=== PATIENT | female | born 1955 | race American Indian/Alaskan Native ===

== ENCOUNTER 2018-09-04 02:29 | Emergency (ER) | payer OTHER ==
[~2018-09-04] VITALS: Ht 165.1 cm; Wt 68.0 kg
[~2018-09-04 02:29] MED LIST: AMOXICILLIN500 MG PO; CARAFATE1 GM/10 ML PO; CLARITHROMYCIN500 MG PO; GUAIFENESIN-CO118 ML PO; IBUPROFEN600 MG PO; LISINOPRIL10 MG PO; METFORMIN HCL500 MG PO; NORCO 5-325 TA1 EACH PO; OMEPRAZOLE20 MG PO; POTASSIUM CHLO10 MEQ PO; PROTONIX40 MG PO; ZOFRAN ODT4 MG PO
[2018-09-04] MEDS ORDERED: ALDACTONE25 MG PO (03:02)
[2018-09-04] MEDS ORDERED: MAGNESIUM OXID400 M2 PO (03:03)
[2018-09-04] MEDS ORDERED: FUROSEMIDE80 MG PO (03:04)
[2018-09-04] MEDS ORDERED: LIPITOR20 MG PO (03:04)
[2018-09-04] MEDS ORDERED: CARVEDILOL6.25 MG PO (03:04)
[2018-09-04] MEDS ORDERED: ASPIR-LOW81 MG PO (03:05)
--- NOTE | 2018-09-04 13:33 | EKG ---
[facility] [address] [facility] [place] [address] Signed Normal sinus rhythm Possible Left atrial enlargement Right bundle branch block Abnormal ECG When compared with ECG of 08-MAY-2018 12:34, Criteria for Inferior infarct are no longer present Nonspecific T wave abnormality, improved in Inferior leads Nonspecific T wave abnormality no longer evident in Lateral leads Confirmed by MARLENY PETERSON DO ([id number]) on 09/04/2018 1:32:48 PM Electronically Signed By: MARLENY PETERSON DO 09/04/18 1333 PATIENT NAME: BLAIR HELLER Electrocardiogram DATE OF : 59 PHYSICIAN: MARLENY PETERSON DO REPORT #: [id number] REPORT IS CONFIDENTIAL AND NOT TO BE RELEASED WITHOUT AUTHORIZATION
== END 2018-09-04 04:10 | disposition home or self-care (01) ==
LOC: ED 02:29
DX: I11.0 Hypertensive heart disease with heart failure (principal); I50.9 Heart failure, unspecified; J90 Pleural effusion, not elsewhere classified; E11.9 Type 2 diabetes mellitus without complications; Z79.899 Other long term (current) drug therapy; Z79.82 Long term (current) use of aspirin; Z99.2 Dependence on renal dialysis
CPT/HCPCS: 71045; 80053; 83690; 85025; 93005; 93010; 99285-25

== ENCOUNTER 2019-12-03 11:49 | Emergency (ER) | payer OTHER ==
[~2019-12-03] VITALS: Ht 165.1 cm; Wt 68.0 kg
--- OUTSIDE RECORDS SUMMARY | ~2019-12-03 | XMS | Encounter Summary ---
Demographics + + + | Address | [address] | | | [place] [address] | + + + | Home Phone | | + + + | Preferred Language | Unknown | + + + | Marital Status | Single | + + + | Synagogue Affiliation | 1074 | + + + | Race | Unknown | + + + | Ethnic Group | Unknown | + + + Author + + + | Author | [facility] | | | and [place] | + + + | Organization | [facility] | | | and [place] | + + + | Address | Unknown | + + + | Phone | Unavailable | + + + Support + + + + + | Name | Relationship | Address | Phone | + + + + + | Evelina Bryan Name | ECON | [place] | | | | | [address] | | + + + + + | Lizet Scott | ECON | Unknown | | + + + + + Care Team Providers + +------+ + | Care Brim Welt Sewing Machine Operator Name | Role | Phone | + +------+ + | Aida Knight PA-C | PCP | | + +------+ + Encounter Details +--------+ + + + + | Date | Type | Department | Care Team | Description | +--------+ + + + + | 05/29/ | Abstract | [facility] | Nasir Lester | | | 2017 | | NEPHROLOGY [address] | M, DO [address] | | | | | [address] | [place] | | | | | [place], [place] | [place], [place] | | | | | [address] | [address] | | | | | [phone] | | | +--------+ + + + + Social History + +-------+ +--------+------+ | Tobacco Use | Types | Packs/Day | Years | Date | | | | | Used | | + +-------+ +--------+------+ | Never Smoker | | | | | + +-------+ +--------+------+ + +---+---+---+ | Smokeless Tobacco: | | | | | Never Used | | | | + +---+---+---+ + + +---------+ + | Alcohol Use | Drinks/Week | oz/Week | Comments | + + +---------+ + | Yes | | | 1 drink per month | + + +---------+ + + + + | Sex Assigned at | Date Recorded | | | | + + + | Not on file | | + + + + + + + | Job Start Date | Occupation | Industry | + + + + | Not on file | Not on file | Not on file | + + + + + + + + | Travel History | Travel Start | Travel End | + + + + + + | No recent travel history available. | + + documented as of this encounter Plan of Treatment Not on filedocumented as of this encounter Procedures + +--------+ + + + | Procedure Name | Priori | Date/Time | Associated Diagnosis | Comments | | | ty | | | | + +--------+ + + + | EXTERNAL LAB: ESME | Kevin | 05/25/2018 | | Results for this | | | e | | | procedure are in the | | | | | | results section. | + +--------+ + + + | EXTERNAL LAB: | Routin | 05/25/2018 | | Results for this | | GLUCOSE | e | | | procedure are in the | | | | | | results section. | + +--------+ + + + | EXTERNAL LAB: ALT | Routin | 05/25/2018 | | Results for this | | | e | | | procedure are in the | | | | | | results section. | + +--------+ + + + | EXTERNAL LAB: AST | Routin | 05/25/2018 | | Results for this | | | e | | | procedure are in the | | | | | | results section. | + +--------+ + + + | EXTERNAL LAB: | Routin | 05/25/2018 | | Results for this | | ALKALINE PHOSPHATASE | e | | | procedure are in the | | | | | | results section. | + +--------+ + + + | EXTERNAL LAB: | Routin | 05/25/2018 | | Results for this | | BILIRUBIN, TOTAL | e | | | procedure are in the | | | | | | results section. | + +--------+ + + + | EXTERNAL LAB: | Routin | 05/25/2018 | | Results for this | | ALBUMIN | e | | | procedure are in the | | | | | | results section. | + +--------+ + + + | EXTERNAL LAB: | Routin | 05/25/2018 | | Results for this | | PROTEIN, TOTAL | e | | | procedure are in the | | | | | | results section. | + +--------+ + + + | EXTERNAL LAB: | Routin | 05/25/2018 | | Results for this | | PHOSPHORUS | e | | | procedure are in the | | | | | | results section. | + +--------+ + + + | EXTERNAL LAB: | Routin | 05/25/2018 | | Results for this | | CALCIUM | e | | | procedure are in the | | | | | | results section. | + +--------+ + + + | EXTERNAL LAB: CARBON | Routin | 05/25/2018 | | Results for this | | DIOXIDE | e | | | procedure are in the | | | | | | results section. | + +--------+ + + + | EXTERNAL LAB: | Routin | 05/25/2018 | | Results for this | | CHLORIDE | e | | | procedure are in the | | | | | | results section. | + +--------+ + + + | EXTERNAL LAB: | Routin | 05/25/2018 | | Results for this | | POTASSIUM | e | | | procedure are in the | | | | | | results section. | + +--------+ + + + | EXTERNAL LAB: SODIUM | Routin | 05/25/2018 | | Results for this | | | e | | | procedure are in the | | | | | | results section. | + +--------+ + + + | EXTERNAL LAB: | Routin | 05/25/2018 | | Results for this | | VITAMIN D, | e | | | procedure are in the | | 25-HYDROXY | | | | results section. | + +--------+ + + + | EXTERNAL LAB: PTH, | Routin | 05/25/2018 | | Results for this | | INTACT | e | | | procedure are in the | | | | | | results section. | + +--------+ + + + | EXTERNAL LAB: CBC | Routin | 05/25/2018 | | Results for this | | | e | | | procedure are in the | | | | | | results section. | + +--------+ + + + | EXTERNAL LAB: EGFR | Routin | 05/25/2018 | | Results for this | | | e | | | procedure are in the | | | | | | results section. | + +--------+ + + + | EXTERNAL LAB: | Routin | 05/25/2018 | | Results for this | | CREATININE | e | | | procedure are in the | | | | | | results section. | + +--------+ + + + documented in this encounter Results External Lab: PTH, Intact (05/25/2018) + + + + + + | Component | Value | Ref Range | Performed | Pathologist | | | | | At | Signature | + + + + + + | PTH Intact, | 107.4 (A) | 16 - 65 | | | | External | | | | | + + + + + + + + | Specimen | + + | | + + External Lab: BUN (05/25/2018) + +-------+ + + + | Component | Value | Ref Range | Performed | Pathologist | | | | | At | Signature | + +-------+ + + + | BUN, | 112 | | | | | External | | | | | + +-------+ + + + External Lab: Glucose (05/25/2018) + +-------+ + + + | Component | Value | Ref Range | Performed | Pathologist | | | | | At | Signature | + +-------+ + + + | Glucose, | 204 | | | | | External | | | | | + +-------+ + + + External Lab: ALT (05/25/2018) + +-------+ + + + | Component | Value | Ref Range | Performed | Pathologist | | | | | At | Signature | + +-------+ + + + | ALT, | 11 | | | | | External | | | | | + +-------+ + + + External Lab: AST (05/25/2018) + +-------+ + + + | Component | Value | Ref Range | Performed | Pathologist | | | | | At | Signature | + +-------+ + + + | AST, | 16 | | | | | External | | | | | + +-------+ + + + External Lab: Alkaline Phosphatase (05/25/2018) + +-------+ + + + | Component | Value | Ref Range | Performed | Pathologist | | | | | At | Signature | + +-------+ + + + | ALP, | 89 | | | | | External | | | | | + +-------+ + + + External Lab: Bilirubin, Total (05/25/2018) + +-------+ + + + | Component | Value | Ref Range | Performed | Pathologist | | | | | At | Signature | + +-------+ + + + | Bilirubin, | 0.3 | | | | | Total, | | | | | | External | | | | | + +-------+ + + + External Lab: Albumin (05/25/2018) + +-------+ + + + | Component | Value | Ref Range | Performed | Pathologist | | | | | At | Signature | + +-------+ + + + | Albumin, | 2.9 | | | | | External | | | | | + +-------+ + + + External Lab: Protein, Total (05/25/2018) + +-------+ + + + | Component | Value | Ref Range | Performed | Pathologist | | | | | At | Signature | + +-------+ + + + | Protein, | 5.8 | | | | | Total, | | | | | | External | | | | | + +-------+ + + + External Lab: Phosphorus (05/25/2018) + +-------+ + + + | Component | Value | Ref Range | Performed | Pathologist | | | | | At | Signature | + +-------+ + + + | Phosphorus, | 5.7 | | | | | External | | | | | + +-------+ + + + External Lab: Calcium (05/25/2018) + +-------+ + + + | Component | Value | Ref Range | Performed | Pathologist | | | | | At | Signature | + +-------+ + + + | Calcium, | 8.5 | | | | | External | | | | | + +-------+ + + + External Lab: Carbon Dioxide (05/25/2018) + +-------+ + + + | Component | Value | Ref Range | Performed | Pathologist | | | | | At | Signature | + +-------+ + + + | Carbon | 28 | | | | | Dioxide, | | | | | | External | | | | | + +-------+ + + + External Lab: Chloride (05/25/2018) + +-------+ + + + | Component | Value | Ref Range | Performed | Pathologist | | | | | At | Signature | + +-------+ + + + | Chloride, | 94 | | | | | External | | | | | + +-------+ + + + External Lab: Potassium (05/25/2018) + +-------+ + + + | Component | Value | Ref Range | Performed | Pathologist | | | | | At | Signature | + +-------+ + + + | Potassium, | 4.6 | | | | | External | | | | | + +-------+ + + + External Lab: Sodium (05/25/2018) + +-------+ + + + | Component | Value | Ref Range | Performed | Pathologist | | | | | At | Signature | + +-------+ + + + | Sodium, | 136 | | | | | External | | | | | + +-------+ + + + External Lab: Vitamin D, 25-Hydroxy (05/25/2018) + +-------+ + + + | Component | Value | Ref Range | Performed | Pathologist | | | | | At | Signature | + +-------+ + + + | Vitamin D, | 14 | | | | | 25-Hydroxy, | | | | | | External | | | | | + +-------+ + + + + + | Specimen | + + | Blood | + + External Lab: CBC (05/25/2018) + +-------+ + + + | Component | Value | Ref Range | Performed | Pathologist | | | | | At | Signature | + +-------+ + + + | WBC, | 6.4 | | | | | External | | | | | + +-------+ + + + | HGB, | 10.1 | | | | | External | | | | | + +-------+ + + + | HCT, | 31.4 | | | | | External | | | | | + +-------+ + + + | PLT, | 299 | | | | | External | | | | | + +-------+ + + + | RBC, | 3.65 | | | | | External | | | | | + +-------+ + + + | MCV, | 86 | | | | | External | | | | | + +-------+ + + + | RDW, | 16.5 | | | | | External | | | | | + +-------+ + + + External Lab: eGFR (05/25/2018) + +-------+ + + + | Component | Value | Ref Range | Performed | Pathologist | | | | | At | Signature | + +-------+ + + + | eGFR, | 9 | | | | | External | | | | | + +-------+ + + + + + | Specimen | + + | Blood | + + External Lab: Creatinine (05/25/2018) + +-------+ + + + | Component | Value | Ref Range | Performed | Pathologist | | | | | At | Signature | + +-------+ + + + | Creatinine, | 4.81 | | | | | External | | | | | + +-------+ + + + + + | Specimen | + + | Blood | + + documented in this encounter Visit Diagnoses Not on filedocumented in this encounter"
--- OUTSIDE RECORDS SUMMARY | ~2019-12-03 | XMS | Encounter Summary ---
Demographics + + + | Address | [address] | | | [place] [address] | + + + | Home Phone | | + + + | Preferred Language | Unknown | + + + | Marital Status | Single | + + + | Rastafari Affiliation | 1074 | + + + | Race | Unknown | + + + | Ethnic Group | Unknown | + + + Author + + + | Author | [facility] | | | and [place] | + + + | Organization | [facility] | | | and [place] | + + + | Address | Unknown | + + + | Phone | Unavailable | + + + Support + + + + + | Name | Relationship | Address | Phone | + + + + + | Evelina Bryan Name | ECON | [place] | | | | | [address] | | + + + + + | Lizet Scott | ECON | Unknown | | + + + + + Care Team Providers + +------+ + | Care Director Construction Services Name | Role | Phone | + +------+ + | Aida Knight PA-C | PCP | | + +------+ + Reason for Visit +--------+ + | Reason | Comments | +--------+ + | Other | [employer] | +--------+ + Encounter Details +--------+ + + + + | Date | Type | Department | Care Team | Description | +--------+ + + + + | 06/20/ | Telephone | [facility] | Meryl, | Other ([employer] | | 2017 | | CARDIOLOGY [address] | [address] | vest) | | | | [place], | [place], | | | | | [place] [address] | [place] [address] | | | | | [phone] | [phone] | | | | | | | | +--------+ + + + [...] Not on filedocumented as of this encounter Visit Diagnoses Not on filedocumented in this encounter"
--- OUTSIDE RECORDS SUMMARY | ~2019-12-03 | XMS | Encounter Summary ---
Demographics + + + | Address | [address] | | | [place] [address] | + + + | Home Phone | | + + + | Preferred Language | Unknown | + + + | Marital Status | Single | + + + | Pentecostalism Affiliation | [id number] | + + + | Race | Unknown | + + + | Ethnic Group | Unknown | + + + Author + + + | Author | [facility] | | | and [place] | + + + | Organization | [facility] | | | and [place] | + + + | Address | Unknown | + + + | Phone | Unavailable | + + + Support + + + + + | Name | Relationship | Address | Phone | + + + + + | Evelina Bryan Name | E[place] | [place] | | | | | [address] | | + + + + + | Lizet Scott | ECON | Unknown | | + + + + + Care Team Providers + +------+ + | Care Script Girl Name | Role | Phone | + +------+ + | Aida Knight PA-C | PCP | | + +------+ + Reason for Visit Auth/Cert +--------+--------+ + + + + | Status | Reason | Specialty | Diagnoses / | Referred By | Referred To | | | | | Procedures | Contact | Contact | +--------+--------+ + + + + | | | | Diagnoses | | | | | | | lhc, rhc | | | | | | | Procedures | | | | | | | CV LHC CV | | | | | | | RHC | | | +--------+--------+ + + + + Encounter Details +--------+ + + + + | Date | Type | Department | Care Team | Description | +--------+ + + + + | 10/09/ | Hospital | [facility] | Tia Payne, | Coronary artery | | 2019 | Encounter | [facility] | MD [address] | disease involving | | | | [address] | [place], | [place] coronary | | | | [place], [place] | [place] [address] | artery, angina | | | | [address] | [phone] | presence | | | | [phone] | | unspecified, | | | | | | unspecified whether | | | | | | [place] or | | | | | | transplanted heart | +--------+ + + + + Social [...] + + documented as of this encounter Last Filed Vital Signs + + + + + | Vital Sign | Reading | Time Taken | Comments | + + + + + | Blood Pressure | 111/58 | 10/09/2018 11:45 AM | | | | | PDT | | + + + + + | Pulse | 70 | 10/09/2018 11:45 AM | | | | | PDT | | + + + + + | Temperature | 36.3 C (97.3 F) | 10/09/2018 7:30 AM | | | | | PDT | | + + + + + | Respiratory Rate | 18 | 10/09/2018 6:12 AM | | | | | PDT | | + + + + + | Oxygen Saturation | 97% | 10/09/2018 11:45 AM | | | | | PDT | | + + + + + | Inhaled Oxygen | - | - | | | Concentration | | | | + + + + + | Weight | 70.5 kg (155 lb 6.8 | 10/09/2018 6:12 AM | | | | oz) | PDT | | + + + + + | Height | 165.1 cm (5' 5") | 10/09/2018 6:12 AM | | | | | PDT | | + + + + + | Body Mass Index | 25.86 | 10/09/2018 6:12 AM | | | | | PDT | | + + + + + documented in this encounter Discharge Instructions Instructions Josué Perdomo RN - 10/09/2018 Angioplasty and Stent Placement for the Heart What is angioplasty? Angioplasty, also called percutaneous coronary intervention (PCI), is a procedure used to o pen blocked coronary arteries (caused by coronary artery disease). It restores blood flow to the heart muscle without open-heart surgery. Angioplasty can be done in an emergency settin g such as an acute heart attack or in an elective setting when heart disease is strongly tonie pected from non-invasive testing. For angioplasty, a special catheter (a long, thin, hollow tube) is inserted into a blood ve ssel and guided to the blocked coronary artery. The catheter has a tiny balloon at its tip. Once the catheter is in place, the balloon is inflated at the narrowed area of the coronary artery. This presses the plaque or blood clot blocking the artery against the sides of the a rtery making more room for blood flow. The use of fluoroscopy (a special type of X-ray that s like an X-ray "movie") helps the d octor find the blockages in the coronary arteries as a contrast dye moves through the arteri es. This is called coronary angiography. The doctor may determine that another type of procedure is necessary. This may include the use of atherectomy (removal of plaque) at the site of the narrowing of the artery. In athere ctomy, there may be tiny blades on a balloon or a rotating tip at the end of the catheter. W hen the catheter reaches the narrowed spot in the artery, the plaque is broken up or cut tracy y to open the artery. Stents Coronary stents are now used in nearly all angioplasty procedures. A stent is a tiny, expan dable, metal mesh coil that is put into the newly-opened area of the artery to help keep the artery from narrowing or closing again. Once the stent has been placed, tissue will start to form over it within a few days after t he procedure. The stent will be completely covered by scar tissue within a month or so. Medi cines called antiplatelets must be taken to decrease the "stickiness" of platelets (special blood cells that clump together to stop bleeding), and to prevent blood clots from forming i nside the stent. Your doctor will give specific instructions on which medicines need to be t aken and for how long. Most stents are coated with medicine to prevent the formation of too much scar tissue insid e the stent. These stents, called drug-eluting stents, or KARLOS, release medicine within the b lood vessel that inhibits the overgrowth of tissue within the stent. This helps deter re- na rrowing of the blood vessel. Some stents do not have this medicine coating and are called bare metal stents or BMS. They may have higher rates of stenosis but do not require long-term use of antiplatelet medicine s. This may be the preferred stent in people who are at high risk of bleeding. Because stents can become blocked, it is important for you to talk with your doctor about w hat you need to do if you have chest pain after a stent placement. If scar tissue does form inside the stent, a repeat procedure may be needed. This may be us ing either balloon angioplasty or with a second stent. In some cases, radiation therapy may be given through a catheter placed near the scar tissue to stop the growth of scar tissue an d open up the vessel. This is called brachytherapy. Why might I need angioplasty? Angioplasty is done to restore coronary artery blood flow when the narrowed artery is in a location that can be reached in this manner. Not all coronary artery disease (CAD) can be tr eated with angioplasty. Your doctor will decide the best way to treat your CAD based on your circumstances. What are the risks of angioplasty? Possible risks associated with angioplasty, stenting, atherectomy, and related procedures i nclude, but are not limited to: Bleeding at the site where the catheter is put into the body (usually the groin, wrist, or arm) Blood clot or damage to the blood vessel from the catheter Blood clot within the treated blood vessel Infection at the catheter insertion site Abnormal heart rhythms Heart attack Stroke Chest pain or discomfort Rupture of the coronary artery or complete closing of the coronary artery, requiring ope n-heart surgery Allergic reaction to the contrast dye used Kidney damage from the contrast dye You may want to ask your doctor about the amount of radiation used during the procedure and the risks related to your particular situation.It is a good idea to keep a record of your radiation exposure, such as previous scans and other types of X-rays, so that you can infor m your doctor. Risks associated with radiation exposure may be related to the cumulative num andrea of X-rays or treatments over a long period. For some people, having to lie still on the procedure table for the length of the procedure may cause some discomfort or pain. There may be other risks depending on your specific medical condition. Be sure to discuss a ny concerns with your doctor before the procedure. How do I get ready for angioplasty? Your doctor will explain the procedure to you and you can ask questions. You will be asked to sign a consent form that gives your permission to do the procedure. Read the form carefully and ask questions if anything is unclear. Tell your doctor if you have ever had a reaction to any contrast dye, or if you are beau rgic to iodine. Tell your doctor if you are sensitive to or are allergic to any medicines, latex, tape, and anesthetic agents (local and general). You will need to fast (not eat or drink) for a certain period before the procedure. Your doctor will tell you how long to fast, whether for a few hours or overnight. Tell your doctor if you are or think you could be. Radiation exposure during pr egnancy may lead to defects. Tell your doctor if you have any body piercings on your chest or abdomen (belly). Tell your doctor of all medicines (prescription and njkq-sod-lobckdm), vitamins, herbs, and supplements that you are taking. Tell your doctor if you have a history of bleeding disorders or if you are taking any an ticoagulant or antiplatelet (blood-thinning) medicines, aspirin, or other medicines that aff ect blood clotting. You may need to stop some of these medicines before the procedure. Howev er, for planned angioplasty procedures, your doctor may want you to continue taking aspirin and antiplatelet medicines, so be sure to ask. Your doctor may request a blood test before the procedure to determine how long it takes your blood to clot. Other blood tests may be done as well. Tell your doctor if you have a pacemaker or other implanted device. You may get a sedative before the procedure to help you relax. Based on your medical condition, your doctor may request other specific preparation. What happens during angioplasty? Angioplasty may be done as part of your stay in a hospital. Procedures may vary depending o n your condition and your doctor's practices. Most people who undergo angioplasty and stent placement are monitored overnight in the hospital. Generally, angioplasty follows this process: 1. You will be asked to remove any jewelry or other objects that may interfere with the pro cedure. You may wear your dentures or hearing aid if you use either of these. 2. You will be asked to remove your clothing and will be given a gown to wear. 3. You will be asked to empty your bladder before the procedure. 4. If there is a lot of hair at the area of the catheter insertion (often the groin area), the hair may be shaved off. 5. An intravenous (IV) line will be started in your hand or arm before the procedure. It wi ll be used for injection of medicine and to give IV fluids, if needed. 6. You will be placed on your back on the procedure table. 7. You will be connected to an electrocardiogram (ECG) monitor that records the electrical activity of your heart and monitors your heart rate using electrodes that stick to your skin . Your vital signs (heart rate, blood pressure, breathing rate, and oxygen level) will be mo nitored during the procedure. 8. There will be several monitor screens in the room, showing your vital signs, the images of the catheter being moved through your body into your heart, and the structures of your he art as the dye is injected. 9. You will get a sedative in your IV to help you relax. However, you will likely stay awak e during the procedure. 10. Your pulses below the catheter insertion site will be checked and marked so that the ci rculation to the limb below the site can easily be checked during and after the procedure. 11. A local anesthetic will be injected into the skin at the insertion site. You may feel s ome stinging at the site for a few seconds after the local anesthetic is injected. 12. Once the local anesthetic has taken effect, a sheath, or introducer, will be put into t he blood vessel (often at the groin). This is a plastic tube through which the catheter will be threaded into the blood vessel and advanced into the heart. 13. The catheter will be threaded through the sheath into the blood vessel. The doctor will advance the catheter through the aorta into the heart. Fluoroscopy (an X-ray movie ) w ill be used to help see the catheter advance into the heart. 14. The catheter will be threaded into the coronary arteries. Once the catheter is in place , contrast dye will be injected through the catheter into your coronary arteries in order to see the narrowed area(s). You may feel some effects when the contrast dye is injected into the IV line. These effects include a flushing sensation, a salty or metallic taste in the mo uth, or a brief headache. These effects usually last only a few moments. 15. Tell your doctor if you feel any breathing trouble, sweating, numbness, itching, nausea or vomiting, chills, or heart palpitations. 16. After the contrast dye is injected, a series of rapid X-ray images of the heart and cor onary arteries will be taken. You may be asked to take in a deep breath and hold it for a fe w seconds during this time. 17. When the doctor locates the narrowed artery, the catheter will be advanced to that loca tion and the balloon will be inflated to open the artery. You may have some chest pain or di scomfort at this point because the blood flow is temporarily blocked by the inflated balloon . Any chest discomfort or pain should go away when the balloon is deflated. However, if you notice any continued discomfort or pain, such as chest pain, neck or jaw pain, back pain, ar m pain, shortness of breath, or breathing trouble, tell your doctor right away. 18. The doctor may inflate and deflate the balloon several times. The decision may be made at this point to put in a stent to keep the artery open. In some cases, the stent may be put into the artery before the balloon is inflated. Then the inflation of the balloon will open the artery and fully expand the stent. 19. The doctor will take measurements, pictures, or angiograms after the artery has been op ened. Once it has been determined that the artery is opened sufficiently, the catheter will be removed. 20. The sheath or introducer is taken out and the insertion site may be closed with a closu re device that uses collagen to seal the opening in the artery, by the use of sutures, or by applying manual pressure over the area to keep the blood vessel from bleeding. Your doctor will decide which method is best for you. 21. If a closure device is used, a sterile dressing will be applied to the site. If manual pressure is used, the doctor (or an photography assistant) will hold pressure on the insertion site so t hat a clot will form on the outside of the blood vessel to prevent bleeding. Once the bleedi ng has stopped, a very tight bandage will be placed on the site. 22. Staff will help you slide from the table onto a stretcher so that you can be taken to [facility] recovery area. NOTE: If the insertion was in the groin, you will not be allowed to bend y our leg for several hours. If the insertion site was in the arm, your arm will be kept elevated on pillows and kept st raight by placing your arm in an arm guard (a plastic arm board designed to immobilize the e lbow joint). In addition, a plastic band (that works like a belt around the waist) may be se cured around your arm near the insertion site. The band will be loosened at given intervals and then removed when your doctor decides the pressure is no longer needed. What happens after angioplasty? In the hospital After the procedure, you may be taken to the recovery room for observation or returned to [facility] hospital room. You will stay flat in bed for several hours after the procedure. A nurse will monitor your vital signs, the insertion site, and circulation and sensation in the affe cted leg or arm. Tell your nurse right away if you feel any chest pain or tightness, or any other pain, as w ell as any feelings of warmth, bleeding, or pain at the insertion site. Bed rest may vary from 2 to 6 hours depending on your specific condition. If your doctor pl aced a closure device, your bed rest may be shorter. In some cases, the sheath or introducer may be left in the insertion site. If so, the bedre st will be last until the sheath is removed. After the sheath is removed, you may be given a light meal. You may feel the urge to urinate often because of the effects of the contrast dye and incre ased fluids. You will need to use a bedpan or urinal while on bed rest so that your affected leg or arm will not be bent. After the specified period of bed rest has been completed, you may get out of bed. The nurs e will help you the first time you get up, and will check your blood pressure while you are lying in bed, sitting, and standing. You should move slowly when getting up to avoid any diz ziness from the long period of bed rest. You may be given pain medicine for pain or discomfort at the insertion site or from having to lie flat and still for a long time. You will be encouraged to drink water and other fluids to help flush the contrast dye from your body. You may go back your usual diet after the procedure, unless your doctor decides otherwise. You will most likely spend the night in the hospital after your procedure. Depending on you r condition and the results of your procedure, your stay may be longer. You will get detaile d instructions for your discharge and recovery period. At home Once at home, monitor the insertion site for bleeding, unusual pain, swelling, abnormal dis coloration, or temperature change. A small bruise is normal. If you notice a constant or lar ge amount of blood at the site that cannot be contained with a small dressing, tell your doc tor. If your doctor used a closure device at your insertion site, you will be given specific inf ormation regarding the type of closure device that was used and how to take care of the site . There will be a small knot, or lump, under the skin at the site. This is normal. The knot should slowly disappear over a few weeks. It will be important to keep the insertion site clean and dry. Your doctor will give you sp ecific bathing instructions. You may be advised not to participate in any strenuous activities. Your doctor will instruc t you about when you can return to work and resume normal activities. Tell your doctor if you have any of the following: Fever or chills Increased pain, redness, swelling, bleeding, or other drainage from the insertion site Coolness, numbness or tingling, or other changes in the affected arm or leg Chest pain or pressure, nausea or vomiting, profuse sweating, dizziness, or fainting Your doctor may give you other instructions after the procedure, depending on your particul ar situation. Next steps Before you agree to the test or the procedure make sure you know: The name of the test or procedure The reason you are having the test or procedure What results to expect and what they mean The risks and benefits of the test or procedure What the possible side effects or complications are When and where you are to have the test or procedure Who will do the test or procedure and what that person s qualifications are What would happen if you did not have the test or procedure Any alternative tests or procedures to think about When and how will you get the results Who to call after the test or procedure if you have questions or problems How much will you have to pay for the test or procedure [id number] The [email or web address]. [address] [place], [place] [id number]. All righ ts reserved. This information is not intended as a substitute for professional medical care. Always follow your healthcare professional's instructions. Bleeding or Hematoma After Cardiac Catheterization You recently had cardiac catheterization. A catheter was put into your body through a punct ure of an artery in your groin or arm. You now have bleeding from this site. When bleeding o ccurs, it may drip or spurt from the site. Or it may collect in a lump (hematoma) under the skin. This often requires urgent evaluation in an emergency room. First put direct pressure on the site and call 911 or have someone take you to the emergency room. In the emergency ro om, additional pressure will be put on the site to stop bleeding. You will be sent home when the bleeding stops. To prevent repeat bleeding, take some precautions at home. If the bleed ing starts again, follow the advice below. Home care For the next 48 hours: Don't do any strenuous activity. Avoid stair is possible Don't lift anything greater than 10 pounds. If the puncture site is in your arm or wrist, don't lie on that arm. If your puncture site is in the groin, don'tstrain at bowel movements. Don't scrub the site when bathing. It is fine to get it wet after your healthcare provid er says it is OK, but don't scrub it or massage it. If bleeding happens again, call 911. Take the following steps to stop the bleeding until he lp arrives: Lie on your back. Place a clean cloth or gauze pad over the puncture site. Then hold firm pressure right o n the site. Or have someone else apply firm pressure using thegauze pad orwashcloth. Keep your arm straight and raised above the level of your heart if the site is in your a rm or wrist. If the site is in your groin, have someone else hold pressure on the site. Don't press too hard! If you press too hard, your leg and foot (or arm and hand) will no t get blood flow andthe skin under your toenails or fingernails may turn white. The skin s hould look pink, like the toenails on your other foot. When you (or someone) presses on the toenail it will turn white, but when you stop pressing on the nail it will turn pink again. This is called "capillary refill." If there is someone with you, he or she can check it. If your toes, foot, or leg start feeling numb, tingly, or cold, ease up on the pressure, you are probably pressing too hard. As soon as emergency care arrives, they will take over your care. Follow-up care Follow up with your healthcare provider, or as advised. Ask your healthcare provider for a contact number to call. Call 911 Call 911 if any of these occur: Chest pain or pressure Any bleeding from the site Feeling weak or faint Trouble breathing Lump (hematoma) isquickly getting larger Coolness, numbness, tingling, or skin color changes in the leg or arm with the puncture site When to seek medical advice Call your healthcare provider right awayif any of these occur: Increased pain, redness, swelling, or drainage from the puncture site Nausea or vomiting Date Last Reviewed: 12/16/[id number] The [email or web address]. [address] [place] [address], [place] [address]. All righ ts reserved. This information is not intended as a substitute for professional medical care. Always follow your healthcare professional's instructions. documented in this encounter Medications at Time of Discharge + + + +---------+ + + | Medication | Sig | Dispensed | Refills | Start | End Date | | | | | | Date | | + + + +---------+ + + | aspirin 81 mg | Take 81 mg by mouth | | 0 | | | | chewable tablet | Daily. | | | | | + + + +---------+ + + | b complex-vitamin | Take 1 tablet by | | 4 | 07/31/19 | | | c-folic acid | mouth Daily. | | | 19 | | | (NEPHRO-JANETH) tablet | | | | | | + + + +---------+ + + | calcitRIOL | Take 0.5 mcg by | | 0 | | | | (ROCALTROL) 0.5 MCG | mouth Every other | | | | | | capsule | day. | | | | | + + + +---------+ + + | magnesium oxide | Take 1 tablet by | 30 | 5 | 06/05/20 | | | (MAG-OX) 400 mg | mouth Daily. | tablet | | 18 | | | tablet | | | | | | + + + +---------+ + + | atorvaSTATin | Take 1 tablet by | 30 | 5 | 06/05/20 | | | (LIPITOR) 20 mg | mouth nightly. | tablet | | 18 | 9 | | tablet | | | | | | + + + +---------+ + + | carvedilol (COREG) | Take 1 tablet by | 60 | 5 | 06/05/20 | | | 6.25 mg tablet | mouth 2 times daily | tablet | | 18 | 9 | | | (with breakfast & | | | | | | | dinner). | | | | | + + + +---------+ + + | furosemide (LASIX) | Take 1 tablet by | 60 | 5 | 06/05/20 | | | 80 mg | mouth 2 times daily. 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 | tablet | | 19 | 9 | | 5 mg tablet | | | | | | + + + +---------+ + + | methoxy | Inject 100 mcg under | | 0 | | | | polyethylene | the skin Every 28 | | | | 9 | | glycol-epoetin beta | days. | | | | | | (MIRCERA) 100 | | | | | | | mcg/0.3 mL injection | | | | | | + + + +---------+ + + | spironolactone | Take 1 tablet by | 30 | 5 | 06/05/20 | | | (ALDACTONE) 25 mg | mouth Daily. | tablet | | 18 | 9 | | tablet | | | | | | + + + +---------+ + + documented as of this encounter Plan of Treatment Not on filedocumented as of this encounter Procedures + +--------+ + + + | Procedure Name | Priori | Date/Time | Associated Diagnosis | Comments | | | ty | | | | + +--------+ + + + | CV COR ANGIO | Routin | 10/09/2018 | | Results for this | | | e | 8:56 AM | | procedure are in the | | | | PDT | | results section. | + +--------+ + + + | CV RHC | Routin | 10/09/2018 | | Results for this | | | e | 8:56 AM | | procedure are in the | | | | PDT | | results section. | + +--------+ + + + | CV LHC | Routin | 10/09/2018 | | Results for this | | | e | 8:56 AM | | procedure are in the | | | | PDT | | results section. | + +--------+ + + + | POC GLUCOSE | Routin | 10/09/2018 | | Results for this | | | e | 6:33 AM | | procedure are in the | | | | PDT | | results section. | + +--------+ + + + documented in this encounter Results CV CARDIAC PROCEDURE (10/09/2018 8:56 AM PDT) + +-------+ + + + | Component | Value | Ref Range | Performed | Pathologist | | | | | At | Signature | + +-------+ + + + | LVEF-LVGRAM | 35 | % | [facility] | | | CARDIAC | | | | | | CATH | | | | | + +-------+ + + + + + | Specimen | + + | | + + + + | Addenda | + + | Addendum by Tia Payne MD on 10/12/2018 12:46 PM CARDIAC | | CATHETERIZATION and CORONARY ANGIOGRAPHY PATIENT NAME/: Xochilt Graham | | Milagros, (1955) DATE OF PROCEDURE: | | 10/09/2018 GLASS CUTTER: Tia Payne MD PROCEDURES | | PERFORMED: Coronary Angiography Left Heart Catheterization Left Ventriculography | | Right heart catheterization Indications: Coronary artery disease DESCRIPTION OF | | PROCEDURE: Informed consent was obtained from the patient, and a time-out was | | performed to verify the patient's identification and planned procedure. The | | patient's left wrist was then prepped and draped in the usual sterile fashion, and | | anesthetized with 1 mL of buffered 1% lidocaine. For arterial access modified | | Seldinger technique was used to place a 6 Fr. sheath in the left radial artery (a | | normal Luis E's test was performed prior to the procedure). Similarly venous access was | | obtained with a 5 Fr. balloon tip [place]-Mayra catheter in the right femoral vein. The | | equipment was exchanged over a wire and carefully aspirated and flushed throughout | | the procedure. A balloon tip catheter was advanced and pressure recordings made in | | the standard fashion. Coronary angiography was performed and a catheter was passed | | across the aortic valve to obtain left ventricular hemodynamics . After left | | ventriculography, a pullback was performed. JL 3.5, JL4, 3 DRC, pigtail diagnostic | | catheters were used for this procedure. The patient received a total of 1.5 mg of | | Versed and 25 mcg of fentanyl intravenously for conscious sedation during the | | procedure. A total of 65 mL Omnipaque 350 contrast was utilized. During procedure a | | total of 800 mcg nitroglycerin, and 800 mcg nicardipine were given via the radial | | sheath, and 4000 units heparin was given intravenously. The procedure had no | | immediate complications. I reviewed the patient's pre-sedation assessment and vital | | signs, supervised and directed the administration of moderate sedation with | | continuous oghb-bp-kqox attendance. My intra-service time was 25 minutes. See the | | procedure log for more details. At the conclusion of the procedure, the sheath | | was removed and hemostasis obtained with a TR hemostatic band. FINDINGS: | | Hemodynamics: Ao - 116/53 mm Hg with a mean of 78 mmHg LV - 112/5 mmHg LVEDP - 0 | | mmHg RA 13 mmHg RV 69/9 mmHg PA 65/27 mmHg Wedge 24 mmHg Using thermodilution, | | cardiac output is 3.8 L/min and index is 2.1 L/min/kg Left ventriculography: | | The left ventricle was mildly dilated. LVEF is calculated at 35-40%. There is no | | mitral valve regurgitation noted. Left main artery: The left main artery is a | | medium caliber vessel that bifurcates into the left anterior descending artery and | | left circumflex artery. Left main artery has mild diffuse disease. Left anterior | | descending artery: The left anterior descending artery is a medium caliber vessel | | that wraps around the apex and gives rise to 2 diagonal branches. The vessel has | | moderate diffuse plaquing. It gives rise to 2 diagonal branches. Left | | circumflex artery: The left circumflex artery is a medium caliber vessel that is non | | dominant. The vessel has moderate diffuse plaquing. It gives rise to 2 OM | | branches. Right coronary artery: The right coronary artery is a large caliber | | vessel that is dominant. The vessel has Subtotal occlusion at the proximal | | portion of the vessel. It gives rise to a PDA and Posterolateral branches. | | Collateralization; evidence of a poyr-jr-bjxoy collateralization from the distal LAD | | to distal PDA. CONCLUSIONS: 1. Severe three-vessel coronary artery disease; | | chronic total occlusion to the proximal portion of the RCA, moderate to severe diffuse | | disease of the LAD and LCx 2. There is a right dominate circulation. 3. | | Collateralization; evidence of a fzno-eh-zovum collateralization from the distal LAD | | to distal PDA. 4. Moderately reduced LV systolic function with an EF of 35% 5. | | Systemic blood pressure is normal. 6. Moderate pulmonary hypertension with PA | | pressure of 65/27 mmHg. Wedge pressure is 24 mmHg. 7. There was successful | | hemostasis with a TR hemostatic band. PLAN: 1. Coronary revascularization with | | PCI. 2. Case was discussed with Dr. Montgomery, interventionalists at [facility], | | [place]. | | PRIMARY CARE PROVIDER: Aida Knight PA-C For additional | | detail as to the procedures performed and the equipment that was utilized, please | | refer to the Procedure Log. | + + + + ---+ | Narrative | Performed A t | + + ---+ | CARDIAC | [facility] | | CATHETERIZATION and CORONARY ANGIOGRAPHY PATIENT NAME/: Xochilt Graham | | | Milagros, (1955) OF | | | PROCEDURE: 10/09/2018 GLASS CUTTER: Tia Payne MD | | | PROCEDURES PERFORMED:Coronary AngiographyLeft Heart | | | CatheterizationLeft Ventriculography Right heart catheterization | | | Indications: Coronary artery disease DESCRIPTION OF PROCEDURE: | | | Informed consent was obtained from the patient, and a time-out was | | | performed to verify the patient's identification and planned | | | procedure. The patient's left wrist was then prepped and draped in | | | the usual sterile fashion, and anesthetized with 1 mL of buffered 1% | | | lidocaine. For arterial access modified Seldinger technique was used | | | to place a 6 Fr. sheath in the left radial artery (a normal Luis E's | | | test was performed prior to the procedure). Similarly venous access | | | was obtained with a 5 Fr. balloon tip Vienna-Mayra catheter in the right | | | femoral vein. The equipment was exchanged over a wire and carefully | | | aspirated and flushed throughout the procedure. A balloon tip | | | catheter was advanced and pressure recordings made in the standard | | | fashion. Coronary angiography was performed and a catheter was passed | | | across the aortic valve to obtain left ventricular hemodynamics . | | | After left ventriculography, a pullback was performed. JL 3.5, JL4, 3 | | | DRC, pigtail diagnostic catheters were used for this procedure. The | | | patient received a total of 1.5 mg of Versed and 25 mcg of fentanyl | | | intravenously for conscious sedation during the procedure. A total of | | | 65 mL Omnipaque 350 contrast was utilized. During procedure a total | | | of 800 mcg nitroglycerin, and 800 mcg nicardipine were given via the | | | radial sheath, and 4000 units heparin was given intravenously. The | | | procedure had no immediate complications. At the conclusion of the | | | procedure, the sheath was removed and hemostasis obtained with a TR | | | hemostatic band. FINDINGS: Hemodynamics: Ao - 116/53 mm Hg with a | | | mean of 78 mmHgLV - 112/5 mmHgLVEDP - 0 mmHgRA 13 mmHgRV 69/9 mmHgPA | | | 65/27 mmHgWedge 24 mmHg Using thermodilution, cardiac output is 3.8 | | | L/min and index is 2.1 L/min/kg Left ventriculography: The left | | | ventricle was mildly dilated. LVEF is calculated at 35-40%. There | | | is no mitral valve regurgitation noted. Left main artery: The left | | | main artery is a medium caliber vessel that bifurcates into the left | | | anterior descending artery and left circumflex artery. Left main | | | artery has mild diffuse disease. Left anterior descending artery: | | | The left anterior descending artery is a medium caliber vessel that | | | wraps around the apex and gives rise to 2 diagonal branches. The | | | vessel has moderate diffuse plaquing. It gives rise to 2 diagonal | | | branches. Left circumflex artery: The left circumflex artery is a | | | medium caliber vessel that is non dominant. The vessel has | | | moderate diffuse plaquing. It gives rise to 2 OM branches. Right | | | coronary artery: The right coronary artery is a large caliber vessel | | | that is dominant. The vessel has Subtotal occlusion at the | | | proximal portion of the vessel. It gives rise to a PDA and | | | Posterolateral branches. Collateralization; evidence of a | | | uzyr-zx-rhkdi collateralization from the distal LAD to distal PDA. | | | CONCLUSIONS:1. Severe three-vessel coronary artery disease; chronic | | | total occlusion to the proximal portion of the RCA, moderate to severe | | | diffuse disease of the LAD and LCx2. There is a right dominate | | | circulation.3. Collateralization; evidence of a zets-on-nnwki | | | collateralization from the distal LAD to distal PDA.4. Moderately | | | reduced LV systolic function with an EF of 35%5. Systemic blood | | | pressure is normal.6. Moderate pulmonary hypertension with PA | | | pressure of 65/27 mmHg. Wedge pressure is 24 mmHg. 7. There was | | | successful hemostasis with a TR hemostatic band. PLAN:1. Coronary | | | revascularization with PCI.2. Case was discussed with Dr. Montgomery, | | | interventionalists at [facility]. [facility] | | | PROVIDER:Aida Knight PA-C For additional detail as to the | | | procedures performed and the equipment that was utilized, please refer | | | to the Procedure Log. | | | | | |Using thermodilution, cardiac output is 3.8 L/min and index is 2.1 | | |L/min/kg | | | | | |Left ventriculography: The left ventricle was mildly dilated. LVEF is | | |calculated at 35-40%. There is no mitral valve regurgitation noted. | | | | | |Left main artery: The left main artery is a medium caliber vessel that | | |bifurcates into the left anterior descending artery and left circumflex | | |artery. Left main artery has mild diffuse disease. | | | | | |Left anterior descending artery: The left anterior descending artery is a | | |medium caliber vessel that wraps around the apex and gives rise to 2 | | |diagonal branches. The vessel has moderate diffuse plaquing. It gives | | |rise to 2 diagonal branches. | | | | | |Left circumflex artery: The left circumflex artery is a medium caliber | | |vessel that is non dominant. The vessel has moderate diffuse plaquing. | | |It gives rise to 2 OM branches. | | | | | | | | |Right coronary artery: The right coronary artery is a large caliber | | |vessel that is dominant. The vessel has Subtotal occlusion at the | | |proximal portion of the vessel. It gives rise to a PDA and Posterolateral | | |branches. | | | | | | | | |Collateralization; evidence of a wrbc-cx-uoyru collateralization from the | | |distal LAD to distal PDA. | | | | | | | | | | | |CONCLUSIONS: | | |1. Severe three-vessel coronary artery disease; chronic total occlusion to | | |the proximal portion of the RCA, moderate to severe diffuse disease of the | | |LAD and LCx | | |2. There is a right dominate circulation. | | |3. Collateralization; evidence of a pegm-pz-jlfvt collateralization from | | |the distal LAD to distal PDA. | | |4. Moderately reduced LV systolic function with an EF of 35% | | |5. Systemic blood pressure is normal. | | |6. Moderate pulmonary hypertension with PA pressure of 65/27 mmHg. | | |Wedge pressure is 24 mmHg. | | |7. There was successful hemostasis with a TR hemostatic band. | | | | | | | | |PLAN: | | |1. Coronary revascularization with PCI. | | |2. Case was discussed with Dr. Montgomery, interventionalists at [facility], | | |[place]. | | | | | | | | | | | | | | | | | | | | | | | |PRIMARY CARE PROVIDER: | | |Aida Knight PA-C | | | | | | | | | | | |For additional detail as to the procedures performed and the equipment | | |that was utilized, please refer to the Procedure Log. | | | | | + + ---+ + +---------+ + + | Performing | Address | City/State/Zipcode | Phone Number | | Organization | | | | + +---------+ + + | [facility] | | | | + +---------+ + + POC Glucose (10/09/2018 6:33 AM PDT) + +---------+ + + + | Component | Value | Ref Range | Performed | Pathologist | | | | | At | Signature | + +---------+ + + + | Glucose, | 114 (H) | 70 - 109 mg/dL | [facility] | | | POC | | | [facility] | | [facility] | | | | [facility] - | | | | | | LABORATORY | | + +---------+ + + + + + | Specimen | + + | Blood | + + + + + + + | Performing | Address | City/State/Zipcode | Phone Number | | Organization | | | | + + + + + | [facility] | [address] | [place] | [phone] | | [facility] | | [id number] | | | - LABORATORY | | | | + + + + + documented in this encounter Visit Diagnoses + + | Diagnosis | + + | Coronary artery disease involving [place] coronary artery, angina presence unspecified, | | unspecified whether [place] or transplanted heart | + + documented in this encounter Administered Medications + +--------+---------+------+------+------+ | Medication Order | MAR | Action | Dose | Rate | Site | | | Action | Date | | | | + +--------+---------+------+------+------+ + +---+ | acetaminophen (TYLENOL) tablet | | | 650 mg 650 mg, Oral, EVERY 6 | | | HOURS PRN, Pain, Fever, Starting | | | 10/09/18 at 0909, | | | Post-op/Phase II | | + +---+ | | | + +---+ | lidocaine 1%-EPINEPHrine | | | 1:100,000 injection 5 mL 5 mL, | | | Infiltration, ONCE PRN, for | | | oozing at cardiac cath site, | | | Starting 10/09/18 at 0909, For | | | 1 dose, For continued oozing | | | after sheath removal despite | | | pressure dressing and manual | | | pressure. Inject to affected area | | | x 1 followed by 10 minutes of | | | manual compression., | | | Post-op/Phase II | | + +---+ | | | + +---+ | nitroglycerin (NITROSTAT) SL | | | tablet 0.4 mg 0.4 mg, | | | Sublingual, EVERY 5 MIN PRN, | | | Chest pain, Starting 10/09/18 | | | at 0909, May give up to 3 doses. | | | Notify physician after 2nd dose | | | given. Hold for SBP<100, | | | Post-op/Phase II | | + +---+ | | | + +---+ | ondansetron (ZOFRAN) injection | | | 4-8 mg 4-8 mg, Intravenous, | | | EVERY 6 HOURS PRN, Nausea, | | | Vomiting, Starting 10/09/18 at | | | 0909, Post-op/Phase II | | + +---+ | | | + +---+ + +---------+ +---------+-------+---+ | sodium chloride 0.9% (NS) | New Bag | 10/10/19 | 500 mLs | 125 | | | infusion at 125 mL/hr, | | 19 6:38 | | mL/hr | | | Intravenous, CONTINUOUS, Starting | | AM PDT | | | | | 10/09/18 at 0630, For | | | | | | | procedure only, not to exceed 1 | | | | | | | liter., Pre-op | | | | | | + +---------+ +---------+-------+---+ +---+---+ | | | +---+---+ documented in this encounter
--- OUTSIDE RECORDS SUMMARY | ~2019-12-03 | XMS | Encounter Summary ---
Demographics + + + | Address | [address] | | | [place] [address] | + + + | Home Phone | | + + + | Preferred Language | Unknown | + + + | Marital Status | Single | + + + | Uatsdin Affiliation | 1074 | + + + | Race | Unknown | + + + | Ethnic Group | Unknown | + + + Author + + + | Author | [facility] | | | and [place] | + + + | Organization | [facility] | | | and [place] | + + + | Address | Unknown | + + + | Phone | Unavailable | + + + Support + + + + + | Name | Relationship | Address | Phone | + + + + + | Evelina Bryan Name | ECON | [place] | | | | | [address] | | + + + + + | Lizet Scott | ECON | Unknown | | + + + + + Care Team Providers + +------+ + | Care Desk Assistant Name | Role | Phone | + +------+ + | Aida Knight PA-C | PCP | | + +------+ + Encounter Details +--------+ + + + + | Date | Type | Department | Care Team | Description | +--------+ + + + + | 07/19/ | Orders Only | [facility] | [facility] Best | Chronic kidney | | 2019 | | NEPHROLOGY [address] | M, DO [address] | disease, stage V | | | | [address] | [place] | (HCC) (Primary Dx) | | | | [place], [place] | [place], [place] | | | | | [address] | [address] | | | | | [phone] | | | +--------+ + + + [...] + + documented as of this encounter Progress Notes Cee Garcia RN - 07/19/2018 1:47 PM PSTLabs for upcoming nephrology appointment [facility] signed by Cee Garcia RN at 07/19/2018 1:48 PM PSTdocumented in this encounter Plan of Treatment + +------+--------+ + + | Name | Type | Priori | Associated Diagnoses | Order Schedule | | | | ty | | | + +------+--------+ + + | Hepatitis B Surface | Lab | Routin | Chronic kidney | 1 Occurrences | | Ab | | e | disease, stage V | starting 07/19/2018 | | | | | (HCC) | until 07/19/2019 | + +------+--------+ + + | Hepatitis B Surface | Lab | Routin | Chronic kidney | 1 Occurrences | | Ag | | e | disease, stage V | starting 07/19/2018 | | | | | (HCC) | until 07/19/2019 | + +------+--------+ + + | Hepatitis C Ab | Lab | Routin | Chronic kidney | 1 Occurrences | | | | e | disease, stage V | starting 07/19/2018 | | | | | (HCC) | until 07/19/2019 | + +------+--------+ + + | Renal Function Panel | Lab | Routin | Chronic kidney | 1 Occurrences | | | | e | disease, stage V | starting 07/19/2018 | | | | | (HCC) | until 07/19/2019 | + +------+--------+ + + documented as of this encounter Visit Diagnoses + + | Diagnosis | + + | Chronic kidney disease, stage V (HCC) - Primary Chronic kidney disease, Stage V | + + documented in this encounter"
--- OUTSIDE RECORDS SUMMARY | ~2019-12-03 | XMS | Encounter Summary ---
Demographics + + + | Address | [address] | | | [place] [address] | + + + | Home Phone | | + + + | Preferred Language | Unknown | + + + | Marital Status | Single | + + + | Confucianism Affiliation | 1074 | + + + | Race | Unknown | + + + | Ethnic Group | Unknown | + + + Author + + + | Author | [facility] | | | and [place] | + + + | Organization | [facility] | | | and [place] | + + + | Address | Unknown | + + + | Phone | Unavailable | + + + Support + + + + + | Name | Relationship | Address | Phone | + + + + + | Evelina Bryan Name | ECON | [place] | | | | | [address] | | + + + + + | Lizet Scott | ECON | Unknown | | + + + + + Care Team Providers + +------+ + | Care [place] Dehydrator Operator Name | Role | Phone | [...] +--------+--------+ + + + + Encounter Details +--------+---------+ + + + | Date | Type | Department | Care Team | Description | +--------+---------+ + + + | 10/09/ | Surgery | [facility] | Tia Payne, | CV LHC | | 2019 | | MED CTR CV INTRA OP | MD [address] | | | | | [address] | [facility] | | | | | [place] | [place] [address] | | | | | [address] | [phone] | | | | | [phone] | | | +--------+---------+ + + + Social History + +-------+ [...] your doctor of all medicines (prescription and pwzq-zst-qzvlbge), vitamins, herbs, and supplements that you are [...] pressure is used, the doctor (or an medicine assistant) will hold pressure on the insertion site so t hat a clot will form on the outside of the blood vessel to prevent bleeding. Once the bleedi ng has stopped, a very tight bandage will be placed on the site. 22. Staff will help you slide from the table onto a stretcher so that you can be [facility] recovery area. NOTE: If the insertion was [...] recovery room for observation or returned to [facility] hospital room. You will stay flat [...] to pay for the test or procedure [id number] [employer]. [address] [place] [address]. All righ ts reserved. This information is [...] site Nausea or vomiting Date Last Reviewed: 12/16/[id number] [employer] [address] [place] [address]. All righ ts reserved. This information is [...] | | | | | | | (FORMERLY [facility] Dilated | | | | | | | cardiomyopathy | | | | | | | ([facility] Type 2 | | | | | | | diabetes mellitus | | | | | | | with diabetic | | | | | | | nephropathy, with | | | | | | | long-term current | | | | | | | use of insulin | | | | | | | ([facility]), Anemia in | | | | | | | stage 5 chronic | | | | | | | kidney disease, not | | | | | | | on chronic dialysis | | | | | | | (FORMERLY [facility]) | | | | | | + [...] ANGIOGRAPHY PATIENT NAME/: Xochilt Graham | | Milagros (1955) DATE OF PROCEDURE: | | 10/09/2018 SALES CLERK FOOD: Tia Payne MD PROCEDURES | | PERFORMED: [...] obtained with a 5 Fr. balloon tip Tuthill-Mayra catheter in the right femoral vein. The [...] of moderate sedation with | | continuous mzzc-iv-ezuk attendance. My intra-service time was 25 minutes. [...] branches. | | Collateralization; evidence of a ejvl-xr-yxgeo collateralization from the distal LAD | | to distal PDA. CONCLUSIONS: 1. Severe three-vessel coronary artery disease; | | chronic total occlusion to the proximal portion of the RCA, moderate to severe diffuse | | disease of the LAD and LCx 2. There is a right dominate circulation. 3. | | Collateralization; evidence of a fiay-rt-nszpp collateralization from the distal LAD | | [...] was discussed with Dr. Montgomery, interventionalists at [place], | | [place] | | PRIMARY CARE [...] (1955) OF | | | PROCEDURE: 10/09/2018 SALES CLERK FOOD: Tia Payne MD | | | PROCEDURES [...] obtained with a 5 Fr. balloon tip Tuthill-Mayra catheter in the right | | | [...] Collateralization; evidence of a | | | vjca-cc-rldwi collateralization from the distal LAD to distal PDA. | | | CONCLUSIONS:1. Severe three-vessel coronary artery disease; chronic | | | total occlusion to the proximal portion of the RCA, moderate to severe | | | diffuse disease of the LAD and LCx2. There is a right dominate | | | circulation.3. Collateralization; evidence of a yzrp-qc-iabqe | | | collateralization from the distal [...] Dr. Montgomery, | | | interventionalists at [facility]. [facility] | | | PROVIDER:Aida Knight [...] | | | |Collateralization; evidence of a ktkx-ys-uklkq collateralization from the | | |distal LAD [...] | | |3. Collateralization; evidence of a mzul-is-uglbi collateralization from | | |the distal LAD [...] was discussed with Dr. Montgomery, interventionalists at [place], | | |[place]. | | | | [...] (H) | 70 - 109 mg/dL | [facility] | | | POC | | | [facility] | | | | | | [facility] [...] | + + + + + | [facility] | [address] | [place] | [phone] | | [facility] | | [address] | | | - LABORATORY | | | | + + + + + documented in this encounter Visit Diagnoses + + | Diagnosis | + + | Coronary artery disease, angina presence unspecified, unspecified vessel or lesion | | type, unspecified whether tribe or transplanted heart | + + | Ischemic cardiomyopathy Other specified forms of chronic ischemic heart disease | + + documented in this encounter [...] +---+ | | | + +---+ + +-------+ +--------+---+---+ | fentaNYL (PF) injection ONCE | Given | 10/10/19 | 25 mcg | | | | PRN, Starting Tue10/09/18 at | | 19 7:46 | | | | | 0746, Intra-op | | AM PDT | | | | + +-------+ +--------+---+---+ +---+---+ | | | +---+---+ + +-------+ +--------+---+---+ | heparin 1,000 units/mL | Given | 10/10/19 | 4,000 | | | | injection ONCE PRN, Starting Mon | | 19 8:10 | Units | | | | 10/09/18 at 0810, Intra-op | | AM PDT | | | | + +-------+ +--------+---+---+ +---+---+ | | | +---+---+ + +-------+ +--------+---+---+ | iohexol (OMNIPAQUE 350) 350 | Given | 10/10/19 | 65 mLs | | | | mg/mL injection ONCE PRN, | | 19 8:32 | | | | | Starting 10/09/18 at 0832, | | AM PDT | | | | | Intra-op | | | | | | + +-------+ +--------+---+---+ + +---+ | | | + +---+ | lidocaine 1%-EPINEPHrine | | | 1:100,000 injection 5 mL 5 mL, | | | Infiltration, ONCE PRN, for | | | oozing at cardiac cath site, | | | Starting Tue10/09/18 at 0909, For | | | 1 dose, For continued oozing | | | after sheath removal despite | | | pressure dressing and manual | | | pressure. Inject to affected area | | | x 1 followed by 10 minutes of | | | manual compression., | | | Post-op/Phase II | | + +---+ | | | + +---+ + +-------+ +------+---+---+ | lidocaine buffered 0.9% | Given | 10/10/19 | 1 mL | | | | injection ONCE PRN, Starting Tue | | 19 8:00 | | | | | 10/09/18 at 0746, Intra-op | | AM PDT | | | | + +-------+ +------+---+---+ +-------+ +-------+---+---+ | Given | 10/10/19 | 6 mLs | | | | | 19 7:46 | | | | | | AM PDT | | | | +-------+ +-------+---+---+ +---+---+ | | | +---+---+ + +-------+ +--------+---+ + | midazolam (VERSED) 1 mg/mL | Given | 10/10/19 | 0.5 mg | | Left Arm | | injection ONCE PRN, Starting Mon | | 19 7:52 | | | | | 10/09/18 at 0745, Intra-op | | AM PDT | | | | + +-------+ +--------+---+ + +-------+ +--------+---+ + | Given | 10/10/19 | 0.5 mg | | Left Arm | | | 19 7:49 | | | | | | AM PDT | | | | +-------+ +--------+---+ + | Given | 10/10/19 | 0.5 mg | | Left Arm | | | 19 7:45 | | | | | | AM PDT | | | | +-------+ +--------+---+ + +---+---+ | | | +---+---+ + +-------+ +---------+---+---+ | niCARdipine in dextrose | Given | 10/10/19 | 400 mcg | | | | (CARDENE) 0.2 mg/ml syringe ONCE | | 19 8:20 | | | | | PRN, Starting 10/09/18 at | | AM PDT | | | | | 0812, Intra-op | | | | | | + +-------+ +---------+---+---+ +-------+ +---------+---+---+ | Given | 10/10/19 | 400 mcg | | | | | 19 8:12 | | | | | | AM PDT | | | | +-------+ +---------+---+---+ + +---+ | | | + +---+ [...] +---+ | | | + +---+ + +-------+ +---------+---+--------+ | nitroglycerin 100 mcg/mL | Given | 10/10/19 | 400 mcg | | Right | | syringe ONCE PRN, Starting Mon | | 19 8:27 | | | Arm | | 10/09/18 at 0804, Intra-op | | AM PDT | | | | + +-------+ +---------+---+--------+ +-------+ +---------+---+--------+ | Given | 10/10/19 | 400 mcg | | Right | | | 19 8:04 | | | Arm | | | AM PDT | | | | +-------+ +---------+---+--------+ + +---+ | | | + +---+ [...]
--- OUTSIDE RECORDS SUMMARY | ~2019-12-03 | XMS | Encounter Summary ---
Demographics + + + | Address | [address] | | | [place] [address] | + + + | Home Phone | | + + + | Preferred Language | Unknown | + + + | Marital Status | Single | + + + | Pentecostal Affiliation | 1074 | + + + | Race | Unknown | + + + | Ethnic Group | Unknown | + + + Author + + + | Author | [facility] | | | and [place] | + + + | Organization | [facility] [...] [place] | | | | | [address] | | + + + + + | Lizet Scott | ECON | Unknown | | + + + + + Care Team Providers + +------+ + | Care Workers Compensation Analyst Name | Role | Phone | + +------+ + | Aida Knight PA-C | PCP | | + +------+ + Reason for Referral Evaluate & Treat (Routine) +--------+ + + + + + | Status | Reason | Specialty | Diagnoses / | Referred By | Referred To | | | | | Procedures | Contact | Contact | +--------+ + + + + + | Closed | Specialty | Surgery / | Diagnoses | [place], | Field, | | | Services | General | Status post | Shreya Mathis, | Harman I, | | | Required | Surgery | vein | MD [address] | MD, FACS [address] | | | | | stripping | [place] | [address] | | | | | Skin lump of | [address] [place] | [place], | | | | | leg, right | [place], [place] | [place] [address] | | | | | Procedures | [address] | Phone: | | | | | | Phone: | [phone] | | | | | DOS | [phone] | Fax: | | | | | | Fax: | [phone] | | | | | | [phone] | | +--------+ + + + + + Encounter Details +--------+ + + + + | Date | Type | Department | Care Team | Description | +--------+ + + + + | 03/30/ | Orders Only | [facility] [place] | Shreya Eldridge W, | Status post vein | | 2019 | | NEPHROLOGY [address] | MD [address] | stripping (Primary | | | | [address] | [address] [place] | Dx); Skin lump of | | | | [place], [place] | [place] [address] | leg, right | | | | [address] | [phone] | | | | | [phone] | | | +--------+ + + + [...] as of this encounter Plan of Treatment + + +--------+ + + | Name | Type | Priori | Associated Diagnoses | Order Schedule | | | | ty | | | + + +--------+ + + | * [facility] | Outpatient | Routin | Status post vein | Ordered: 03/30/2019 | | Surgery - AMB | Referral | e | stripping Skin lump | | | Referral | | | of leg, right | | + + +--------+ + + documented as of this encounter Visit Diagnoses + + | Diagnosis | + + | Status post vein stripping - Primary Other postprocedural status | + + | Skin lump of leg, right | + + documented in this encounter"
--- OUTSIDE RECORDS SUMMARY | ~2019-12-03 | XMS | Encounter Summary ---
Demographics + + + | Address | [address] | | | [place] [address] | + + + | Home Phone | | + + + | Preferred Language | Unknown | + + + | Marital Status | Single | + + + | Cheondoism Affiliation | 1074 | + + + | Race | Unknown | + + + | Ethnic Group | Unknown | + + + Author + + + | Author | [facility] | | | and [place] | + + + | Organization | [facility] | | | and [place] | + + + | Address | Unknown | + + + | Phone | Unavailable | + + + Support + + + + + | Name | Relationship | Address | Phone | + + + + + | Evelina Bryan Name | ECON | [place] | | | | | [address] | | + + + + + | Lizet Scott | ECON | Unknown | | + + + + + Care Team Providers + +------+ + | Care Development Advisor Name | Role | Phone | + +------+ + | Aida Knight PA-C | PCP | | + +------+ + Reason for Referral Diagnostic/Screening (Urgent) +--------+--------+ + + + + | Status | Reason | Specialty | Diagnoses / | Referred By | Referred To | | | | | Procedures | Contact | Contact | +--------+--------+ + + + + | Closed | | Radiology | Diagnoses | | [facility] | | | | | Acute | [place], | [address] | | | | | combined | [place] | [place], | | | | | systolic and | [address] | [place] | | | | | diastolic | [place] | [address] | | | | | congestive | [place], | Phone: | | | | | heart | [place] | [phone] | | | | | failure | [address] | Fax: | | | | | (HCC) | Phone: | [phone] | | | | | Procedures | [phone] | | | | | | ECHO | Fax: | | | | | | Complete | [phone] | | +--------+--------+ + + + + Reason for Visit Auth/Cert +--------+--------+ + + + + | Status | Reason | Specialty | Diagnoses / | Referred By | Referred To | | | | | Procedures | Contact | Contact | +--------+--------+ + + + + | | | | | | | +--------+--------+ + + + + Encounter Details +--------+ + + + + | Date | Type | Department | Care Team | Description | +--------+ + + + + | 07/17/ | Hospital | [facility] | Meryl, | Acute combined | | 2019 | Encounter | MED CTR ECHO [address] | [address] | systolic and | | | | [place] | [place], | diastolic congestive | | | | [place] [address] | [place] [address] | heart failure (HCC) | | | | [phone] | [phone] | | | | | | | [...] + + documented as of this encounter Medications at Time of Discharge [...] tablet by | 30 | 5 | 11/22/19 | | | (LIPITOR) 80 MG | mouth Daily. | tablet | | 19 | | | tablet | | | [...] + + + +---------+ + + | Cholecalciferol | Take 1 capsule by | 30 each | 11 | 02/27/20 | | | (VITAMIN D-3) 2000 | mouth Daily. | | | 19 | | | units CAPS | | | | | | + + + +---------+ + + | epoetin khalif | Inject 1 mL under | | 0 | 04/11/20 | | | (EPOGEN, PROCRIT) | the skin Three times | | | 19 | | | 10,000 units/mL | a week. | | | | | | injection | | | | | | [...] tablet by | 60 | 5 | 05/24/20 | | | 6.25 mg tablet | mouth 2 times daily | tablet | | 19 | 0 | | | (with breakfast & | | | | | | | dinner). | | | | | + + + +---------+ + + | furosemide (LASIX) | Take 1 tablet by | | 0 | 04/10/20 | | | 80 mg | mouth Daily. 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 | tablet | | 19 | 0 | | 10 mg tablet | | | | | | + + + +---------+ + + | spironolactone | Take 1 tablet by | 30 | 5 | 05/24/20 | | | (ALDACTONE) 25 mg | mouth Daily. | tablet | | 19 | 0 | | tablet | | | | | | + + + +---------+ + + documented as of this encounter Plan of Treatment Not on filedocumented as of this encounter Procedures + +--------+ + + + | Procedure Name | Priori | Date/Time | Associated Diagnosis | Comments | | | ty | | | | + +--------+ + + + | ECHO COMPLETE | Routin | 07/17/2019 | Acute combined | Results for this | | | e | 9:25 AM | systolic and | procedure are in the | | | | PST | diastolic congestive | results section. | | | | | heart failure (HCC) | | + +--------+ + + + documented in this encounter Results ECHO Complete (07/17/2019 9:25 AM PST) + +--------+ + + + | Component | Value | Ref Range | Performed | Pathologist | | | | | At | Signature | + +--------+ + + + | Patient | 145 lb | | [facility] | | | Weight | | | | | | (lbs) | | | | | + +--------+ + + + | Patient | 65 in | | [facility] | | | Height | | | | | + +--------+ + + + | Inferior | 1.52 | cm | [facility] | | | Vena Cava | | | | | | Diameter at | | | | | | | | | | | | Inspiration | | | | | + +--------+ + + + | Inferior | 2.2 | cm | [facility] | | | Vena Cava | | | | | | Diameter at | | | | | | Expiration | | | | | + +--------+ + + + | LVIDd | 4.52 | cm | [facility] | | + +--------+ + + + | FS | 14 | % | [facility] | | + +--------+ + + + | LA volume | 118.83 | mL | [facility] | | + +--------+ + + + | Ascending | 3.06 | cm | [facility] | | | aorta | | | | | + +--------+ + + + | Aortic arch | 3.05 | cm | [facility] | | + +--------+ + + + | AV mean | 3.12 | mmHg | [facility] | | | gradient | | | | | + +--------+ + + + | Aortic | 2.7 | cm2 | [facility] | | | Valve Area | | | | | | by | | | | | | Continuity | | | | | | VTI | | | | | + +--------+ + + + | MV Area by | 3.94 | cm2 | [facility] | | | P 1/2 | | | | | | method | | | | | + +--------+ + + + | LVOT | 2.16 | cm | [facility] | | | diameter | | | | | + +--------+ + + + | LVOT peak | 90.44 | cm/s | [facility] | | | markel | | | | | + +--------+ + + + | LVOT peak | 19.29 | cm | [facility] | | | VTI | | | | | + +--------+ + + + | AV peak markel | 113 | cm/s | [facility] | | + +--------+ + + + | AV VTI | 26.2 | cm | [facility] | | + +--------+ + + + | MR max markel | 506 | cm/s | [facility] | | + +--------+ + + + | AV peak | 5.11 | mmHg | [facility] | | | gradient | | | | | + +--------+ + + + | MV peak | 102.41 | mmHg | [facility] | | | gradient | | | | | + +--------+ + + + | MV Pressure | 55.84 | msec | [facility] | | | 1/2 time | | | | | + +--------+ + + + | LA Volume | 49 | mL/m2 | [facility] | | | Index | | | | | + +--------+ + + + | AV LVOT | 3.27 | mmHg | [facility] | | | Peak | | | | | | Gradient | | | | | + +--------+ + + + | AV LVOT | 1.64 | mmHg | [facility] | | | Mean | | | | | | Gradient | | | | | + +--------+ + + + | TR Peak | 20 | mmHg | [facility] | | | Gradient | | | | | + +--------+ + + + | RV Free | 9 | cm/s | [facility] | | | Wall Peak | | | | | | S' | | | | | + +--------+ + + + | TR Velocity | 222.44 | cm | [facility] | | + +--------+ + + + | LV | 9.05 | cm | [facility] | | | Diastolic | | | | | | Length 4C | | | | | + +--------+ + + + | LV Systolic | 32.94 | cm2 | [facility] | | | Area PSAX | | | | | + +--------+ + + + | RV | 3.14 | cm | [facility] | | | Diastolic | | | | | | Basal | | | | | | Diameter | | | | | + +--------+ + + + | LV | 20 | % | [facility] | | | Zuniga's | | | | | | Biplane EF | | | | | + +--------+ + + + | AV | 82.88 | msec | [facility] | | | Acceleratio | | | | | | n Time | | | | | + +--------+ + + + | LV ED | 137.75 | ml | [facility] | | | Volume | | | | | | (Zuniga's) | | | | | + +--------+ + + + | LV ED | 57 | ml/m2 | [facility] | | | Volume | | | | | | Index | | | | | + +--------+ + + + | LV ES | 111.86 | ml | [facility] | | | Volume | | | | | + +--------+ + + + | LVOT Mean | 58.18 | cm/s | [facility] | | | Velocity | | | | | + +--------+ + + + | MV E' | 7.92 | cm/s | [facility] | | | Lateral | | | | | | Velocity | | | | | + +--------+ + + + | MV E' | 4.3 | cm/s | [facility] | | | Septal | | | | | | Velocity | | | | | + +--------+ + + + | MV | 251.35 | cm/s2 | [facility] | | | Deceleratio | | | | | | n Sargent | | | | | + +--------+ + + + | MV | 192.56 | msec | [facility] | | | Deceleratio | | | | | | n Time | | | | | + +--------+ + + + | MV E/A | 0.48 | | [facility] | | | Ratio | | | | | + +--------+ + + + | MV Peak | 101.2 | cm/s | [facility] | | | A-Wave | | | | | + +--------+ + + + | MV Peak | 48.89 | cm/s | [facility] | | | E-Wave | | | | | + +--------+ + + + | AV Mean | 84.3 | cm/s | [facility] | | | Velocity | | | | | + +--------+ + + + | RA Area | 29 | cm2 | [facility] | | + +--------+ + + + | LA/Aorta | 1.39 | | [facility] | | | Ratio | | | | | + +--------+ + + + | LA Area | 30.73 | cm2 | [facility] | | + +--------+ + + + | LA Systolic | 9.72 | mmHg | [facility] | | | Pressure | | | | | + +--------+ + + + | MV E/E | 11.37 | | [facility] | | | SEPTAL | | | | | + +--------+ + + + | MV E/E | 6.17 | | [facility] | | | LATERAL | | | | | + +--------+ + + + | LA Major | 0.262 | cm | [facility] | | + +--------+ + + + | LV ES | 46 | ml/m2 | [facility] | | | Volume | | | | | | Index | | | | | + +--------+ + + + | Cardiac | 5.44 | l/min | [facility] | | | Output | | | | | + +--------+ + + + | Cardiac | 2.26 | l/min/m2 | [facility] | | | Index | | | | | + +--------+ + + + | LV Area | 38.84 | cm2 | [facility] | | | Diastolic | | | | | + +--------+ + + + | Vitals | 77 | | [facility] | | | Heart Rate | | | | | | Rest | | | | | + +--------+ + + + | Vitals BP | 105 | | [facility] | | | Systolic | | | | | + +--------+ + + + | Vitals BP | 55 | | [facility] | | | Diastolic | | | | | + +--------+ + + + | Aortic Root | 3.53 | cm | [facility] | | | Diameter | | | | | + +--------+ + + + | IVS | 1.11 | cm | [facility] | | | Diastolic | | | | | | Thickness | | | | | | MM | | | | | + +--------+ + + + | LVPW | 1.12 | cm | [facility] | | | Diastolic | | | | | | Thickness | | | | | | MM | | | | | + +--------+ + + + | IVS | 1.36 | cm | [facility] | | | Systolic | | | | | | Thickness | | | | | | MM | | | | | + +--------+ + + + | LV Systolic | 3.87 | cm | [facility] | | | Diameter | | | | | | MM | | | | | + +--------+ + + + | LVPW | 1.32 | cm | [facility] | | | Systolic | | | | | | Thickness | | | | | | MM | | | | | + +--------+ + + + | LA Systolic | 4.91 | cm | [facility] | | | Diameter | | | | | | MM | | | | | + +--------+ + + + | TAPSE | 0.9 | cm | [facility] | | + +--------+ + + + | LVEF-TTE | 20 | % | [facility] | | | TRANSTHORAC | | | | | | IC ECHO | | | | | + +--------+ + + + | RA PRESSURE | 15 | mmHg | [facility] | | + +--------+ + + + | RVSP | 35 | mmHg | [facility] | | | Estimated | | | | | + +--------+ + + + + + | Specimen | + + | | + + + + + | Narrative | Performed At | + + + | 1. Moderate | [facility] | | biatrial dilatation.2. Mild left ventricular dilatation with a mild | | | eccentric left ventricular hypertrophy. There is a severe global | | | hypokinesis of the left ventricle. Overall, left ventricular | | | significant is severely reduced. LVEF is 20 to 25%.3. Grade 1 left | | | ventricular diastolic dysfunction.4. Mildly dilated right | | | ventricular cavity with a normal wall thickness and a moderately | | | reduced right ventricular systolic function. 5. Mildly thickened | | | trileaflet aortic valve with adequate opening. There is a trivial | | | central aortic valve insufficiency.6. Mildly thickened and calcified | | | mitral valve suggesting myxomatous change with adequate opening. | | | There is a trace central mitral valve regurgitation.6. Mild mitral | | | annular calcification.7. Trace tricuspid valve regurgitation.8. | | | Borderline pulmonary hypertension with a peak systolic pressure of | | | 35 to 40 mmHg.9. Dilated IVC without respiratory collapse suggesting | | | fluid retention.10. When compared to echocardiogram on 05/08/2018, | | | no change in left ventricular systolic function. Moderate | | | circumferential pericardial effusion has disappeared. | | |10. When compared to echocardiogram on 05/08/2018, no change in left | | |ventricular systolic function. Moderate circumferential pericardial | | |effusion has disappeared. | | + + + + +---------+ + + | Performing | Address | City/State/Zipcode | Phone Number | | Organization | | | | + +---------+ + + | [facility] | | | | + +---------+ + + documented in this encounter Visit Diagnoses + + | Diagnosis | + + | Acute combined systolic and diastolic congestive heart failure (HCC) Acute combined | | systolic and diastolic heart failure | + + documented in this encounter"
--- OUTSIDE RECORDS SUMMARY | ~2019-12-03 | XMS | Encounter Summary ---
Demographics + + + | Address | [address] | | | [place] [address] | + + + | Home Phone | | + + + | Preferred Language | Unknown | + + + | Marital Status | Single | + + + | Sikhism Affiliation | 1074 | + + + | Race | Unknown | + + + | Ethnic Group | Unknown | + + + Author + + + | Author | [facility] | | | and Jethro[place] | + + + | Organization | [facility] | | | and Jeth[place]ana | + + + | Address | Unknown | + + + | Phone | Unavailable | + + + Support + + + + + | Name | Relationship | Address | Phone | + + + + + | Evelina Bryan Name | ECON | [place] | | | | | [address] | | + + + + + | Lizet Scott | ECON | Unknown | | + + + + + Care Team Providers + +------+ + | Care Rigging Slinger Name | Role | Phone | + [...] | | | | | | Chronic | | | | | | | kidney | | | | | | | disease, | | | | | | | stage 5 | | | | | | | (HCC) | | | | | | | Chronic | | | | | | | kidney | | | | | | | disease, | | | | | | | stage V | | | | | | | (HCC) | | | | | | | (N18.5) | | | | | | | Procedures | | | | | | | ID CREAT AV | | | | | | | FISTULA,NON- | | | | | | | AUTOGENOUS | | | | | | | GRAFT ID | | | | | | | ANASTOMOSIS, | | | | | | | AV,ANY SITE | | | | | | | ID INSJ | | | | | | | TUNNELED CVC | | | | | | | W/O SUBQ | | | | | | | PORT/ELEVATOR OPERATOR SERVICE AGE | | | | | | | 7 YR/> | | | | | | | RIGHT arm AV | | | | | | | fistula | | | | | | | graft | | | +--------+--------+ + + + + Encounter Details +--------+ + + + + | Date | Type | Department | Care Team | Description | +--------+ + + + + | 07/25/ | Hospital | [facility] | Harman Plaza | RAFY (acute kidney | | 2019 | Encounter | MED CTR OR INTRA OP | MD Aditi, FACS 380 | injury) ([facility]) | | | | [address] | [facility] | | | | | [place], [place] | [place] [address] | | | | | [address] | [phone] | | | | | [phone] | | | +--------+ + + + [...] + + + | Blood Pressure | 138/73 | 07/25/2018 3:15 PM | | | | | PST | | + + + + + | Pulse | 78 | 07/25/2018 3:15 PM | | | | | PST | | + + + + + | Temperature | 36.4 C (97.5 F) | 07/25/2018 2:29 PM | | | | | PST | | + + + + + | Respiratory Rate | 16 | 07/25/2018 3:15 PM | | | | | PST | | + + + + + | Oxygen Saturation | 100% | 07/25/2018 3:15 PM | | | | | PST | | + + + + + | Inhaled Oxygen | - | - | | | Concentration | | | | + + + + + | Weight | 68.5 kg (151 lb 0.2 | 07/25/2018 12:02 PM | | | | oz) | PST | | + + + + + | Height | 165.1 cm (5' 5") | 07/25/2018 12:02 PM | | | | | PST | | + + + + + | Body Mass Index | 25.13 | 07/25/2018 12:02 PM | | | | | PST | | + + + + + documented in this encounter Discharge Instructions Instructions Harman Plaza MD, FACS - 07/25/2018 Information from the National Kidney Foundation: How do I take care of my catheter? By taking good care of your access, it will last longer and you will prevent problems such as infection and clotting. Here are some important steps to take: ? Keep the catheter dressing clean and dry. ? Make sure the area of the insertion site is clean and your care team changes the dressing at each dialysis session. ? Keep an emergency dressing kit at home, in case you need to change your dressing in betwe en treatments. Ask your dialysis care team to teach you how to change dressings in an emerge ncy. ? Never remove the cap on the end of your catheter. Air must not enter the catheter. ? Do not shower or swim; you may take baths. You must not wet your catheter site or cathete r dressing. Moisture can cause infection. Taking a bath is safe if you do not allow your cat heter or catheter dressing to get wet. ? Wear a mask over your nose and mouth anytime the catheter is opened to prevent bacteria f rom entering the catheter and your bloodstream. Professionals changing the dressing should w ear a mask and gloves as well. ? The caps and the clamps of your catheter should be kept tightly closed when not being use d for dialysis. Only your care team should use your dialysis catheter to draw blood or to gi ve medications or fluids. ? If the area around your catheter feels sore or looks red, call your dialysis care team at once. Ask your dialysis team about signs and symptoms that require immediate attention. ? Know your Kt/V and URR (urea reduction ratio). Kt/V and URR are numbers that tell you how much dialysis you are getting. The NKF recommends using Kt/V. If you are receiving enough d ialysis, your Kt/V should be at least 1.2. If URR is used, it should be 65 % or more. If you r numbers are too low, one possible cause may be that your access is not working well. Ask y our dialysis team to check your access. Should I have any concerns about my catheter? Sometimes, even when you are very careful, your access may clot or become infected. Clots can form inside the opening of the catheter or form on the outside of the catheter an d block the opening. This can cause blood to flow at a slower rate than the rate your doctor ordered. If the blood flow rate remains low for more than one dialysis treatment, the zachary ter should be checked and treated the same day. Early treatment may prevent the clot from to tally blocking the catheter. It is important to restore the recommended blood flow rate and treat clots that are forming so that your catheter continues to work well and you get the am ount of dialysis you need. Infection can also occur even with a good blood flow rate. It is important to follow your c atheter care instructions, exactly as you were taught, in order to avoid infection. You shou ld know the following signs and symptoms of a catheter infection and report them to your doc tor or dialysis team right away, so you can get the proper treatment as quickly as possible. The signs and symptoms of a catheter infection include: ? Fever ? Chills ? Drainage from the catheter exit site ? Redness or tenderness around the catheter exit site ? General feeling of weakness and illness Treatment depends on the type of infection but may include: 1. An ointment applied directly to the infected area if it is an exit site infection. 2. Antibiotic medication if there is drainage from the exit site. 3. An intravenous IV antibiotic (a solution containing an antibiotic that is administered d irectly into a vein) if the infection has spread to the blood. What happens when my catheter is not working well? A decrease in the blood flow rate ordered by your doctor is a sign the catheter is not work ing as it should. If this occurs for more than one treatment in a week, the catheter should be checked. The lower blood flow rate will cause you to receive less dialysis. You will then need a longer than usual hemodialysis treatment to get the proper amount of dialysis. Another sign that your catheter is not working well may be the pre-pump arterial pressure a larms. These sounds notify the care team that your catheter (or other vascular access) is no t allowing a free draw of blood. This can be a sign that a clot is forming in the catheter b locking the flow of blood. What can be done to remove the blockage from my catheter? Treatment is the administration of a clot busting medication called tissue plasminoge n activator (tPA). Most dialysis centers can give the medication while you are in your dialy sis chair, thus preventing a hospital visit. If you are at the end of your treatment, tPA ca n be given just before your next dialysis appointment. Ask your doctor how you can arrange t o be given this medication before your next treatment session. If the clot is not treated when signs and symptoms of an early clot are found, the catheter can progress to be fully clotted. You may then be required to visit the hospital or vascula r lab to have the catheter checked and possibly exchanged for a completely new catheter. How is medication given? Your healthcare provider injects the medication directly into the catheter opening. It need s to remain inside the catheter for 30 minutes to break down the clot. After 30 minutes if e nough blood flow is not restored, the doctor can repeat the process. What are the benefits of treating the clot early? ? By restoring your blood flow, hemodialysis can work as it should to remove the toxins and excess fluids from your body. ? Taking care of the clot early results in fewer treatment interruptions and improved quali ty of life on dialysis. ? Other benefits are the prevention of additional health problems and the chance to live lo nger on dialysis. What can I do to keep my catheter working well? 1. Learn as much as possible about your prescribed treatment plan: your blood flow rate, ho w often and how long you need treatments. 2. Follow the treatment plan o Stay for your full treatment time o Keep your dialysis appointments o Arrive on time for your hemodialysis treatments 3. Ask your doctor how much dialysis you should be getting. Keep a record of your Kt/V and URR numbers. Talk to your dialysis team if your numbers are not as good as they should be. 4. Share your concerns with your doctor and dialysis team. You may want to ask them the fol lowing questions: o How can I tell if my catheter is not working? o What is the flow rate my doctor ordered for me? o Why does the flow rate for my catheter need to be at this level? o If my flow rate should go down, when will I be given clot-dissolving medication? o Will the clot-dissolving medication interrupt my dialysis treatment? If so, what will hap pen to the rest of my treatment? o How will you put the clot dissolving medication in my catheter? How long do I have to lucero t for it to work? o What are the signs and symptoms of infection? 2014 National Kidney Foundation. All rights reserved. This material does not constitute m edical advice. It is intended for informational purposes only. Please consult a physician fo r specific treatment recommendations. 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 | | | | | | mg per tablet | | | | | | [...] | + +--------+ + + + | XR CHEST AP PORTABLE | STAT | 07/25/2018 | | Results for this | | | | 2:59 PM | | procedure are in the | | | | PST | | results section. | + +--------+ + + + | POC GLUCOSE | Routin | 07/25/2018 | | Results for this | | | e | 2:27 PM | | procedure are in the | | | | PST | | results section. | + +--------+ + + + | FL CENTRAL VENOUS | Routin | 07/25/2018 | | Results for this | | ACCESS DEVICE | e | 2:15 PM | | procedure are in the | | PLACEMENT | | PST | | results section. | + +--------+ + + + | INSERTION SHUNT | | 07/25/2018 | Chronic kidney | | | HEMODIALYSIS W/ | | 1:31 PM | disease, stage V | | | PERMACATH | | PST | ([facility]) (N18.5) | | + +--------+ + + + +---+--------+ | | Case | | | Notes | | | Dr. | | | Field, | | | TO | | | REPLAC | | | E AVF, | | | Case | | | 3 | +---+--------+ + +--------+ +---+ + | HEPATITIS B SURFACE | Routin | 07/25/2018 | | Results for this | | AG | e | 12:38 PM | | procedure are in the | | | | PST | | results section. | + +--------+ +---+ + | PTT | Routin | 07/25/2018 | | Results for this | | | e | 12:38 PM | | procedure are in the | | | | PST | | results section. | + +--------+ +---+ + | PROTIME INR | Routin | 07/25/2018 | | Results for this | | | e | 12:38 PM | | procedure are in the | | | | PST | | results section. | + +--------+ +---+ + | PLATELET COUNT | Routin | 07/25/2018 | | Results for this | | | e | 12:38 PM | | procedure are in the | | | | PST | | results section. | + +--------+ +---+ + | HEMOGLOBIN | Routin | 07/25/2018 | | Results for this | | | e | 12:38 PM | | procedure are in the | | | | PST | | results section. | + +--------+ +---+ + | BASIC METABOLIC | STAT | 07/25/2018 | | Results for this | | PANEL | | 12:38 PM | | procedure are in the | | | | PST | | results section. | + +--------+ +---+ + documented in this encounter Results XR Chest AP Portable (07/25/2018 2:59 PM PST) + + | Specimen | + + | | + + + + + | Narrative | Performed At | + + + | XR CHEST AP PORTABLE 07/25/2018 2:58 PM HISTORY: right tunneled | [facility] | | catheter. COMPARISON: 05/10/2018 Findings: Moderate right | | | pleural effusion. Left lung is generally clear. Mild prominence of | | | the pulmonary vasculature. Heart is enlarged. No evidence | | | pneumothorax. No acute osseous abnormality. IMPRESSION - | | | Tunneled right internal jugular approach hemodialysis catheter tip | | | terminates near the upper atrial junction. Moderate right pleural | | | effusion with adjacent airspace disease thought to represent | | | atelectasis. Stable cardiomegaly. Dictated and Signed by: Tai | | | MD Micaela Electronically signed: 07/25/2018 3:10 PM | | + + + + + | Procedure Note | + + | Donato, Rad Results In - 07/25/2018 3:13 PM PST XR CHEST AP PORTABLE 07/25/2018 2:58 PM | | | | HISTORY: right tunneled catheter. | | | | COMPARISON: 05/10/2018 | | | | Findings: Moderate right pleural effusion. Left lung is generally clear. Mild | | prominence of the pulmonary vasculature. Heart is enlarged. No evidence | | pneumothorax. No acute osseous abnormality. | | | | IMPRESSION - | | Tunneled right internal jugular approach hemodialysis catheter tip terminates | | near the upper atrial junction. | | | | Moderate right pleural effusion with adjacent airspace disease thought to | | represent atelectasis. | | | | Stable cardiomegaly. | | | | Dictated and Signed by: Tai Hinojosa MD | | Electronically signed: 07/25/2018 3:10 PM | + + + +---------+ + + | Performing | Address | City/State/Zipcode | Phone Number | | Organization | | | | + +---------+ + + | [facility] | | | | + +---------+ + + POC Glucose (07/25/2018 2:27 PM PST) + +---------+ + + + | Component | Value | Ref Range | Performed | Pathologist | | | | | At | Signature | + +---------+ + + + | Glucose, | 163 (H) | 70 - 109 mg/dL | [facility] | | | POC | | | [...] [facility]. | [address] | [place], [place] | [phone] | | [facility] | | [address] | | | - LABORATORY | | | | + + + + + FL CVA Device Placement (07/25/2018 2:15 PM PST) + + | Specimen | + + | | + + + + + | Narrative | Performed At | + + + | This exam has been auto-finalized and the interpretation may exist | [facility] | | elsewhere in the chart. | | + + + + +---------+ + + | Performing | Address | City/State/Zipcode | Phone Number | | Organization | | | | + +---------+ + + | [facility] | | | | + +---------+ + + Hepatitis B Surface Ag (07/25/2018 12:38 PM PST) + + + + + + | Component | Value | Ref Range | Performed | Pathologist | | | | | At | Signature | + + + + + + | Hepatitis B | Negative | Negative | [facility] | | | Surface Ag | | | LAB [facility] | | | | | | - [facility] | | + + + + + + + + | Specimen | + + | Blood | + + + + + | Narrative | Performed At | + + + | Performed at: - [facility] [place] [address], | REFERENCE LAB | | [place], [place] [id number] Geography Faculty Member: Fabio Villagran MD, Phone: | [facility] | | [phone] | | + + + + + + + + | Performing | Address | City/State/Zipcode | Phone Number | | Organization | | | | + + + + + | REFERENCE LAB | [address] | [place], [place] | [phone] | | [facility] | [address] [facility] | [address] | | + + + + + Hemoglobin (07/25/2018 12:38 PM PST) + + + + + + | Component | Value | Ref Range | Performed | Pathologist | | | | | At | Signature | + + + + + + | Hemoglobin | 10.3 (L) | 11.5 - 16.0 | [facility] | | | | | g/dL | [facility] | | | | | | MEDICAL | | | | | | CENTER - | | | | | | LABORATORY | | + + + + + + + + | Specimen | + + | Blood | + + + + + + + | Performing | Address | City/State/Zipcode | Phone Number | | Organization | | | | + + + + + | [facility] | [address] | [place], [place] | [phone] | | [facility] | | [address] | | | - LABORATORY | | | | + + + + + Platelet Count (07/25/2018 12:38 PM PST) + +-------+ + + + | Component | Value | Ref Range | Performed | Pathologist | | | | | At | Signature | + +-------+ + + + | Platelet | 224 | 140 - 440 K/uL | [facility] | | | Count | | | [facility] | | | | | | MEDICAL | | | | | | CENTER - | | | | | | LABORATORY | | + +-------+ + + + | MPV | 9.8 | 6.5 - 12.4 fL | [facility] | | | | | | [facility] | | | | | | MEDICAL | | | | | | CENTER - | | | | | | LABORATORY | | + +-------+ + + + + + | Specimen | + + | Blood | + + + + + + + | Performing | Address | City/State/Zipcode | Phone Number | | Organization | | | | + + + + + | [facility] | [address] | [place] | [phone] | | [facility] | | [address] | | | - LABORATORY | | | | + + + + + PTT (07/25/2018 12:38 PM PST) + +-------+ + + + | Component | Value | Ref Range | Performed | Pathologist | | | | | At | Signature | + +-------+ + + + | aPTT | 26 | 22 - 36 seconds | [facility] | | | | | | [facility] | | | | | | MEDICAL | | | | | | CENTER - | | | | | | LABORATORY | | + +-------+ + + + + + | Specimen | + + | Blood | + + + + + + + | Performing | Address | City/State/Zipcode | Phone Number | | Organization | | | | + + + + + | [facility] | [address] | [place] | [phone] | | [facility] | | [address] | | | - LABORATORY | | | | + + + + + Protime INR (07/25/2018 12:38 PM PST) + + + + + + | Component | Value | Ref Range | Performed | Pathologist | | | | | At | Signature | + + + + + + | Prothrombin | 12.6 | 11.3 - 13.9 | [facility] | | | Time | | seconds | [facility] | | | | | | MEDICAL | | | | | | CENTER - | | | | | | LABORATORY | | + + + + + + | INR | 1.0Comment: Usual Oral | 0.9 - 1.1 | [facility] | | | | Anticoagulation Range: | | [facility] | | | | 2.0 - 3.0High | | MEDICAL | | | | Level Oral | | CENTER - | | | | Anticoagulation Range: | | LABORATORY | | | | 2.5 - 3.5 | | | | + + + + + + + + | Specimen | + + | Blood | + + + + + + + | Performing | Address | City/State/Zipcode | Phone Number | | Organization | | | | + + + + + | [facility] | [address] | [place], [place] | [phone] | | [facility] | | [address] | | | - LABORATORY | | | | + + + + + Basic Metabolic Panel (07/25/2018 12:38 PM PST) + + + + + + | Component | Value | Ref Range | Performed | Pathologist | | | | | At | Signature | + + + + + + | Na | 135 (L) | 136 - 149 | [facility] | | | | | mmol/L | [facility] | | | | | | MEDICAL | | | | | | CENTER - | | | | | | LABORATORY | | + + + + + + | K | 4.1 | 3.5 - 5.1 | [facility] | | | | | mmol/L | [facility] | | | | | | MEDICAL | | | | | | CENTER - | | | | | | LABORATORY | | + + + + + + | Cl | 102 | 98 - 109 mmol/L | [facility] | | | | | | [facility] | | | | | | MEDICAL | | | | | | CENTER - | | | | | | LABORATORY | | + + + + + + | CO2 | 23 (L) | 24 - 31 mmol/L | [facility] | | | | | | [facility] | | | | | | MEDICAL | | | | | | CENTER - | | | | | | LABORATORY | | + + + + + + | Anion Gap | 10 | 3 - 16 mmol/L | [facility] | | | | | | [facility] | | | | | | MEDICAL | | | | | | CENTER - | | | | | | LABORATORY | | + + + + + + | Glucose | 146 (H) | 70 - 109 mg/dL | [facility] | | | | | | [facility] | | | | | | MEDICAL | | | | | | CENTER - | | | | | | LABORATORY | | + + + + + + | BUN | 68 (H) | 7 - 18 mg/dL | [facility] | | | | | | [facility] | | | | | | MEDICAL | | | | | | CENTER - | | | | | | LABORATORY | | + + + + + + | Creatinine | 3.19 (H) | 0.60 - 1.30 | [facility] | | | | | mg/dL | [facility] | | | | | | MEDICAL | | | | | | CENTER - | | | | | | LABORATORY | | + + + + + + | eGFR if not | 15 (L)Comment: | >=60 | [facility] | | | | GLOMERULAR FILTRATION | mL/min/1.73m2 | [facility] | | | [facility] [place] | RATE,ESTIMATED | | MEDICAL | | | | mL/min/1.48b7Rnym than | | CENTER - | | | | 60 Chronic kidney | | LABORATORY | | | | disease,if found over a | | | | | | 3-month period.Less than | | | | | | 15 Kidney failureFor | | | | | | | | | | | | Americans,multiply the | | | | | | calculated GFR by 1.21. | | | | | | | | | | + + + + + + | Calcium | 8.4 | 8.3 - 10.5 | [facility] | | | | | mg/dL | [facility] | | | | | | MEDICAL | | | | | | CENTER - | | | | | | LABORATORY | | + + + + + + | BUN/Creatin | 21.3 | | [facility] | | | ine Ratio | | | [facility] | | | | | | MEDICAL | | | | | | CENTER - | | | | | | LABORATORY | | + + + + + + + + | Specimen | + + | Blood | + + + + + + + | Performing | Address | City/State/Zipcode | Phone Number | | Organization | | | | + + + + + | [facility] | [address] | [place], [place] | [phone] | | [facility] | | [address] | | | - LABORATORY | | | | + + + + + documented in this encounter Visit Diagnoses + + | Diagnosis | + + | RAFY (acute kidney injury) (HCC) Acute kidney failure, unspecified | + + documented in this encounter Administered Medications + +--------+ + +------+------+ | Medication Order | MAR | Action | Dose | Rate | Site | | | Action | Date | | | | + +--------+ + +------+------+ | acetaminophen (TYLENOL) tablet | Given | 07/25/19 | 1,000 mg | | | | 1,000 mg 1,000 mg, Oral, ONCE, | | 19 12:54 | | | | | 07/25/18 at 1230, For 1 dose, | | PM PST | | | | | Pre-op | | | | | | + +--------+ + +------+------+ + +---+ | | | + +---+ | albuterol 2.5 mg/3 mL nebulizer | | | solution 2.5 mg 2.5 mg, | | | Nebulization, ONCE PRN, Wheezing, | | | Starting 07/25/18 at 1416, For | | | 1 dose, Notify anesthesia if | | | patient is wheezing and does not | | | have a history of asthma or COPD | | | or current smoking., | | | Recovery/Phase I | | + +---+ | | | + +---+ + +-------+ +------+---+---+ | dexamethasone (DECADRON) tablet | Given | 07/25/19 | 8 mg | | | | 8 mg 8 mg, Oral, ONCE, Tu | | 19 12:54 | | | | | 07/25/18 at 1230, For 1 dose, | | PM PST | | | | | Pre-op | | | | | | + +-------+ +------+---+---+ + +---+ | | | + +---+ | dextrose 50% injection 12.5-25 | | | g 12.5-25 g, Intravenous, EVERY | | | 15 MIN PRN, Low Blood Sugar, Give | | | 12.5g (25 mL) IV if blood | | | glucose 50-69 mg/dL. Give 25g | | | (50 mL) IV if blood glucose < 50, | | | Starting e 07/25/18 at 1209, | | | Repeat in 15 min if blood glucose | | | remains < 70 mg/dL. Repeat | | | blood glucose in 30 min once | | | blood glucose > 70., Pre-op | | + +---+ | | | + +---+ | fentaNYL (PF) injection 25 mcg | | | 25 mcg, Intravenous, EVERY 5 MIN | | | PRN, Pain, Starting e 07/25/18 | | | at 1416, Maximum total dose 250 | | | mcg. PACU IV Narcotic Priority: | | | Only use fentanyl for immediate | | | post-op pain (one dose) or | | | breakthrough pain when any other | | | IV narcotics ordered have been | | | ineffective (if ordered). If | | | both morphine and hydromorphone | | | are ordered, use morphine first, | | | and use hydromorphone if morphine | | | ineffective., Recovery/Phase I | | + +---+ | | | + +---+ + +-------+ + +---+---+ | HYDROcodone-acetaminophen | Given | 07/25/19 | 1 tablet | | | | (NORCO) 5-325 mg per tablet 1-2 | | 19 3:08 | | | | | tablet 1-2 tablet, Oral, EVERY 4 | | PM PST | | | | | HOURS PRN, Pain, Moderate Pain, | | | | | | | Starting Tue07/25/18 at 1450 | | | | | | + +-------+ + +---+---+ +---+---+ | | | +---+---+ + +-------+ +--------+---+---+ | HYDROmorphone (DILAUDID) | Given | 07/25/19 | 0.2 mg | | | | injection 0.2 mg 0.2 mg, | | 19 2:51 | | | | | Intravenous, EVERY 5 MIN PRN, | | PM PST | | | | | Pain, Starting 07/25/18 at | | | | | | | 1416, Maximum total dose 2 mg. | | | | | | | PACU IV Narcotic Priority: Only | | | | | | | use fentanyl for immediate | | | | | | | post-op pain (one dose) or | | | | | | | breakthrough pain when any other | | | | | | | IV narcotics ordered have been | | | | | | | ineffective (if ordered). If | | | | | | | both morphine and hydromorphone | | | | | | | are ordered, use morphine first, | | | | | | | and use hydromorphone if morphine | | | | | | | ineffective., Recovery/Phase I | | | | | | + +-------+ +--------+---+---+ +-------+ +--------+---+---+ | Given | 07/25/19 | 0.2 mg | | | | | 19 2:44 | | | | | | PM PST | | | | +-------+ +--------+---+---+ + +---+ | | | + +---+ | ondansetron (ZOFRAN ODT) | | | disintegrating tablet 4 mg 4 mg, | | | Oral, EVERY 6 HOURS PRN, Nausea, | | | Vomiting, Starting 07/25/18 at | | | 1500, First line agent, | | | Post-op/Phase II | | + +---+ | | | + +---+ + +-------+ +------+---+---+ | ondansetron (ZOFRAN ODT) | Given | 07/25/19 | 8 mg | | | | disintegrating tablet 8 mg 8 mg, | | 19 12:54 | | | | | Oral, ONCE, 07/25/18 at 1230, | | PM PST | | | | | For 1 dose, Pre-op | | | | | | + +-------+ +------+---+---+ + +---+ | | | + +---+ | ondansetron (ZOFRAN) injection | | | 4 mg 4 mg, Intravenous, ONCE | | | PRN, Nausea, Starting 07/25/18 | | | at 1416, For 1 dose, | | | Recovery/Phase I | | + +---+ | | | + +---+ | ondansetron (ZOFRAN) injection | | | 4 mg 4 mg, Intravenous, EVERY 6 | | | HOURS PRN, Nausea, Vomiting, | | | Starting 07/25/18 at 1500, | | | First line agent. Use PO option | | | unless NPO status or unable to | | | tolerate., Post-op/Phase II | | + +---+ | | | + +---+ + +---------+ +---+---+---+ | sodium chloride 0.9% (NS) | New Bag | 07/25/19 | | | | | infusion at 10-100 mL/hr, | | 19 2:15 | | | | | Intravenous, CONTINUOUS, Starting | | PM PST | | | | | 07/25/18 at 1230, TKO. Use | | | | | | | this instead of LR if both are | | | | | | | ordered., Pre-op | | | | | | + +---------+ +---+---+---+ +---------+ +---------+ +---+ | New Bag | 07/25/19 | 500 mLs | 50 mL/hr | | | | 19 12:30 | | | | | | PM PST | | | | +---------+ +---------+ +---+ +---+---+ | | | +---+---+ documented in this encounter
--- OUTSIDE RECORDS SUMMARY | ~2019-12-03 | XMS | Encounter Summary ---
Demographics + + + | Address | [address] | | | [place] [address] | + + + | Home Phone | | + + + | Preferred Language | Unknown | + + + | Marital Status | Single | + + + | Synagogue Affiliation | 1074 | + + + | Race | Unknown | + + + | Ethnic Group | Unknown | + + + Author + + + | Author | [facility] | | | and Jethroana | + + + | Organization | [facility] | | | and Jethroana | + + + | Address | Unknown | + + + | Phone | Unavailable | + + + Support + + + + + | Name | Relationship | Address | Phone | + + + + + | Evelina Bryan Name | ECON | [place] | | | | | [address] | | + + + + + | Lizet Scott | ECON | Unknown | | + + + + + Care Team Providers + +------+ + | Care Ammonia Still Operator Name | Role | Phone | + +------+ + PCP | Unavailable | + +------+ + Reason for Visit +--------+ + | Reason | Comments | +--------+ + | Other | [facility] | +--------+ + Encounter Details +--------+ + + + + | Date | Type | Department | Care Team | Description | +--------+ + + + + | 05/11/ | Telephone | [facility] | Tia Payne, | Other ([facility] | | 2017 | | CARDIOLOGY [address] | [address]) | | | | [place], | [place], | | | | | [place] [address] | [place] [address] | | | | | [phone] | [phone] | | | | | | | [...]
--- OUTSIDE RECORDS SUMMARY | ~2019-12-03 | XMS | Encounter Summary ---
Demographics + + + | Address | [address] | | | [place] [address] | + + + | Home Phone | | + + + | Preferred Language | Unknown | + + + | Marital Status | Single | + + + | Advent Affiliation | 1074 | + + + | Race | Unknown | + + + | Ethnic Group | Unknown | + + + Author + + + | Author | [facility] | | | and Jethroana | + + + | Organization | [facility] | | | and Jethroana | + + + | Address | Unknown | + + + | Phone | Unavailable | + + + Support + + + + + | Name | Relationship | Address | Phone | + + + + + | Evelina Bryan Name | ECON | [place] | | | | | [address] | | + + + + + | Lizet Sonia | ECON | Unknown | | + + + + + Care Team Providers + +------+ + | Care Drafting Layout Man Name | Role | Phone | + +------+ + | Aida Knight PA-C | PCP | | + +------+ + Reason for Visit + + + | Reason | Comments | + + + | New Patient | AV fistula creation | + + + Evaluate & Treat (Routine) +--------+ + + + + + | Status | Reason | Specialty | Diagnoses / | Referred By | Referred To | | | | | Procedures | Contact | Contact | +--------+ + + + + + | Closed | Specialty | Surgery / | Diagnoses | Stroemel, | Field, | | | Services | General | Chronic | Lester M, | Harman I, | | | Required | Surgery | kidney | DO [address] | , FACS [address] | | | | | disease, | [place], [place] | [address] | | | | | stage V | [address] | [place], | | | | | (HCC) | [facility], [place] | [place] [address] | | | | | Dilated | [address] | Phone: | | | | | cardiomyopat | Phone: | [phone] | | | | | hy ([facility]) | [phone] | Fax: | | | | | Type 2 | Fax: | [phone] | | | | | diabetes | [phone] | | | | | | mellitus | | | | | | | with | | | | | | | diabetic | | | | | | | nephropathy, | | | | | | | with | | | | | | | long-term | | | | | | | current use | | | | | | | of insulin | | | | | | | ([facility]) | | | | | | | Anemia in | | | | | | | stage 5 | | | | | | | chronic | | | | | | | kidney | | | | | | | disease, not | | | | | | | on chronic | | | | | | | dialysis | | | | | | | ([facility]) | | | +--------+ + + + + + Encounter Details +--------+---------+ + + + | Date | Type | Department | Care Team | Description | +--------+---------+ + + + | 07/05/ | Office | [facility] | Harman Plaza | Chronic kidney | | 2018 | Visit | SURGERY [address] | MD Aditi, FACS [address] | disease, stage V | | | | [place], [place] | [facility] | ([facility]) (Primary Dx); | | | | [address] | [place] [address] | Dilated | | | | [phone] | [phone] | cardiomyopathy | | | | | | ([facility]); Type 2 | | | | | | diabetes mellitus | | | | | | with diabetic | | | | | | nephropathy, with | | | | | | long-term current | | | | | | use of insulin | | | | | | ([facility]); Anemia in | | | | | | stage 5 chronic | | | | | | kidney disease, not | | | | | | on chronic dialysis | | | | | | ([facility]) | +--------+---------+ + + + Social History [...] + + + | Blood Pressure | 110/60 | 07/05/2018 10:02 AM | | | | | PST | | + + + + + | Pulse | 74 | 07/05/2018 10:02 AM | | | | | PST | | + + + + + | Temperature | 36.6 C (97.9 F) | 07/05/2018 10:02 AM | | | | | PST | | + + + + + | Respiratory Rate | 14 | 07/05/2018 10:02 AM | | | | | PST | | + + + + + | Oxygen Saturation | 100% | 07/05/2018 10:02 AM | | | | | PST | | + + + + + | Inhaled Oxygen | - | - | | | Concentration | | | | + + + + + | Weight | 67.6 kg (149 lb) | 07/05/2018 10:02 AM | | | | | PST | | + + + + + | Height | 165.1 cm (5' 5") | 07/05/2018 10:02 AM | | | | | PST | | + + + + + | Body Mass Index | 24.79 | 07/05/2018 10:02 AM | | | | | PST | | + + + + + documented in this encounter Patient Instructions Patient Instructions Elijah Chamorro RN - 07/05/2018 10:00 AM PSTHold "...pril" and ". ..sartan" medications day of surgery. HOLD SPIRONOLATONE AND LASIX THE MORNING OF SURGERY DO NOT EAT OR DRINK ANYTHING AFTER MIDNIGHT before your surgery. This means no coffee, joseph er, juice or toast on the morning of your surgery. The only exception is essential medicine s with a small sip of water (or just enough to get the pills down safely). Please use the antibacterial wipes the night before your surgery to help prevent post-op in fections. Follow instructions listed in brochure. On 07/25/18 check in at Same Day Surgery ([address]) at 1200. Your surgery is called RIGHT arm AV fistula graft. It will start about 2:00pm and will finish about 3:30pm. You will be ready to go home same day. Anesthesia type recommended: general anesthetic General IV Sedation with local anesthesia (MAC) IV Sedation Other MAKE ARRANGEMENTS FOR A RESPONSIBLE ADULT TO DRIVE YOU HOME. If you have any questions, please call at . Your nurse's name is Jose D Perez RN. Your surgeon's name is Dr. Plaza. I look forward to your having a safe, successful and comfortable surgery. Sign up for [employer] if you want easy access to your medical information online. You can: Review your medications, immunizations, allergies and medical history. View details of your past and upcoming appointments. Sign up for [employer] if you want easy access to your medical information online. Only you, your doctor and your health care team are permitted to view the information sent through [employer]. Through [employer] you can: ? Review your medications, immunizations, allergies and medical history. ? View details of your past and upcoming appointments. ? Receive test results online no waiting for a phone call or letter ? Review health education topics and discharge instructions provided by your physician. ? Send secure emails to your healthcare team. ? Request renewals of your medications online ? Link your family s accounts to yours for convenient access to appointments, immunizatio n records, growth charts and more. Below are the different ways you can sign up for [employer]: ? The first way is to get online at: [email or web address] and sign up directly throug h the website prior to your appointment with us. You can call [phone] ([phone]) if you have any questions or need assistance. ? The second way is through the [employer] ramos which can be accessed with any smart phone. Ju st go to your ramos store and look up [employer] ? The third way is to do it while you wait in the room for the doctor at your appointment. The nurse is available if you have any questions or need assistance. You will need the following information to sign up: Email address: User name: Password: Password must be at least 8 characters long, less than 20 characters, and it must have at l east 1 upper case letter and 1 lower case letter as well as at least 1 number. documented in this encounter Progress Notes , Harman Pennington MD, FACS - 07/05/2018 10:00 AM PSTFormatting of this note might be diff erent from the original. Surgery Note Referring Provider: Lester Best DO Patient Identification: Xochilt Linares 1955 Is a 62 y.o. female , a patient of Aida Knight PA-C. Chief Complaint: Chief Complaint Patient presents with New Patient AV fistula creation HISTORY OF PRESENT ILLNESS Patients Preliminary Questionaire: Have you started dialysis yet? No Per patient Dr Best says as soon as possible. How many years have been dialyzed? N/A Are you a candidate for kidney transplantation? Unsure Who is your Primary Care ? Aida Knight PA-C Who is your Currency Counter/Kidney Specialist ? Lester Best, When was the current dialysis access placed? N/A What problems are there with the current dialysis access? N/A Physician notes: Patient arrives today to consult on creation of AV fistula. Has DM--for 20 years. Is RIG HT hand dominant. No pain in hands or fingers. Wearing LIFE vest defibrillator (since end of April). Has shocked her twice. Does not have pacemaker. Thinks she has poor veins. Occasional nausea and vomiting. Has excess tiredness. CARDIAC: history [place], denies chest pain or tightness. Wears a debrillator vest. RISK: Non tobacco smoker, does smoke marijuana, has diabetic. LEANN: 3 LEANN Risk Score 07/05/2018 Risk for Obstructive Sleep Apnea Suspected Risk for LEANN DATA/RECENT IMAGING Aida Knight PA-C's notes were not reviewed in clinic today. PAST MEDICAL HISTORY Past Medical History: Diagnosis Date Diabetes mellitus (HCC) Esophageal reflux Essential hypertension Helicobacter pylori infection Hyperlipidemia Vitamin D deficiency Past Surgical History: Procedure Laterality Date GALLBLADDER SURGERY HYSTERECTOMY 1996 TONSILLECTOMY AND ADENOIDECTOMY No Known Allergies Medications: Outpatient Encounter Prescriptions as of 07/05/2018 Medication Sig Dispense Refill aspirin 81 mg chewable tablet Take 81 mg by mouth Daily. atorvaSTATin (LIPITOR) 20 mg tablet Take 1 tablet by mouth nightly. 30 tablet 5 carvedilol (COREG) 6.25 mg tablet Take 1 tablet by mouth 2 times daily (with breakfast & dinner). 60 tablet 5 furosemide (LASIX) 80 mg tablet Take 1 tablet by mouth 2 times daily. 60 tablet 5 magnesium oxide (MAG-OX) 400 mg tablet Take 1 tablet by mouth Daily. 30 tablet 5 spironolactone (ALDACTONE) 25 mg tablet Take 1 tablet by mouth Daily. 30 tablet 5 No facility-administered encounter medications on file as of 07/05/2018. Family History Problem Relation Age of Onset Diabetes Maternal Grandmother Social History: She reports that she has never smoked. She has never used smokeless tobacco. She reports th at she drinks alcohol. She reports that she uses drugs, including Marijuana, about 7 times p er week. REVIEW of SYSTEMS Unmarked boxes mean negative response. General: [x]Weight loss/gain (over 10 lbs) []Fever/chills []Night sweats Hematologic: []Bleeding/bruising tendencies []Blood transfusion []Anemia Heent: []Vision loss []Hearing loss [x]Sinus problems/nose bleeds []Hoarseness Respiratory: []Wheezing [x]Shortness of breath []Cough []Spitting up blood []On oxygen []Use CPAP machine Cardiac: []Chest pain []Palpitations/heart racing [x]Swelling of ankles/hands [x]Unusual shortness of breath [x]Difficulty sleeping fl at Gastrointestinal: [x]Nausea/vomiting [x]Difficulty swallowing [x]Heartburn [x]Loss of appetite [x]Abdominal pain []St omach Ulcers [x]Diarrhea [x]Constipation []Black or bloody stools Vascular: []Strokes/TIA's []Fainting []Difficulty with speech [x]Leg cramps []Pain in feet/legs at rest []Foot ulcers/s ores []Varicose veins []Phlebitis/blood clots Musculoskeletal: []Joint stiffness/swelling []Joint pain [x]Back pain []Arthritis []Gout Urologic: []Blood in urine [x]Frequent urination at night []Burning/painful urination []Kidney stones []Difficulty urination []Sexual difficulties Neuro/Psychiatric: [x]Headaches []Seizures []Depression [x]Anxiety attacks []Memory loss or confusion PHYSICAL EXAM BP 110/60 | Pulse 74 | Temp 36.6 C (97.9 F) (Temporal) | Resp 14 | Ht 1.651 m (5' 5 ") | Wt 67.6 kg (149 lb) | SpO2 100% | BMI 24.79 kg/m Body mass index is 24.79 kg/m. Gen: Well-developed, well-nourished, age appropriate. Lungs: Clear and equal bilateral--wearing defibrillator vest Heart: Normal sinus rhythm. UE: No visible veins. Neuro: Alert and oriented x 3, Moving all 4 extremities. ULTRASOUND REPORT: PATIENT NAME : Xochilt Linares EQUIPMENT: [email or web address] M-Turbo with 10-5 mHertz probe. INDICATIONS: Dialysis access evaluation FINDING: Ultrasound of RIGHT and LEFT arms reveals no cephalic or basilic veins larger than 3 mm. IMPRESSION: Small cephalic and basilic veins bilateral. Lab Results Component Value Date NA 140 05/12/2018 K 4.0 05/12/2018 CL 111 (H) 05/12/2018 CO2 21 (L) 05/12/2018 BUN 46 (H) 05/12/2018 CREA 3.53 (H) 05/12/2018 Lab Results Component Value Date WBC 5.8 05/10/2018 HGB 8.6 (L) 05/10/2018 HCT 28.4 (L) 05/10/2018 MCV 87.9 05/10/2018 PLT 269 05/10/2018 No results found for: INR, PROTIME ASSESSMENT 1. Chronic kidney disease, stage V ([facility]) 2. Dilated cardiomyopathy ([facility]) 3. Type 2 diabetes mellitus with diabetic nephropathy, with long-term current use of insuli n ([facility]) 4. Anemia in stage 5 chronic kidney disease, not on chronic dialysis ([facility]) PLAN 1. Due to probable need of LEFT chest pacer/defibrillator and small size veins right arm, Recommend RIGHT brachial to axillary vein gortex graft fistula (4-7). Surgery scheduled for Jul 25. On day of surgery, no furosemide, no spironolactone. . Harman Plaza MD, FACS Vascular and General Surgery CC: Aida Knight PA-C, Lester Best, documented in this enc ounter Plan of Treatment Not on filedocumented as of this encounter Visit Diagnoses + + | Diagnosis | + + | Chronic kidney disease, stage V (HCC) - Primary Chronic kidney disease, Stage V | + + | Dilated cardiomyopathy (HCC) Other primary cardiomyopathies | + + | Type 2 diabetes mellitus with diabetic nephropathy, with long-term current use of | | insulin (HCC) | + + | Anemia in stage 5 chronic kidney disease, not on chronic dialysis (HCC) | + + documented in this encounter
--- OUTSIDE RECORDS SUMMARY | ~2019-12-03 | XMS | Encounter Summary ---
Demographics + + + | Address | [address] | | | [place] [address] | + + + | Home Phone | | + + + | Preferred Language | Unknown | + + + | Marital Status | Single | + + + | Rastafari Affiliation | 1074 | + + + | Race | Unknown | + + + | Ethnic Group | Unknown | + + + Author + + + | Author | [facility] | | | and Jethroana | + + + | Organization | [facility] | | | and Jethroana | + + + | Address | Unknown | + + + | Phone | Unavailable | + + + Support + + + + + | Name | Relationship | Address | Phone | + + + + + | Evelina Bryan Name | ECON | [place] | | | | | [address] | | + + + + + | Lizet Scott | ECON | Unknown | | + + + + + Care Team Providers + +------+ + | Care Chain Splitter Name | Role | Phone | + [...] + + | 10/09/ | Surgery | [facility] | Tia Payne, | CV [facility] | | 2019 | | MED CTR CV INTRA OP | MD [address] | | | | | [address] | [address] [facility] [address] | | | | | [place] | [place] [address] | | | | | [address] | [phone] | | | | | [phone] | | | +--------+---------+ + + + [...] your doctor of all medicines (prescription and crle-uys-zqrgwah), vitamins, herbs, and supplements that you are [...] pressure is used, the doctor (or an learning and development assistant) will hold pressure on the insertion site so t hat a clot will form on the outside of the blood vessel to prevent bleeding. Once the bleedi ng has stopped, a very tight bandage will be placed on the site. 22. Staff will help you slide from the table onto a stretcher so that you can be taken to [facility] recovery area. NOTE: If the [...] recovery room for observation or returned to [facility] hospital room. You will stay flat in [...] to pay for the test or procedure [id number] [employer]. [address] [place] [address]. All righ ts reserved. This information is [...] site Nausea or vomiting Date Last Reviewed: 12/16/201719998451-1761 [employer]. [address] [place] [address]. All righ ts reserved. This information is [...] | | | | | ([facility]), Dilated | | | | | | | cardiomyopathy | | | | | | | ([facility]), Type 2 | | | | | | | diabetes mellitus | | | | | | | with diabetic | | | | | | | nephropathy, with | | | | | | | long-term current | | | | | | | use of insulin | | | | | | | ([facility]), Anemia in | | | | | | | stage 5 chronic | | | | | | | kidney disease, not | | | | | | | on chronic dialysis | | | | | | | ([facility]) | | | | | | [...] (1955) DATE OF PROCEDURE: | | 10/09/2018 DRYING EQUIPMENT OPERATOR: Tia Payne MD PROCEDURES | | PERFORMED: [...] obtained with a 5 Fr. balloon tip [place]-Mayra catheter in the right femoral vein. The [...] of moderate sedation with | | continuous epzq-ef-wuil attendance. My intra-service time was 25 minutes. [...] branches. | | Collateralization; evidence of a cqvu-qa-oahvc collateralization from the distal LAD | | to distal PDA. CONCLUSIONS: 1. Severe three-vessel coronary artery disease; | | chronic total occlusion to the proximal portion of the RCA, moderate to severe diffuse | | disease of the LAD and LCx 2. There is a right dominate circulation. 3. | | Collateralization; evidence of a brfh-hp-rprza collateralization from the distal LAD | | [...] was discussed with Dr. Montgomery, interventionalists at [place], | | [place]. | | PRIMARY CARE [...] (1955) OF | | | PROCEDURE: 10/09/2018 DRYING EQUIPMENT OPERATOR: Tia Payne MD | | | PROCEDURES [...] obtained with a 5 Fr. balloon tip [place]-Mayra catheter in the right | | | [...] Collateralization; evidence of a | | | luhi-ko-rbcpe collateralization from the distal LAD to distal PDA. | | | CONCLUSIONS:1. Severe three-vessel coronary artery disease; chronic | | | total occlusion to the proximal portion of the RCA, moderate to severe | | | diffuse disease of the LAD and LCx2. There is a right dominate | | | circulation.3. Collateralization; evidence of a pmuy-dy-mhiml | | | collateralization from the distal [...] Montgomery, | | | interventionalists at [facility]. [facility] | | | [...] | | | |Collateralization; evidence of a hbpr-dk-ukaau collateralization from the | | |distal LAD [...] | | |3. Collateralization; evidence of a eiyn-tl-bezxm collateralization from | | |the distal LAD [...] was discussed with Dr. Montgomery, interventionalists at [place], | | |[place]. | | | | [...] [address] | [place] | [phone] | | [facility] | | [address] | | | - LABORATORY | | | | + + + + + documented in this encounter Visit Diagnoses + + | Diagnosis | + + | Coronary artery disease, angina presence unspecified, unspecified vessel or lesion | | type, unspecified whether yurok or transplanted heart | + + | [...]
--- OUTSIDE RECORDS SUMMARY | ~2019-12-03 | XMS | Encounter Summary ---
Demographics + + + | Address | [address] | | | [place] [address] | + + + | Home Phone | | + + + | Preferred Language | Unknown | + + + | Marital Status | Single | + + + | Episcopal Affiliation | 1074 | + + + | Race | Unknown | + + + | Ethnic Group | Unknown | + + + Author + + + | Author | [facility] | | | and Jethroana | + + + | Organization | [facility] | | | and [place] | + + + | Address | Unknown | + + + | Phone | Unavailable | + + + Support + + + + + | Name | Relationship | Address | Phone | + + + + + | Evelina Bryan Name | ECON | [place] | | | | | [address] | | + + + + + | Lizet Scott | ECON | Unknown | | + + + + + Care Team Providers + +------+ + | Care Rubber Molder Name | Role | Phone | + +------+ + | Aida Knight PA-C | PCP | | + +------+ + Reason for Visit Evaluate & Treat (Routine) +--------+--------+ + + + + | Status | Reason | Specialty | Diagnoses / | Referred By | Referred To | | | | | Procedures | Contact | Contact | +--------+--------+ + + + + | Closed | | Nephrology | Diagnoses | Anshulders, | Bonniel, | | | | | ESRD (end | Aida Raymundo, | Lester Elise DO | | | | | stage renal | [place] [address] | [address] [place] [address] | | | | | disease) | | [place], Jair | | | | | (HCC) | [place] | [address] | | | | | Procedures | [address] | [place] [address] | | | | | [place] ESRD | [place], | [address] Phone: | | | | | RELATED SVC | [place] [address] | [phone] | | | | | MONTHLY | Phone: | Fax: | | | | | 20&/> YR OLD | [phone] | [phone] | | | | | 4/> VISITS | Fax: | | | | | | | [phone] | | +--------+--------+ + + + + Encounter Details +--------+ + + + + | Date | Type | Department | Care Team | Description | +--------+ + + + + | 05/14/ | Off-Site | [facility] | Lester Best | End stage renal | | 2019 | Visit | NEPHROLOGY [address] | M, DO [address] | disease (HCC) | | | | [address] | [place], [address] | (Primary Dx) | | | | [place], [place] | [place], [place] | | | | | [address] | [address] | | | | | [phone] | | | +--------+ + + + [...] + documented as of this encounter Progress Lester Barajas DO - 05/14/2019 10:00 AM PDT[no seen]. MS documented in t his encounter Plan of Treatment Not on filedocumented as of this encounter Visit Diagnoses + + | Diagnosis | + + | End stage renal disease (HCC) - Primary End stage renal disease | + + documented in this encounter"
--- OUTSIDE RECORDS SUMMARY | ~2019-12-03 | XMS | Encounter Summary ---
Demographics + + + | Address | [address] | | | [place] [address] | + + + | Home Phone | | + + + | Preferred Language | Unknown | + + + | Marital Status | Single | + + + | Pentecostalism Affiliation | 1074 | + + + | Race | Unknown | + + + | Ethnic Group | Unknown | + + + Author + + + | Author | [facility] | | | and Jethroana | + + + | Organization | [facility] | | | and [place] | + + + | Address | Unknown | + + + | Phone | Unavailable | + + + Support + + + + + | Name | Relationship | Address | Phone | + + + + + | Evelina Bryan Name | ECON | [place] | | | | | [address] | | + + + + + | Lizet Scott | ECON | Unknown | | + + + + + Care Team Providers + +------+ + | Care Retail Cashier Name | Role | Phone | + +------+ + | Aida Knight PA-C | PCP | | + +------+ + Reason for Visit + + + | Reason | Comments | + + + | Follow-up | Hospital follow up | + + + | Congestive Heart | | | Failure | | + + + | Coronary Artery | | | Disease | | + + + Evaluate & Treat (Routine) +--------+--------+ + + + + | Status | Reason | Specialty | Diagnoses / | Referred By | Referred To | | | | | Procedures | Contact | Contact | +--------+--------+ + + + + | Closed | | Cardiology | Diagnoses | Antonia, | [facility] | | | | | Cardiorenal | Aida Raymundo, | Cardiology | | | | | syndrome | [place] [address] | [address] | | | | | CARDIORENAL | | [place] | | | | | SYNDROME DUE | [place] | [place] | | | | | TO SEVERE | WAY | [address] | | | | | ACUTE KIDNEY | [place], | Phone: | | | | | INJURY | [place] [address] | [phone] | | | | | | Phone: | Fax: | | | | | | [phone] | [phone] | | | | | | Fax: | | | | | | | [phone] | | +--------+--------+ + + + + Encounter Details +--------+---------+ + + + | Date | Type | Department | Care Team | Description | +--------+---------+ + + + | 05/31/ | Office | [facility] | Garibaldi, | Acute combined | | 2018 | Visit | CARDIOLOGY [address] | [address] | systolic and | | | | [facility] [place], | [facility] [place], | diastolic congestive | | | | [place] [address] | [place] [address] | heart failure (HCC) | | | | [phone] | [phone] | (Primary Dx); | | | | | | Coronary artery | | | | | | disease, angina | | | | | | presence | | | | | | unspecified, | | | | | | unspecified vessel | | | | | | or lesion type, | | | | | | unspecified whether | | | | | | [place] or | | | | | | transplanted heart | +--------+---------+ + + + Social History [...] + + + | Blood Pressure | 100/50 | 05/31/2018 10:39 AM | | | | | PST | | + + + + + | Pulse | 48 | 05/31/2018 10:39 AM | | | | | PST | | + + + + + | Temperature | - | - | | + + + + + | Respiratory Rate | 16 | 05/31/2018 10:39 AM | | | | | PST | | + + + + + | Oxygen Saturation | - | - | | + + + + + | Inhaled Oxygen | - | - | | | Concentration | | | | + + + + + | Weight | 70.8 kg (156 lb 1.4 | 05/31/2018 10:39 AM | | | | oz) | PST | | + + + + + | Height | 165.1 cm (5' 5") | 05/31/2018 10:39 AM | | | | | PST | | + + + + + | Body Mass Index | 25.97 | 05/31/2018 10:39 AM | | | | | PST | | + + + + + documented in this encounter Progress Notes Elli Sheth ARNP - 05/31/2018 10:45 AM PSTFormatting of this note might be differen t from the original. PATIENT NAME: Xochilt Linares : 1955: AGE: 62 y.o. PRIMARY CARE: Aida Knight PA-C OUTPATIENT FOLLOW UP VISIT Date of Service: 05/31/2018 HISTORY OF PRESENT ILLNESS: Xochilt Linares is a 62 y.o. female with a history of acute combined systolic and diastolic congestive heart failure and coronary artery disease. She is being seen today for emergency department follow up for congestive heart failure. She was last seen 05/12/2018 in the emergency department by Dr. Aggarwal at which time she woul d start atorvastatin 20 mg once a day. MARTHA inhibitor is on hold due to stage IV kidney failu re. She would increase carvedilol 6.25 mg twice a day. Since that time, she has been "doing okay, still very tired". She has had a poor energy level. She has not been very active. She has been trying to soci khadijha a little more and go to the She has not had any chest pain or discomfort at rest or with exertion. She has not noticed shortness of breath. Although she has not been doing a whole lot of physical activity. She has not had any lightheadedness or dizziness. She luo s not noticed palpitations. She has had leg swelling and was seen in the ER on 05/08/2018 She is able to sleep laying down at night without any symptoms of shortness of breath. She does not have sleep apnea . She will be seen by nephrology this afternoon MEDICAL, SURGICAL, AND PERSONAL HISTORY Past Medical, Surgical, Family, and Social History are reviewed in EPIC. CURRENT PROBLEMS Patient Active Problem List Diagnosis RAFY (acute kidney injury) Anasarca Pleural effusion Acute combined systolic and diastolic congestive heart failure Coronary artery disease Diabetes CURRENT MEDICATIONS Current Outpatient Prescriptions Medication Sig Dispense Refill aspirin 81 mg chewable tablet Take 81 mg by mouth Daily. atorvaSTATin (LIPITOR) 20 mg tablet Take 20 mg by mouth nightly. carvedilol (COREG) 6.25 mg tablet Take 6.25 mg by mouth 2 times daily (with breakfast & dinner). furosemide (LASIX) 80 mg tablet Take 80 mg by mouth 2 times daily. magnesium oxide (MAG-OX) 400 mg tablet Take 400 mg by mouth Daily. spironolactone (ALDACTONE) 25 mg tablet Take 25 mg by mouth Daily. No current facility-administered medications for this visit. ALLERGIES No Known Allergies ROS Review of Systems Constitutional: Positive for chills, fever and malaise/fatigue. HENT: Positive for hearing loss and tinnitus. Negative for nosebleeds. Eyes: Negative for blurred vision and double vision. Respiratory: Negative for shortness of breath. Cardiovascular: Positive for leg swelling (was in the ER for bilateral leg swelling). Negat harish for chest pain, palpitations and orthopnea. Gastrointestinal: Positive for constipation and diarrhea. Negative for abdominal pain, bloo d in stool, heartburn, nausea and vomiting. Genitourinary: Positive for frequency. Negative for dysuria and urgency. Musculoskeletal: Positive for joint pain (Bilateral shoulder pain) and neck pain. Negative for back pain and falls. Skin: Negative for itching and rash. Neurological: Positive for weakness and headaches. Negative for dizziness, tingling, tremor s, seizures and loss of consciousness. Lightheadedness-No Endo/Heme/Allergies: Does not bruise/bleed easily. Psychiatric/Behavioral: Negative for memory loss. The patient has insomnia. The patient is not nervous/anxious. OBJECTIVE: PHYSICAL EXAM BP 100/50 | Pulse (!) 48 | Resp 16 | Ht 1.651 m (5' 5") | Wt 70.8 kg (156 lb 1.4 oz) | BMI 25.97 kg/m Physical Exam Constitutional: She is oriented to person, place, and time. She appears well-developed and well-nourished. Frail adult female by herself in no acute distress Neck: Normal carotid pulses and no JVD (no JVD) present. Carotid bruit is not present. Cardiovascular: Normal rate, regular rhythm, S1 normal, S2 normal, normal heart sounds and normal pulses. PMI is not displaced. Exam reveals no gallop and no friction rub. No murmur heard. Pulses: Carotid pulses are 2+ on the right side, and 2+ on the left side. Radial pulses are 2+ on the right side, and 2+ on the left side. Posterior tibial pulses are 2+ on the right side, and 2+ on the left side. Pulmonary/Chest: Effort normal and breath sounds normal. No accessory muscle usage. No resp iratory distress. She has no decreased breath sounds. She has no wheezes. She has no rhonchi . She has no rales. Abdominal: Soft. Normal appearance, normal aorta and bowel sounds are normal. She exhibits no abdominal bruit and no pulsatile midline mass. There is no hepatosplenomegaly. Musculoskeletal: Normal range of motion. She exhibits no edema. Neurological: She is alert and oriented to person, place, and time. Coordination normal. Skin: Skin is warm, dry and intact. No cyanosis. Nails show no clubbing. Psychiatric: She has a normal mood and affect. Her mood appears not anxious. She does not e xhibit a depressed mood. Vitals reviewed. ECG: I personally independently reviewed ECG tracing during this visit (interpreted and susan led by another provider): Results for orders placed or performed during the hospital encounter of 05/08/18 ECG 12 lead Result Value Ref Range INTERPRETATION TEXT Normal sinus rhythm Right bundle branch block Left posterior fascicular block Bifascicular block Nonspecific T wave abnormality Abnormal ECG No previous ECG's available Confirmed by NURIA MILLER, KATERYNA ([id number]) on 05/11/2018 1:15:50 PM LAB RESULTS reviewed during visit today primarily from [facility]: LIPID Lab Results Component Value Date CHOL 172 05/10/2018 TRIG 118 05/10/2018 HDL 44 05/10/2018 LDL 104 05/10/2018 CHOLHDL 3.9 05/10/2018 CHEMISTRY Lab Results Component Value Date GLU 111 (H) 05/12/2018 GLUEX 204 05/25/2018 NA 140 05/12/2018 NAEX 136 05/25/2018 K 4.0 05/12/2018 KEX 4.6 05/25/2018 CL 111 (H) 05/12/2018 CLEX 94 05/25/2018 CO2 21 (L) 05/12/2018 CO2EX 28 05/25/2018 CALCIUM 8.1 (L) 05/12/2018 ALKPHOS 87 05/12/2018 AST 13 05/12/2018 ASTEX 16 05/25/2018 ALT 19 05/12/2018 ALTEX 11 05/25/2018 BILITOT 0.5 05/12/2018 CREA 3.53 (H) 05/12/2018 BUN 46 (H) 05/12/2018 EGFREX 9 05/25/2018 CREEX 4.81 05/25/2018 HEMATOLOGY Lab Results Component Value Date WBC 5.8 05/10/2018 WBCEX 6.4 05/25/2018 HGB 8.6 (L) 05/10/2018 HGBEX 10.1 05/25/2018 HCT 28.4 (L) 05/10/2018 HCTEX 31.4 05/25/2018 PLT 269 05/10/2018 PLTEX 299 05/25/2018 Lab Results Component Value Date TSH 4.68 05/08/2018 BNP 4,521 (H) 05/08/2018 I reviewed records from [facility] for hospitalization,including H& P, Discharge Summary and lab reports on 04/2018 which is summarized in the HPI. Cardiovascular diagnostic testing interpreted and reviewed by me with the patient today: Nuclear stress test 05/11/2018: Regadenoson EKG is negative. Abnormal Regadenoson sestamib i myocardial perfusion imaging study with a large size, partially reversible defect of a sev ere in severity in the entire inferior and inferolateral region. This suggests a large size partial myocardial ischemia of both right coronary artery and left circumflex artery territo ry. Left ventricular cavity is dilated. There is a moderate global hypokinesis of the left ventricle. Overall, left ventricular systolic function is moderately decreased. LVEF by g ated SPECT is 35%. By Tia Payne MD Echocardiogram 05/09/2018: Moderate to severe biatrial dilatation. Moderate left ventricul ar dilatation with a mild eccentric left ventricular hypertrophy. There is a severe global hypokinesis of the left ventricle. Overall, left ventricular significant is severely decrea sed. LVEF is 25-30%. Grade 1 left ventricular diastolic dysfunction. Mildly thickened and c alcified trileaflet aortic valve with adequate opening. There is a trace aortic valve insuf ficiency. Mildly thickened and calcified mitral valve with a mild central mitral valve regur gitation. Mild mitral annular calcification. Mild tricuspid valve regurgitation. Mild pulmon rubio hypertension with a peak systolic pressure 45-50 mmHg. Dilated IVC without respiratory c ollapse suggesting fluid retention. Moderate circumferential pericardial effusion without ev idence of cardiac tamponade. Evidence of left pleural effusion. By Tia Payne MD on 14:47 Above data and testing is reviewed this visit; testing below is historical data unless othe rwise specified. ASSESSMENT: 1. New onset of combined HFrEF and diastolic dysfunction suggesting myocardial ischemia A. Echocardiogram exam done on 05/09/2018 shows Moderate to severe biatrial dil atation. Moderate left ventricular dilatation with a mild eccentric left ventricular hypertr ophy. There is a severe global hypokinesis of the left ventricle. Overall, left ventricula r significant is severely decreased. LVEF is 25-30%. Grade 1 left ventricular diastolic dys function. Mildly thickened and calcified trileaflet aortic valve with adequate opening. The re is a trace aortic valve insufficiency. Mildly thickened and calcified mitral valve with a mild central mitral valve regurgitation. Mild mitral annular calcification. Mild tricuspid valve regurgitation. Mild pulmonary hypertension with a peak systolic pressure 45-50 mmHg. D ilated IVC without respiratory collapse suggesting fluid retention. Moderate circumferential pericardial effusion without evidence of cardiac tamponade. Evidence of left pleural effusi on. B. Nuclear stress test 05/11/2018: Regadenoson EKG is negative. Abnormal Regad enoson sestamibi myocardial perfusion imaging study with a large size, partially reversible defect of a severe in severity in the entire inferior and inferolateral region. This suggest s a large size partial myocardial ischemia of both right coronary artery and left circumflex artery territory. Left ventricular cavity is dilated. There is a moderate global hypokine sis of the left ventricle. Overall, left ventricular systolic function is moderately decrea sed. LVEF by gated SPECT is 35%. By Tia Payne MD C. Patient has been trying to be more active, he has had no increasing dyspnea at rest or on exertion. She has not started cardiac rehabilitation. She is trying to walk a little bi t more but she has not been doing a whole lot. She is not sure if her mood is part of what' s slowing her down. She hasn't had any increase in leg swelling. She has been taking her m edications but has not been taking her blood pressure. She is in class II-III of the [place] [employer] functional class. Heart failure stage C. There is no fluid retention on physical examination. At this point, patient does need angiogram to evaluate if this is ischemic. However her G FR is 13, she has not seen nephrology as an outpatient and does not have an AV fistula. The chances of causing further kidney damage with angiogram without having a backup plan if nee d be for dialysis will make is awake on angiogram at this point. Once her kidney situation has been better defined then we will proceed with angiogram. Also her blood pressure is bor derline low. Patient has not been monitoring her blood pressure at home. We will provide h er with a bp cuff for her to monitor blood pressure at home. She will start a log and if po ssible we will start up titrating medications. Patient is not on any MARTHA or ARB inhibitor b ecause of her kidney function. 2. Elevated troponin: Coronary artery disease A. Patient denies angina. She will be schedule for stress test as inpatient and angiogram as outpatient once kidney function normalizes a bit more. B. Abnormal stress test as mentioned earlier. C. Patient is a candidate for left heart cath with potential revascularization when her kidney is getting better 3. Acute on chronic diabetic nephropathy A. Cardio-joey syndrome contributing to the RAFY. 4. Diabetes: over 20 years diabetic 5. Hypertension A. Today blood pressure in office is good. 6. Hyperlipidemia 7. Possible LEANN: will need sleep study PLAN: 1. We will provide patient with a blood pressure cuff to monitor her blood pressure. She w ill do a log for 2 weeks of blood pressure measurements twice a day. 2. Referral to cardiac rehabilitation diagnosis of congestive heart failure 3. She will follow up in 2-4 weeks for office visit, or sooner with concerns. She will br ing her blood pressure logs and we will up titrate medication if possible at that point. Portions of this chart may have been created with tinyclues voice recognition software. Occasi onal wrong-word or sound-alike substitutions may have occurred due to the inherent leong itations of voice recognition software. Please read the chart carefully and recognize, using context, where these substitutions have occurred. documented in is encounter Plan of Treatment Not on filedocumented as of this encounter Visit Diagnoses + + | Diagnosis | + + | Acute combined systolic and diastolic congestive heart failure (HCC) - Primary Acute | | combined systolic and diastolic heart failure | + + | Coronary artery disease, angina presence unspecified, unspecified vessel or lesion | | type, unspecified whether [place] or transplanted heart | + + documented in this encounter
--- OUTSIDE RECORDS SUMMARY | ~2019-12-03 | XMS | Encounter Summary ---
Demographics + + + | Address | [address] | | | [place] [address] | + + + | Home Phone | | + + + | Preferred Language | Unknown | + + + | Marital Status | Single | + + + | Anabaptism Affiliation | 1074 | + + + | Race | Unknown | + + + | Ethnic Group | Unknown | + + + Author + + + | Author | [facility] | | | and J[place] | + + + | Organization | [facility] | | | and [place] | + + + | Address | Unknown | + + + | Phone | Unavailable | + + + Support + + + + + | Name | Relationship | Address | Phone | + + + + + | Evelina Bryan Name | ECON | [place] | | | | | [phone] | | + + + + + | Lizet Scott | ECON | Unknown | | + + + + + Care Team Providers + +------+ + | Care Intensive Care Unit Nurse Name | Role | Phone | + +------+ + | Aida Knight PA-C | PCP | | + +------+ + Encounter Details +--------+ + + + + | Date | Type | Department | Care Team | Description | +--------+ + + + + | 10/21/ | Imaging | [facility] | Provider, | | | 2020 | Exam | [facility] | [facility] [address] | | | | | IMAGING [address] | [address] | | | | | [address] [place] | [place] [address] | | | | | [place] [address] | | | | | | [phone] | | | +--------+ + + + [...] +--------+ + + + | XR CHEST 2 VIEWS | Routin | 05/08/2018 | | Results for this | | | e | 12:00 AM | | procedure are in the | | | | PDT | | results section. | + +--------+ + + + documented in this encounter Results XR Chest 2 Vws (05/08/2018 12:00 AM PDT) + + | Specimen | + + | | + + + + + | Narrative | Performed At | + + + | External films for comparison only | [facility] | | | | | No results will be in the chart. | | + + + + +---------+ + + | Performing | Address | City/State/Zipcode | Phone Number | | Organization | | | | + +---------+ + + | [facility] | | | | + +---------+ + + documented in this encounter Visit Diagnoses Not on filedocumented in this encounter"
--- OUTSIDE RECORDS SUMMARY | ~2019-12-03 | XMS | Encounter Summary ---
Demographics + + + | Address | [address] | | | [place] [address] | + + + | Home Phone | | + + + | Preferred Language | Unknown | + + + | Marital Status | Single | + + + | Holiness Affiliation | 1074 | + + + | Race | Unknown | + + + | Ethnic Group | Unknown | + + + Author + + + | Author | [facility] | | | and [place] | + + + | Organization | [facility] | | | and [place] | + + + | Address | Unknown | + + + | Phone | Unavailable | + + + Support + + + + + | Name | Relationship | Address | Phone | + + + + + | Evelina Bryan Name | ECON | [place] | | | | | [address] | | + + + + + | Lizet Scott | ECON | Unknown | | + + + + + Care Team Providers + +------+ + | Care Senior Product Engineer Name | Role | Phone | + +------+ + | Aida Knight PA-C | PCP | | + +------+ + Encounter Details +--------+ + + + + | Date | Type | Department | Care Team | Description | +--------+ + + + + | 07/21/ | Episode | [facility] | Anisa Beach RN | | | 2018 | Changes | SURGERY [address] | | | | | | [address] [place], [place] | | | | | | [address] | | | | | | [phone] | | | +--------+ + + + [...]
--- OUTSIDE RECORDS SUMMARY | ~2019-12-03 | XMS | Encounter Summary ---
Demographics + + + | Address | [address] | | | [place] [address] | + + + | Home Phone | | + + + | Preferred Language | Unknown | + + + | Marital Status | Single | + + + | Tenriism Affiliation | 1074 | + + + | Race | Unknown | + + + | Ethnic Group | Unknown | + + + Author + + + | Author | [facility] | | | and Jethroana | + + + | Organization | [facility] | | | and Jethroana | + + + | Address | Unknown | + + + | Phone | Unavailable | + + + Support + + + + + | Name | Relationship | Address | Phone | + + + + + | Evelina Bryan Name | ECON | [place] | | | | | [address] | | + + + + + | Lizet Scott | ECON | Unknown | | + + + + + Care Team Providers + +------+ + | Care Button Broacher Name | Role | Phone | + [...] | | | | | | | TX CREAT AV | | | | | | | FISTULA,NON- | | | | | | | AUTOGENOUS | | | | | | | GRAFT TX | | | | | | | ANASTOMOSIS, | | | | | | | AV,ANY SITE | | | | | | | TX INSJ | | | | | | | TUNNELED CVC | | | | | | | W/O SUBQ | | | | | | | PORT/GUARD CAPTAIN AGE | | | | | | [...] + + | 07/25/ | Hospital | [facility] | [address] | RAFY (acute kidney | | 2019 | Encounter | MED CTR OR INTRA OP | MD Aditi, FACS 380 | injury) (FORM[facility]LY [facility]) | | | | [address] | [facility] | | | | | [place], [place] | [place] [address] | | | | | [address] | [phone] | | | | | [phone] | | | +--------+ + + + [...] | | | | | | (FORMERLY [facility]), Dilated | | | | | | | cardiomyopathy | | | | | | | ([facility]ER[facility]), Type 2 | | | | | | | diabetes mellitus | | | | | | | with diabetic | | | | | | | nephropathy, with | | | | | | | long-term current | | | | | | | use of insulin | | | | | | | ([facility]), Anemia in | | | | | | | stage 5 chronic | | | | | | | kidney disease, not | | | | | | | on chronic dialysis | | | | | | | ([facility]) | | | | | [...] | | PERMACATH | | PST | (FORMERLY [facility]) (N18.5) | | + +--------+ + + [...] ST. | [address] | [place], [place] | [phone] | | [facility] | | [address] | | | - LABORATORY | | [...] + + | Performed at: - [facility] [place] [address], | REFERENCE LAB | | [place], [place] [id number] Director Internal Communications: Fabio Villagran MD, Phone: | MARIANCOJOSE - BKTomi | | [phone] | | + + + + + + + + | Performing | Address | City/State/Zipcode | Phone Number | | Organization | | | | + + + + + | REFERENCE LAB | [address] | [place], [place] | [phone] | | [facility] | [address] | [address] | | + + + + + [...] ST. | [address] | [place], [place] | [phone] | | [facility] | | [address] | | | - LABORATORY | | [...] + | [facility] | [address] | [place] | [phone] | | [facility] | | [address] | | | - LABORATORY | | [...] [address] | [place] | [phone] | | [facility] | | [address] | | | - LABORATORY | | [...] + | [facility] | [address] | [place], [place] | [phone] | | [facility] | | [address] | | | - LABORATORY | | [...] mL/min/1.73m2 | [facility] | | | GERMAN | RATE,ESTIMATED | | MEDICAL | | | | mL/min/1.92h1Bhon than | | CENTER - | | [...] ST. | [address] | [place], [place] | [phone] | | [facility] | | [address] | | | - LABORATORY | | [...]
--- OUTSIDE RECORDS SUMMARY | ~2019-12-03 | XMS | Encounter Summary ---
Demographics + + + | Address | [address] | | | [place] [address] | + + + | Home Phone [...] | Author | [facility] | | | and Jethroana | + + + | Organization | [facility] | | | and Jethroana | + + + | Address | Unknown | + + + | Phone | Unavailable | + + + Support + + + + + | Name | Relationship | Address | Phone | + + + + + | Evelina Bryan Name | ECON | [place] | | | | | [address] | | + + + + + | Lizet Scott | ECON | Unknown | | + + + + + Care Team Providers + +------+ + | Care Weld Fitter Name | Role | Phone | + [...] | | [address] | [place] | | | | | [place], [place] | [place], [place] | | | | | [address] | [address] | | | | | [phone] | | | +--------+ + + + [...]
--- OUTSIDE RECORDS SUMMARY | ~2019-12-03 | XMS | Encounter Summary ---
Demographics + + + | Address | [address] | | | [place] [address] | + + + | Home Phone | | + + + | Preferred Language | Unknown | + + + | Marital Status | Single | + + + | Mosque Affiliation | 1074 | + + + | Race | Unknown | + + + | Ethnic Group | Unknown | + + + Author + + + | Author | [facility] | | | and Jethroana | + + + | Organization | [facility] | | | and Jethroana | + + + | Address | Unknown | + + + | Phone | Unavailable | + + + Support + + + + + | Name | Relationship | Address | Phone | + + + + + | Evelina Bryan Name | ECON | [place] | | | | | [address] | | + + + + + | Lizet Ghamber | ECON | Unknown | | + + + + + Care Team Providers + +------+ + | Care Watershed Manager Name | Role | Phone | + +------+ + | Aida Knight PA-C | PCP | | + +------+ + Reason for Visit +--------+ + | Reason | Comments | +--------+ + | | | +--------+ + Evaluate & Treat (Routine) +--------+--------+ + + + + | Status | Reason | Specialty | Diagnoses / | Referred By | Referred To | | | | | Procedures | Contact | Contact | +--------+--------+ + + + + | Closed | | Nephrology | Diagnoses | Antonia, | Nasir, | | | | | ESRD (end | Aida Raymundo, | Lester Elise DO | | | | | stage renal | [place] [address] | [address] [place] [address] | | | | | disease) | | [place] | | | | | ([facility]) | [facility] | [address] | | | | | Procedures | WAY | [place] | | | | | [place] ESRD | [place], | [address] Phone: | | | | | RELATED [facility] | [place] [address] | [phone] | | | | | MONTHLY | Phone: | Fax: | | | | | 20&/> YR OLD | [phone] | [phone] | | | | | 4/> VISITS | Fax: | | | | | | | [phone] | | +--------+--------+ + + + + Encounter Details +--------+ + + + + | Date | Type | Department | Care Team | Description | +--------+ + + + + | 07/09/ | Off-Site | [facility] [place] | Lester eBst | End stage renal | | 2019 | Visit | NEPHROLOGY [address] | M, DO [address] | disease (HCC) | | | | [address] | [place] | (Primary Dx) | | | | [place], [place] | [place], [place] | | | | | [address] | [address] | | | | | [phone] | | | +--------+ + + + [...] + + + | Blood Pressure | 125/59 | 07/09/2019 5:01 PM | | | | | PST | | + + + + + | Pulse | - | - | | + + + + + | Temperature | 36.7 C (98.1 F) | 07/09/2019 5:01 PM | | | | | PST | | + + + + + | Respiratory Rate | - | - | | + + + + + | Oxygen Saturation | - | - | | + + + + + | Inhaled Oxygen | - | - | | | Concentration | | | | + + + + + | Weight | - | - | | + + + + + | Height | - | - | | + + + + + | Body Mass Index | - | - | | + + + + + documented in this encounter Progress Notes Lester Best DO - 07/09/2019 10:00 AM PST Subjective: DIALYSIS NOTE Patient ID: Xochilt Linares is a 63 y.o. female. HPI Comments: Monthly dialysis visit for this 63 YO female with ESRD secondary to diabeti c gl glomerulosclerosis, plus low CO state from her background dilated cardiomyopathy, also has anemia secondary to CKD, CKD/MBD, and Type II DM. CAD, s/p CABG x3 vessels, LO to LAD, SVG to D2, SVG to PDA, 12/28/2018, Dr. Phill Logan , [facility] She denies muscle cramps, chest pain, pruritus, or anorexia. States that her energy level is good for the circumstances. MEDS: Outpatient Medications Marked as Taking for the 07/09/19 encounter (Off-Site Visit) with Eveline Best DO Medication Sig Dispense Refill aspirin 81 mg chewable tablet Take 81 mg by mouth Daily. atorvaSTATin (LIPITOR) 80 MG tablet Take 1 tablet by mouth Daily. 30 tablet 5 calcitRIOL (ROCALTROL) 0.5 MCG capsule Take 0.5 mcg by mouth Every other day. carvedilol (COREG) 6.25 mg tablet Take 1 tablet by mouth 2 times daily (with breakfast & dinner). 60 tablet 5 Cholecalciferol (VITAMIN D-3) 2000 units CAPS Take 1 capsule by mouth Daily. 30 each 11 furosemide (LASIX) 80 mg tablet Take 1 tablet by mouth Daily. lisinopril (PRINIVIL, ZESTRIL) 10 mg tablet Take 1 tablet by mouth nightly. 30 tablet 1 1 magnesium oxide (MAG-OX) 400 mg tablet Take 1 tablet by mouth Daily. 30 tablet 5 spironolactone (ALDACTONE) 25 mg tablet Take 1 tablet by mouth Daily. 30 tablet 5 No Known Allergies ROS Objective: BP 125/59 | Temp 36.7 C (98.1 F) EDW 66 kg Physical Exam Heart: Regular rate and rhythm with grade 1/6 VELVET at LSB, no S3, or rub. Lungs: CTA bilaterally. No rales or wheezes. Sternum is well-healed. Abdomen: soft, obese, nontender, NABS. Extremities: no edema, clubbing, or cyanosis. AVF at Right upper arm has (+) bruit. LAB: BUN 53, Cr 3.8, K+ 4.4, HCO3 25, albumin 3.7, Ca++ 8.2, P04 5.8, last PTH 263, Hb 11.3 , T sat [not listed], ferritin [not listed], eKT/V = 1.46 Assessment: 1. ESRD--she appears well dialyzed by the most recent eKT/V. 2. dilated cardiomyopathy--compensated . 3. Type II DM --need to locate her most recent HbA1c? She describes her home glucoscans i s stable. 4. Hypertension--good control from review of her treatment data and LYNN Schneider 5. Anemia 2 to CKD--Hb appears stable on a minimal dose of EPO. Need to attempt to rel ocate her iron profile if not we will reorder it. 6. SHPTH--her PTH is excellent and her phosphorus control is very good. I encouraged him that she is doing a good job with this. 7. Nutrition--her appetite is good. I emphasized to her to try to take in a large portion of high biological value protein daily. 8. Transplantation--she philosophically is ambivalent about this. 9. CAD, s/p CABG x3 vessels, LO to LAD, SVG to D2, SVG to PDA, 12/28/2018, Raghu Ott--stable on ASA, atorvastatin, carvedilol, lisinopril. PLAN 1. Monthly lab was reviewed with the patient. 2. Need to rotate her iron profile and repeat HbA1c. 3. Clinically she appears stable on her current Rx, EPO dose, statin and lisinopril. : [facility] Tia Payne MD, [facility] MD ANA Mendenhall M.D. documented in thi s encounter Plan of Treatment Not on filedocumented as of this encounter Visit Diagnoses + + | Diagnosis | + + | End stage renal disease (HCC) - Primary End stage renal disease | + + documented in this encounter"
--- OUTSIDE RECORDS SUMMARY | ~2019-12-03 | XMS | Encounter Summary ---
Demographics + + + | Address | [address] | | | [place] [address] | + + + | Home Phone | | + + + | Preferred Language | Unknown | + + + | Marital Status | Single | + + + | Caodaism Affiliation | 1074 | + + + | Race | Unknown | + + + | Ethnic Group | Unknown | + + + Author + + + | Author | [facility] | | | and Jethroana | + + + | Organization | [facility] | | | and Jethroana | + + + | Address | Unknown | + + + | Phone | Unavailable | + + + Support + + + + + | Name | Relationship | Address | Phone | + + + + + | Evelina Bryan Name | ECON | [place] | | | | | [address] | | + + + + + | Lizet Scott | ECON | Unknown | | + + + + + Care Team Providers + +------+ + | Care Provider Relations Rep Name | Role | Phone | + +------+ + | Aida Knight PA-C | PCP | | + +------+ + Reason for Visit +--------+ + | Reason | Comments | +--------+ + | Other | plan of care | +--------+ + Encounter Details +--------+ + + + + | Date | Type | Department | Care Team | Description | +--------+ + + + + | 11/28/ | Telephone | [facility] | Tia Payne, | Other (plan of care) | | 2019 | | CARDIOLOGY [address] | MD [address] [place] | | | | | [place], | [place], | | | | | [place] [address] | [place] [address] | | | | | [phone] | [phone] | | | | | | | [...]
--- OUTSIDE RECORDS SUMMARY | ~2019-12-03 | XMS | Encounter Summary ---
Demographics + + + | Address | [address] | | | [place] [address] | + + + | Home Phone | | + + + | Preferred Language | Unknown | + + + | Marital Status | Single | + + + | Yazidism Affiliation | 1074 | + + + | Race | Unknown | + + + | Ethnic Group | Unknown | + + + Author + + + | Author | [facility] | | | and Jethroana | + + + | Organization | [facility] | | | and Jethroana | + + + | Address | Unknown | + + + | Phone | Unavailable | + + + Support + + + + + | Name | Relationship | Address | Phone | + + + + + | Evelina Bryan Name | ECON | [place] | | | | | [address] | | + + + + + | Lizet Scott | ECON | Unknown | | + + + + + Care Team Providers + +------+ + | Care Manager Business Continuity Name | Role | Phone | + +------+ + | Aida Knight PA-C | PCP | | + +------+ + Encounter Details +--------+ + + + + | Date | Type | Department | Care Team | Description | +--------+ + + + + | 05/15/ | Orders Only | [facility] [place] | Lester Best | Acute renal failure | | 2018 | | NEPHROLOGY [address] | M, DO [address] | superimposed on | | | | [address] | [place] | stage 5 chronic | | | | [place], [place] | [place], [place] | kidney disease, not | | | | [address] | [address] | on chronic dialysis, | | | | [phone] | | unspecified acute | | | | | | renal failure type | | | | | | ([facility]) (Primary Dx) | +--------+ + + + + Social [...] + documented as of this encounter Progress Liz Kilgore RN - 05/15/2018 11:15 AM [facility] for nephrology appt on 05/29/18 sent to Isamar Kulkarni. documented in this en counter Plan of Treatment Not on filedocumented as of this encounter Visit Diagnoses + + | Diagnosis | + + | Acute renal failure superimposed on stage 5 chronic kidney disease, not on chronic | | dialysis, unspecified acute renal failure type (HCC) - Primary | + + documented in this encounter"
--- OUTSIDE RECORDS SUMMARY | ~2019-12-03 | XMS | Encounter Summary ---
Demographics + + + | Address | [address] | | | [place] [address] | + + + | Home Phone | | + + + | Preferred Language | Unknown | + + + | Marital Status | Single | + + + | Presybeterian Affiliation | 1074 | + + + | Race | Unknown | + + + | Ethnic Group | Unknown | + + + Author + + + | Author | [facility] | | | and Jethroana | + + + | Organization | [facility] | | | and Jethroana | + + + | Address | Unknown | + + + | Phone | Unavailable | + + + Support + + + + + | Name | Relationship | Address | Phone | + + + + + | Evelina Bryan Name | ECON | [place] | | | | | [address] | | + + + + + | Lizet Scott | ECON | Unknown | | + + + + + Care Team Providers + +------+ + | Care Disability Insurance Claim Examiner Name | Role | Phone | + +------+ + | Aida Knight PA-C | PCP | | + +------+ + Reason for Visit Service/Procedure (Routine) +--------+--------+ + + + + | Status | Reason | Specialty | Diagnoses / | Referred By | Referred To | | | | | Procedures | Contact | Contact | +--------+--------+ + + + + | Closed | | Nephrology | Diagnoses | Stroemel, | Stroemel, | | | | | ESRD (end | Lester M, | Lester M, DO | | | | | stage renal | DO [address] | [address] | | | | | disease) on | [place], [place] | [place] | | | | | dialysis | [address] [place] | [address] [place] | | | | | (HCC) | [place], [place] | [place] | | | | | Procedures | [address] | [address] Phone: | | | | | [place] OFFICE | Phone: | [phone] | | | | | OUTPATIENT | [phone] | Fax: | | | | | VISIT 25 | Fax: | [phone] | | | | | MINUTES | [phone] | | +--------+--------+ + + + + Encounter Details +--------+ + + + + | Date | Type | Department | Care Team | Description | +--------+ + + + + | 10/17/ | Procedure | [facility] [place] | Lester Best | End stage renal | | 2019 | visit | NEPHROLOGY [address] | M, DO [address] | disease (HCC) | | | | [address] | [place] | (Primary Dx); | | | | [place], [place] | [place], [place] | Essential | | | | [address] | [address] | hypertension, | | | | [phone] | | malignant; Anemia of | | | | | | chronic renal | | | | | | failure, stage 5 | | | | | | (HCC) | +--------+ + + + + Social [...] documented as of this encounter Progress Notes Lester Best DO - 10/17/2018 2:00 PM PDTPROCEDURE NOTE: Proposed Procedures: 1. right IJ Equistream catheter removal. Actual Procedures: 1. Same. Postoperative Diagnosis: 1. functioning AVF. Surgeons: 1. Nasir Anesthesia: 1% Xylocaine. Estimated Blood Loss: Minimal. Drains and Tubes: None. Findings, Complications, and Other Information: Informed consent was obtained from the pat ient. Her [place] AVF works well and the Equistream catheter is no longer needed. A timeou t was taken by the patient and the team. The patient was prepped and draped in a sterile fa shion with chlorhexidine. The tunnel of the catheter was then infiltrated 1% Xylocaine. Due to the depth of the catheter's cuff, the tunnel was opened approximately 1 cm with the sciss ors, with good hemostasis, to improve exposure. Then, utilizing blunt dissection, and some limited sharp dissection at the very end, the c uff and catheter were dissected free and the catheter was removed intact. The tunnel was th en irrigated with a copious quantity of sterile saline. Hemostasis was adequate. The forme r incision was then approximated with #2 simple interrupted sutures of 4-O Nylon. Sterile 4 x 4's, bacitracin, and six-inch Medipore tape were applied to the site. There were no co mplications. She tolerated the procedure well. She was instructed to remove the dressing i n 24 hours. She was instructed not to shower for 24 hours. She was instructed to call i f any problems. She was discharged to home in stable condition. Will plan removing the sutures in one week at the [facility]. : [place], [place]. Harman Plaza MD, MILES Knight PA-C. documented in thi s encounter Plan of Treatment Not on filedocumented as of this encounter Visit Diagnoses + + | Diagnosis | + + | End stage renal disease (HCC) - Primary End stage renal disease | + + | Essential hypertension, malignant | + + | Anemia of chronic renal failure, stage 5 (HCC) | + + documented in this encounter"
--- OUTSIDE RECORDS SUMMARY | ~2019-12-03 | XMS | Encounter Summary ---
Demographics + + + | Address | [address] | | | [place] [address] | + + + | Home Phone [...] + + + | Author | [facility] | | | and Jethroana | + + + | Organization | [facility] | | | and Jethroana | + + + | Address | Unknown | + + + | Phone | Unavailable | + + + Support + + + + + | Name | Relationship | Address | Phone | + + + + + | Evelina Bryan Name | ECON | [place] | | | | | [address] | | + + + + + | Lizet Scott | ECON | Unknown | | + + + + + Care Team Providers + +------+ + | Care Compotype Operator Name | Role | Phone | + +------+ + | Aida Knight PA-C | PCP | | + +------+ + Encounter Details +--------+ + + + + | Date | Type | Department | Care Team | Description | +--------+ + + + + | 07/24/ | Episode | [facility] | Anisa Beach RN | | | 2018 | Changes | SURGERY [address] | | | | | | [place], [place] | | | | | | [address] | | | | | | [phone] | | | +--------+ + + + [...]
--- OUTSIDE RECORDS SUMMARY | ~2019-12-03 | XMS | Encounter Summary ---
Demographics + + + | Address | [address] | | | [place] [address] | + + + | Home Phone | | + + + | Preferred Language | Unknown | + + + | Marital Status | Single | + + + | Taoist Affiliation | 1074 | + + + | Race | Unknown | + + + | Ethnic Group | Unknown | + + + Author + + + | Author | [facility] | | | and Jethroana | + + + | Organization | [facility] | | | and Jethroana | + + + | Address | Unknown | + + + | Phone | Unavailable | + + + Support + + + + + | Name | Relationship | Address | Phone | + + + + + | Evelina Bryan Name | ECON | [place] | | | | | [address] | | + + + + + | Lizet Scott | ECON | Unknown | | + + + + + Care Team Providers + +------+ + | Care Structural Metal Worker Name | Role | Phone | + +------+ + | Aida Knight PA-C | PCP | | + +------+ + Encounter Details +--------+ + + + + | Date | Type | Department | Care Team | Description | +--------+ + + + + | 12/27/ | Abstract | [facility] [place] | Shreya Eldridge W, | | | 2018 | | NEPHROLOGY [address] | MD [address] [place] | | | | | [address] | [address] [place] | | | | | [place], [place] | [place] [address] | | | | | [address] | [phone] | | | | | [phone] | | | +--------+ + + + [...]
--- OUTSIDE RECORDS SUMMARY | ~2019-12-03 | XMS | Encounter Summary ---
Demographics + + + | Address | [address] | | | [place] [address] | + + + | Home Phone | | + + + | Preferred Language | Unknown | + + + | Marital Status | Single | + + + | Sabianist Affiliation | 1074 | + + + | Race | Unknown | + + + | Ethnic Group | Unknown | + + + Author + + + | Author | [facility] | | | and Jethroana | + + + | Organization | [facility] | | | and Jethro[place] | + + + | Address | Unknown | + + + | Phone | Unavailable | + + + Support + + + + + | Name | Relationship | Address | Phone | + + + + + | Evelina Bryan Name | ECON | [place] | | | | | [address] | | + + + + + | Lizet Scott | ECON | Unknown | | + + + + + Care Team Providers + +------+ + | Care Audit Machine Operator Name | Role | Phone | + +------+ + | Aida Knight PA-C | PCP | | + +------+ + Encounter Details +--------+ + + + + | Date | Type | Department | Care Team | Description | +--------+ + + + + | 05/26/ | Orders Only | [facility] [place] | Lester Best | Chronic kidney | | 2018 | | NEPHROLOGY [address] | M, DO [address] | disease, stage IV | | | | [address] | [place] | (severe) (HCC) | | | | [place], [place] | [place], [place] | (Primary Dx) | | | | [address] | [address] | | | | | [phone] | | | +--------+ + + + [...] + + | Chronic kidney disease, stage IV (severe) (HCC) - Primary Chronic kidney disease, | | Stage IV (severe) | + + documented in this encounter"
--- OUTSIDE RECORDS SUMMARY | ~2019-12-03 | XMS | Encounter Summary ---
Demographics + + + | Address | [address] | | | [place] [address] | + + + | Home Phone | | + + + | Preferred Language | Unknown | + + + | Marital Status | Single | + + + | Cheondoism Affiliation | 1074 | + + + | Race | Unknown | + + + | Ethnic Group | Unknown | + + + Author + + + | Author | [facility] | | | and [place]eth[place] | + + + | Organization | [facility] | | | and [place] | + + + | Address | Unknown | + + + | Phone | Unavailable | + + + Support + + + + + | Name | Relationship | Address | Phone | + + + + + | Evelina Bryan Name | ECON | [place] | | | | | [address] | | + + + + + | Lizet Scott | ECON | Unknown | | + + + + + Care Team Providers + +------+ + | Care Commercial Property Administrator Name | Role | Phone | + +------+ + | Aida Knight PA-C | PCP | | + +------+ + Reason for Visit + + + | Reason | Comments | + + + | Lab Order | | + + + Encounter Details +--------+ + + + + | Date | Type | Department | Care Team | Description | +--------+ + + + + | 08/02/ | Telephone | [facility] [place] | Meryl, | Lab Order | | 2019 | | [address]ARDIOLOGY [address] | | | | | [place], | [place], | | | | | [place] [address] | [place] [address] | | | | | [phone] | [phone] | | | | | | | [...] of this encounter Plan of Treatment + +------+--------+ + + | Name | Type | Priori | Associated Diagnoses | Order Schedule | | | | ty | | | + +------+--------+ + + | Lipid Panel | Lab | Routin | Hyperlipidemia, | Expected: | | | | e | unspecified | 08/02/2018, Expires: | | | | | hyperlipidemia type | 08/02/2019 | + +------+--------+ + + | CBC with | Lab | Routin | Essential | Expected: | | Differential | | e | hypertension | 08/02/2018, Expires: | | | | | | 08/02/2019 | + +------+--------+ + + documented as of this encounter Visit Diagnoses + + | Diagnosis | + + | Hyperlipidemia, unspecified hyperlipidemia type - Primary | + + | Essential hypertension Unspecified essential hypertension | + + documented in this encounter"
--- OUTSIDE RECORDS SUMMARY | ~2019-12-03 | XMS | Encounter Summary ---
Demographics + + + | Address | [address] | | | [place] [address] | + + + | Home Phone | | + + + | Preferred Language | Unknown | + + + | Marital Status | Single | + + + | Restorationism Affiliation | 1074 | + + + | Race | Unknown | + + + | Ethnic Group | Unknown | + + + Author + + + | Author | [facility] | | | and [place] | + + + | Organization | [facility] | | | and [place] | + + + | Address | Unknown | + + + | Phone | Unavailable | + + + Support + + + + + | Name | Relationship | Address | Phone | + + + + + | Evelina Bryan Name | ECON | [place] | | | | | [address] | | + + + + + | Lizet Scott | ECON | Unknown | | + + + + + Care Team Providers + +------+ + | Care Daycare Worker Name | Role | Phone | [...] | Stroemel, | | | | | Chronic | eLster M, | Lester M, DO | | | | | kidney | DO [address] | | | | | disease, | [place], [place] | [place], [place] | | | | | stage 4 | [address] | | | | | (severe) | [place] | [place] | | | | | (HCC) | [address] | [address] Phone: | | | | | Procedures | Phone: | [phone] | | | | | [place] OFFICE | [phone] | Fax: | | | | | OUTPATIENT | Fax: | [phone] | | | | | VISIT 25 | [phone] | | | | | | MINUTES | | | +--------+--------+ + + + + Encounter Details +--------+ + + + + | Date | Type | Department | Care Team | Description | +--------+ + + + + | 07/03/ | Off-Site | [facility] [place] | Lester Best | Anemia in stage 5 | | 2018 | Visit | NEPHROLOGY [address] | M, DO [address] | chronic kidney | | | | [address] | [place], [address] | disease, not on | | | | [place], [place] | [place], [place] | chronic dialysis | | | | [address] | [address] | ([facility]) (Primary Dx); | | | | [phone] | | Chronic kidney | | | | | | disease, stage V | | | | | | (HCC); Dilated | | | | | | cardiomyopathy | | | | | | (HCC); Secondary | | | | | | hyperparathyroidism | | | | | | of renal origin | | | | | | ([facility]) | +--------+ + + + + Social [...] + + + | Blood Pressure | 120/60 | 07/03/2018 1:10 PM | | | | | PST | | + + + + + | Pulse | - | - | | + + + + + | Temperature | 36 C (96.8 F) | 07/03/2018 1:10 PM | | | | | PST [...] + + + + | Weight | 67.9 kg (149 lb 11.1 | 07/03/2018 1:10 PM | | | | oz) | PST | | + + + + + | Height | - | - | | + + + + + | Body Mass Index | 24.91 | 05/31/2018 10:39 AM | | | | | PST | | + + + + + documented in this encounter Progress Notes Lester Best DO - 07/03/2018 1:00 PM PST Subjective: NEPHROLOGY Patient ID: Xochilt Linares is a 62 y.o. female. 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 She was lost to medical follow up. She ramos ears to have made up her mind that she prefers Outpt HD, skilled nursing. She understands that she still needs construction of an AVF. However, given her low Ccr on her 24 Hr urine at 9 ml/min. , I discussed that she may need to begin with a tunneled IJ catheter. She does admit to a slowly declining appetite, rare hi ccups, but no nausea, or SOB. She is additionally c/o being fatigued. She has her first Ap pt. to see Dr. Harman Plaza on 07/05/18. She understands that she will be dialyzing at the [facility], at [place], [place]. MEDS: Outpatient Prescriptions Marked as Taking for the 07/03/18 encounter (Off-Site Visit) with Lester Best DO Medication Sig Dispense Refill aspirin [...] Daily. 30 tablet 5 No Known Allergies Outpatient Prescriptions Marked as Taking for the 07/03/18 encounter (Off-Site Visit) with Lester Best DO Medication Sig Dispense Refill aspirin [...] 5 No Known Allergies ROS Objective: BP 120/60 | Temp 36 C (96.8 F) | Wt 67.9 kg (149 lb 11.1 oz) | BMI 24.91 kg/m Physical Exam Heart: Regular rate and rhythm with grade 1/6 VELVET at LSB, no S3, or rub. Lungs: CTA bilaterally. No rales or wheezes. Abdomen: soft, obese, nontender, NABS. Extremities: no edema, clubbing, or cyanosis. No foot ulcers. Lab Results Component Value Date NAEX 130 06/30/2018 KEX 4.2 06/30/2018 CLEX 97 06/30/2018 CO2EX 21 06/30/2018 BUNEX 114 06/30/2018 CREEX 4.32 06/30/2018 EGFREX 10 06/30/2018 GLUEX 188 06/30/2018 CAEX 8.8 06/30/2018 PHOSEX 5.4 06/30/2018 PTHEX 83.55 06/30/2018 Lab Results Component Value Date WBCEX 7.9 06/30/2018 HGBEX 10.4 06/30/2018 HCTEX 32.2 06/30/2018 PLTEX 199 06/30/2018 Lab Results Component Value Date CRCLEARANCE 9.0 (A) 06/30/2018 PROTEX 3,564 06/30/2018 Assessment: 1. Stage 5 CKD, 2 to diabetic glomerulosclerosis-- fatigue, and low grade anorexia , cou ld be symptoms of uremia/ 2. dilated cardiomyopathy-- compensated. 3. 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 4. Hypertension--likely will require therapy long-term. 5. Anemia 2 to CKD-- could benefit from EPO, SQ for maintenance. 6. SHPTH-- not yet requiring calcitriol. PLAN 1. Apparently, she has an Appt. with Dr. Plaza on 07/05/18, and given her current GFR woul d favor establishing a tunneled IJ catheter first, then, starting her on Outpatient HD first . AVF could be constructed then at a later date? 2. Will check a Hepatitis panel, and send pt through [facility] Admissions for Pre-Admission, so that she can be started as an outpt, once the tunneled cath. established. She was advise d that she should not shower or submerge it for 4 months. 3. Will start EPO, with her thrice weekly Rx's at [facility]. 4. Will likely follow up with myself or Dr. Shreya Eldridge at the [facility]. She was advised Not to have anymore BP's or Needlestick's in her Left arm in anticipation of a futur e AVF. 5. I greatly Appreciate Dr. Plaza's assistance. : [facility] Harman Plaza MD, FACS Tia Payne MD, [facility] at [place], [place]. documented in thi s encounter Plan of Treatment + +------+--------+ + + | Name | Type | Priori | Associated Diagnoses | Order Schedule | | | | ty | | | + +------+--------+ + + | Hepatitis A, B, C | Lab | Routin | Chronic kidney | Expected: | | Panel, Reflex | | e | disease, stage V | 07/11/2018, Expires: | | | | | (HCC) Anemia in | 07/04/2019 | | | | | stage 5 chronic | | | | | | kidney disease, not | | | | | | on chronic dialysis | | | | | | (HCC) Dilated | | | | | | cardiomyopathy (HCC) | | | | | | Secondary | | | | | | hyperparathyroidism | | | | | | of renal origin | | | | | | (HCC) | | + +------+--------+ + + documented as of this encounter Visit Diagnoses + + | Diagnosis | + + | Anemia in stage 5 chronic kidney disease, not on chronic dialysis (HCC) - Primary | + + | Chronic kidney disease, stage V (HCC) Chronic kidney disease, Stage V | + + | Dilated cardiomyopathy (HCC) Other primary cardiomyopathies | + + | Secondary hyperparathyroidism of renal origin (HCC) Secondary hyperparathyroidism (of | | renal origin) | + + documented in this encounter"
--- OUTSIDE RECORDS SUMMARY | ~2019-12-03 | XMS | Encounter Summary ---
Demographics + + + | Address | [address] | | | [place] [address] | + + + | Home Phone | | + + + | Preferred Language | Unknown | + + + | Marital Status | Single | + + + | Samaritan Affiliation | 1074 | + + + | Race | Unknown | + + + | Ethnic Group | Unknown | + + + Author + + + | Author | and [facility] | | | and [place] | + + + | Organization | and [facility] [...] [place] | | | | | [address] | | + + + + + | Lizet Scott | ECON | Unknown | | + + + + + Care Team Providers + +------+ + | Care Soaking Pits Supervisor Name | Role | Phone | + +------+ + | Aida Knight PA-C | PCP | | + +------+ + Reason for Visit + + + | Reason | Comments | + + + | Medication Refill | | + + + Encounter Details +--------+--------+ + + + | Date | Type | Department | Care Team | Description | +--------+--------+ + + + | 06/05/ | Refill | [facility] [place] | Meryl, | Medication Refill | | 2017 | | CARDIOLOGY [address] | [address] | | | | | [place], | [place], | | | | | [place] [address] | [place] [address] | | | | | [phone] | [phone] | | | | | | | | +--------+--------+ + + + Social History + +-------+ [...]
--- OUTSIDE RECORDS SUMMARY | ~2019-12-03 | XMS | Encounter Summary ---
Demographics + + + | Address | [address] | | | [place] [address] | + + + | Home Phone | | + + + | Preferred Language | Unknown | + + + | Marital Status | Single | + + + | Episcopalian Affiliation | 1074 | + + + | Race | Unknown | + + + | Ethnic Group | Unknown | + + + Author + + + | Author | [facility] | | | and [place] | + + + | Organization | [facility] | | | and [place] | + + + | Address | Unknown | + + + | Phone | Unavailable | + + + Support + + + + + | Name | Relationship | Address | Phone | + + + + + | Evelina Bryan Name | ECON | [place] | | | | | [address] | | + + + + + | Lizet Sonia | ECON | Unknown | | + + + + + Care Team Providers + +------+ + | Care Guest Specialist Name | Role | Phone | + +------+ + | Aida Knight PA-C | PCP | | + +------+ + Reason for Visit +--------+ + | Reason | Comments | +--------+ + | Other | dialysis needed after cath | +--------+ + Encounter Details +--------+ + + + + | Date | Type | Department | Care Team | Description | +--------+ + + + + | 10/03/ | Telephone | [facility] | Meryl, | Other (dialysis | | 2019 | | CARDIOLOGY [address] | [address] | needed after cath) | | | | [place], | [place], | | | | | [place] [address] | [place] [address] | | | | | [phone] | [phone] | | | | | | | [...]
--- OUTSIDE RECORDS SUMMARY | ~2019-12-03 | XMS | Encounter Summary ---
Demographics + + + | Address | [address] | | | [place] [address] | + + + | Home Phone | | + + + | Preferred Language | Unknown | + + + | Marital Status | Single | + + + | Alevism Affiliation | 1074 | + + + | Race | Unknown | + + + | Ethnic Group | Unknown | + + + Author + + + | Author | [facility] | | | and [place] | + + + | Organization | [facility] | | | and [place] | + + + | Address | Unknown | + + + | Phone | Unavailable | + + + Support + + + + + | Name | Relationship | Address | Phone | + + + + + | Evelina Bryan Name | ECON | [place] | | | | | [address] | | + + + + + | Lizet Scott | ECON | Unknown | | + + + + + Care Team Providers + +------+ + | Care Cab Supervisor Name | Role | Phone | + +------+ + | Aida Knight PA-C | PCP | | + +------+ + Encounter Details +--------+ + + + + | Date | Type | Department | Care Team | Description | +--------+ + + + + | 07/03/ | Abstract | [facility] [place] | Nasir Lester | | | 2017 | | NEPHROLOGY [address] | M, DO [address] | | | | | [address] | [place] | | | | | [place], [place] | [place], [place] | | | | | [address] | [address] | | | | | [phone] | | | +--------+ + + + [...] | EXTERNAL LAB: ESME | Kevin | 06/30/2018 | | Results for this | | | e | | | procedure are in the | | | | | | results section. | + +--------+ + + + | EXTERNAL LAB: | Routin | 06/30/2018 | | Results for this | | GLUCOSE | e | | | procedure are in the | | | | | | results section. | + +--------+ + + + | EXTERNAL LAB: ALT | Routin | 06/30/2018 | | Results for this | | | e | | | procedure are in the | | | | | | results section. | + +--------+ + + + | EXTERNAL LAB: AST | Routin | 06/30/2018 | | Results for this | | | e | | | procedure are in the | | | | | | results section. | + +--------+ + + + | EXTERNAL LAB: | Routin | 06/30/2018 | | Results for this | | ALKALINE PHOSPHATASE | e | | | procedure are in the | | | | | | results section. | + +--------+ + + + | EXTERNAL LAB: | Routin | 06/30/2018 | | Results for this | | BILIRUBIN, TOTAL | e | | | procedure are in the | | | | | | results section. | + +--------+ + + + | EXTERNAL LAB: | Routin | 06/30/2018 | | Results for this | | ALBUMIN | e | | | procedure are in the | | | | | | results section. | + +--------+ + + + | EXTERNAL LAB: | Routin | 06/30/2018 | | Results for this | | PROTEIN, TOTAL | e | | | procedure are in the | | | | | | results section. | + +--------+ + + + | EXTERNAL LAB: | Routin | 06/30/2018 | | Results for this | | PHOSPHORUS | e | | | procedure are in the | | | | | | results section. | + +--------+ + + + | EXTERNAL LAB: | Routin | 06/30/2018 | | Results for this | | CALCIUM | e | | | procedure are in the | | | | | | results section. | + +--------+ + + + | EXTERNAL LAB: CARBON | Routin | 06/30/2018 | | Results for this | | DIOXIDE | e | | | procedure are in the | | | | | | results section. | + +--------+ + + + | EXTERNAL LAB: | Routin | 06/30/2018 | | Results for this | | CHLORIDE | e | | | procedure are in the | | | | | | results section. | + +--------+ + + + | EXTERNAL LAB: | Routin | 06/30/2018 | | Results for this | | POTASSIUM | e | | | procedure are in the | | | | | | results section. | + +--------+ + + + | EXTERNAL LAB: SODIUM | Routin | 06/30/2018 | | Results for this | | | e | | | procedure are in the | | | | | | results section. | + +--------+ + + + | EXTERNAL LAB: | Routin | 06/30/2018 | | Results for this | | VITAMIN D, | e | | | procedure are in the | | 25-HYDROXY | | | | results section. | + +--------+ + + + | EXTERNAL LAB: PTH, | Routin | 06/30/2018 | | Results for this | | INTACT | e | | | procedure are in the | | | | | | results section. | + +--------+ + + + | EXTERNAL LAB: | Routin | 06/30/2018 | | Results for this | | PROTEIN, URINE, 24HR | e | | | procedure are in the | | | | | | results section. | + +--------+ + + + | EXTERNAL LAB: CBC | Routin | 06/30/2018 | | Results for this | | | e | | | procedure are in the | | | | | | results section. | + +--------+ + + + | EXTERNAL LAB: | Routin | 06/30/2018 | | Results for this | | TRIGLYCERIDES | e | | | procedure are in the | | | | | | results section. | + +--------+ + + + | EXTERNAL LAB: | Routin | 06/30/2018 | | Results for this | | CHOLESTEROL, HDL | e | | | procedure are in the | | | | | | results section. | + +--------+ + + + | EXTERNAL LAB: | Routin | 06/30/2018 | | Results for this | | CHOLESTEROL, TOTAL | e | | | procedure are in the | | | | | | results section. | + +--------+ + + + | EXTERNAL LAB: | Routin | 06/30/2018 | | Results for this | | CHOLESTEROL, LDL | e | | | procedure are in the | | | | | | results section. | + +--------+ + + + | EXTERNAL LAB: EGFR | Routin | 06/30/2018 | | Results for this | | | e | | | procedure are in the | | | | | | results section. | + +--------+ + + + | EXTERNAL LAB: | Routin | 06/30/2018 | | Results for this | | CREATININE | e | | | procedure are in the | | | | | | results section. | + +--------+ + + + | CREATININE | Routin | 06/30/2018 | | Results for this | | CLEARANCE, RESULT | e | | | procedure are in the | | | | | | results section. | + +--------+ + + + documented in this encounter Results Creatinine Clearance, Result (06/30/2018) + +---------+ + + + | Component | Value | Ref Range | Performed | Pathologist | | | | | At | Signature | + +---------+ + + + | CREATININE | 9.0 (A) | 88.0 - 128.0 | | | | CLEARANCE | | mL/min | | | + +---------+ + + + | 24H Urine | 600 | mL | | | | Volume | | | | | + +---------+ + + + + + | Specimen | + + | Urine | + + External Lab: PTH, Intact (06/30/2018) + +-------+ + + + | Component | Value | Ref Range | Performed | Pathologist | | | | | At | Signature | + +-------+ + + + | PTH Intact, | 83.55 | 12 | | | | External | | | | | + +-------+ + + + + + | Specimen | + + | | + + External Lab: BUN (06/30/2018) + +-------+ + + + | Component | Value | Ref Range | Performed | Pathologist | | | | | At | Signature | + +-------+ + + + | BUN, | 114 | | | | | External | | | | | + +-------+ + + + External Lab: Glucose (06/30/2018) + +-------+ + + + | Component | Value | Ref Range | Performed | Pathologist | | | | | At | Signature | + +-------+ + + + | Glucose, | 188 | | | | | External | | | | | + +-------+ + + + External Lab: ALT (06/30/2018) + +-------+ + + + | Component | Value | Ref Range | Performed | Pathologist | | | | | At | Signature | + +-------+ + + + | ALT, | 32 | | | | | External | | | | | + +-------+ + + + External Lab: AST (06/30/2018) + +-------+ + + + | Component | Value | Ref Range | Performed | Pathologist | | | | | At | Signature | + +-------+ + + + | AST, | 29 | | | | | External | | | | | + +-------+ + + + External Lab: Alkaline Phosphatase (06/30/2018) + +-------+ + + + | Component | Value | Ref Range | Performed | Pathologist | | | | | At | Signature | + +-------+ + + + | ALP, | 76 | | | | | External | | | | | + +-------+ + + + External Lab: Bilirubin, Total (06/30/2018) + +-------+ + + + | Component | Value | Ref Range | Performed | Pathologist | | | | | At | Signature | + +-------+ + + + | Bilirubin, | 0.5 | | | | | Total, | | | | | | External | | | | | + +-------+ + + + External Lab: Albumin (06/30/2018) + +-------+ + + + | Component | Value | Ref Range | Performed | Pathologist | | | | | At | Signature | + +-------+ + + + | Albumin, | 3.5 | | | | | External | | | | | + +-------+ + + + External Lab: Protein, Total (06/30/2018) + +-------+ + + + | Component | Value | Ref Range | Performed | Pathologist | | | | | At | Signature | + +-------+ + + + | Protein, | 6.2 | | | | | Total, | | | | | | External | | | | | + +-------+ + + + External Lab: Phosphorus (06/30/2018) + +-------+ + + + | Component | Value | Ref Range | Performed | Pathologist | | | | | At | Signature | + +-------+ + + + | Phosphorus, | 5.4 | | | | | External | | | | | + +-------+ + + + External Lab: Calcium (06/30/2018) + +-------+ + + + | Component | Value | Ref Range | Performed | Pathologist | | | | | At | Signature | + +-------+ + + + | Calcium, | 8.8 | | | | | External | | | | | + +-------+ + + + External Lab: Carbon Dioxide (06/30/2018) + +-------+ + + + | Component | Value | Ref Range | Performed | Pathologist | | | | | At | Signature | + +-------+ + + + | Carbon | 21 | | | | | Dioxide, | | | | | | External | | | | | + +-------+ + + + External Lab: Chloride (06/30/2018) + +-------+ + + + | Component | Value | Ref Range | Performed | Pathologist | | | | | At | Signature | + +-------+ + + + | Chloride, | 97 | | | | | External | | | | | + +-------+ + + + External Lab: Potassium (06/30/2018) + +-------+ + + + | Component | Value | Ref Range | Performed | Pathologist | | | | | At | Signature | + +-------+ + + + | Potassium, | 4.2 | | | | | External | | | | | + +-------+ + + + External Lab: Sodium (06/30/2018) + +-------+ + + + | Component | Value | Ref Range | Performed | Pathologist | | | | | At | Signature | + +-------+ + + + | Sodium, | 130 | | | | | External | | | | | + +-------+ + + + External Lab: Vitamin D, 25-Hydroxy (06/30/2018) + +-------+ + + + | Component | Value | Ref Range | Performed | Pathologist | | | | | At | Signature | + +-------+ + + + | Vitamin D, | 10 | | | | | 25-Hydroxy, | | | | | | External | | | | | + +-------+ + + + + + | Specimen | + + | Blood | + + External Lab: Protein, Urine, 24Hr (06/30/2018) + +-------+ + + + | Component | Value | Ref Range | Performed | Pathologist | | | | | At | Signature | + +-------+ + + + | Protein, | 3,564 | | | | | Urine 24Hr, | | | | | | External | | | | | + +-------+ + + + + + | Specimen | + + | Urine | + + External Lab: CBC (06/30/2018) + +-------+ + + + | Component | Value | Ref Range | Performed | Pathologist | | | | | At | Signature | + +-------+ + + + | WBC, | 7.9 | | | | | External | | | | | + +-------+ + + + | HGB, | 10.4 | | | | | External | | | | | + +-------+ + + + | HCT, | 32.2 | | | | | External | | | | | + +-------+ + + + | PLT, | 199 | | | | | External | | | | | + +-------+ + + + | RBC, | 3.85 | | | | | External | | | | | + +-------+ + + + | MCV, | 84 | | | | | External | | | | | + +-------+ + + + | RDW, | 17.8 | | | | | External | | | | | + +-------+ + + + External Lab: Triglycerides (06/30/2018) + +-------+ + + + | Component | Value | Ref Range | Performed | Pathologist | | | | | At | Signature | + +-------+ + + + | Triglycerid | 210 | | | | | es, | | | | | | External | | | | | + +-------+ + + + + + | Specimen | + + | Blood | + + External Lab: Cholesterol, HDL (06/30/2018) + +-------+ + + + | Component | Value | Ref Range | Performed | Pathologist | | | | | At | Signature | + +-------+ + + + | HDL | 37.2 | mg/dl | | | | Cholesterol | | | | | | , External | | | | | + +-------+ + + + + + | Specimen | + + | Blood | + + External Lab: Cholesterol, Total (06/30/2018) + +-------+ + + + | Component | Value | Ref Range | Performed | Pathologist | | | | | At | Signature | + +-------+ + + + | Cholesterol | 119 | mg/dl | | | | , Total, | | | | | | External | | | | | + +-------+ + + + + + | Specimen | + + | Blood | + + External Lab: Cholesterol, LDL (06/30/2018) + +-------+ + + + | Component | Value | Ref Range | Performed | Pathologist | | | | | At | Signature | + +-------+ + + + | LDL | 40 | | | | | Cholesterol | | | | | | , Direct, | | | | | | External | | | | | + +-------+ + + + + + | Specimen | + + | Blood | + + External Lab: eGFR (06/30/2018) + +-------+ + + + | Component | Value | Ref Range | Performed | Pathologist | | | | | At | Signature | + +-------+ + + + | eGFR, | 10 | | | | | External | | | | | + +-------+ + + + + + | Specimen | + + | Blood | + + External Lab: Creatinine (06/30/2018) + +-------+ + + + | Component | Value | Ref Range | Performed | Pathologist | | | | | At | Signature | + +-------+ + + + | Creatinine, | 4.32 | | | | | External | | | | | + +-------+ + + + + + | Specimen | + + | Blood | + + documented in this encounter Visit Diagnoses Not on filedocumented in this encounter"
--- OUTSIDE RECORDS SUMMARY | ~2019-12-03 | XMS | Encounter Summary ---
Demographics + + + | Address | [address] | | | [place] [address] | + + + | Home Phone | | + + + | Preferred Language | Unknown | + + + | Marital Status | Single | + + + | Sabianist Affiliation | 1074 | + + + | Race | Unknown | + + + | Ethnic Group | Unknown | + + + Author + + + | Author | [facility] | | | and [place] | + + + | Organization | [facility] | | | and [place] | + + + | Address | Unknown | + + + | Phone | Unavailable | + + + Support + + + + + | Name | Relationship | Address | Phone | + + + + + | Evelina Bryan Name | ECON | [place] | | | | | [address] | | + + + + + | Lizet Scott | ECON | Unknown | | + + + + + Care Team Providers + +------+ + | Care Parking Inspector Name | Role | Phone | + [...] | | | | | | | NE CREAT AV | | | | | | | FISTULA,NON- | | | | | | | AUTOGENOUS | | | | | | | GRAFT NE | | | | | | | ANASTOMOSIS, | | | | | | | AV,ANY SITE | | | | | | | NE INSJ | | | | | | | TUNNELED CVC | | | | | | | W/O SUBQ | | | | | | | PORT/GLASS MOLD REPAIRER AGE | | | | | | [...] Description | +--------+---------+ + + + | 07/25/ | Surgery | [facility] | [address] | Tunneled | | 2019 | | [facility] | MD Aditi, FACS [address] | hemodialysis | | | | [address] | [address] [place] | catheter | | | | [place], [place] | [place] [address] | | | | | [address] | [phone] | | | | | [phone] | | | +--------+---------+ + + + [...] You may want to ask them the carolann lawrence questions: o How can I tell if [...] | | | | | ([facility]), Dilated | | | | | | | cardiomyopathy | | | | | | | ([facility]), Type 2 | | | | | | | diabetes mellitus | | | | | | | with diabetic | | | | | | | nephropathy, with | | | | | | | long-term current | | | | | | | use of insulin | | | | | | | ([facility]), Anemia in | | | | | | | stage 5 chronic | | | | | | | kidney disease, not | | | | | | | on chronic dialysis | | | | | | | ([facility]) | | | | | [...] | | PERMACATH | | PST | ([facility]) (N18.5) | | + +--------+ + + + +---+--------+ | | Case | | | Notes | | | DrAdri | | | Field, | | | [...] | | POC | | | [facility] | | [...] + | [facility] | [address] | [place], [place] | [phone] | | [facility] | | [address] | | | - LABORATORY | | [...] | + + + | Performed at: 01 - [facility] [place] [address], | REFERENCE LAB | | [place], [place] [id number] Ic Designer Custom: Fabio Villagran MD, Phone: | [facility] | | [phone] | | + + + + + + + + | Performing | Address | City/State/Zipcode | Phone Number | | Organization | | | | + + + + + | REFERENCE LAB | [address] | [place], [place] | [phone] | | [facility] | [address] | [address] | | + + + + + [...] [address] | [place] | [phone] | | [facility] | | [address] | | | - LABORATORY | | [...] | + + + + + | [facility] | [address] | [place] | [phone] | | [facility] | | [address] | | | - LABORATORY | | [...] | + + + + + | [facility] | [address] | [place] | [phone] | | [facility] | | [address] | | | - LABORATORY | | [...] | | Time | | seconds | [facility] | | | | | | MEDICAL [...] + | [facility] | [address] | [place] | [phone] | | [facility] | | [address] | | | - LABORATORY | | [...] | | | | | mmol/L | [facility] | | | | [...] | | | | mg/dL | [facility] | | | | | | MEDICAL | | | | | | CENTER - | | | | | | LABORATORY | | + + + + + + | eGFR if not | 15 (L)Comment: | >=60 | [facility] | | | | GLOMERULAR FILTRATION | mL/min/1.73m2 | [facility] | | | [place] | RATE,ESTIMATED | | MEDICAL | | | | mL/min/1.91d0Emie than | | CENTER - | | [...] + + + + + | [facility] | [address] | [place] | [phone] | | [facility] | | [address] | | | - LABORATORY | | | | + + + + + documented in this encounter Visit Diagnoses Not on filedocumented in this encounter Administered Medications + +--------+ [...] | | | + +---+ + +-------+ +--------+---+ + | bupivacaine 0.25%-EPINEPHrine | Given | 07/25/19 | 15 mLs | | Surgical | | 1:200,000 (PF) injection PRN, | | 19 2:06 | | | Site | | Starting 07/25/18 at 1406, | | PM PST | | | | | Intra-op | | | | | | + +-------+ +--------+---+ + +---+---+ | | | +---+---+ + +-------+ +------+---+---+ | dexamethasone (DECADRON) tablet | Given | 07/25/19 | 8 mg | | | | 8 mg 8 mg, Oral, ONCE, Tue | | 19 12:54 | | | [...] | | | + +---+ + +-------+ +--------+---+ + | heparin 1,000 units/mL | Given | 07/25/19 | 5,000 | | Surgical | | injection PRN, Starting Tue | | 19 2:37 | Units | | Site | | 07/25/18 at 1437, Intra-op | | PM PST | | | | + +-------+ +--------+---+ + +---+---+ | | | +---+---+ + +-------+ + +---+---+ | HYDROcodone-acetaminophen | Given | 07/25/19 | 1 tablet | | | | (NORCO) 5-325 mg per tablet 1-2 | | 19 3:08 | | | | | tablet 1-2 tablet, Oral, EVERY 4 | | PM PST | | | | | HOURS PRN, Pain, Moderate Pain, | | | | | | | Starting 07/25/18 at 1450 | | | | | [...]
--- OUTSIDE RECORDS SUMMARY | ~2019-12-03 | XMS | Encounter Summary ---
Demographics + + + | Address | [address] | | | [place] [address] | + + + | Home Phone | | + + + | Preferred Language | Unknown | + + + | Marital Status | Single | + + + | Mandaeism Affiliation | 1074 | + + + | Race | Unknown | + + + | Ethnic Group | Unknown | + + + Author + + + | Author | [facility] | | | and [place]ethroana | + + + | Organization | [facility] | | | and [place] | + + + | Address | Unknown | + + + | Phone | Unavailable | + + + Support + + + + + | Name | Relationship | Address | Phone | + + + + + | Evelina Bryan Name | ECON | [place] | | | | | [address] | | + + + + + | Lizet Sonia | ECON | Unknown | | + + + + + Care Team Providers + +------+ + | Care Kidney Trimmer Name | Role | Phone | + +------+ + | Aida Knight PA-C | PCP | | + +------+ + Reason for Visit +--------+ + | Reason | Comments | +--------+ + | | | +--------+ + Follow Up (Routine) +--------+--------+ + + + + | Status | Reason | Specialty | Diagnoses / | Referred By | Referred To | | | | | Procedures | Contact | Contact | +--------+--------+ + + + + | Closed | | Nephrology | Diagnoses | Antonia, | Nasir | | | | | End stage | Aida Raymundo, | Lester Elise DO | | | | | renal | [place] [address] | [address] [place] [address] | | | | | disease | | [place] | | | | | ([facility]) | [facility] | [address] | | | | | [address] | [address] | [place] | | | | | [place] | [place], | [address] Phone: | | | | | [place] | [place] [address] | [phone] | | | | | HEMO/EHO | Phone: | Fax: | | | | | Procedures | [phone] | [phone] | | | | | OFFSITE | Fax: | | | | | | VISIT | [phone] | | +--------+--------+ + + + + Encounter Details +--------+ + + + + | Date | Type | Department | Care Team | Description | +--------+ + + + + | 10/28/ | Off-Site | [facility] [place] | Lester Best | End stage renal | | 2020 | Visit | NEPHROLOGY [address] | M, DO [address] | disease (HCC) | | | | [address] | [place] | (Primary Dx) | | | | [place] | [place] | | | | | [address] | [address] | | | | | [phone] | | | +--------+ + + + [...] + + + | Blood Pressure | 139/71 | 10/29/2019 4:19 PM | | | | | PDT | | + + + + + | Pulse | - | - | | + + + + + | Temperature | 36.7 C (98 F) | 10/29/2019 4:19 PM | | | | | PDT | [...] encounter Progress Notes Lester Best DO - 10/29/2019 10:15 AM PDT Subjective: DIALYSIS NOTE Patient ID: Xochilt Linares is a 64 y.o. female. 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 Her dialysis runs are uneventful. She denies angina, cramps, hiccups, or pruritus. She at tends all prescribed treatments consistently. She is still declining weight listing for re nal allograft. PAST MEDICAL HISTORY: 1. 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 2. Hypertension 25 years, most recently off of therapy. 3. Anemia secondary CKD treated with EPO. 4. Ischemic cardiomyopathy with last LVEF = 20-25%, mild eccentric LVH, severe global hyp okinesis, grade 1 diastolic dysfunction on echo, 07/17/2019. [facility]. 5. 3 vessel CAD, s/p three-vessel CABG, with LO to LAD, SVG to D2, SVG to PDA[facility] 6. Hyperlipidemia--currently on high intensity statin therapy. MEDS: Outpatient Medications Marked as Taking for the 10/29/19 encounter (Off-Site Visit) with Christophe Best, DO Medication Sig Dispense Refill aspirin 81 mg chewable tablet Take 81 mg by mouth Daily. atorvaSTATin (LIPITOR) 80 MG tablet Take 1 tablet by mouth Daily. 30 tablet 5 b complex-vitamin c-folic acid (NEPHRO-JANETH) tablet Take 1 tablet by mouth Daily. 4 calcitRIOL (ROCALTROL) 0.5 MCG capsule Take 0.5 mcg by mouth Every other day. Cholecalciferol (VITAMIN D-3) 2000 units CAPS Take 1 capsule by mouth Daily. 30 each 11 magnesium oxide (MAG-OX) 400 mg tablet Take 1 tablet by mouth Daily. 30 tablet 5 sevelamer carbonate (RENVELA) 800 mg tablet Take 1,600 mg by mouth 4 times daily (befor e meals and nightly). No Known Allergies ROS Objective: BP 139/71 | Temp 36.7 C (98 F) EDW 63.5 kg Physical Exam Heart: Regular rate and rhythm with grade 1/6 VELVET at LSB, no S3, or rub. Lungs: CTA bilaterally. No rales or wheezes. Abdomen: soft, obese, nontender, NABS. Extremities: no edema, clubbing, or cyanosis. AVF at Right upper arm has (+) bruit. LAB: BUN 81, Cr 4.24, K+ 4.7, HCO3 30, albumin 3.6, glucose 183, HbA1c 6.3%, Ca++ 8.5, phos phorus 6.4, PTH 110, vitamin D 21.9, hemoglobin 11.9, T Sat =20%, ferritin 799, spKT/V = 1.82. Assessment: 1. ESRD--clinically she appears stable on 4 hours, N 17H, 2K +, 35 HCO3, QB 350, QD 600, t hrice weekly. 2. dilated cardiomyopathy--clinically she appears at her physiologic dry weight. 3. Type II DM --currently she has been stable with diet therapy alone. 4. Hypertension-- the BP appears well controlled from review of the most recent treatment data in [place]. 5. Anemia 2 to CKD--LEWIS therapy has been on hold as her hemoglobin is above target. W ill recheck her H&H weekly and resume EPO when the Hb <11.0 g/dl. Iron stores appear satisf actory. 6. SHPTH--phosphorus control is excellent and she appears to be taking her phosphorus bind ers consistently. 7. Nutrition--despite her monthly KT over V being above target she appears to have low nor mal albumins? No obvious inflammation on PE. 8. Transplantation--she declines this for now as she is fearful of surgery. 9. CAD, s/p CABG x3 vessels, LO to LAD, SVG to D2, SVG to PDA, 12/28/2018, [facility]--stable. PLAN 1. Her Hb appears stable on the current [facility], EPO algorithm. Will need to hold the EPO . until the Hb is < 11.0 g/dl, while rechecking the Hb weekly. 2. Will recheck her PTH, Hba1c, iron profile, and adequacy next month. 3. Overall, Xochilt appears stable on her current Rx. She consistently attends all treatmen ts. : [facility] Tia Payne MD, [facility] documented in thi s encounter Plan of Treatment Not on filedocumented as of this encounter Visit Diagnoses + + | Diagnosis | + + | End stage renal disease (HCC) - Primary End stage renal disease | + + documented in this encounter"
--- OUTSIDE RECORDS SUMMARY | ~2019-12-03 | XMS | Encounter Summary ---
Demographics + + + | Address | [address] | | | [place] [address] | + + + | Home Phone | | + + + | Preferred Language | Unknown | + + + | Marital Status | Single | + + + | Baptist Affiliation | 1074 | + + + | Race | Unknown | + + + | Ethnic Group | Unknown | + + + Author + + + | Author | [facility] | | | and Jethroana | + + + | Organization | [facility] | | | and Jethroana | + + + | Address | Unknown | + + + | Phone | Unavailable | + + + Support + + + + + | Name | Relationship | Address | Phone | + + + + + | Evelina Bryan Name | ECON | [place] | | | | | [address] | | + + + + + | Lizet Scott | ECON | Unknown | | + + + + + Care Team Providers + +------+ + | Care Face Boss Name | Role | Phone | + +------+ + | Aida Knight PA-C | PCP | | + +------+ + Reason for Visit + + + | Reason | Comments | + + + | Follow-up | | + + + | Hypertension | | + + + | Coronary Artery | | | Disease | | + + + | Cardiomyopathy | | + + + Follow Up (Routine) +--------+--------+ + + + + | Status | Reason | Specialty | Diagnoses / | Referred By | Referred To | | | | | Procedures | Contact | Contact | +--------+--------+ + + + + | Closed | | Cardiology | Diagnoses | Antonia, | Meryl, | | | | | Acute | Aida Raymundo, | [address] | | | | | combined | PA-C [id number] | [address] | | | | | systolic | | [place] | | | | | (congestive) | [address] | [place] | | | | | and | [address] | [address] | | | | | diastolic | [place], | Phone: | | | | | (congestive) | [place] [address] | [phone] | | | | | heart | Phone: | Fax: | | | | | failure | [phone] | [phone] | | | | | (HCC) | Fax: | | | | | | Dilated | [phone] | | | | | | cardiomyopat | | | | | | | hy (HCC) | | | | | | | Atherosclero | | | | | | | tic heart | | | | | | | disease of | | | | | | | [place] | | | | | | | coronary | | | | | | | artery | | | | | | | without | | | | | | | angina | | | | | | | pectoris | | | | | | | Unspecified | | | | | | | right | | | | | | | bundle-branc | | | | | | | h block | | | | | | | Procedures | | | | | | | FUP | | | +--------+--------+ + + + + Encounter Details +--------+---------+ + + + | Date | Type | Department | Care Team | Description | +--------+---------+ + + + | 09/26/ | Office | [facility] | Meryl, | Coronary artery | | 2019 | Visit | CARDIOLOGY [address] | [address] | disease, angina | | | | [place], | [place], | presence | | | | [place] [address] | [place] [address] | unspecified, | | | | [phone] | [phone] | unspecified vessel | | | | | | or lesion type, | | | | | | unspecified whether | | | | | | [place] or | | | | | | transplanted heart | | | | | | (Primary Dx); | | | | | | Hypertension, | | | | | | unspecified type; | | | | | | Acute combined | | | | | | systolic and | | | | | | diastolic congestive | | | | | | heart failure (HCC) | +--------+---------+ + + + Social History [...] + | Blood Pressure | 100/50 | 09/26/2018 8:18 AM | | | | | PDT | | + + + + + | Pulse | 64 | 09/26/2018 8:18 AM | | | | | PDT | | + + + + + | Temperature | - | - | | + + + + + | Respiratory Rate | 16 | 09/26/2018 8:18 AM | | | | | PDT | | + + + + + | Oxygen Saturation | - | - | | + + + + + | Inhaled Oxygen | - | - | | | Concentration | | | | + + + + + | Weight | 67.9 kg (149 lb 11.1 | 09/26/2018 8:18 AM | | | | oz) | PDT | | + + + + + | Height | 165.1 cm (5' 5") | 09/26/2018 8:18 AM | | | | | PDT | | + + + + + | Body Mass Index | 24.91 | 09/26/2018 8:18 AM | | | | | PDT | | + + + + + documented in this encounter Patient Instructions Patient Instructions Elli Sheth ARNP - 09/26/2018 8:30 AM PDTNo medication change s Follow up in 6 weeks documented in this encounter Progress Notes Elli Sheth ARNP - 09/26/2018 8:30 AM PDTFormatting of this note might be differen t from the original. PATIENT NAME: Xochilt Linares : 1955: AGE: 62 y.o. PRIMARY CARE: Aida Knight PA-C CC: OUTPATIENT HEART FAILURE FOLLOW UP VISIT Date of Service: 09/26/2018 HISTORY OF PRESENT ILLNESS: Xochilt Linares is a 62 y.o. female with a history of history of acute combined systolic and diastolic congestive heart failure and coronary artery disease, long-term diabetes, end -stage renal failure on dialysis. She is being seen today for follow up heart failure. She was last seen 09/14/2018 at which time We will add lisinopril 5 mg once a day to improve her medical management of heart failure, check blood pressure and pulse twice daily for two weeks and return the log to our office. Increase Furosemide 120 mg twice a day for 2 days o nly and then go back to 80 mg twice a day. she had no changes in her medical regimen. Since that time, she has been feeling that "things are getting better". She has been feeling an i mprove in energy level. Her energy level is improved since her last visit. She has been feeling "much better". Her shortness of breath has been unchanged in this time period. Her leg swelling has been stabl e. Patient reports that Her blood pressure has been running low, but she doesn't recall th e readings. She has had no symptoms with the los readings. Her weight log is reviewed and sh ows weight has been stable. She has been following a sodium restricted diet. She has been fo llowing a fluid restriction 6-8 cups. Otherwise, she has no change in other cardiac symptoms. She has not had any chest pain or d iscomfort at rest or with exertion. She has not had any lightheadedness or dizziness. She h as not noticed palpitations. She is able to sleep laying down at night without any symptoms of shortness of breath. She does not use a CPAP machine or oxygen. She will be having an an giogram in 2 weeks. MEDICAL, SURGICAL, AND PERSONAL HISTORY Past Medical, Surgical, Family, and Social History are reviewed in EPIC. CURRENT PROBLEMS Patient Active Problem List Diagnosis RAFY (acute kidney injury) Anasarca Pleural effusion Acute combined systolic and diastolic congestive heart failure Coronary artery disease Anemia in stage 5 chronic kidney disease, not on chronic dialysis Dilated cardiomyopathy Hypokalemia Depressive disorder Vitamin D deficiency Adjustment disorder Hyperlipidemia Helicobacter pylori infection GERD (gastroesophageal reflux disease) Hypertension Diabetes mellitus type II, DIET Control Beta Blockers - Daily Use Externally Defibrillator (Defib Vest) Use Elevated hemoglobin A1c Diabetic retinopathy RBBB (right bundle branch block) Pulmonary hypertension, mild Cardiac LV ejection fraction 21-30% CURRENT MEDICATIONS Current Outpatient Prescriptions Medication Sig Dispense Refill aspirin 81 mg chewable tablet Take 81 mg by mouth Daily. atorvaSTATin (LIPITOR) 20 mg tablet Take 1 tablet by mouth nightly. 30 tablet 5 b complex-vitamin c-folic acid (NEPHRO-JANETH) tablet Take 1 tablet by mouth Daily. 4 carvedilol (COREG) 6.25 mg tablet Take 1 tablet by mouth 2 times daily (with breakfast & dinner). 60 tablet 5 furosemide (LASIX) 80 mg tablet Take 1 tablet by mouth 2 times daily. (Patient taking d ifferently: Take 80 mg by mouth Daily.) 60 tablet 5 lisinopril (PRINIVIL, ZESTRIL) 5 mg tablet Take 1 tablet by mouth nightly. 30 tablet 11 magnesium oxide (MAG-OX) 400 mg tablet Take 1 tablet by mouth Daily. 30 tablet 5 spironolactone (ALDACTONE) 25 mg tablet Take 1 tablet by mouth Daily. 30 tablet 5 No current facility-administered medications for this visit. ALLERGIES No Known Allergies ROS Review of Systems Constitutional: Positive for malaise/fatigue. Respiratory: Negative for shortness of breath. Cardiovascular: Positive for leg swelling. Negative for chest pain and palpitations. Neurological: Negative for dizziness and weakness. Lightheaded = No OBJECTIVE: PHYSICAL EXAM BP 100/50 | Pulse 64 | Resp 16 | Ht 1.651 m (5' 5") | Wt 67.9 kg (149 lb 11.1 oz) | BM I 24.91 kg/m Physical Exam Constitutional: She is oriented [...] 2+ on the left side. Pulmonary/Chest: Effort normal. No accessory muscle usage. No respiratory distress. She has no decreased breath sounds. She has no wheezes. She has rhonchi. She has rales. Abdominal: Soft. Normal appearance, normal aorta and bowel sounds are normal. She exhibits no abdominal bruit and no pulsatile midline mass. There is no hepatosplenomegaly. Musculoskeletal: Normal range of motion. She exhibits no edema. Neurological: She is alert and oriented to person, place, and time. Coordination normal. Skin: Skin is warm, dry and intact. No cyanosis. Nails show no clubbing. She has a AV fistula on the right above antecubital fossa Psychiatric: She has a normal mood and [...] T wave abnormality Abnormal ECG No previous ECGs available Confirmed by KATERYNA QUIÑONES MD ([id number]) on 05/11/2018 1:15:50 PM none done today LAB RESULTS reviewed during visit today primarily from [facility]: LIPID Lab Results Component Value Date CHOL 172 05/10/2018 TRIG 118 05/10/2018 HDL 44 05/10/2018 LDL 104 05/10/2018 CHOLHDL 3.9 05/10/2018 LDLEX 40 06/30/2018 HDLEX 37.2 06/30/2018 TRIGEX 210 06/30/2018 CHOLEX 119 06/30/2018 CHEMISTRY Lab Results Component Value Date GLU 158 (H) 08/08/2018 GLUEX 188 06/30/2018 NA 135 (L) 08/08/2018 NAEX 130 06/30/2018 K 3.0 (L) 08/08/2018 KEX 4.2 06/30/2018 CL 98 08/08/2018 CLEX 97 06/30/2018 CO2 25 08/08/2018 CO2EX 21 06/30/2018 CALCIUM 8.6 08/08/2018 ALKPHOS 87 05/12/2018 AST 13 05/12/2018 ASTEX 29 06/30/2018 ALT 19 05/12/2018 ALTEX 32 06/30/2018 BILITOT 0.5 05/12/2018 CREA 2.58 (H) 08/08/2018 BUN 18 08/08/2018 EGFREX 10 06/30/2018 CREEX 4.32 06/30/2018 HEMATOLOGY Lab Results Component Value Date WBC 5.8 05/10/2018 WBCEX 7.9 06/30/2018 HGB 10.3 (L) 07/25/2018 HGBEX 10.4 06/30/2018 HCT 28.4 (L) 05/10/2018 HCTEX 32.2 06/30/2018 PLT 224 07/25/2018 PLTEX 199 06/30/2018 BNP Lab Results Component Value Date BNP 4,521 (H) 05/08/2018 LAST EJECTION FRACTION LVEF-TTE TRANSTHORACIC ECHO (%) Date Value 05/09/2018 25 LVEF-SPECT NUCLEAR STRESS/VIABILITY (%) Date Value 05/11/2018 35 I reviewed records from [facility] for office visit on 08/2018 whic h is summarized in the HPI. RESULTS- I reviewed reports from [facility]: No results found. Above data and testing is reviewed this visit; testing below is historical data unless othe rwise specified. ASSESSMENT: 1. New onset of combined HFrEF and diastolic dysfunctionsuggesting myocardial ischemia A. Echocardiogram exam done on 05/09/2018 shows Moderate to severe biatrial dilatation. Moderate left ventricular dilatation with a mild eccentric left ventric ular hypertrophy. There is a severe global hypokinesis of the left ventricle. Overall, l eft ventricular significant is severely decreased. LVEF is 25-30%. Grade 1 left ventricula r diastolic dysfunction. Mildly thickened and calcified trileaflet aortic valve with adequat e opening. There is a trace aortic valve insufficiency. Mildly thickened and calcified zandra ral valve with a mild central mitral valve regurgitation. Mild mitral annular calcification. Mild tricuspid valve regurgitation. Mild pulmonary hypertension with a peak systolic pressu re 45-50 mmHg. Dilated IVC without respiratory collapse suggesting fluid retention. Moderate circumferential pericardial effusion without evidence of cardiac tamponade. Evidence of lef t pleural effusion. B. Nuclear stress test 05/11/2018: Regadenoson EKG is negative. Abnormal Regadenoson sestamibi myocardial perfusion imaging study with a large size, partial ly reversible defect of a severe in severity in the entire inferior and inferolateral region . This suggests a large size partial myocardial ischemia of both right coronary artery and l eft circumflex artery territory. Left ventricular cavity is dilated. There is a moderate global hypokinesis of the left ventricle. Overall, left ventricular systolic function is moderately decreased. LVEF by gated SPECT is 35%. By MD Dinah Cherry. Today, 09/26/2018, she is feeling better, energy levels have impr eboni. She has had no angina and dyspnea has remain the same. She uses loop diuretic daily.Th ere are no signs or symptoms of overt congestive heart failure, and her physical exam shows no significant fluid retention. She is in class II- Symptoms with moderate exertion of the [place] [employer] functional class. Heart failure stage C-diagnosed heart failure w ith symptoms. She will undergo angiogram in a few weeks. 2. Elevated troponin:Posible Coronary artery disease A. Patient denies angina. B. Abnormal stress test as mentioned earlier. C. She will undergo angiogram to evaluate CAD on 10/09/2018 3. Acute on chronic diabetic nephropathy Not otherwise addressed today 09/26/2018. A. Cardio-joey syndrome contributing to the RAFY on dialysis now. 4. Diabetes: over 20 years diabetic 09/26/2018 her A1C still elevated, we have educated abo ut improving diabetic control 5. Hypertension A. Today, 09/26/2018, her blood pressure is on the low end of normal range. she would benefit from increase inmedications but borderline hypotension would not a llow such for now. 6. Hyperlipidemia Not otherwise addressed today 09/26/2018. 7. Possible LEANN: will need sleep study PLAN: 1. She will undergo angiogram in 2 weeks 2. The current medical regimen is effective; continue present plan and medications. 3. She will continue checking blood pressure and bring a log next appointment 4. She is again counseled on importance of daily weight monitoring, signs and symptoms of w orsening congestive heart failure to notify our office with, and sodium restricted diet. Luke ght log and blood pressure log with written education is given to the patient. 5. She will follow up in 6 to 8 weeks for office visit, or sooner with concerns. She will let us know sooner if she has any issues Portions of this chart may have been created with [employer] voice recognition software. Occasi onal wrong-word or sound-alike substitutions may have occurred due to the inherent leong itations of voice recognition software. Please read the chart carefully and recognize, using context, where these substitutions have occurred. documented in th is encounter Plan of Treatment Not on filedocumented as of this encounter Visit Diagnoses + + | Diagnosis | + + | Coronary artery disease, angina presence unspecified, unspecified vessel or lesion | | type, unspecified whether [place] or transplanted heart - Primary | + + | Hypertension, unspecified type | + + | Acute combined systolic and diastolic congestive heart failure (HCC) Acute combined | | systolic and diastolic heart failure | + + documented in this encounter
--- OUTSIDE RECORDS SUMMARY | ~2019-12-03 | XMS | Encounter Summary ---
Demographics + + + | Address | [address] | | | [place] [address] | + + + | Home Phone | | + + + | Preferred Language | Unknown | + + + | Marital Status | Single | + + + | Judaism Affiliation | 1074 | + + + | Race | Unknown | + + + | Ethnic Group | Unknown | + + + Author + + + | Author | [facility] | | | and Jethroana | + + + | Organization | [facility] | | | and Jethroana | + + + | Address | Unknown | + + + | Phone | Unavailable | + + + Support + + + + + | Name | Relationship | Address | Phone | + + + + + | Evelina Bryan Name | ECON | [place] | | | | | [address] | | + + + + + | Lizet Scott | ECON | Unknown | | + + + + + Care Team Providers + +------+ + | Care Uranium Processing Supervisor Name | Role | Phone | + +------+ + | Aida Knight PA-C | PCP | | + +------+ + Reason for Visit +--------+ + | Reason | Comments | +--------+ + | Other | appointment soon to discuss test results | +--------+ + Encounter Details +--------+ + + + + | Date | Type | Department | Care Team | Description | +--------+ + + + + | 07/19/ | Telephone | [facility] | Meryl, | Other (appointment | | 2019 | | CARDIOLOGY [address] | [address] | soon to discuss test | | | | [place], | [place], | results) | | | | [place] [address] | [place] [address] | | | | | [phone] | [phone] | | | | | | | [...]
--- OUTSIDE RECORDS SUMMARY | ~2019-12-03 | XMS | Encounter Summary ---
Demographics + + + | Address | [address] | | | [place] [address] | + + + | Home Phone | | + + + | Preferred Language | Unknown | + + + | Marital Status | Single | + + + | Jew Affiliation | 1074 | + + + | Race | Unknown | + + + | Ethnic Group | Unknown | + + + Author + + + | Author | [facility] | | | and Jethroana | + + + | Organization | [facility] | | [...] [place] | | | | | [address] | | + + + + + | Lizet Scott | ECON | Unknown | | + + + + + Care Team Providers + +------+ + | Care Group Sales Representative Name | Role | Phone | + +------+ + | Aida Knight PA-C | PCP | | + +------+ + Reason for Referral Evaluate & Treat (Emergency) +--------+ + + + + + | Status | Reason | Specialty | Diagnoses / | Referred By | Referred To | | | | | Procedures | Contact | Contact | +--------+ + + + + + | Closed | Specialty | Cardiology | Diagnoses | Kerry, | Kade, | | | Services | | Coronary | MD Tia | Giancarlo Raymundo MD | | | Required | | artery | [address] | [address] | | | | | disease, | [address] | [address] | | | | | angina | [place], | [address] | | | | | presence | [place] [address] | [place], [place] | | | | | unspecified, | Phone: | [address] Phone: | | | | | unspecified | [phone] | [phone] | | | | | vessel or | Fax: | Fax: | | | | | lesion type, | [phone] | [phone] | | | | | unspecified | | | | | | | whether | | | | | | | [place] or | | | | | | | transplanted | | | | | | | heart | | | +--------+ + + + + + Reason for Visit +--------+ + | Reason | Comments | +--------+ + | Other | plan of care | +--------+ + Encounter Details +--------+ + + + + | Date | Type | Department | Care Team | Description | +--------+ + + + + | 10/12/ | Telephone | [facility] | Tia Payne, | Other (plan of care) | | 2018 | | CARDIOLOGY [address] | [address] [place] | | | | | [place], | [place], | | | | | [place] [address] | [place] [address] | | | | | [phone] | [phone] | | | | | | | [...] | + + +--------+ + + | External Referral to | Outpatient | STAT | Coronary artery | Ordered: 10/12/2018 | | Cardiology | Referral | | disease, angina | | | | | | presence | | | | | | unspecified, | | | | | | unspecified vessel | | | | | | or lesion type, | | | | | | unspecified whether | | | | | | [place] or | | | | | | transplanted heart | | + + +--------+ + + documented as of this encounter Visit Diagnoses + + | Diagnosis | + + | Coronary artery disease, angina presence unspecified, unspecified vessel or lesion | | type, unspecified whether [place] or transplanted heart - Primary | + + documented in this encounter"
--- OUTSIDE RECORDS SUMMARY | ~2019-12-03 | XMS | Encounter Summary ---
Demographics + + + | Address | [address] | | | [place] [address] | + + + | Home Phone | | + + + | Preferred Language | Unknown | + + + | Marital Status | Single | + + + | Gnosticist Affiliation | 1074 | + + + | Race | Unknown | + + + | Ethnic Group | Unknown | + + + Author + + + | Author | [facility] | | | and Jethroana | + + + | Organization | [facility] | | | and [place] | + + + | Address | Unknown | + + + | Phone | Unavailable | + + + Support + + + + + | Name | Relationship | Address | Phone | + + + + + | Evelina Bryan Name | ECON | [place] | | | | | [address] | | + + + + + | Lizet Scott | ECON | Unknown | | + + + + + Care Team Providers + +------+ + | Care Embedded Software Test Engineer Name | Role | Phone | + +------+ + | Aida Knight PA-C | PCP | | + +------+ + Encounter Details +--------+ + + + + | Date | Type | Department | Care Team | Description | +--------+ + + + + | 08/04/ | Episode | [facility] | Elijah Chamorro | | | 2019 | Changes | SURGERY [address] | [address] | | | | | [place], [place] | | | | | | [address] | | | | | | [phone] | | | +--------+ + + + [...]
--- OUTSIDE RECORDS SUMMARY | ~2019-12-03 | XMS | Encounter Summary ---
Demographics + + + | Address | [address] | | | [place] [address] | + + + | Home Phone | | + + + | Preferred Language | Unknown | + + + | Marital Status | Single | + + + | Adventist Affiliation | 1074 | + + + | Race | Unknown | + + + | Ethnic Group | Unknown | + + + Author + + + | Author | [facility] | | | and Jethroana | + + + | Organization | [facility] | | | and [place] | + + + | Address | Unknown | + + + | Phone | Unavailable | + + + Support + + + + + | Name | Relationship | Address | Phone | + + + + + | Evelina Bryan Name | ECON | [place] | | | | | [address] | | + + + + + | Lizet Ghamber | ECON | Unknown | | + + + + + Care Team Providers + +------+ + | Care Hot Car Charger Name | Role | Phone | + [...] | | | stage renal | [place] [address] | [address] [place] [address] | | | | | disease) | | [place] | | | | | ([facility]) | [facility] | [address] | | | | | Procedures | WAY | [address] | | | | | [place] | [place], | [address] Phone: | | | | | RELATED [facility] [place] | [place] [address] | [phone] | | | | | MONTHLY | Phone: | Fax: | | | | | 20&/> YR OLD | [phone] | [phone] | | | | | 4/> VISITS | Fax: | | | | | | | [phone] | | +--------+--------+ + + + + [...] | | [address] | [place] | (Primary Dx) | | | | [place], [place] | [place], [place] | | | | | [address] | [address] | | | | | [phone] | | | +--------+ + + + [...] to PDA, 12/28/2018, Dr. Phill Logan , [facility] She denies muscle cramps, chest pain, pruritus, [...] EPO dose, statin and lisinopril. : [facility] Tia Payne MD, [facility] MD ANA Mendenhall M.D. documented in thi s encounter Plan of Treatment Not on filedocumented as of this encounter Visit Diagnoses + + | Diagnosis | + + | End stage renal disease (HCC) - Primary End stage renal disease | + + documented in this encounter"
--- OUTSIDE RECORDS SUMMARY | ~2019-12-03 | XMS | Encounter Summary ---
Demographics + + + | Address | [address] | | | [place] [address] | + + + | Home Phone | | + + + | Preferred Language | Unknown | + + + | Marital Status | Single | + + + | Mu-Ism Affiliation | 1074 | + + + | Race | Unknown | + + + | Ethnic Group | Unknown | + + + Author + + + | Author | [facility] | | | and Jethroana | + + + | Organization | [facility] | | | and Jethroana | + + + | Address | Unknown | + + + | Phone | Unavailable | + + + Support + + + + + | Name | Relationship | Address | Phone | + + + + + | Evelina Bryan Name | ECON | [place] | | | | | [address] | | + + + + + | Lizet Scott | ECON | Unknown | | + + + + + Care Team Providers + +------+ + | Care Store Grocery Merchandiser Name | Role | Phone | + [...] + + | 11/28/ | Telephone | [facility] | Tia Payne, | Other (plan of care) | | 2019 | | CARDIOLOGY [address] | MD [address] [place] | | | | | [place], | [place], | | | | | [place] [address] | [place] [address] | | | | | [phone] | [phone] | | | | | | | [...]
--- OUTSIDE RECORDS SUMMARY | ~2019-12-03 | XMS | Encounter Summary ---
Demographics + + + | Address | [address] | | | [place] [address] | + + + | Home Phone [...] | Author | [facility] | | | and Jethroana | + + + | Organization | [facility] | | | and Jethroana | + + + | Address | Unknown | + + + | Phone | Unavailable | + + + Support + + + + + | Name | Relationship | Address | Phone | + + + + + | Evelina Bryan Name | ECON | [place] | | | | | [id number] | | + + + + + | Lizet Ghamber | ECON | Unknown | | + + + + + Care Team Providers + +------+ + | Care Rn Maternity Name | Role | Phone | + +------+ + | Aida Knight PA-C | PCP | | + +------+ + Reason for Visit +--------+ + | Reason | Comments | +--------+ + | | | +--------+ + Encounter Details +--------+ + + + + | Date | Type | Department | Care Team | Description | +--------+ + + + + | 04/30/ | Documentati | [facility] | Lester Best | | | 2018 | on | NEPHROLOGY [address] | M, DO [address] | | | | | [address] | [place] | | | | | [place], [place] | [place], [place] | | | | | [address] | [address] | | | | | [phone] | | | +--------+ + + + [...] + + + | Blood Pressure | 130/80 | 04/30/2019 2:48 PM | | | | | PDT | | + + + + + | Pulse | - | - | | + + + + + | Temperature | 36.2 C (97.2 F) | 04/30/2019 2:48 PM | | | | | PDT [...] documented in this encounter Progress Notes Lester Best, - 04/30/2019 11:59 PM PDT Subjective: DIALYSIS NOTE Patient ID: Xochilt Linares is a 63 y.o. female. 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 She states that she is feeling stronger since her CABG on 019, at [facility].She denies syncope, palpitations, or YE. PAST MEDICAL HISTORY: 1. 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 2. Hypertension 25 years, most recently off of therapy. 3. Anemia secondary to CKD, treated with erythropoietin alpha, and IV Venofer. 4. CAD, s/p CABG x3 vessels, 12/28/2018, with LO to LAD, SVG to D2, SVG to PDA, Phillkiet Logan MD, [facility] [place], [place]. 5. Ischemic cardiomyopathy, with last EF = 30%, on echo, 01/08/2019, [facility]. 6. Hyperlipidemia x 2 years, but possibly longer, treated with statin therapy. Outpatient Medications Marked as Taking for the 04/30/19 encounter (Documentation) with Christophe Best, DO Medication Sig Dispense [...] 5 No Known Allergies ROS Objective: BP 130/80 | Temp 36.2 C (97.2 F) EDW 66.5 kg Physical Exam Heart: Regular rate and rhythm with grade 1/6 VELVET at LSB, no S3, or rub. Lungs: CTA bilaterally. No rales or wheezes. Abdomen: soft, obese, nontender, NABS. Extremities: no edema, clubbing, or cyanosis. AVF at Right upper arm has (+) bruit. LAB: BUN 61, Cr 3.60, K+ 4.5, HCO3 22, albumin 3.6, Ca++ 8.2, phosphorus 7.1, PTH not liste d, Hb 12.6, T sat [not listed], ferritin [ not listed], spKT/V = 1.74. Assessment: 1. ESRD--her adequacy and ECF volume appears stable on her current Rx. 2. dilated cardiomyopathy--c compensated on PE. 3. Type II DM --no recent HbA1c available. States that she is controlling this with diet therapy 4. Hypertension--stable on lisinopril 5. Anemia 2 to CKD--Hb is above target therefore the EPO is on hold. Need to recheck h er iron stores. 6. SHPTH--no PTH this month. Phosphorus control is drifting upward. I reviewed with her features of a <1000 mg phosphorus restriction. 7. Nutrition--Albumin is below target. 8. Transplantation--she philosophically is ambivalent about this. 9. CAD, s/p CABG x3 vessels, LO to LAD, SVG to D2, SVG [facility] PDA[facility], atorvastatin, carvedilol, lisinopril. PLAN 1. Clinically, she appears stable on her current Rx. 2. Her CHF appears compensated with current dry weight. 3. Need to recheck her HbA1c next month. Apparently, Bridgett has deferred this from routin e monitoring. We will request that it is sent to [facility], locally. : [facility] Tia Payne MD, [facility] Phill Logan MD documented in thi s encounter Plan of Treatment Not on filedocumented as of this encounter Visit Diagnoses + + | Diagnosis | + + | End-stage renal disease on hemodialysis (HCC) - Primary End stage renal disease | + + documented in this encounter"
--- OUTSIDE RECORDS SUMMARY | ~2019-12-03 | XMS | Encounter Summary ---
Demographics + + + | Address | [address] | | | [place] [address] | + + + | Home Phone | | + + + | Preferred Language | Unknown | + + + | Marital Status | Single | + + + | Faith Affiliation | 1074 | + + + | Race | Unknown | + + + | Ethnic Group | Unknown | + + + Author + + + | Author | [facility] | | | and [place]eth[place] | + + + | Organization | [facility] | [...] [place] | | | | | [address] | | + + + + + | Lizet Scott | ECON | Unknown | | + + + + + Care Team Providers + +------+ + | Care Stripper Soft Plastic Name | Role | Phone | + [...] | | | | | Acute | Meryl, | [address] | | | | | combined | [place] | [place], | | | | | systolic and | [address] | [place] | | | | | diastolic | [place] | [address] | | | | | congestive | [place], | Phone: | | | | | heart | [place] | [phone] | | | | | failure | [address] | Fax: | | | | | (HCC) | Phone: | [phone] | | | | | Procedures | [phone] | | | | | | ECHO | Fax: | | | | | | Complete | [phone] | | +--------+--------+ + + + + Reason for Visit + + + [...] | | | | combined | PA-C [address] | [address] | | | | | systolic | | [place] | | | | | (congestive) | [place] | [place], [place] | | | | | and | WAY | [address] | | | | | diastolic | [place], | Phone: | | | | | (congestive) | [place] [address] | [phone] | | | | | heart | Phone: | Fax: | | | | | failure | [phone] | [phone] | | | | | (HCC) | Fax: | | | | | | Unspecified | [phone] | | | | | | right | | | | | | | bundle-branc | | | | | | | h block | | | | | | | Dilated | | | | | | | cardiomyopat | | | | | | | hy (HCC) | | | | | | | Essential | | | | | | | (primary) | | | | | | | hypertension | | | | | | | | | | | | | | Hyperlipidem | | | | | | | ia, | | | | | | | unspecified | | | | | | | Procedures | | | | | | | FUP | | | +--------+--------+ + + + + Encounter Details +--------+---------+ + + + | Date | Type | Department | Care Team | Description | +--------+---------+ + + + | 05/17/ | Office | [facility] | Meryl, | Pulmonary | | 2019 | Visit | CARDIOLOGY [address] | Elli, ASSISTANT PRESSMAN [address] | hypertension, mild | | | | [place], | [place], | (HCC) (Primary Dx); | | | | [place] [address] | [place] [address] | Acute combined | | | | [phone] | [phone] | systolic and | | | | | | diastolic congestive | | | | | | heart failure | | | | | | (HCC); Coronary | | | | | | artery disease | | | | | | involving [place] | | | | | | coronary artery, | | | | | | angina presence | | | | | | unspecified, | | | | | | unspecified whether | | | | | | [place] or | | | | | | transplanted heart; | | | | | | Dilated | | | | | | cardiomyopathy | | | | | | (HCC); Hypertension, | | | | | | unspecified type; | | | | | | RBBB (right bundle | | | | | | branch block); | | | | | | Hyperlipidemia, | | | | | | unspecified | | | | | | hyperlipidemia type | +--------+---------+ + + + Social History [...] + + + | Blood Pressure | 120/50 | 05/17/2019 10:56 AM | | | | | PDT | | + + + + + | Pulse | 80 | 05/17/2019 10:56 AM | | | | | PDT | | + + + + + | Temperature | - | - | | + + + + + | Respiratory Rate | 20 | 05/17/2019 10:56 AM | | | | | PDT | | + + + + + | Oxygen Saturation | - | - | | + + + + + | Inhaled Oxygen | - | - | | | Concentration | | | | + + + + + | Weight | 66.2 kg (145 lb 15.1 | 05/17/2019 10:56 AM | | | | oz) | PDT | | + + + + + | Height | 165.1 cm (5' 5") | 05/17/2019 10:56 AM | | | | | PDT | | + + + + + | Body Mass Index | 24.29 | 05/17/2019 10:56 AM | | | | | PDT | | + + + + + documented in this encounter Patient Instructions Patient Instructions Evelina Parr, Electrical Contractor - 05/17/2019 11:00 AM PDT Discontinue metoprolol and continue with carvedilol Echo: Date: Check-In Time: Where to Check In: Follow up appointment: 8-10 weeks Provider: LI Naqvi Date: Check-In Time: documented in this encounter Progress Notes Elli ShethTYP - 05/17/2019 11:00 AM PDTFormatting of this note might be differen t from the original. PATIENT NAME: Xochilt Linares : 1955: AGE: 63 y.o. PRIMARY CARE: Aida Knight PA-C OUTPATIENT FOLLOW UP VISIT Date of Service: 05/17/2019 HISTORY OF PRESENT ILLNESS: Xochilt Linares is a 63 y.o. female with a history of acute combined systolic and diasto lic congestive heart failure and coronary artery disease, s/p CABGx3 on 12/2018, long-term d iabetes, end-stage renal failure on dialysis. She is being seen today for follow up. She was last seen 11/21/2018 at which time she will increase Atorvastatin to 80 mg once daily by mouth every evening. Increase Lisinopril to 10 mg once nightly by mouth. She will follow up in 6 weeks for office visit, or sooner with concerns. Will keep her appointment on November 28 for HUMAN RESOURCES FILE CLERK consultation [place]. And she is been asked to bring another blood pressure lo g when she comes back for her follow-up appointment. Since that time, on 11/28/2018 she had a consult with Dr. Pierson for revascularization. She luo d a (CABG) coronary by pass grafting x 3 on 12/28/[address] Pierson. On 02/19/2019 she had a f ollow up on her CABG. with Mateo Cadena PA-C, she was prescribed metoprolol succinate 25 mg once daily. She had establish care with [facility], patient was having issues with leg swelling. She has had a good energy level, this has been improved. She tries to stay active. She com pleted the cardiac rehabilitation program. She has not had any chest pain or discomfort at rest or with exertion. She has not noticed shortness of breath. She has not had any light headedness or dizziness. She continues to do dialysis 3 times a week. She has not noticed p alpitations. She has not had leg swelling. She is able to sleep laying down at night witho ut any symptoms of shortness of breath. She does not use a CPAP machine MEDICAL, SURGICAL, AND PERSONAL HISTORY Past Medical, Surgical, Family, and Social History are reviewed in EPIC. CURRENT PROBLEMS Patient Active Problem List Diagnosis RAFY (acute kidney injury) Pleural effusion Acute combined systolic and diastolic congestive heart failure Coronary artery disease Dilated cardiomyopathy Hypokalemia Depressive disorder Vitamin D deficiency Adjustment disorder Hyperlipidemia Helicobacter pylori infection GERD (gastroesophageal reflux disease) Hypertension Diabetes mellitus type II, DIET Control Elevated hemoglobin A1c Diabetic retinopathy RBBB (right bundle branch block) Pulmonary hypertension, mild End stage renal disease Anemia of chronic renal failure, stage 5 CURRENT MEDICATIONS Current Outpatient Medications Medication Sig Dispense Refill aspirin 81 mg [...] capsule by mouth Daily. 30 each 11 epoetin khalif (EPOGEN, PROCRIT) 10,000 units/mL injection Inject 1 mL under the skin Thr ee times a week. furosemide (LASIX) 80 mg tablet Take 1 [...] Known Allergies ROS Review of Systems Constitutional: Negative. Negative for malaise/fatigue. Respiratory: Negative. Negative for shortness of breath. Cardiovascular: Negative. Negative for chest pain, palpitations and leg swelling. Neurological: Negative. Negative for dizziness and weakness. Lightheadedness - No Endo/Heme/Allergies: Negative. Does not bruise/bleed easily. OBJECTIVE: PHYSICAL EXAM BP 120/50 | Pulse 80 | Resp 20 | Ht 1.651 m (5' 5") | Wt 66.2 kg (145 lb 15.1 oz) | BM I 24.29 kg/m Physical Exam Constitutional: She is oriented to person, place, and time. She appears well-developed and well-nourished. Frail adult female by herself in no acute distress Neck: Normal carotid pulses and no JVD (No JVD) present. Carotid bruit is not present (Sienna r). Cardiovascular: Normal rate, regular rhythm, S1 normal, [...] side, and 2+ on the left side. Mid-sternal incision healed Pulmonary/Chest: Effort normal. No accessory muscle usage. No respiratory distress. She has no decreased breath sounds. She has no wheezes. She has no rhonchi. She has no rales. Abdominal: Soft. 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 Derek saldana Psychiatric: She has a normal mood and affect. Her speech is normal and behavior is normal. Judgment and thought content normal. Her mood appears not anxious. Cognition and memory are normal. She does not exhibit a depressed mood. Vitals reviewed. ECG: I personally independently reviewed ECG tracing during this visit (interpreted and susan led by another provider): Results for orders placed or performed in visit on 11/21/18 ECG 12 lead Result Value Ref Range INTERPRETATION TEXT Normal sinus rhythm Possible Left atrial enlargement Right bundle branch block T wave abnormality, consider lateral ischemia Abnormal ECG When compared with ECG of 11-MAY-2018 07:31, No significant change was found Confirmed by BIGG MILLER, [facility] [id number] 11/21/2018 4:16:24 PM LAB RESULTS reviewed during visit today primarily from [facility]: LIPID Lab Results Component Value Date CHOL 172 05/10/2018 TRIG 118 05/10/2018 HDL 44 05/10/2018 LDL 104 05/10/2018 CHOLHDL 3.9 05/10/2018 LDLEX 40 06/30/2018 HDLEX 37.2 06/30/2018 TRIGEX 210 06/30/2018 CHOLEX 119 06/30/2018 CHEMISTRY Lab Results Component Value Date GLU 158 (H) 08/08/2018 GLUEX 145 (A) 09/04/2018 NA 135 (L) 08/08/2018 NAEX 133 09/04/2018 K 3.0 (L) 08/08/2018 KEX 3.8 09/04/2018 CL 98 08/08/2018 CLEX 97 09/04/2018 CO2 25 08/08/2018 CO2EX 25 09/04/2018 CALCIUM 8.6 08/08/2018 ALKPHOS 72 09/04/2018 AST 13 05/12/2018 ASTEX 25 09/04/2018 ALT 19 05/12/2018 ALTEX 34 09/04/2018 BILITOT 0.5 05/12/2018 CREA 2.58 (H) 08/08/2018 BUN 18 08/08/2018 EGFREX 13 09/04/2018 CREEX 3.48 (A) 09/04/2018 HEMATOLOGY Lab Results Component Value Date WBC 5.8 05/10/2018 WBCEX 7.0 09/04/2018 HGB 10.3 (L) 07/25/2018 HGBEX 11.4 (A) 09/04/2018 HCT 28.4 (L) 05/10/2018 HCTEX 34.9 (A) 09/04/2018 PLT 224 07/25/2018 PLTEX 156 09/04/2018 Lab Results Component Value Date TSH 4.68 05/08/2018 BNP 4,521 (H) 05/08/2018 I reviewed records from [facility] and [facility] in [place], [place] for hospitalization, including H&P, Discharge Summary and lab reports on 12/2018 which is summarized in the HPI. RESULTS- I reviewed reports from [facility]: XR Chest AP portable on 12/25/18 shows bilateral pleural effusions, right greater than left. Prominent cardiac silhouette, by Zuhair Baker M.D. Carotid Duplex Bilateral on 12/26/18 shows Right: mildly abnormal right internal carotid art reynaldo study with 16-49% diameter stenosis. The right vertebral artery is patent and antegrade. Left: Minimally abnormal left internal carotid artery study with 1-15% diameter stenosis. T he left vertebral artery is patent and antegrade, by Carol Nix MD. XR Chest PA and Lateral on 12/27/18 shows right greater than left basal pleural effusions, u nchanged, by Elbert Verduzco M.D. Echocardiogram complete on 12/28/18 shows normal size left ventricle. Severely reduced left ventricular systolic function. The left ventricular ejection fraction is 30%. There was mode rate global hypokinesis. The inferolateral wall was severely hypokinetic. Severely reduced r ight ventricular systolic function. Mild to moderate mitral regurgitation. Estimated right v entricular systolic pressure (RVSP) is 48 mmHg. Compared to the report of the previous study on 11/28/2018, biventricular systolic function has worsened. Pulmonary hypertension is new. Echocardiogram Transesophageal on 12/28/18 shows severely decreased LVF.LVEF 15% by visual e st. RV also decreased moderately. Mild-mod MVR. No other signif valvular abnormalities, by Nathaly Torre MD. XR Chest AP Portable on 12/28/18 shows interval postoperative changes, by Deep Nunez M.D. XR Chest AP Portable on 12/29/18 shows interval extubation with decreased lung aeration, by Zuhair Baker M.D. Coronary bypass grafting x 3: Left internal mammary artery to left anterior descending dasha ry; reverse saphenous vein graft to LAD-d2, reverse saphenous vein graft to rpda. , without complication, on 12/28/18 by Phill Logan MD XR Chest AP Portable on 12/30/18 shows mildly improved airspace disease, by Garret Sterling M.D. XR Chest AP Portable on 12/31/18 shows similar bibasilar airspace disease with pleural effus ions, by Garret Sterling M.D. XR Chest AP Portable on 01/01/19 shows stable exam, by Isai Rincon M.D. Echocardiogram on 01/02/19 shows normal size left ventricle. Severely reduced left ventricul ar systolic function. The left ventricular ejection fraction is 25%. There was severe global hypokinesis. Severely reduced right ventricular systolic function. Compared to the report o f the previous transesophageal study done on 12/28/2018, no substantial change. XR Chest AP Portable on 01/02/19 shows interval removal of Kenner-Mayra catheter. Interval plac ement of endotracheal tube situated at the orifice of the right mainstem. This should be ret racted approximately 2 cm. somewhat increased pulmonary edema, by Zuhair Baker M.D XR Chest AP Portable on 01/03/18 shows endotracheal tube now terminates approximately 6 cm a sonny the julian, by Isai Rincon M.D. XR Chest AP Portable on 01/04/19 shows extubated. Increased bilateral pleural effusions and bibasilar atelectasis, by Zuhair Baker M.D. Echocardiogram on 01/08/19 shows normal left ventricular chamber size with severely reduced LV systolic function. LVEF 30%. Global hypokinesis. Trace aortic insufficiency. Mild mitral regurgitation. Mild tricuspid regurgitation with borderline pulmonary hypertension. RVSP 35 mmHg. XR Chest PA and Lateral on 01/08/19 shows no significant interval change, by Buck mix MD. CT Chest wo Contrast on 01/11/19 shows moderate size loculated right pleural effusion, and s mall nonloculated left pleural effusion. Extensive compressive atelectatic changes at the marge ng bases. Postsurgical changes in the mediastinum from recent CABG. Cardiomegaly. Mediastina l adenopathy, probably reactive given the other findings in the chest, by Zuhair Baker M.D. Above data and testing is reviewed this visit; testing below is historical data unless othe rwise specified. ASSESSMENT: 1. Combined HFrEF and diastolic dysfunctionsuggesting myocardial ischemia A. [...] is 35%. By MD Dinah Cherry. Today, 05/17/2019, she is asymptomatic.She has no angina, dyspne a or leg swelling. She is on a heart failure medical regimen including Mineralocorticoid re ceptor antagonist, MARTHA-I and beta-jose david. She uses loop diuretic daily. She does not requir e heart failure medication adjustment at this time. There are no signs or symptoms of overt congestive heart failure, and her physical exam shows no significant fluid retention. She is in class I- No symptoms; no limitations of activities of the [employer] f unctional class. Heart failure stage B-diagnosed heart failure without symptoms. 2. Coronary artery disease A. Abnormal stress test as mentioned earlier. B. Left Heart catheterization 10/09/2018: Severe three-vessel caputo ry artery disease; chronic total occlusion to the proximal portion of the RCA, moderate to s evere diffuse disease of the LAD and LCx. There is a right dominate circulation. Collaterali zation; evidence of a qsrk-ly-detdh collateralization from the distal LAD to distal PDA. Mod erately reduced LV systolic function with an EF of 35%. Systemic blood pressure is normal. Moderate pulmonary hypertension with PA pressure of 65/27 mmHg. Wedge pressure is 24 mmHg. There was successful hemostasis with a TR hemostatic band. Signed by MD Dinah Cherry. XR Chest AP portable on 12/25/18 shows bilateral pleural effusions, right gre ater than left. Prominent cardiac silhouette, by Zuhair He. Carotid Duplex Bilateral on 12/26/18 shows Right: mildly abnormal right internal carotid artery study with 16-49% diameter stenosis. The right vertebral artery is patent and antegr padmini. Left: Minimally abnormal left internal carotid artery study with 1-15% diameter stenosi s. The left vertebral artery is patent and antegrade, by Carol Nix MD. E. Echocardiogram complete on 12/28/18 shows normal size left ventricle. Severely reduced l eft ventricular systolic function. The left ventricular ejection fraction is 30%. There was moderate global hypokinesis. The inferolateral wall was severely hypokinetic. Severely reduc ed right ventricular systolic function. Mild to moderate mitral regurgitation. Estimated rig ht ventricular systolic pressure (RVSP) is 48 mmHg. Compared to the report of the previous s tudy on 11/28/2018, biventricular systolic function has worsened. Pulmonary hypertension is new. G. Echocardiogram Transesophageal on 12/28/18 shows severely decreased LVF.LVEF 15% by visu al est. RV also decreased moderately. Mild-mod MVR. No other signif valvular abnormalities, by Bonifacio Torre MD. H. Coronary bypass grafting x 3: Left internal mammary artery to left anterior descending artery; reverse saphenous vein graft to LAD-d2, reverse saphenous vein graft to rpda. , with out complication, on 12/28/18 by Phill Logan MD I. Echocardiogram on 01/02/19 shows normal size left ventricle. Severely reduced left ventr icular systolic function. The left ventricular ejection fraction is 25%. There was severe gl obal hypokinesis. Severely reduced right ventricular systolic function. Compared to the repo rt of the previous transesophageal study done on 12/28/2018, no substantial change. J. Echocardiogram on 01/08/19 shows normal left ventricular chamber size with severely redu malki LV systolic function. LVEF 30%. Global hypokinesis. Trace aortic insufficiency. Mild zandra ral regurgitation. Mild tricuspid regurgitation with borderline pulmonary hypertension. RVSP [address] Chest wo Contrast on 01/11/19 shows moderate size loculated right pleural effusion, a nd small nonloculated left pleural effusion. Extensive compressive atelectatic changes at th e lung bases. Postsurgical changes in the mediastinum from recent CABG. Cardiomegaly. Medias tinal adenopathy, probably reactive given the other findings in the chest, by Zuhair Nguyen. Today, 05/17/2019, she is asymptomatic, no chest discomfort She has no angina or dyspne a with exertion or at rest. She is on a medical regimen with aspirin, ARB, beta-jose david and statin. There are no signs or symptoms of overt congestive heart failure, and her physical e xam shows no significant fluid retention. She is in class I- No symptoms; no limitations of activities of the [employer] functional class. Heart failure stage B-diagno sed heart failure without symptoms. She had a Coronary bypass grafting x 3 in 12/28/2018. The notes from that states that she had a cardiac arrest that required CPR while she was in the hospital. She states that she had finished her cardiac rehab and is doing "really good". She will have a echocardiogram done to evaluate her CHF. 3. Hypertension A. Today, 05/17/2019, her blood pressure is well controlled. 4. Acute on chronic diabetic nephropathy Not otherwise addressed today 05/17/2019. A. Cardio-joey syndrome contributing to the RAFY on dialysis now. 5. Diabetes: over 20 years diabetic09/26/2018her A1C still elevated, we have educated about improving diabetic control 6. Hyperlipidemia A. Today, 05/17/2019, she remains on atorvastatin. She is tolerating atorvastatin well. 7. Possible LEANN: will need sleep study PLAN: 1. She will have a echocardiogram to evaluate her ejection fraction before her next appoint ment. 2. She will discontinue Metoprolol succinate and continue taking Carvedilol 3. She will follow up in 8-10 weeks for office visit, or sooner with concerns. She will luo ve a echocardiogram done prior to her appointment, if her ejection fraction remains below 35 % then she will be a candidate for AICD I spent 50 minutes face to face with the patient, with over 50% spent in counseling and/or coordination of care regarding new diagnosis and admission for CABG. Evelina Pennington Electrical Contractor am acting as a scribe on behalf of, and in the presenc e of LI Naqvi. - Marilyn Traylor 05/17/2019 11:38 I, LI Naqvi, personally performed the services described in this documentati on, as scribed in my presence and it is both accurate and complete. -LI Naqvi 05/17/2019 Portions of this chart may have been created with [employer] voice recognition software. Occasi onal wrong-word or sound-alike substitutions may have occurred due to the inherent leong itations of voice recognition software. Please read the chart carefully and recognize, using context, where these substitutions have occurred. documented in this encounter Plan of Treatment Not on filedocumented as of this encounter Procedures + +--------+ + + + | Procedure Name | Priori | Date/Time | Associated Diagnosis | Comments | | | ty | | | | + +--------+ + + + | IMAGING REPORT - | | 09/04/2018 | | Results for this | | EXTERNAL SCAN | | 12:00 AM | | procedure are in the | | | | PST | | results section. | + +--------+ + + + | ECG - EXTERNAL SCAN | | 09/04/2018 | | Results for this | | | | 12:00 AM | | procedure are [...] | | | | | | n [place] | | | | | + +--------+ [...] | | | + +---------+ + + IMAGING REPORT - EXTERNAL SCAN (09/04/2018 12:00 AM PST) + + + | Narrative | Performed At | + + + | Ordered by an | | | unspecified provider. | | + + + ECG - EXTERNAL SCAN (09/04/2018 12:00 AM PST) + + + | Narrative | Performed At | + + + | Ordered by an | | | unspecified provider. | | + + + documented in this encounter Visit Diagnoses + + | Diagnosis | + + | Pulmonary hypertension, mild (HCC) - Primary Other chronic pulmonary heart diseases | + + | Acute combined systolic and diastolic congestive heart failure (HCC) Acute combined | | systolic and diastolic heart failure | + + | Coronary artery disease involving [place] coronary artery, angina presence unspecified, | | unspecified whether [place] or transplanted heart | + + | Dilated cardiomyopathy (HCC) Other primary cardiomyopathies | + + | Hypertension, unspecified type | + + | RBBB (right bundle branch block) Right bundle branch block | + + | Hyperlipidemia, unspecified hyperlipidemia type | + + documented in this encounter
--- OUTSIDE RECORDS SUMMARY | ~2019-12-03 | XMS | Encounter Summary ---
Demographics + + + | Address | [address] | | | [place] [address] | + + + | Home Phone | | + + + | Preferred Language | Unknown | + + + | Marital Status | Single | + + + | Orthodox Affiliation | 1074 | + + + | Race | Unknown | + + + | Ethnic Group | Unknown | + + + Author + + + | Author | [facility] | | | and J[place] | + + + | Organization | [facility] | | | and [place] | + + + | Address | Unknown | + + + | Phone | Unavailable | + + + Support + + + + + | Name | Relationship | Address | Phone | + + + + + | Evelina Bryan Name | ECON | [place] | | | | | [address] | | + + + + + | Lizet Scott | ECON | Unknown | | + + + + + Care Team Providers + +------+ + | Care Mental Health Therapist Name | Role | Phone | + [...] | | [address] | [place] | stage 5 chronic | | | | [place], [place] | [place], [place] | kidney disease, not | | | | [address] | [id number] | on chronic dialysis, | | | | [phone] | | unspecified acute | | | | | | renal failure type | | | | | | ([facility]) (Primary Dx) | +--------+ + + + [...]
--- OUTSIDE RECORDS SUMMARY | ~2019-12-03 | XMS | Encounter Summary ---
Demographics + + + | Address | [address] | | | [place] [address] | + + + | Home Phone | | + + + | Preferred Language | Unknown | + + + | Marital Status | Single | + + + | Scientologist Affiliation | 1074 | + + + | Race | Unknown | + + + | Ethnic Group | Unknown | + + + Author + + + | Author | [facility] | | | and Jethroana | + + + | Organization | [facility] | | | and [place]eth[place] | + + + | Address | Unknown | + + + | Phone | Unavailable | + + + Support + + + + + | Name | Relationship | Address | Phone | + + + + + | Evelina Bryan Name | ECON | [place] | | | | | [address] | | + + + + + | Lizet Scott | ECON | Unknown | | + + + + + Care Team Providers + +------+ + | Care Process Operator Name | Role | Phone | [...] | | | | | | | TN CREAT AV | | | | | | | FISTULA,NON- | | | | | | | AUTOGENOUS | | | | | | | GRAFT [place] | | | | | | | ANASTOMOSIS, | | | | | | | AV,ANY SITE | | | | | | | TN INSJ | | | | | | | TUNNELED CVC | | | | | | | W/O SUBQ | | | | | | | PORT/DINING ROOM SUPERVISOR AGE | | | | | | [...] hemodialysis | | | | [address] | [address] [place] | catheter | | | | [place], [place] | [place] [address] | | | | | [address] | [phone] | | | | | [phone] | | | +--------+---------+ + + + [...] | | | | ([facility]), Dilated | | | | | | | cardiomyopathy | | | | | | | ([facility]), Type 2 | | | | | | | diabetes mellitus | | | | | | | with diabetic | | | | | | | nephropathy, with | | | | | | | long-term current | | | | | | | use of insulin | | | | | | | ([facility]), Anemia in | | | | | | | stage 5 chronic | | | | | | | kidney disease, not | | | | | | | on chronic dialysis | | | | | | | ([facility]) | | | | | | [...] | | PST | ([facility]) (N18.5) | | + +--------+ + [...] + | [address] | [address] | [place], [place] | [phone] | | [facility] | | [address] | | | - LABORATORY | | [...] + | Performed at: 01 - [facility] [place] [address], | REFERENCE LAB | | [place], [place] [id number] Admissions Manager Rn: Fabio Villagran MD, Phone: | [facility] | | [phone] | | + + + + + + + + | Performing | Address | City/State/Zipcode | Phone Number | | Organization | | | | + + + + + | REFERENCE LAB | [address] | [place], [place] | [phone] | | [facility] | [address] | [address] | | + + + + + [...] [address] | [place] | [phone] | | [facility] | | [address] | | | - LABORATORY | | [...] + | [address] | [address] | [place] | [phone] | | [facility] | | [address] | | | - LABORATORY | | [...] [address] | [place] | [phone] | | [facility] | | [address] | | | - LABORATORY | | [...] | Time | | seconds | [facility]IN | | | | [...] + | [facility] | [address] | [place] | [phone] | | [facility] | | [address] | | | - LABORATORY | | [...] | | MEDICAL | | | | mL/min/1.76n4Phgl than | | CENTER - | | [...] [address] | [place] | [phone] | | [facility] | | [address] | | | - LABORATORY | | [...]
--- OUTSIDE RECORDS SUMMARY | ~2019-12-03 | XMS | Encounter Summary ---
Demographics + + + | Address | [address] | | | [place] [address] | + + + | Home Phone | | + + + | Preferred Language | Unknown | + + + | Marital Status | Single | + + + | Jainism Affiliation | 1074 | + + + | Race | Unknown | + + + | Ethnic Group | Unknown | + + + Author + + + | Author | [facility] | | | and [place]ethroana | + + + | Organization | [facility] | | | and [place]ethro[place] | + + + | Address | Unknown | + + + | Phone | Unavailable | + + + Support + + + + + | Name | Relationship | Address | Phone | + + + + + | Evelina Bryan Name | ECON | [place] | | | | | [address] | | + + + + + | Lizet Scott | ECON | Unknown | | + + + + + Care Team Providers + +------+ + | Care Double Bass Player Name | Role | Phone | + +------+ + | Aida Knight PA-C | PCP | | + +------+ + Encounter Details +--------+ + + + + | Date | Type | Department | Care Team | Description | +--------+ + + + + | 07/31/ | Orders Only | [facility] [place] | Nasir Lester | | | 2018 | | NEPHROLOGY [address] | M, DO [address] | | | | | [address] | [place], [address] | | | | | [place], [place] | [place], [place] | | | | | [address] | [address] | | | | | [phone] | | | +--------+ + + + [...]
--- OUTSIDE RECORDS SUMMARY | ~2019-12-03 | XMS | Encounter Summary ---
Demographics + + + | Address | [address] | | | [place] [address] | + + + | Home Phone | | + + + | Preferred Language | Unknown | + + + | Marital Status | Single | + + + | Jainism Affiliation | 1074 | + + + | Race | Unknown | + + + | Ethnic Group | Unknown | + + + Author + + + | Author | [facility] | | | and Jethroana | + + + | Organization | [facility] | | | and [place]ethro[place] | + + + | Address | Unknown | + + + | Phone | Unavailable | + + + Support + + + + + | Name | Relationship | Address | Phone | + + + + + | Evelina Bryan Name | ECON | [place] | | | | | [address] | | + + + + + | Lizet Scott | ECON | Unknown | | + + + + + Care Team Providers + +------+ + | Care Obgyn Specialist Name | Role | Phone | [...] W | vest) | | | | [place], | [place], | | | | | [place] [address] | [place] [address] | | | | | [phone] | [phone] | | | | | | | [...]
--- OUTSIDE RECORDS SUMMARY | ~2019-12-03 | XMS | Encounter Summary ---
Demographics + + + | Address | [address] | | | [place] [address] | + + + | Home Phone | | + + + | Preferred Language | Unknown | + + + | Marital Status | Single | + + + | Jain Affiliation | 1074 | + + + | Race | Unknown | + + + | Ethnic Group | Unknown | + + + Author + + + | Author | [facility] | | | and Jethroana | + + + | Organization | [facility] | | | and [place]ethroana | + + + | Address | Unknown | + + + | Phone | Unavailable | + + + Support + + + + + | Name | Relationship | Address | Phone | + + + + + | Evelina Bryan Name | ECON | [place] | | | | | [address] | | + + + + + | Lizet Scott | ECON | Unknown | | + + + + + Care Team Providers + +------+ + | Care Accreditation Manager Name | Role | Phone | + +------+ + | Aida Knight PA-C | PCP | | + +------+ + Encounter Details +--------+ + + + + | Date | Type | Department | Care Team | Description | +--------+ + + + + | 07/24/ | Episode | [facility] | Anisa Beach RN | | | 2018 | Changes | SURGERY [address] | | | | | | [address] [place], [place] | | | | | | [address] | | | | | | [phone] | | | +--------+ + + + [...]
--- OUTSIDE RECORDS SUMMARY | ~2019-12-03 | XMS | Encounter Summary ---
Demographics + + + | Address | [address] | | | [place] [address] | + + + | Home Phone [...] | Author | [facility] | | | and Jethroana | + + + | Organization | [facility] | | | and Jethroana | + + + | Address | Unknown | + + + | Phone | Unavailable | + + + Support + + + + + | Name | Relationship | Address | Phone | + + + + + | Evelina Bryan Name | ECON | [place] | | | | | [address] | | + + + + + | Lizet Scott | ECON | Unknown | | + + + + + Care Team Providers + +------+ + | Care Coding Quality Analyst Name | Role | Phone | [...] | | | stage renal | [place] [address] | [address] [place] [address] | | | | | disease) | | [place], [place] | | | | | (HCC) | [facility] | [address] [place] | | | | | Procedures | WAY | [place] | | | | | [place] [facility] | [place], | [address] Phone: | | | | | RELATED SVC | [place] [address] | [phone] | | | | | MONTHLY | Phone: | Fax: | | | | | 20&/> YR OLD | [phone] | [phone] | | | | | 4/> VISITS | Fax: | | | | | | | [phone] | | +--------+--------+ + + + + Encounter Details +--------+ + + + + | Date | Type | Department | Care Team | Description | +--------+ + + + + | 09/11/ | Off-Site | [facility] [place] | Lester Best | End stage renal | | 2019 | Visit | NEPHROLOGY [address] | M, DO [address] | disease (HCC) | | | | [address] | [place], [address] | (Primary Dx) | | | | [place], [place] | [place], [place] | | | | | [address] | [address] | | | | | [phone] | | | +--------+ + + + [...] + + + | Blood Pressure | 148/73 | 09/11/2018 4:17 PM | | | | | PST | | + + + + + | Pulse | - | - | | + + + + + | Temperature | 36.3 C (97.4 F) | 09/11/2018 4:17 PM | | | | | PST [...] encounter Progress Notes Lester Best DO - 09/11/2018 10:30 AM PST Subjective: DIALYSIS NOTE Patient ID: Xochilt Linares is a 62 y.o. female. HPI Comments: Monthly dialysis visit for this very pleasant, 62 YO female with ESRD secon eddie to diabetic gl glomerulosclerosis, plus low output state from her background dilated ca rdiomyopathy, also has anemia secondary to CKD, CKD/MBD, and Type II DM. She is seen at the [facility]. She denies cramps, dyspnea, or anorexia. She feels that her energy level is slowly improving. MEDS: Outpatient Medications Marked as Taking for the 09/11/18 encounter (Off-Site Visit) with Christophe Best DO Medication Sig Dispense Refill aspirin [...] mg by mouth Daily.) 60 tablet 5 [DISCONTINUED] HYDROcodone-acetaminophen (NORCO) 5-325 mg per tablet Take 1-2 tablets b y mouth every 4 hours as needed for Pain. 10 tablet 0 lisinopril (PRINIVIL, ZESTRIL) 5 mg tablet Take 1 tablet by mouth nightly. 30 tablet 11 magnesium oxide (MAG-OX) 400 mg tablet Take 1 tablet by mouth Daily. 30 tablet 5 methoxy polyethylene glycol-epoetin beta (MIRCERA) 100 mcg/0.3 mL injection Inject 100 mcg under the skin Every 28 days. spironolactone (ALDACTONE) 25 mg tablet Take 1 tablet by mouth Daily. 30 tablet 5 [DISCONTINUED] traMADol (ULTRAM) 50 mg tablet Take 1 tablet by mouth every 8 hours as n eeded. 20 tablet 0 No Known Allergies ROS Objective: BP 148/73 | Temp 36.3 C (97.4 F) EDW 64.5 kg Physical Exam Heart: Regular rate and rhythm with grade 1/6 VELVET at LSB, no S3, or rub. Lungs: CTA bilaterally. No rales or wheezes. Abdomen: soft, obese, nontender, NABS. Extremities: no edema, clubbing, or cyanosis. AVF at Right upper arm has (+) Bruit. LAB: BUN 43, Cr 3.3, K+ 403.4, HCO3 29, Ca++ 8.7, P04 4.2, albumin 3.3, PTH 278, HbA1c 8.2% , Hb 11.1, T sat =8%, eKT/V = 1.56. Assessment: 1. ESRD--she appears well dialyzed on 4 hours , HCO3 35, 2K +, F160, thrice weekly. 2. dilated cardiomyopathy--stable at her current dry weight. 3. Type II DM --fair control. Her diet was liberalized to help improve her nutrition, and serum albumin. 4. Hypertension--likely will require therapy long-term. 5. Anemia 2 to CKD--improved on Mircera. She is receiving a course of IV Venofer x10 d oses. 6. SHPTH--L PTH is within target. 7. Nutrition--albumin below target. I encouraged her to maximize her daily intake of high biological value protein. 8. Transplantation--she philosophically is ambivalent about this. PLAN 1. I concur that her dry wt. = 64.5 kg. 2. Edema is better, and her appetite is better. 3. Her AVF in Rt arm looks well with a strong bruit and is developing nicely. 4. She is on ONSP. 5. We will recheck her in 1 week. She is attempting to [facility] back to [facility], which is close to [place], when a chair opens. : [facility] Harman Plaza MD, FACS documented in thi s encounter Plan of Treatment Not on filedocumented as of this encounter Visit Diagnoses + + | Diagnosis | + + | End stage renal disease (HCC) - Primary End stage renal disease | + + documented in this encounter"
--- OUTSIDE RECORDS SUMMARY | ~2019-12-03 | XMS | Encounter Summary ---
Demographics + + + | Address | [address] | | | [place] [address] | + + + | Home Phone | | + + + | Preferred Language | Unknown | + + + | Marital Status | Single | + + + | Judaism Affiliation | 1074 | + + + | Race | Unknown | + + + | Ethnic Group | Unknown | + + + Author + + + | Author | [facility] | | | and Jethroana | + + + | Organization | [facility] | | [...] [place] | | | | | [address] | | + + + + + | Lizet Scott | ECON | Unknown | | + + + + + Care Team Providers + +------+ + | Care Ground Water Technician Name | Role | Phone | + +------+ + | Aida Knight PA-C | PCP | | + +------+ + Encounter Details +--------+ + + + + | Date | Type | Department | Care Team | Description | +--------+ + + + + | 03// | Abstract | [facility] [place] | Sushila Harvey, | | | 2019 | | CARDIOLOGY [address] | Fundraising Assistant | | | | | [place], | | | | | | [place] [address] | | | | | | [phone] | | | +--------+ + + + [...] + | EXTERNAL LAB: | Routin | 05/24/2019 | | Results for this | | GLUCOSE | e | | | procedure are in the | | | | | | results section. | + +--------+ + + + | HEMOGLOBIN A1C | Routin | 05/24/2019 | | Results for this | | | e | | | procedure are in the | | | | | | results section. | + +--------+ + + + documented in this encounter Results Hemoglobin A1C (05/24/2019) + +-------+ + + + | Component | Value | Ref Range | Performed | Pathologist | | | | | At | Signature | + +-------+ + + + | Hemoglobin | 8.2 | % | EXTERNAL | | | A1c | | | LAB | | + +-------+ + + + + + | Specimen | + + | Blood | + + + +---------+ + + | Performing | Address | City/State/Zipcode | Phone Number | | Organization | | | | + +---------+ + + | EXTERNAL LAB | | | | + +---------+ + + External Lab: Glucose (05/24/2019) + +---------+ + + + | Component | Value | Ref Range | Performed | Pathologist | | | | | At | Signature | + +---------+ + + + | Glucose, | 189 (A) | 65 - 100 | EXTERNAL | | | External | | | LAB | | + +---------+ + + + + +---------+ + + | Performing | Address | City/State/Zipcode | Phone Number | | Organization | | | | + +---------+ + + | EXTERNAL LAB | | | | + +---------+ + + documented in this encounter Visit Diagnoses Not on filedocumented in this encounter"
--- OUTSIDE RECORDS SUMMARY | ~2019-12-03 | XMS | Encounter Summary ---
Demographics + + + | Address | [address] | | | [place] [address] | + + + | Home Phone | | + + + | Preferred Language | Unknown | + + + | Marital Status | Single | + + + | Hinduism Affiliation | 1074 | + + + | Race | Unknown | + + + | Ethnic Group | Unknown | + + + Author + + + | Author | [facility] | | | and Jethroana | + + + | Organization | [facility] | | | and [place] | + + + | Address | Unknown | + + + | Phone | Unavailable | + + + Support + + + + + | Name | Relationship | Address | Phone | + + + + + | Evelina Bryan Name | ECON | [place] | | | | | [address] | | + + + + + | Lizet Scott | ECON | Unknown | | + + + + + Care Team Providers + +------+ + | Care Dog License Officer Supervisor Name | Role | Phone | [...] + + | 07/19/ | Telephone | [facility] | Meryl, | Other (appointment | | 2019 | | CARDIOLOGY [address] | [address] [place] [address] | soon to discuss test | | | | [place], | [place], | results) | | | | [place] [address] | [place] [address] | | | | | [phone] | [phone] | | | | | | | [...]
--- OUTSIDE RECORDS SUMMARY | ~2019-12-03 | XMS | Encounter Summary ---
Demographics + + + | Address | [address] | | | [place] [address] | + + + | Home Phone | | + + + | Preferred Language | Unknown | + + + | Marital Status | Single | + + + | Islam Affiliation | 1074 | + + + | Race | Unknown | + + + | Ethnic Group | Unknown | + + + Author + + + | Author | [facility] | | | and Jethro[place] | + + + | Organization | [facility] | | | and [place] | + + + | Address | Unknown | + + + | Phone | Unavailable | + + + Support + + + + + | Name | Relationship | Address | Phone | + + + + + | Evelina Bryan Name | ECON | [place] | | | | | [address] | | + + + + + | Lizet Scott | ECON | Unknown | | + + + + + Care Team Providers + +------+ + | Care Gas Stove Servicer Helper Name | Role | Phone | + [...] | | | stage renal | [place] [address] | [address] [place] [address] | | | | | disease) | | [place], [place] | | | | | (HCC) | [place] | [address] [place] | | | | | Procedures | WAY | [address] [address] | | | | | [place] [facility] | [place], | [address] Phone: | | | | | RELATED SVC | [place] [address] | [phone] | | | | | MONTHLY | Phone: | Fax: | | | | | 20&/> YR OLD | [phone] | [phone] | | | | | 4/> VISITS | Fax: | | | | | | | [phone] | | +--------+--------+ + + + + [...] | | [address] | [place], [address] | (Primary Dx) | | | | [place], [place] | [place], [place] | | | | | [address] | [address] | | | | | [phone] | | | +--------+ + + + [...]
--- OUTSIDE RECORDS SUMMARY | ~2019-12-03 | XMS | Encounter Summary ---
Demographics + + + | Address | [address] | | | [place] [address] | + + + | Home Phone | | + + + | Preferred Language | Unknown | + + + | Marital Status | Single | + + + | Tenriism Affiliation | 1074 | + + + | Race | Unknown | + + + | Ethnic Group | Unknown | + + + Author + + + | Author | [facility] | | | and Jethroana | + + + | Organization | [facility] | | | and [place] | + + + | Address | Unknown | + + + | Phone | Unavailable | + + + Support + + + + + | Name | Relationship | Address | Phone | + + + + + | Evelina Bryan Name | ECON | [place] | | | | | [address] | | + + + + + | Lizet Scott | ECON | Unknown | | + + + + + Care Team Providers + +------+ + | Care Patient Financial Advocate Name | Role | Phone | + [...] | Coronary | MD Tia | Giancarlo Raymunod MD | | | Required | | artery | [address] | [address] | | | | | disease, | [address] [place] | [address] | | | | | angina | [facility], | [address] | | | | | presence | [place] [address] | [place], [place] | | | | | unspecified, | Phone: | [address] Phone: | | | | | unspecified | [phone] | [phone] | | | | | vessel or | Fax: | Fax: | | | | | lesion type, | [phone] | [phone] | | | | | unspecified | | | | | | | whether | | | | | | | enterprise or | | | | | | [...] + + | 10/12/ | Telephone | [facility] | Tia Payne, | Other (plan of care) | | 2018 | | CARDIOLOGY [address] | [address] [place] | | | | | [place] [facility], | [facility], | | | | | [place] [address] | [place] [address] | | | | | [phone] | [phone] | | | | | | | [...] whether | | | | | | enterprise or | | | | | | transplanted heart | | + + +--------+ + + documented as of this encounter Visit Diagnoses + + | Diagnosis | + + | Coronary artery disease, angina presence unspecified, unspecified vessel or lesion | | type, unspecified whether enterprise or transplanted heart - Primary | + + documented in this encounter"
--- OUTSIDE RECORDS SUMMARY | ~2019-12-03 | XMS | Encounter Summary ---
Demographics + + + | Address | [address] | | | [place] [address] | + + + | Home Phone | | + + + | Preferred Language | Unknown | + + + | Marital Status | Single | + + + | Congregational Affiliation | 1074 | + + + | Race | Unknown | + + + | Ethnic Group | Unknown | + + + Author + + + | Author | [facility] | | | and [place] | + + + | Organization | [facility] | | | and [place] | + + + | Address | Unknown | + + + | Phone | Unavailable | + + + Support + + + + + | Name | Relationship | Address | Phone | + + + + + | Evelina Bryan Name | ECON | [place] | | | | | [address] | | + + + + + | Lizet Scott | ECON | Unknown | | + + + + + Care Team Providers + +------+ + | Care Fuse Coiler Name | Role | Phone | + [...] Services | General | Chronic | Lester Elise, | Harman I, | | | Required | Surgery | kidney | DO [address] | , FACS [address] | | | | | disease, | [place], Jair | [address] | | | | | stage V | [address] [place] | [place], | | | | | (HCC) | [place] | [place] [address] | | | | | Dilated | [address] | Phone: | | | | | cardiomyopat | Phone: | [phone] | | | | | hy (HCC) | [phone] | Fax: | | | | | Type 2 | Fax: | [phone] | | | | | diabetes | [phone] | | | | | | mellitus [...] | | | (HCC) | | | +--------+ + + + + + Reason for Visit + + + | Reason | Comments | + + + | Chronic Kidney | | | Disease, Stage V | | + + + Evaluate & Treat (Routine) +--------+--------+ + + + + | Status | Reason | Specialty | Diagnoses / | Referred By | Referred To | | | | | Procedures | Contact | Contact | +--------+--------+ + + + + | Closed | | Nephrology | Diagnoses | Stroemel, | Stroemel, | | | | | Chronic | Lester Elise, | Lester Elise, DO | | | | | kidney | DO [address] | | | | | disease, | [place], Jair | [place], Jair | | | | | stage 4 | [address] | [address] | | | | | (severe) | [place] | [place] | | | | | (HCC) | [address] | [address] Phone: | | | | | Procedures | Phone: | [phone] | | | | | [place] OFFICE | [phone] | Fax: | | | | | OUTPATIENT | Fax: | [phone] | | | | | VISIT 25 | [phone] | | | | | | MINUTES | | | +--------+--------+ + + + + Encounter Details +--------+---------+ + + + | Date | Type | Department | Care Team | Description | +--------+---------+ + + + | 05/31/ | Office | [facility] | Lester Best | Chronic kidney | | 2018 | Visit | NEPHROLOGY [address] | M, DO [address] | disease, stage V | | | | [address] | [place], [address] [address] | ([facility]) (Primary Dx); | | | | [place], [place] | [place] | Dilated | | | | [id number] | [address] | cardiomyopathy | | | | [phone] | | ([facility]); Type 2 | | | | | | diabetes mellitus | | | | | | with diabetic | | | | | | nephropathy, with | | | | | | long-term current | | | | | | use of insulin | | | | | | ([facility]); Anemia in | | | | | | stage 5 chronic | | | | | | kidney disease, not | | | | | | on chronic dialysis | | | | | | (HCC) | +--------+---------+ + + + Social [...] + + + | Blood Pressure | 122/72 | 05/31/2018 1:08 PM | | | | | PST | | + + + + + | Pulse | 63 | 05/31/2018 1:08 PM | | | | | PST | | + + + + + | Temperature | 36.3 C (97.3 F) | 05/31/2018 1:08 PM | | | | | PST | | + + + + + | Respiratory Rate | 16 | 05/31/2018 1:08 PM | | | | | PST | | + + + + + | Oxygen Saturation | 97% | 05/31/2018 1:08 PM | | | | | PST | | + + + + + | Inhaled Oxygen | - | - | | | Concentration | | | | + + + + + | Weight | 70.5 kg (155 lb 6.8 | 05/31/2018 1:08 PM | | | | oz) | PST | | + + + + + | Height | - | - | | + + + + + | Body Mass Index | 25.86 | 05/31/2018 10:39 AM | | | | | PST | | + + + + + documented in this encounter Progress Notes Lester Best DO - 05/31/2018 1:00 PM PST Subjective: NEPHROLOGY Patient ID: Xochilt Linares is a 62 y.o. female. 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 Her most recent 24 urine shows protein excretion = 3.45 g/day, with Ccr = 9.6 ml/minute. She also luo d an echocardiogram on 04/29/2018, which showed global hypokinesis, and " LVEF = 25-30%." She recently had markedly improved edema and diuresed approximately 30 pounds with Lasix/me tolazone . She is breathing much better. She denies somnolence, hiccups, nausea or anorex ia. She is back home. MEDS: Outpatient Prescriptions Marked as Taking for the 05/31/18 encounter (Office Visit) with Eveline Best DO Medication Sig Dispense Refill aspirin 81 mg chewable tablet Take 81 mg by mouth Daily. atorvaSTATin (LIPITOR) 20 mg tablet Take 20 mg by mouth nightly. carvedilol (COREG) 6.25 mg tablet Take 6.25 mg by mouth 2 times daily (with breakfast & dinner). [DISCONTINUED] furosemide (LASIX) 80 mg tablet Take 80 mg by mouth 2 times daily. furosemide (LASIX) 80 mg tablet Take 1 tablet by mouth 2 times daily. 30 tablet magnesium oxide (MAG-OX) 400 mg tablet Take 400 mg by mouth Daily. spironolactone (ALDACTONE) 25 mg tablet Take 25 mg by mouth Daily. No Known Allergies Outpatient Prescriptions Marked as Taking for the 05/31/18 encounter (Office Visit) with Eveline Best, DO Medication Sig Dispense Refill aspirin 81 mg chewable tablet Take 81 mg by mouth Daily. atorvaSTATin (LIPITOR) 20 mg tablet Take 20 mg by mouth nightly. carvedilol (COREG) 6.25 mg tablet Take 6.25 mg by mouth 2 times daily (with breakfast & dinner). [DISCONTINUED] furosemide (LASIX) 80 mg tablet Take 80 mg by mouth 2 times daily. furosemide (LASIX) 80 mg tablet Take 1 tablet by mouth 2 times daily. 30 tablet magnesium oxide (MAG-OX) 400 mg tablet Take 400 mg by mouth Daily. spironolactone (ALDACTONE) 25 mg tablet Take 25 mg by mouth Daily. No Known Allergies ROS Objective: BP 122/72 | Pulse 63 | Temp 36.3 C (97.3 F) (Temporal) | Resp 16 | Wt 7 0.5 kg (155 lb 6.8 oz) | SpO2 97% | BMI 25.86 kg/m Physical Exam Heart: Regular rate and rhythm with grade 1/6 VELVET at LSB, no S3, or rub. Lungs: CTA bilaterally. No rales or wheezes. Abdomen: soft, obese, nontender, NABS. Extremities: no edema, clubbing, or cyanosis. No foot ulcers. Lab Results Component Value Date NAEX 136 05/25/2018 KEX 4.6 05/25/2018 CLEX 94 05/25/2018 CO2EX 28 05/25/2018 BUNEX 112 05/25/2018 CREEX 4.81 05/25/2018 EGFREX 9 05/25/2018 GLUEX 204 05/25/2018 CAEX 8.5 05/25/2018 PHOSEX 5.7 05/25/2018 PTHEX 107.4 (A) 05/25/2018 Lab Results Component Value Date WBCEX 6.4 05/25/2018 HGBEX 10.1 05/25/2018 HCTEX 31.4 05/25/2018 PLTEX 299 05/25/2018 Lab Results Component Value Date CRCLEARANCE 9.6 (A) 05/30/2018 PROTEX 3,451 05/30/2018 Assessment: 1. 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 2. dilated cardiomyopathy-- s/p extensive diuresis. 3. 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 4. Hypertension--likely will require therapy long-term. 5. The secondary to CKD--not yet requiring LEWIS therapy. 6. SHPTH-- not yet requiring calcitriol. PLAN 1. I had a lengthy discussion with Xochilt that clinically her CHF and nephrotic syndrome imp roved. And from her prior discussion, she understands that she likely will require renal re placement therapy in the next 6 months. I discussed with her in detail the attendant montse persaud, and lifestyle both outpatient hemodialysis in [facility]. I discussed the CAPD does offer her more independence, however she wishes to think about this for now. 2. At this point she is leaning more towards outpatient hemodialysis. I discussed that th is would necessitate urgent placement of an AVF , And if her GFR is < or = 10 ml/minute i t may be worth having simultaneous placement of a right IJ tunneled catheter, as it will jase e some time for the AVF to develop given her background Type II DM? 3. I discussed with her that she may benefit from SQ EPO or darbepoetin when the Hb < 10 g /dl. 4. I reviewed with her that there is a dialysis clinic close to her home at the [facility], on [address] near the [place], [place]. 5. In regards to her ECF volume will decrease Lasix to 80 mg, 1, Q day and see if her BUN : Cr ratio, and GFR may modestly improved? 6. Will have her see Dr. Harman Plaza in the very near future for preoperative visit fo r construction of a [place] AVF, if she still is considering outpatient hemodialysis. Verbal ly, she did not appear, comfortable with CAPD. Again , will look at whether simultaneous tu nneled right IJ CVC, is this at that time if the GFR is < 10 ml/minute 7. Will plan to see her back in one month at the [facility], [place], [place]. She will have a CBC, CMP, PO4, iPTH, Vitamin D level, Iron profile, and 24 H our Urine one week prior to that. : [facility] Harman Plaza MD, FACS Tia Payne MD, [facility] documented in thi s encounter Plan of Treatment + + +--------+ + + | Name | Type | Priori | Associated Diagnoses | Order Schedule | | | | ty | | | + + +--------+ + + | AMB REFERRAL TO G | Outpatient | Routin | Chronic kidney | Ordered: 05/31/2018 | | [facility] | Referral | e | disease, stage V | | | | | | (HCC) Dilated | | | | | | cardiomyopathy (HCC) | | | | | | Type 2 diabetes | | | | | | mellitus with | | | | | | diabetic | | | | | | nephropathy, with | | | | | | long-term current | | | | | | use of insulin ([facility]) | | | | | | Anemia in stage 5 | | | | | | chronic kidney | | | | | | disease, not on | | | | | | chronic dialysis | | | | | | (HCC) | | + + +--------+ + + documented as of this encounter Procedures + +--------+ + + + | Procedure Name | Priori | Date/Time | Associated Diagnosis | Comments | | | ty | | | | + +--------+ + + + | LABS - EXTERNAL SCAN | | 06/30/2018 | | Results for this | | | | 12:00 AM | | procedure are in the | | | | PST | | results section. | + +--------+ + + + | POCT URINALYSIS, | Routin | 05/31/2018 | Chronic kidney | Results for this | | AUTO WITH CONF | e | 1:02 PM | disease, stage V | procedure are in the | | | | PST | (HCC) Dilated | results section. | | | | | cardiomyopathy (HCC) | | | | | | Type 2 diabetes | | | | | | mellitus with | | | | | | diabetic | | | | | | nephropathy, with | | | | | | long-term current | | | | | | use of insulin (HCC) | | | | | | Anemia in stage 5 | | | | | | chronic kidney | | | | | | disease, not on | | | | | | chronic dialysis | | | | | | ([facility]) | | + +--------+ + + + | EXTERNAL LAB: | Routin | 05/30/2018 | Chronic kidney | Results for this | | PROTEIN, URINE, 24HR | e | | disease, stage V | procedure are in the | | | | | ([facility]) Dilated | results section. | | | | | cardiomyopathy ([facility]) | | | | | | Type 2 diabetes | | | | | | mellitus with | | | | | | diabetic | | | | | | nephropathy, with | | | | | | long-term current | | | | | | use of insulin ([facility]) | | | | | | Anemia in stage 5 | | | | | | chronic kidney | | | | | | disease, not on | | | | | | chronic dialysis | | | | | | ([facility]) | | + +--------+ + + + | LABS - EXTERNAL SCAN | | 05/30/2018 | | Results for this | | | | 12:00 AM | | procedure are in the | | | | PST | | results section. | + +--------+ + + + | CREATININE | Routin | 05/30/2018 | Chronic kidney | Results for this | | CLEARANCE, RESULT | e | | disease, stage V | procedure are in the | | | | | ([facility]) Dilated | results section. | | | | | cardiomyopathy ([facility]) | | | | | | Type 2 diabetes | | | | | | mellitus with | | | | | | diabetic | | | | | | nephropathy, with | | | | | | long-term current | | | | | | use of insulin ([facility]) | | | | | | Anemia in stage 5 | | | | | | chronic kidney | | | | | | disease, not on | | | | | | chronic dialysis | | | | | | ([facility]) | | + +--------+ + + + | LABS - EXTERNAL SCAN | | 05/25/2018 | | Results for this | | | | 12:00 AM | | procedure are in the | | | | PST | | results section. | + +--------+ + + + documented in this encounter Results LABS - EXTERNAL SCAN (06/30/2018 12:00 AM PST) + + + | Narrative | Performed At | + + + | Ordered by an | | | unspecified provider. | | + + + VAS Upper Extremity Vein Mapping Bilat (06/14/2018 1:30 PM PST) + + | Specimen | + + | | + + + + + | Narrative | Performed At | + + + | VAS UPPER EXTREMITY VEIN MAPPING BILATERAL 06/14/2018 12:00 PM | [facility] | | HISTORY: Dialysis AV fistula creation. COMPARISON: None. | | | PROTOCOL: Santos scale and Doppler images of the upper extremity veins | | | for mapping. FINDINGS: The bilateral upper extremity subclavian, | | | basilic, and cephalic veins are patent. IMPRESSION - Patency of | | | upper extremity veins. Dictated and Signed by: Jimmie Stewart MD | | | Electronically signed: 06/14/2018 9:26 PM | | + + + + + | Procedure Note | + + | Donato, Rad Results In - 06/14/2018 9:29 PM PST VAS UPPER EXTREMITY VEIN MAPPING | | BILATERAL 06/14/2018 12:00 PM HISTORY: Dialysis AV fistula creation.COMPARISON: | | None.PROTOCOL: Santos scale and Doppler images of the upper extremity veins | | formapping.FINDINGS:The bilateral upper extremity subclavian, basilic, and cephalic | | veins arepatent.IMPRESSION -Patency of upper extremity veins.Dictated and Signed by: | | Jimmie Stewart MD Electronically signed: 06/14/2018 9:26 PM | |PROTOCOL: Santos scale and Doppler images of the upper extremity veins for | |mapping. | | | |FINDINGS: | |The bilateral upper extremity subclavian, basilic, and cephalic veins are | |patent. | | | |IMPRESSION - | |Patency of upper extremity veins. | | | |Dictated and Signed by: Jimmie Stewart MD | | Electronically signed: 06/14/2018 9:26 PM | + + + +---------+ + + | Performing | Address | City/State/Zipcode | Phone Number | | Organization | | | | + +---------+ + + | [facility] | | | | + +---------+ + + POCT Urinalysis Dipstick Automated (05/31/2018 1:02 PM PST) + + + + + + | Component | Value | Ref Range | Performed | Pathologist | | | | | At | Signature | + + + + + + | Color, UA, | Yellow | Yellow, Light | | | | POC | | Yellow | | | + + + + + + | Clarity, | Clear | | | | | UA, POC | | | | | + + + + + + | Glucose, | 500 mg/dL (A) | Negative | | | | UA, POC | | | | | + + + + + + | Bilirubin, | Negative | Negative | | | | UA, POC | | | | | + + + + + + | Ketones, | Negative | Negative, 100 | | | | UA, POC | | mg/dL | | | + + + + + + | Specific | 1.015 | 1.001 - 1.030 | | | | [place], | | | | | | UA, POC | | | | | + + + + + + | Blood, UA, | Small (A) | Negative | | | | POC | | | | | + + + + + + | pH, UA, POC | 6.5 | 5.0, 6.0, 7.0, | | | | | | 8.0, 5.5, 6.5, | | | | | | 7.5 | | | + + + + + + | Protein, | >=300 mg/dL (A) | Negative | | | | UA, POC | | | | | + + + + + + | Urobilinoge | 0.2 | 0.2, Negative, | | | | n, UA, POC | | Normal, < 0.2 | | | | | | mg/dL, 1 mg/dL, | | | | | | < 0.2 E.U./dl, | | | | | | 1.0 E.U./dL, | | | | | | 0.2 mg/dL | | | + + + + + + | Nitrite, | Negative | Negative | | | | UA, POC | | | | | + + + + + + | Leukocyte | Trace (A) | Negative | | | | Esterase, | | | | | | UA, POC | | | | | + + + + + + | Reducing | | | | | | Substances, | | | | | | Urine | | | | | + + + + + + | Bilirubin | | Negative | | | | Confirmatio | | | | | | n by | | | | | | Ictotest, | | | | | | Urine | | | | | + + + + + + | Remark | | | | | + + + + + + + + | Specimen | + + | Urine | + + LABS - EXTERNAL SCAN (05/30/2018 12:00 AM PST) + + + | Narrative | Performed At | + + + | Ordered by an | | | unspecified provider. | | + + + External Lab: Protein, Urine, 24Hr (05/30/2018) + +-------+ + + + | Component | Value | Ref Range | Performed | Pathologist | | | | | At | Signature | + +-------+ + + + | Protein, | 3,451 | | | | | Urine 24Hr, | | | | | | External | | | | | + +-------+ + + + + + | Specimen | + + | Urine | + + Creatinine Clearance, Result (05/30/2018) + +---------+ + + + | Component | Value | Ref Range | Performed | Pathologist | | | | | At | Signature | + +---------+ + + + | CREATININE | 9.6 (A) | 88.0 - 128.0 | | | | CLEARANCE | | mL/min | | | + +---------+ + + + | 24H Urine | 1,700 | mL | | | | Volume | | | | | + +---------+ + + + + + | Specimen | + + | Urine | + + LABS - EXTERNAL SCAN (05/25/2018 12:00 AM PST) + + + | [...]
--- OUTSIDE RECORDS SUMMARY | ~2019-12-03 | XMS | Encounter Summary ---
Demographics + + + | Address | [address] | | | [place] [address] | + + + | Home Phone | | + + + | Preferred Language | Unknown | + + + | Marital Status | Single | + + + | Uatsdin Affiliation | 1074 | + + + | Race | Unknown | + + + | Ethnic Group | Unknown | + + + Author + + + | Author | [facility] | | | and [place] | + + + | Organization | [facility] | | | and [place] | + + + | Address | Unknown | + + + | Phone | Unavailable | + + + Support + + + + + | Name | Relationship | Address | Phone | + + + + + | Evelina Bryan Name | ECON | [place] | | | | | [address] | | + + + + + | Lizet Scott | ECON | Unknown | | + + + + + Care Team Providers + +------+ + | Care Door And Arrival Attendant Name | Role | Phone | + +------+ + | Aida Knight PA-C | PCP | | + +------+ + Encounter Details +--------+ + + + + | Date | Type | Department | Care Team | Description | +--------+ + + + + | 07/05/ | Episode | [facility] | [facility] | | | 2018 | Changes | SURGERY [address] | [place] | | | | | [place] | | | | | | [address] | | | | | | [phone] | | | +--------+ + + + [...]
--- OUTSIDE RECORDS SUMMARY | ~2019-12-03 | XMS | Encounter Summary ---
Demographics + + + | Address | [address] | | | [place] [address] | + + + | Home Phone | | + + + | Preferred Language | Unknown | + + + | Marital Status | Single | + + + | Latter Day Affiliation | 1074 | + + + | Race | Unknown | + + + | Ethnic Group | Unknown | + + + Author + + + | Author | [facility] | | | and [place] | + + + | Organization | [facility] | | | and [place] | + + + | Address | Unknown | + + + | Phone | Unavailable | + + + Support + + + + + | Name | Relationship | Address | Phone | + + + + + | Evelina Bryan Name | ECON | [place] | | | | | [address] | | + + + + + | Lizet Scott | ECON | Unknown | | + + + + + Care Team Providers + +------+ + | Care Insole Coverer Name | Role | Phone | + +------+ + | Aida Knight PA-C | PCP | | + +------+ + Reason for Visit + + + | Reason | Comments | + + + | Follow-up | | + + + | Hyperlipidemia | | + + + | Hypertension [...] | Cardiology | Diagnoses | Antonia, | Meryl | | | | | Acute | Aida Raymundo, | [place] [address] | | | | | combined | PA-C [id number] | [address] | | | | | systolic | | [place] | | | | | (congestive) | [address] | [place], [place] | | | | | and | WAY | [address] | | | | | diastolic | [place], | Phone: | | | | | (congestive) | [place] [address] | [phone] | | | | | heart | Phone: | Fax: | | | | | failure | [phone] | [phone] | | | | | (HCC) | Fax: | | | | | | Atherosclero | [phone] | | | | | | tic heart | | | | | | | disease of | | | | | | | [place] | | | | | | | [...] Description | +--------+---------+ + + + | 09/14/ | Office | [facility] | Meryl, | Coronary artery | | 2019 | Visit | CARDIOLOGY [address] | [address] | disease, angina | | | | [place], | [place], | presence | | | | [place] [address] | [place] [address] | unspecified, | | | | [phone] | [phone] | unspecified vessel | | | | | | or lesion type, | | | | | | unspecified whether | | | | | | [place] or | | | | | | transplanted heart | | | | | | (Primary Dx); | | | | | | Dilated | | | | | | cardiomyopathy | | | | | | (HCC); | | | | | | Hyperlipidemia, | | | | | | unspecified | | | | | | hyperlipidemia type; | | | | | | Hypertension, | | | | | | unspecified type; | | | | | | RBBB (right bundle | | | | | | branch block) | +--------+---------+ + + + Social History [...] + + + | Blood Pressure | 118/80 | 09/14/2018 9:36 AM | | | | | PST | | + + + + + | Pulse | 68 | 09/14/2018 9:36 AM | | | | | PST | | + + + + + | Temperature | - | - | | + + + + + | Respiratory Rate | 16 | 09/14/2018 9:36 AM | | | | | PST | | + + + + + | Oxygen Saturation | - | - | | + + + + + | Inhaled Oxygen | - | - | | | Concentration | | | | + + + + + | Weight | 65.6 kg (144 lb 10 | 09/14/2018 9:36 AM | | | | oz) | PST | | + + + + + | Height | 165.1 cm (5' 5") | 09/14/2018 9:36 AM | | | | | PST | | + + + + + | Body Mass Index | 24.07 | 09/14/2018 9:36 AM | | | | | PST | | + + + + + documented in this encounter Patient Instructions Patient Instructions Elli Sheth ARNP - 09/14/2018 10:00 AM PST1. Increase Furosemi de 1 and 1/2 tablets twice a day for 2 days only. Then go back to 1 tablet twice a day 2. Start Lisinopril 5 mg in the evening once a day INSTRUCTIONS Xochilt Linares 1955 Procedure: Bilateral heart catheterization Day: Date: Check-in time: 1. Check in at the [facility]. 2. Do not eat or drink anything after midnight prior to the procedure. 3. Take all of your regular medications including Aspirin with a sip of water the morning o f the procedure 4. The procedure lasts approximately one hour, and you will have conscious sedation for the procedure which will help decrease pain and will make you groggy. 5. After the procedure you will remain either in recovery or same day surgery center for at least 2 hours, part of this time you may have to lie flat depending on the procedure. 6. Make sure you have a food service driver to take you home. Your food service driver will also need to sign you ou t, to take responsibility for you, so it can not be a taxi or transportation system, unless there is a caregiver with transportation. 7. Please call us with any questions or concerns at . If you need to cancel the procedure at the last minute, such as due to illness, and you are calling after regular office hours, call the main hospital line at and ask for nursing supervisory lifeguard t o let them know you are cancelling . Follow up appointment in Cardiology: 2-4 weeks Provider: LI Naqvi Date: Check-in time: documented in this encounter Progress Notes Meryl Elli, LI - 09/14/2018 10:00 AM PSTFormatting of this note might be differen t from the original. PATIENT NAME: Xochilt Linares : 1955: AGE: 62 y.o. PRIMARY CARE: Aida Knight PA-C OUTPATIENT FOLLOW UP VISIT Date of Service: 09/14/2018 HISTORY OF PRESENT ILLNESS: Xochilt Linares is a 62 y.o. 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 She is being seen today for 4 weeks follow up. She was last seen 09/13/2017 at which time she was provide a blood pressure cuff to monitor her blood pressure, and she would do a log for 2 weeks of blood pressure measurements twice a day. Since that time, she was seen by her PCP on 06/12/2018 for diabetes with ESRD, neuro leslie, and cardiology follow up. She has had a poor energy level. She has been undergoing dialysis for the last 3 weeks. S he had her fistula put in and is almost ready to be used. She has not been very active. Lai rivera enjoys sew clothes in her spare time. She has not had any chest pain or discomfort at res t or with exertion. She has had shortness of breath with exertion of physical activities.. She feels a fullness in her lungs like "water around the lugs". She has not had any lighth eadedness or dizziness. She has not noticed palpitations. She has noticed mild swelling at ankles by the end of the day that is resolved in the morning, which has been stable for her . She has been having symptoms of shortness of breath when laying down at night she wakes u p 4-5 times during night.. She does not use a CPAP machine or oxygen. She feels that she c an't sleep laying down in the bed the whole night so she wakes up in the middle of the night and sits up in chair. MEDICAL, SURGICAL, AND PERSONAL HISTORY Past Medical, [...] mg by mouth Daily.) 60 tablet 5 magnesium oxide (MAG-OX) 400 mg tablet Take 1 tablet by mouth Daily. 30 tablet 5 spironolactone (ALDACTONE) 25 mg tablet Take 1 tablet by mouth Daily. 30 tablet 5 No current facility-administered medications for this visit. ALLERGIES No Known Allergies ROS Review of Systems Constitutional: Positive for malaise/fatigue. Respiratory: Positive for shortness of breath. Cardiovascular: Positive for chest pain and leg swelling. Negative for palpitations. Neurological: Positive for weakness. Negative for dizziness. Lightheaded = No OBJECTIVE: PHYSICAL EXAM BP 118/80 | Pulse 68 | Resp 16 | Ht 1.651 m (5' 5") | Wt 65.6 kg (144 lb 10 oz) | BMI 24.07 kg/m Physical Exam Constitutional: She is oriented [...] ECG No previous ECGs available Confirmed by NURIA MILLER, KATERYNA ([id number]) on 05/11/2018 1:15:50 PM LAB RESULTS reviewed during visit today primarily from [facility]: LIPID Lab Results Component Value Date [...] 06/30/2018 PLT 224 07/25/2018 PLTEX 199 06/30/2018 Lab Results Component Value Date TSH 4.68 05/08/2018 BNP 4,521 (H) 05/08/2018 I reviewed records from PCP for office visit on 05/2018 which is summarized in the HPI. Al so reviewed up notes from AV fistula insertion by Dr. Plaza RESULTS- I reviewed reports from [facility]: No results found. Above data and testing [...] aortic valve insufficiency. Mildly thickened and calcified znadra ral valve with a mild central mitral [...] SPECT is 35%. By MD Dinah Cherry. She is in class III of the [place] [employer] functional class, hear t failure stage -C. She decided not to use the LifeVest because it was inconvenient. She has been having wet cough and dyspnea. She has been trying to go to cardiac rehabilitation 2. Elevated troponin:Posible Coronary artery disease A. Patient denies angina. She will be schedule for stress test as i npatient and angiogram as outpatient once kidney function normalizes a bit more. B. Abnormal stress test as mentioned earlier. C. She will undergo angiogram to evaluate CAD 3. Acute on chronic diabetic nephropathy A. Cardio-joey syndrome contributing to the RAFY on dialysis now. 4. Diabetes: over 20 years diabetic 5. Hypertension A. Today, 09/14/2018, her blood pressure is borderline elevated. She would benefit from medication adjustment.. 6. Hyperlipidemia 7. Possible LEANN: will need sleep study PLAN: 1. We will add lisinopril 5 mg once a day to improve her medical management of heart failur e 2. check blood pressure and pulse twice daily for two weeks and return the log to our offi ce. 3. She will be schedule for a left radial left heart catheterization and a right femoral r ight heart catheterization to evaluate coronary artery disease and pulmonary hypertension. 4. Increase Furosemide 120 mg twice a day for 2 days only and then go back to 80 mg twice a day 5. She will follow up in 4 to 6 weeks for office visit, or sooner with concerns. We will re-evaluate if she needs to have an ICD placement Portions of this chart may have been created with [employer] voice recognition software. Occasi onal wrong-word or [...] or lesion | | type, unspecified whether [place] or transplanted heart - Primary | + + | Dilated cardiomyopathy (HCC) Other primary cardiomyopathies | + + | Hyperlipidemia, unspecified hyperlipidemia type | + + | Hypertension, unspecified type | + + | RBBB (right bundle branch block) Right bundle branch block | + + documented in this encounter
--- OUTSIDE RECORDS SUMMARY | ~2019-12-03 | XMS | Encounter Summary ---
Demographics + + + | Address | [address] | | | [place] [address] | + + + | Home Phone | | + + + | Preferred Language | Unknown | + + + | Marital Status | Single | + + + | Confucianism Affiliation | 1074 | + + + | Race | Unknown | + + + | Ethnic Group | Unknown | + + + Author + + + | Author | [facility] | | | and Jethroana | + + + | Organization | [facility] | | | and [place] | + + + | Address | Unknown | + + + | Phone | Unavailable | + + + Support + + + + + | Name | Relationship | Address | Phone | + + + + + | Evelina Bryan Name | ECON | [place] | | | | | [address] | | + + + + + | Lizet Scott | ECON | Unknown | | + + + + + Care Team Providers + +------+ + | Care Van Cdl Driver Name | Role | Phone | + [...] | | | | | | | [place] CREAT AV | | | | | | | FISTULA,NON- | | | | | | | AUTOGENOUS | | | | | | | GRAFT [place] | | | | | | | ANASTOMOSIS, | | | | | | | AV,ANY SITE | | | | | | | [place] INSJ | | | | | | | TUNNELED CVC | | | | | | | W/O SUBQ | | | | | | | PORT/EMBEDDED LINUX DEVELOPER AGE | | | | | | [...] + + + + | 07/25/ | Anesthesia | [facility] | Jae Younger, | | | 2019 | Event | [facility] | [address] | | | | | [address] | [place], [place] | | | | | [place], [place] | [address] | | | | | [address] | | | | | | [phone] | | | +--------+ + + + + Anesthesia Record + + + + + | Procedure Name | Responsible | Anesthesia Start | Anesthesia Stop Time | | | Anesthesiologist | Time | | + + + + + | Tunneled | Jae Younger MD | 07/25/18 1329 | 07/25/18 1431 | | hemodialysis | | | | | catheter (N/A Chest) | | | | + + + + + +----+---+ + + | Da | T | Event | Comment | | te | i | | | | | m | | | | | e | | | +----+---+ + + | 01 | 1 | | | | /0 | 3 | | | | 8/ | 1 | | | | 20 | 4 | | | | 19 | | | | +----+---+ + + | | 1 | An Checkout | Pre-use anesthesia machine/equipment checkout. | | | 3 | | | | | 1 | | | | | 8 | | | +----+---+ + + | | 1 | An Start | Reassessment prior to anesthesia induction/procedure. | | | 3 | | | | | 2 | | | | | 9 | | | +----+---+ + + | | 1 | Preoxygenat | | | | 3 | ed | | | | 3 | | | | | 4 | | | +----+---+ + + | | 1 | Antibiotic | | | | 3 | Given | | | | 3 | | | | | 5 | | | +----+---+ + + | | 1 | An | | | | 3 | Induction | | | | 3 | | | | | 6 | | | +----+---+ + + | | 1 | An | | | | 3 | Intubation | | | | 3 | | | | | 7 | | | +----+---+ + + | | 1 | AN Bite | | | | 3 | Block | | | | 3 | | | | | 8 | | | +----+---+ + + | | 1 | Clay | | | | 3 | 43-degrees | | | | 5 | | | | | 0 | | | +----+---+ + + | | 1 | First | | | | 3 | Inc/Proc St | | | | 5 | | | | | 4 | | | +----+---+ + + | | 1 | Clay off | | | | 4 | | | | | 2 | | | | | 1 | | | +----+---+ + + | | 1 | Breathing | | | | 4 | Spontaneous | | | | 2 | ly | | | | 3 | | | +----+---+ + + | | 1 | Extubated | | | | 4 | Awake | | | | 2 | | | | | 4 | | | +----+---+ + + | | 1 | an stop | | | | 4 | data | | | | 2 | | | | | 4 | | | +----+---+ + + | | 1 | An Stop | Patient handed off to recovery nurse. Extensive SBAR including | | | 4 | | maintaining her debrillator pads until discharge. Electronically | | | 3 | | signed by: Jae Younger MD at 07/25/2018 14:31 | | | 1 | | | +----+---+ + + +------+ | Meds | +------+ + +---------+ | Name | Total | + +---------+ | fentaNYL | 50 mcg | + +---------+ | lidocaine 2% (PF) | 70 mg | + +---------+ | propofol | 60 mg | + +---------+ | phenylephrine (Injection) | 200 mcg | + +---------+ | ceFAZolin (ANCEF, KEFZOL) 100 | 1 g | | mg/mL IV syringe 1 g | | + +---------+ | sodium chloride 0.9% (NS) | 550 mL | | infusion | | + +---------+ + + | Name | + + | N2O Flow Rate (L/Min) | + + | O2 Flow Rate (L/Min) | + + | Insp O2 | + + | Exp SEV | + + | Air Flow Rate (L/Min) | + + + + | No blood administrations on file. | + + +--------+ + + + | Type | Details | Placement | Removal | +--------+ + + + | Hemodi | 07/25/18; 1402; Yes; | 07/25/18 1402 by | | | alysis | Chlorhexidine/Isopropyl Alcohol; | Laila Edge RN | | | | Yes; All; OR; Observer; | | | | Paty | Field; Other (specify): (general | | | | er | surgeon); New indication for | | | | | central line (e.g., hemodynamic | | | | | monitoring, fluid/medication | | | | | administration, etc.); tunneled; | | | | | 0; other (see comments) (general | | | | | anesthesia) | | | +--------+ + + + | Periph | 07/25/18; 1235; Left; Forearm; | 07/25/18 1235 by | 07/25/18 1537 by Maninder | | eral | yiid-yzh-hxyhou catheter system; | Nathalie Avendaño RN | Patrick Tellez RN | | IV | 20 gauge, 1 1/4 in length; 1; | | | | | left hand, tip in tact; | | | | | distraction, tolerated well; no | | | | | longer indicated, removed per | | | | | policy/procedure, catheter/device | | | | | intact; short term use; | | | | | 07/25/18; 1537 | | | +--------+ + + + | Airway | Placement Date: 07/25/18; | 07/25/18 1337 by | 07/25/18 1424 by | | | Placement Time: 1337 (created via | Jae Younger MD | Jae Younger MD | | | procedure documentation); Mask | | | | | Ventilation: EZ; Attempts: 1; | | | | | Airway Type: laryngeal mask; | | | | | Size: 4; Trauma: none; Placement | | | | | Check: exhaled CO2 detection | | | | | device; Removal Date: 07/25/18; | | | | | Removal Time: 1424 | | | +--------+ + + + | Read | 07/25/18; 1356; Right; chest; | 07/25/18 1356 by | 07/25/18 1539 by | | only - | 07/25/18; 1539 | Denisa Cano RN | Dionne Yarbrough RN | | | | | | | Incisi | | | | | on | | | | +--------+ + + + documented in this encounter Social History + +-------+ +--------+------+ | Tobacco [...] | + +--------+ + + + | ANE AIRWAY NOTE | Routin | 07/25/2018 | | Results for this | | | e | 1:49 PM | | procedure are in the | | | | PST | | results section. | + +--------+ + + + documented in this encounter Results Anesthesia Airway Note (07/25/2018 1:49 PM PST) + + + | Narrative | Performed At | + + + | Jae Younger MD 07/25/2018 13:50 Anesthesia Airway Placement | | | 07/25/2018 13:37 Preprocedure check: patient identified, suction, | | | airway equipment checked, oxygen, airway assessed and patient | | | reassessment prior to induction Rapid Sequence Induction: no Mask | | | ventilation: easy Attempts: 1 Airway type: laryngeal mask Size: 4 | | | Cuffed: cuffed Route, reference point: center of mouth Trauma: | | | none Tube placement verification: carbon dioxide detection | | | Performing provider: JAE YOUNGER Electronically Signed by: | | | Jae Younger MD ESig | | | date/time: 07/25/2018 13:50 | | + + + + + | Procedure Note | + + | Jae Younger MD - 07/25/2018 1:49 PM [facility] Anesthesia Airway Placement07/25/2018 | | 13:37Preprocedure check: patient identified, suction, airway equipment checked, oxygen, | | airway assessed and patient reassessment prior to inductionRapid Sequence Induction: | | noMask ventilation: easyAttempts: 1Airway type: laryngeal maskSize: 4Cuffed: | | cuffedRoute, reference point: center of mouthTrauma: noneTube placement verification: | | carbon dioxide detectionPerforming provider: JAE YOUNGER TElectronically Signed by: | | Jae Younger MD ESig date/time: 07/25/2018 13:50 | |Airway type: laryngeal mask | |Size: 4 | |Cuffed: cuffed | |Route, reference point: center of mouth | |Trauma: none | |Tube placement verification: carbon dioxide detection | |Performing provider: JAE YOUNGER | | | | | |Electronically Signed by: MD Darrius Schafer date/time: 07/25/2018 13:50 | | | + + documented in this encounter Visit Diagnoses Not on filedocumented in this encounter Administered Medications + +--------+ +------+------+------+ | Medication Order | MAR | Action | Dose | Rate | Site | | | Action | Date | | | | + +--------+ +------+------+------+ | ceFAZolin (ANCEF, KEFZOL) 100 | Given | 07/25/19 | 1 g | | | | mg/mL IV syringe 1 g 1 g, | | 19 1:36 | | | | | Intravenous, Administer over 30 | | PM PST | | | | | Minutes, Prior to Incision, | | | | | | | Starting Tue07/25/18 at 0437, For | | | | | | | 1 dose, administer within 1 hour | | | | | | | of incision, Pre-op, Indications: | | | | | | | Surgical Prophylaxis | | | | | | + +--------+ +------+------+------+ +---+---+ | | | +---+---+ + +-------+ +--------+---+---+ | fentaNYL (PF) injection | Given | 07/25/19 | 25 mcg | | | | Intravenous, PRN, Pain, Starting | | 19 1:49 | | | | | 07/25/18 at 1349, Anesthesia | | PM PST | | | | | Intra-op | | | | | | + +-------+ +--------+---+---+ +-------+ +--------+---+---+ | Given | 07/25/19 | 25 mcg | | | | | 19 1:29 | | | | | | PM PST | | | | +-------+ +--------+---+---+ +---+---+ | | | +---+---+ + +-------+ +-------+---+---+ | lidocaine (PF) 2% injection | Given | 07/25/19 | 70 mg | | | | PRN, Starting 07/25/18 at 1336, | | 19 1:36 | | | | | Anesthesia Intra-op | | PM PST | | | | + +-------+ +-------+---+---+ +---+---+ | | | +---+---+ + +-------+ +---------+---+---+ | phenylephrine (ARSH-SYNEPHRINE) | Given | 07/25/19 | 100 mcg | | | | 100 mcg/mL injection | | 19 2:19 | | | | | Intravenous, PRN, Starting Tue | | PM PST | | | | | 07/25/18 at 1336, Anesthesia | | | | | | | Intra-op | | | | | | + +-------+ +---------+---+---+ +-------+ +---------+---+---+ | Given | 07/25/19 | 100 mcg | | | | | 19 1:36 | | | | | | PM PST | | | | +-------+ +---------+---+---+ +---+---+ | | | +---+---+ + +-------+ +-------+---+---+ | propofol (DIPRIVAN) injection | Given | 07/25/19 | 60 mg | | | | Intravenous, PRN, Starting Tue | | 19 1:36 | | | | | 07/25/18 at 1336, Anesthesia | | PM PST | | | | | Intra-op | | | | | | + +-------+ +-------+---+---+ +---+---+ | | | +---+---+ + +---------+ +---+---+---+ | sodium chloride 0.9% [...] | | | +---+---+ documented in this encounter"
--- OUTSIDE RECORDS SUMMARY | ~2019-12-03 | XMS | Encounter Summary ---
Demographics + + + | Address | [address] | | | [place] [address] | + + + | Home Phone | | + + + | Preferred Language | Unknown | + + + | Marital Status | Single | + + + | Bahai Affiliation | 1074 | + + + | Race | Unknown | + + + | Ethnic Group | Unknown | + + + Author + + + | Author | [facility] | | | and Jethroana | + + + | Organization | [facility] | | | and [place] | + + + | Address | Unknown | + + + | Phone | Unavailable | + + + Support + + + + + | Name | Relationship | Address | Phone | + + + + + | Evelina Bryan Name | ECON | [place] | | | | | [address] | | + + + + + | Lizet Scott | ECON | Unknown | | + + + + + Care Team Providers + +------+ + | Care Care Team Coordinator Scheduler Name | Role | Phone | + +------+ + | Aida Knight PA-C | PCP | | + +------+ + Encounter Details +--------+ + + + + | Date | Type | Department | Care Team | Description | +--------+ + + + + | 06/06/ | Documentati | [facility] | [facility] | | | 2017 | on | NEPHROLOGY [address] | M, DO [address] | | | | | [address] | [address] | | | | | [place], [place] | [place], [place] | | | | | [address] | [address] | | | | | [phone] | | | +--------+ + + + [...] documented as of this encounter Progress Notes Nidia Puga - 06/06/2018 9:[address] Best's progress note from 05/31/18 to [facility] Authorizations (fx: [phone]) requesting an authorization for Alberto hale's next appointment that is scheduled on 07/03/18 1:00 pm at [facility]. docole sterling in this encounter Plan of Treatment Not on filedocumented as of this encounter Visit Diagnoses Not on filedocumented in this encounter"
--- OUTSIDE RECORDS SUMMARY | ~2019-12-03 | XMS | Encounter Summary ---
Demographics + + + | Address | [address] | | | [place] [address] | + + + | Home Phone [...] + + + | Author | [facility] | | | and Jethroana | + + + | Organization | [facility] | | | and [place] | + + + | Address | Unknown | + + + | Phone | Unavailable | + + + Support + + + + + | Name | Relationship | Address | Phone | + + + + + | Evelina Bryan Name | ECON | [place] | | | | | [address] | | + + + + + | Lizet Scott | ECON | Unknown | | + + + + + Care Team Providers + +------+ + | Care Manufacturing Manager Name | Role | Phone | + +------+ + | Aida Knight PA-C | PCP | | + +------+ + Encounter Details +--------+ + + + + | Date | Type | Department | Care Team | Description | +--------+ + + + + | 05/24/ | Orders Only | [facility] [place] | Chichi Villatoro | | | 2018 | | CARDIOLOGY [address] | D RN | | | | | [place], | | | | | | [place] [address] | | | | | | [phone] | | | +--------+ + + + [...]
--- OUTSIDE RECORDS SUMMARY | ~2019-12-03 | XMS | Encounter Summary ---
Demographics + + + | Address | [address] | | | [place] [address] | + + + | Home Phone | | + + + | Preferred Language | Unknown | + + + | Marital Status | Single | + + + | Denominational Affiliation | 1074 | + + + | Race | Unknown | + + + | Ethnic Group | Unknown | + + + Author + + + | Author | [facility] | | | and Jethroana | + + + | Organization | [facility] | | | and [place] | + + + | Address | Unknown | + + + | Phone | Unavailable | + + + Support + + + + + | Name | Relationship | Address | Phone | + + + + + | Evelina Bryan Name | ECON | [place] | | | | | [address] | | + + + + + | Lizet Sonia | ECON | Unknown | | + + + + + Care Team Providers + +------+ + | Care Maintenance Superintendent Name | Role | Phone | + +------+ + | Aida Knight PA-C | PCP | | + +------+ + Reason for Visit + + + | Reason | Comments | + + + | Follow-up | Right popliteal lump | + + + Evaluate & Treat [...] | | | | | stripping | [address] | [address] | | | | | Skin lump of | [address] [place] | [place], | | | | | leg, right | [place], [place] | [place] [address] | | | | | Procedures | [id number] | Phone: | | | | | | Phone: | [phone] | | | | | DOS | [phone] | Fax: | | | | | | Fax: | [phone] | | | | | | [phone] | | +--------+ + + + + + Encounter Details +--------+---------+ + + + | Date | Type | Department | Care Team | Description | +--------+---------+ + + + | 05/09/ | Office | [facility] | Harman Plaza | Status post vein | | 2019 | Visit | SURGERY [address] | MD Aditi, FACS [address] | stripping (Primary | | | | [address] [place], [place] | [facility] | Dx); Skin lump of | | | | [address] | [place] [address] | leg, right | | | | [phone] | [phone] | | | | | | | | +--------+---------+ + + + [...] + + + | Blood Pressure | 130/70 | 05/09/2019 8:25 AM | | | | | PDT | | + + + + + | Pulse | 79 | 05/09/2019 8:25 AM | | | | | PDT | | + + + + + | Temperature | 36.7 C (98 F) | 05/09/2019 8:25 AM | | | | | PDT | | + + + + + | Respiratory Rate | - | - | | + + + + + | Oxygen Saturation | 98% | 05/09/2019 8:25 AM | | | | | PDT | | + + + + + | Inhaled Oxygen | - | - | | | Concentration | | | | + + + + + | Weight | 69.4 kg (153 lb) | 05/09/2019 8:25 AM | | | | | PDT | | + + + + + | Height | 165.1 cm (5' 5") | 05/09/2019 8:25 AM | | | | | PDT | | + + + + + | Body Mass Index | 25.46 | 05/09/2019 8:25 AM | | | | | PDT | | + + + + + documented in this encounter Progress Notes Harman Plaza MD, FACS - 05/09/2019 8:40 AM PDTFormatting of this note might be diff erent from the original. Vascular Surgery Consult Note Referring Provider: Shreya Eldridge MD HISTORY OF PRESENT ILLNESS Xochilt Linares is a 63 y.o. female patient of Aida Knight PA-C here today. Is here alone. Physician notes: Patient arrives today to consult on a lump on her RIGHT leg. Patient is a previous patient of mine seen last in September 2018 following up s/p RIGHT brachial artery to cephalic vein fist terra creation. She recently underwent transesophageal echocardiography, enodscopic vein harvest-left thigh (performed by Nathaly Mendez PA-C) and coronary bypass grafting x3: LEFT internal mammary dasha ry to left anterior descending artery; reverse saphenous vein graft to LAD-d2, reverse saphe nous vein graft to rpda by Dr. Logan on 12/28/2018 at [facility]. She continues to follow up with [facility] for follow up S/P CABG x 3. Patient reports following her heart surgery she developed a lump in her RIGHT leg. She erica eves this lump is slowly decreasing in size, does have some tenderness when palpated. She c urrently takes aspirin daily. She denies problems with her RIGHT arm AV Fistula, denies pain or numbness in her hand. RISK: Never smoker. LEANN Score: 3 LEANN Risk Score 05/09/2019 Risk for Obstructive Sleep Apnea Suspected Risk for LEANN Opioid Risk Tool (ORT): Total Score 0 ( score from 09/20/2018) Interpretation of Total Score: 0 to 3 = Low risk: 6% chance of developing problematic behav iors, 4 to 7 = Moderate risk: 28% chance of developing problematic behaviors, 8 or more = Hi gh risk: 90% chance of developing problematic behaviors. RENAL: BUN/Cr Lab Results Component Value Date BUN 18 08/08/2018 Lab Results Component Value Date CREA 2.58 (H) 08/08/2018 GFRNONAA 19 (L) 08/08/2018 Aida Knight PA-C's notes were reviewed in clinic today. PAST MEDICAL HISTORY Past Medical History: Diagnosis Date CKD (chronic kidney disease), stage V (HCC) GERD (gastroesophageal reflux disease) Helicobacter pylori infection Hyperlipidemia Hypertension Vitamin D deficiency Wears partial dentures Past Surgical History: Procedure Laterality Date AV FISTULA INSERTION Right 08/08/2018 Procedure: RIGHT arm AV fistula creation - brachial artery to cephalic vein; Surgeon: Leeroy Plaza MD, FACS; Location: [facility] MAIN OR CARDIAC CATHERIZATION N/A 10/09/2018 Procedure: CV LHC; Surgeon: Tia Payne MD; Location: [facility] CV LAB CARDIAC CATHERIZATION N/A 10/09/2018 Procedure: CV RHC; Surgeon: Tia Payne MD; Location: [facility] CV LAB CARDIAC CATHERIZATION N/A 10/09/2018 Procedure: CV Cor Angio; Surgeon: Tia Payne MD; Location: [facility] CV LAB GALLBLADDER SURGERY HYSTERECTOMY 1997 SHUNT PLACEMENT/INSERTION N/A 07/25/2018 Procedure: Tunneled hemodialysis catheter; Surgeon: Harman Plaza MD, FACS; Locatio n: [facility] MAIN OR TONSILLECTOMY AND ADENOIDECTOMY No Known Allergies Medications: Outpatient Encounter Medications as of 05/09/2019 Medication Sig Dispense Refill aspirin 81 mg [...] 400 mg tablet Take 400 mg by mouth. magnesium oxide (MAG-OX) 400 mg tablet Take 1 tablet by mouth Daily. 30 tablet 5 metoprolol succinate (TOPROL-XL) 25 mg 24 hr tablet Take 25 mg by mouth. spironolactone (ALDACTONE) 25 mg tablet Take 1 tablet by mouth Daily. 30 tablet 5 No facility-administered encounter medications on file as of 05/09/2019. Family History Problem Relation Age of Onset Diabetes Maternal Grandmother Social History: She reports that she has never smoked. She has never used smokeless tobacco. She reports th at she drinks alcohol. She reports that she has current or past drug history. Drug: Marijuan a. Frequency: 7.00 times per week. REVIEW OF SYSTEMS Unmarked boxes mean negative response. General: []Weight loss/gain (over 10 lbs) []Fever/chills []Night sweats Hematologic: []Bleeding/brusing tendencies []Blood transfusion []Anemia Heent: []Vision loss []Hearing loss []Sinus problems/nose bleeds []Hoarseness Respiratory: []Wheezing []Shortness of breath []Cough []Spitting up blood []On oxygen []Use CPAP machine Cardiac: []Chest pain []Palpitations/heart racing []Swelling of ankles/hands []Unusual shortness of breath []Difficulty sleeping flat Gastrointestinal: []Nausea/vomiting []Difficulty swallowing []Heartburn []Loss of appetite []Abdominal pain []Stomach Ulcers []Diarrhea []Constipation []Anuel k or bloody stools Vascular: []Carr/TIAs []Fainting []Difficulty with speech []Leg cramps []Pain in feet/legs at rest []Foot ulcers/so res []Varicose veins []Phlebitis/blood clots Musculoskeletal: []Joint stiffness/swelling []Join pain []Back pain []Arthritis []Gout Urologic: []Blood in urine []Frequent urination at night []Burning/painful urination []Kidney stones []Difficulty urination []Sexual difficulties Neuro/Psychiatric: []Headaches []Seizures []Depression []Anxiety attacks []Memory loss or confusion PHYSICAL EXAM Vitals: 05/09/19 0825 BP: 130/70 Pulse: 79 Temp: 36.7 C (98 F) TempSrc: Temporal SpO2: 98% Weight: 69.4 kg (153 lb) Height: 1.651 m (5' 5") Body mass index is 25.46 kg/m. General Appearance: Alert, cooperative, no distress, appears stated age Head: Normocephalic, without obvious abnormality Upper extremities: RIGHT upper arm fistula with good thrill present. Right radial pulse is trace, augments with fistula occlusion. Lower Extremities: LEFT leg medial knee with 28 x 38 mm soft nodule . Neurologic: Cranial nerves II-XII grossly intact, face symmetric. ULTRASOUND REPORT: PATIENT NAME : Xochilt Linares EQUIPMENT: [employer] M-Turbo with 10-5 mHertz probe. INDICATIONS: Sightly painful RIGHT knee lump. FINDING: RIGHT nodule measures Transverse diameter of 2.5 cm and a vertical dimension of 3.8 cm. Appears to be a laminated hematoma, no flow is present. IMPRESSION: Hematoma right medial knee subcutaneous tissue. Lab Results Component Value Date NA 135 (L) 08/08/2018 K 3.0 (L) 08/08/2018 CL 98 08/08/2018 CO2 25 08/08/2018 BUN 18 08/08/2018 CREA 2.58 (H) 08/08/2018 Lab Results Component Value Date WBC 5.8 05/10/2018 HGB 10.3 (L) 07/25/2018 HCT 28.4 (L) 05/10/2018 MCV 87.9 05/10/2018 PLT 224 07/25/2018 Lab Results Component Value Date INR 1.0 08/08/2018 INR 1.0 07/25/2018 PROTIME 13.2 08/08/2018 PROTIME 12.6 07/25/2018 Assessment 1. Status post vein stripping 2. Skin lump of leg, right Plan 1. RIGHT leg hemotoma post-op. Would not recommend surgery at this time. Time was spent educating the patient on possible hematoma. Patient to follow with primary care. I will be available should future surgical complicati ons develop. I appreciate having been involved in the care of this patient. Harman Plaza MD, FACS Vascular and General Surgery CC: Aida Knight PA-C, Shreya Eldridge MD documented in this encounter Plan of Treatment Not on filedocumented as of this encounter Visit Diagnoses + + | Diagnosis | + + | Status post vein stripping - Primary Other postprocedural status | + + | Skin lump of leg, right | + + documented in this encounter
--- OUTSIDE RECORDS SUMMARY | ~2019-12-03 | XMS | Encounter Summary ---
Demographics + + + | Address | [address] | | | [place] [address] | + + + | Home Phone | | + + + | Preferred Language | Unknown | + + + | Marital Status | Single | + + + | Zoroastrian Affiliation | 1074 | + + + | Race | Unknown | + + + | Ethnic Group | Unknown | + + + Author + + + | Author | [facility] | | | and Jethroana | + + + | Organization | [facility] | | [...] [place] | | | | | [address] | | + + + + + | Lizet Scott | ECON | Unknown | | + + + + + Care Team Providers + +------+ + | Care Real Estate Loan Processor Name | Role | Phone | + +------+ + | Aida Knight PA-C | PCP | | + +------+ + Encounter Details +--------+ + + + + | Date | Type | Department | Care Team | Description | +--------+ + + + + | 06/26/ | Orders Only | [facility] [place] | Bonniel Lester | Anemia in stage 5 | | 2018 | | NEPHROLOGY [address] | M, DO [address] | chronic kidney | | | | [address] | [place] | disease, not on | | | | [place], [place] | [place], [place] | chronic dialysis | | | | [id number] | [id number] | ([facility]) (Primary Dx) | | | | [phone] | | | +--------+ + + + [...] dialysis (HCC) - Primary | + + documented in this encounter"
--- OUTSIDE RECORDS SUMMARY | ~2019-12-03 | XMS | Encounter Summary ---
Demographics + + + | Address | [address] | | | [place] [address] | + + + | Home Phone | | + + + | Preferred Language | Unknown | + + + | Marital Status | Single | + + + | Adventist Affiliation | 1074 | + + + | Race | Unknown | + + + | Ethnic Group | Unknown | + + + Author + + + | Author | [facility] | | | and [place] | + + + | Organization | [facility] | | | and [place] | + + + | Address | Unknown | + + + | Phone | Unavailable | + + + Support + + + + + | Name | Relationship | Address | Phone | + + + + + | Evelina Bryan Name | ECON | [place] | | | | | [address] | | + + + + + | Lizet Scott | ECON | Unknown | | + + + + + Care Team Providers + +------+ + | Care A And P Technician Name | Role | Phone | + +------+ + | Aida Knight PA-C | PCP | | + +------+ + Reason for Visit + + + | Reason | Comments | + + + | Follow-up | | + + + | Congestive Heart | | | Failure | | + + + | Hypertension | | + + + Follow Up (Routine) +--------+--------+ + + + + | Status | Reason | Specialty | Diagnoses / | Referred By | Referred To | | | | | Procedures | Contact | Contact | +--------+--------+ + + + + | Closed | | Cardiology | Diagnoses | Antonia, | Meryl, | | | | | Unspecified | Aida Raymundo, | [address] | | | | | right | PA-C [address] | [address] | | | | | [address]-branc | | [address] [place] | | | | | h block | [address] | [place], [place] | | | | | Dilated | WAY | [address] | | | | | cardiomyopat | [place], | Phone: | | | | | hy (HCC) | [place] [address] | [phone] | | | | | Acute | Phone: | Fax: | | | | | combined | [phone] | [phone] | | | | | systolic | Fax: | | | | | | (congestive) | [phone] | | | | | | and | | | | | | | diastolic | | | | | | | (congestive) | | | | | | | heart | | | | | | | failure | | | | | | | [...] Description | +--------+---------+ + + + | 11/21/ | Office | [facility] [place] | Meryl, | Pulmonary | | 2019 | Visit | CARDIOLOGY [address] | [address] | hypertension, mild | | | | [address] [place], | [address], | ([facility]); Acute | | | | [place] [address] | [place] [address] | combined systolic | | | | [phone] | [phone] | and diastolic | | | | | | congestive heart | | | | | | failure ([facility]); | | | | | | Coronary artery | | | | | | disease involving | | | | | | united [place] coronary | | | | | | artery, angina | | | | | | presence | | | | | | unspecified, | | | | | | unspecified whether | | | | | | united [place] or | | | | | | transplanted heart; | | | | | | Dilated | | | | | | cardiomyopathy | | | | | | (HCC); RBBB (right | | | | | | bundle branch | | | | | | block); | | | | | | [...] + | Blood Pressure | 110/60 | 11/21/2018 10:50 AM | | | | | PDT | | + + + + + | Pulse | 76 | 11/21/2018 10:50 AM | | | | | PDT | | + + + + + | Temperature | - | - | | + + + + + | Respiratory Rate | 20 | 11/21/2018 10:50 AM | | | | | PDT | | + + + + + | Oxygen Saturation | - | - | | + + + + + | Inhaled Oxygen | - | - | | | Concentration | | | | + + + + + | Weight | 67.9 kg (149 lb 11.1 | 11/21/2018 10:50 AM | | | | oz) | PDT | | + + + + + | Height | 165.1 cm (5' 5") | 11/21/2018 10:50 AM | | | | | PDT | | + + + + + | Body Mass Index | 24.91 | 11/21/2018 10:50 AM | | | | | PDT | | + + + + + documented in this encounter Patient Instructions Patient Instructions Evelina Parr Field Tax Auditor - 11/21/2018 10:45 AM PDT1. Increas e Atorvastatin to 80 mg once daily by mouth 2. Increase Lisinopril to 10 mg once nightly by mouth 3. Follow up in 6 weeks for office visit, or sooner with concerns documented in this encounter Progress Notes Elli Sheth ARNP - 11/21/2018 10:45 AM PDTFormatting of this note might be higinio t from the original. PATIENT NAME: Xochilt Linares : 1955: AGE: 63 y.o. PRIMARY CARE: Aida Knight PA-C OUTPATIENT FOLLOW UP VISIT Date of Service: 11/21/2018 HISTORY OF PRESENT ILLNESS: Xochilt Linares is a 63 y.o. 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 She is being seen today for a 6 week follow up after her left heart catheterization. She was last seen 09/26/2018 at which time she will undergo angiogram in 2 weeks. The curren t medical regimen is effective; continue present plan and medications. She will continue ch ecking blood pressure and bring a log next appointment. She is again counseled on importance of daily weight monitoring, signs and symptoms of worsening congestive heart failure to not tabitha our office with, and sodium restricted diet. Weight log and blood pressure log with writ ten education is given to the patient. She will follow up in 6 to 8 weeks for office visit, or sooner with concerns. She will let us know sooner if she has any issues Since that time, she had a left heart catheterization on 10/09/[address] Aggarwal. She has not had any chest pain or discomfort at rest or with exertion. She has not notice d shortness of breath. She has been having a cold for the last couple of days. She has not h ad any lightheadedness or dizziness. She has not noticed palpitations. She has not had leg swelling. She is able to sleep laying down at night without any symptoms of shortness of b reath. She does not use a CPAP machine or oxygen Reviewed blood pressure log from home wit h patient today. Patient is awaiting a consult for a BUILDING SERVICES SUPERVISOR in [place] on 11/2018. Patient is d rafael bailey on a cardiac standpoint. MEDICAL, SURGICAL, AND PERSONAL HISTORY Past Medical, [...] 81 mg by mouth Daily. atorvaSTATin (LIPITOR) 40 mg tablet Take 1 tablet by mouth Daily. 90 tablet 4 b complex-vitamin c-folic acid (NEPHRO-JANETH) tablet Take 1 tablet by mouth Daily. 4 calcitRIOL (ROCALTROL) 0.5 MCG capsule Take 0.5 mcg by mouth Every other day. carvedilol (COREG) 6.25 mg tablet Take 1 tablet by mouth 2 times daily (with breakfast & dinner). 60 tablet 5 epoetin khalif (EPOGEN,PROCRIT) 3,000 units/mL injection Inject 10,000 Units under the sk in Three times a week. furosemide (LASIX) 80 mg [...] Known Allergies ROS Review of Systems Constitutional: Negative for malaise/fatigue. Respiratory: Negative for shortness of breath. Cardiovascular: Negative for chest pain, palpitations and leg swelling. Neurological: Negative for dizziness and weakness. Endo/Heme/Allergies: Does not bruise/bleed easily. OBJECTIVE: PHYSICAL EXAM BP 110/60 | Pulse 76 | Resp 20 | Ht 1.651 m (5' 5") | Wt 67.9 kg (149 lb 11.1 oz) | BM I 24.91 kg/m Physical Exam Constitutional: She is oriented to person, place, and time. She appears well-developed and well-nourished. Frail adult female by herself in no acute distress Neck: JVD (JVD of 10 cm) present. Normal carotid pulses present. Carotid bruit is not prese nt. Cardiovascular: Normal rate, regular rhythm, S1 normal, [...] muscle usage. No respiratory distress. She has decreased breath sounds in the left lower field. She has no wheezes. She has no rhonchi. Sh e has rales in the left lower field. Abdominal: Soft. Normal appearance, normal aorta and [...] or performed during the hospital encounter of 11/21/2018 ECG 12 lead Result Value Ref Range INTERPRETATION TEXT Normal sinus rhythm Possible left atrial enlargement Right bundle branch block T wave abnormality, consider lateral ischemia Abnormal ECG LAB RESULTS reviewed during visit today primarily from [facility]: LIPID Lab Results Component Value Date [...] 4,521 (H) 05/08/2018 I reviewed records from [facility] for left heart catheterization p rocedure done by Dr. Aggarwal on 10/09/2018 which is summarized in the HPI. RESULTS- I reviewed reports from [facility]: Left Heart catheterization 10/09/2018: Severe three-vessel coronary artery disease; chronic total occlusion to the proximal portion of the RCA, moderate to severe diffuse disease of th e LAD and LCx. There is a right dominate circulation. Collateralization; evidence of a left- to-right collateralization from the distal LAD to distal PDA. Moderately reduced LV systolic function with an EF of 35%. Systemic blood pressure is normal. Moderate pulmonary hypertens ion with PA pressure of 65/27 mmHg. Wedge pressure is 24 mmHg. There was successful hemosta sis with a TR hemostatic band. Signed by Richie Payne MD Above data and testing is reviewed this [...] is 35%. By MD Dinah Cherry. Today, 11/21/2018, she is asymptomatic.She marylu chest pain, shor tness of breath, leg swelling, lightheadedness and dizziness. She uses loop diuretic daily. There are no signs or symptoms of overt congestive heart failure, and her physical exam show s no significant fluid retention. She is in class II- Symptoms with moderate exertion of th e [employer] functional class. Heart failure stage B-diagnosed heart failure without symptoms. Her blood pressure log from her dialysis shows a well-controlled blood p ressure with small amount of room to uptitrate medications. We will increase her lisinopril . Even though she has an increase in JVD, she is in between days of dialysis and I believe this will be different if today was a dialysis day. She does not seem hypervolemic in any o ther way so we will not adjust diuretics at this point. 2. Coronary artery disease A. Abnormal stress test as mentioned earlier. B. Left Heart catheterization 10/09/2018: Severe three-vessel caputo ry artery disease; chronic total occlusion to the proximal portion of the RCA, moderate to s evere diffuse disease of the LAD and LCx. There is a right dominate circulation. Collaterali zation; evidence of a genn-vv-lnjrt collateralization from the distal LAD to distal PDA. Mod erately reduced LV systolic function with an EF of 35%. Systemic blood pressure is normal. M oderate pulmonary hypertension with PA pressure of 65/27 mmHg. Wedge pressure is 24 mmHg. T here was successful hemostasis with a TR hemostatic band. Signed by MD Trevor Cherry Today, 11/21/2018, she is asymptomatic. No angina or dyspnea with exertion and at rest. S he is on a medical regimen with aspirin, MARTHA-I, beta-jose david and statin. There are no signs or symptoms of overt congestive heart failure, and her physical exam shows no significant fl uid retention. She is in class II- Symptoms with moderate exertion of the [employer] sociation functional class. Heart failure stage B-diagnosed heart failure without symptoms. She is awaiting consultation for BUILDING SERVICES SUPERVISOR in [place] on 11/28/2018 3. Hypertension A. Today, 11/21/2018, her blood pressure is well controlled. She does not require medication adjustment. 4. Acute on chronic diabetic nephropathy otherwise addressed today 11/21/2018. A. Cardio-joey syndrome contributing to the RAFY on dialysis now. 5. Diabetes: over 20 years diabetic 09/26/2018 her A1C still elevated, we have educated abo ut improving diabetic control 6. Hyperlipidemia otherwise addressed today 11/21/2018. 7. Possible LEANN: will need sleep study PLAN: 1. Increase Atorvastatin to 80 mg once daily by mouth every evening 2. Increase Lisinopril to 10 mg once nightly by mouth 3. She will follow up in 6 weeks for office visit, or sooner with concerns. Will keep her appointment on November 28 for BUILDING SERVICES SUPERVISOR consultation [place]. And she is been asked to bring [facility] blood pressure log when she comes back for her follow-up appointment. Evelina Pennington, Field Tax Auditor am acting as a scribe on behalf of, and in the presenc e of LI Naqvi. - Evelina Parr Field Tax Auditor 11/21/2018 11:22 Elli Pennington ARNP, personally performed the services described in this documentati on, as scribed in my presence and it is both accurate and complete. -LI Naqvi 11/21/2018 Portions of this chart may have been created with [employer] voice recognition software. Occasi onal wrong-word or [...] + +--------+ + + + | ECG 12 LEAD | Routin | 11/21/2018 | Pulmonary | Results for this | | | e | 10:52 AM | hypertension, mild | procedure are in the | | | | PDT | ([facility]) Coronary | results section. | | | | | artery disease | | | | | | involving [place] | | | | | | coronary artery, | | | | | | angina presence | | | | | | unspecified, | | | | | | unspecified whether | | | | | | [place] or | | | | | | transplanted heart | | | | | | Dilated | | | | | | cardiomyopathy ([facility]) | | | | | | Hyperlipidemia, | | | | | | unspecified | | | | | | hyperlipidemia type | | + +--------+ + + + documented in this encounter Results ECG 12 lead (11/21/2018 10:52 AM PDT) + + + + + + | Component | Value | Ref Range | Performed | Pathologist | | | | | At | Signature | + + + + + + | VENTRICULAR | 73 | BPM | [facility] | | | RATE EKG | | | | | + + + + + + | ATRIAL RATE | 73 | BPM | [facility] | | + + + + + + | P-R | 170 | ms | [facility] | | | INTERVAL | | | | | + + + + + + | QRS | 142 | ms | [facility] | | | DURATION | | | | | + + + + + + | Q-T | 434 | ms | [facility] | | | INTERVAL | | | | | + + + + + + | Q-T | 478 | ms | [facility] | | | INTERVAL | | | | | | (CORRECTED) | | | | | + + + + + + | P WAVE AXIS | 31 | degrees | [facility] | | + + + + + + | QRS AXIS | 138 | degrees | [facility] | | + + + + + + | T AXIS | -52 | degrees | [facility] | | + + + + + + | INTERPRETAT | Normal sinus | | [facility] | | | ION TEXT | rhythmPossible Left | | | | | | atrial enlargementRight | | | | | | bundle branch blockT | | | | | | wave abnormality, | | | | | | consider lateral | | | | | | ischemiaAbnormal ECGWhen | | | | | | compared with ECG of | | | | | | 11-MAY-2018 07:31,No | | | | | | significant change was | | | | | | foundConfirmed by | | | | | | RICHIE PAYNE MD | | | | | | ([id number]) on 11/21/2018 | | | | | | 4:16:24 PM | | | | + + + + + + + + | Specimen | + + | | + + + + + | Narrative | Performed At | + + + | | | + + + + +---------+ + + | Performing | Address | City/State/Zipcode | Phone Number | | Organization | | | | + +---------+ + + | [facility] | | | | + +---------+ + + documented in this encounter Visit Diagnoses + + | Diagnosis | + + | Pulmonary hypertension, mild (HCC) Other chronic pulmonary heart diseases | + + | Acute combined systolic and diastolic congestive heart failure (HCC) Acute combined | | systolic and diastolic heart failure | + + | Coronary artery disease involving [place] coronary artery, angina presence unspecified, | | unspecified whether [place] or transplanted heart | + + | Dilated cardiomyopathy (HCC) Other primary cardiomyopathies | + + | RBBB (right bundle branch block) Right bundle branch block | + + | Hyperlipidemia, unspecified hyperlipidemia type | + + documented in this encounter
--- OUTSIDE RECORDS SUMMARY | ~2019-12-03 | XMS | Encounter Summary ---
Demographics + + + | Address | [address] | | | [place] [address] | + + + | Home Phone | | + + + | Preferred Language | Unknown | + + + | Marital Status | Single | + + + | Sikh Affiliation | 1074 | + + + | Race | Unknown | + + + | Ethnic Group | Unknown | + + + Author + + + | Author | [facility] | | | and [place] | + + + | Organization | [facility] | | | and [place] | + + + | Address | Unknown | + + + | Phone | Unavailable | + + + Support + + + + + | Name | Relationship | Address | Phone | + + + + + | Evelina Bryan Name | ECON | [place] | | | | | [address] | | + + + + + | Lizet Sonia | ECON | Unknown | | + + + + + Care Team Providers + +------+ + | Care Wheel Setter Name | Role | Phone | + [...] | | | | | stripping | Nikolski Jair | [address] | | | | | Skin lump of | [address] [place] | [place], | | | | | leg, right | [place], [place] | [place] [address] | | | | | Procedures | [address] | Phone: | | | | | | Phone: | [phone] | | | | | DOS | [phone] | Fax: | | | | | | Fax: | [phone] | | | | | | [phone] | | +--------+ + + + + + Encounter Details +--------+---------+ + + + | Date | Type | Department | Care Team | Description | +--------+---------+ + + + | 05/09/ | Office | [facility] | [address] | Status post vein | | 2019 | Visit | SURGERY [address] | MD Aditi, FACS [address] | stripping (Primary | | | | [place], [place] | [facility] | Dx); Skin lump of | | | | [address] | [place] [address] | leg, right | | | | [phone] | [phone] | | | | | | | [...] rpda by Dr. Logan on 12/28/2018 at [facility]. She continues to follow up with test baker Josette FRENCH for follow up S/P CABG [...] vein; Surgeon: Leeroy Plaza MD, FACS; Location: [facility] MAIN OR CARDIAC CATHERIZATION N/A 10/09/2018 Procedure: CV LHC; Surgeon: Tia Payne MD; Location: [facility] CV LAB CARDIAC CATHERIZATION N/A 10/09/2018 Procedure: CV RHC; Surgeon: Tia Payne MD; Location: [facility] CV LAB CARDIAC CATHERIZATION N/A 10/09/2018 Procedure: CV Cor Angio; Surgeon: Tia Payne MD; Location: [facility] CV LAB GALLBLADDER SURGERY HYSTERECTOMY [address] PLACEMENT/INSERTION N/A 07/25/2018 Procedure: Tunneled hemodialysis catheter; Surgeon: Harman Plaza MD, FACS; Locatio n: [facility] MAIN OR TONSILLECTOMY AND ADENOIDECTOMY No [...] REPORT: PATIENT NAME : Xochilt Linares EQUIPMENT: SonRunnerPlacete M-Turbo with 10-5 mHertz probe. INDICATIONS: Sightly [...]
--- OUTSIDE RECORDS SUMMARY | ~2019-12-03 | XMS | Encounter Summary ---
Demographics + + + | Address | [address] | | | [place] [address] | + + + | Home Phone | | + + + | Preferred Language | Unknown | + + + | Marital Status | Single | + + + | Episcopalian Affiliation | [id number] | + + + | Race | Unknown | + + + | Ethnic Group | Unknown | + + + Author + + + | Author | [facility] | | | and Jethroana | + + + | Organization | [facility] | | | and Jethroana | + + + | Address | Unknown | + + + | Phone | Unavailable | + + + Support + + + + + | Name | Relationship | Address | Phone | + + + + + | Evelina Bryan Name | ECON | [place] | | | | | [id number] | | + + + + + | Lizet Scott | ECON | Unknown | | + + + + + Care Team Providers + +------+ + | Care Skid Strapper Name | Role | Phone | + [...] | | | | | | | renal | | | | | | | issues | | | +--------+--------+ + + + + Encounter Details +--------+ + + + + | Date | Type | Department | Care Team | Description | +--------+ + + + + | 05/08/ | Hospital | [facility] | Zach Aguayo MD | RAFY (acute kidney | | 2018 - | Encounter | [facility] | [address] | injury) ([facility]); | | | | [address] [place] | [place] | Anasarca; Pleural | | 05/12/ | | [place] [id number] | [id number] | effusion; CHF | | 2018 | | [phone] | | (congestive heart | | | | | Irena Sanchez MD | failure), NYHA class | | | | | [address] | IV, acute, systolic | | | | | [place] | ([facility]); Type 2 DM | | | | | [id number] | with CKD stage 4 and | | | | | | hypertension ([facility]); | | | | | | Anemia in stage 4 | | | | | | chronic kidney | | | | | | disease (HCC); Acute | | | | | | combined systolic | | | | | | and diastolic | | | | | | congestive heart | | | | | | failure ([facility]) | +--------+ + + + + Social [...] + + + | Blood Pressure | 113/57 | 05/12/2018 11:32 AM | | | | | PDT | | + + + + + | Pulse | 79 | 05/12/2018 11:32 AM | | | | | PDT | | + + + + + | Temperature | 36.7 C (98.1 F) | 05/12/2018 11:32 AM | | | | | PDT | | + + + + + | Respiratory Rate | 18 | 05/12/2018 11:32 AM | | | | | PDT | | + + + + + | Oxygen Saturation | 91% | 05/12/2018 11:32 AM | | | | | PDT | | + + + + + | Inhaled Oxygen | - | - | | | Concentration | | | | + + + + + | Weight | 78.9 kg (174 lb) | 05/12/2018 4:44 AM | | | | | PDT | | + + + + + | Height | 165.1 cm (5' 5") | 05/08/2018 5:05 PM | stated by pt | | | | PDT | | + + + + + | Body Mass Index | 28.96 | 05/08/2018 5:05 PM | | | | | PDT | | + + + + + documented in this encounter Discharge Summaries Irean Sanchez MD - 05/12/2018 2:30 PM PDT [place], [place] HOSPITALIST DISCHARGE SUMMARY Pt. Name/Age/: Xochilt Linares 62 y.o. 1955 Date of Admission: 05/08/2018 Date of Discharge: 05/12/2018 Admitting Physician: Zach Aguayo MD Primary Care Provider: Magnus Jacome PA-C Discharging Physician: Irena Sanchez MD DISCHARGE DIAGNOSES: Active Hospital Problems Diagnosis RAFY (acute kidney injury) Coronary artery disease Diabetes Acute combined systolic and diastolic congestive heart failure Anasarca Pleural effusion Resolved Hospital Problems Diagnosis No resolved problems to display. HOSPITAL COURSE: Please refer to the H&P for full details and the most recent rounding rounding (progress) n ote. #New onset combined congestive heart failure #Anasarca Patient presented with anasarca, e/o severe volume overload. Echo showed severe global hypo kinesis of the LV, EF 25-30% as well as grade I diastolic dysfunction. Started on high dose lasix for diuresis to good effect with improvement in breathing and edema. Initiated on beta jose david and spironolactone as well. Evaluated by Cardiology here and will have follow up as outpatient. Will ultimately benefit from ACEi/ARB, holding off for now given renal dysfunct ion. #CAD Initial troponin elevation to 0.2 on admission, peaked to 0.23. Stress test positive. Will need [facility] as outpatient once her renal function has stabilized. Started on daily aspirin and statin here as well as beta jose david as noted above. #RAFY #Diabetic nephropathy #Cardiorenal syndrome Severe acute kidney injury noted here, likely a combination of diabetic nephropathy and car diorenal syndrome with creatinine ~3. Evaluated by Renal here who guided diuresis (pt receiv ed high dose lasix and metolazone to good effect). Continuing 160 mg lasix twice a day on addis stoll. - BMP and Mg check at hospital follow up 05/15 - has appointment scheduled for 05/29/[address] Best #Diabetes Blood sugars controlled here with minimal insulin requirement. Holding off on oral antihype rglycemics for now given renal dysfunction. DISCHARGE MEDICATIONS: Discharge Medications New Medications Details aspirin 81 mg chewable tablet Replaces: aspirin 325 mg tablet Take 1 tablet by mouth Daily. atorvaSTATin 20 mg tablet Take 1 tablet by mouth nightly. aka: LIPITOR carvedilol 6.25 mg tablet Take 1 tablet by mouth 2 times daily (with breakfast & dinner). aka: COREG furosemide 80 mg tablet Take 2 tablets by mouth 2 times daily. aka: LASIX magnesium oxide 400 mg tablet Take 1 tablet by mouth Daily. aka: MAG-OX spironolactone 25 mg tablet Take 1 tablet by mouth Daily. aka: ALDACTONE Discontinued Medications aspirin 325 mg tablet Replaced by: aspirin 81 mg chewable tablet ibuprofen 200 mg tablet aka: ADVIL, MOTRIN Most recent weight: Input and output for last 24hrs: Wt Readings from Last 1 Encounters: 05/12/18 78.9 kg (174 lb) I/O last 24 Hours: In: 1148 [P.O.:1000; IV Piggyback:148] Out: 3000 [Urine:3000] Vitals Ranges: Temp: [36.1 C (97 F)-37.3 C (99.1 F)] 36.7 C (98.1 F) Pulse: [72-85] 79 Resp: [18-20] 18 BP: (113-142)/(57-76) 113/57 Vitals: Temp: 36.7 C (98.1 F) BP: 113/57 Pulse: 79 Resp: 18 SpO2: 91 % SpO2 91 % on room air PHYSICAL EXAM: Patient seen and examined by me on 05/12/18 Gen: WDWN, pleasant CV: regular rate and rhythm, no m/r/g Pulm: bibasilar crackles, normal respiratory effort, no wheezes Abdominal: soft, nontender, nondistended, normal bowel tones Ext: pitting edema to the midshins bilaterally, significantly improved from admission PROCEDURES AND CONSULTS: Procedures: none Consults: Nephrology, Cardiology PENDING RESULTS: none DISPOSITION AND DISCHARGE INSTRUCTIONS: Follow-up Information Aida Knight PA-C. Go on 05/15/2018. Specialty: Physician Back Hoe Operator Why: Hospital admission follow up @ 11:00am. Check in at 10:45am. [facility] @ 10:15am Contact information: [id number] [place] [id number] Condition: stable Diet: cc, low salt Less than 30 minutes were spent on discharge and coordination of post-hospital care. Electronically signed by: Irena Sanchez MD, 05/12/2018 14:30 [facility] documented in this enco unter Discharge Instructions Instructions Irena Sanchez MD - 05/12/2018Tina, You were hospitalized with congestive heart failure and kidney failure. We started several new medications for you to help protect your heart and remove extra fluid from your lungs an d your legs. You will need to have follow up with both the heart and kidney doctors. We have also set up an appointment for you to meet with your new primary care doctor on Tuesday 05/15. Irena Sanchez MD documented in this encounter Medications at Time of Discharge + + + +---------+ + + | Medication | Sig | Dispensed | Refills | Start | End Date | | | | | | Date | | + + + +---------+ + + | aspirin 81 mg | Take 1 tablet by | 3 | 0 | 05/13/20 | | | chewable tablet | mouth Daily for 3 | tablet | | 18 | 8 | | | days. | | | | | + + + +---------+ + + | atorvaSTATin | Take 1 tablet by | 3 | 0 | 05/12/20 | | | (LIPITOR) 20 mg | mouth nightly for 3 | tablet | | 18 | 8 | | tablet | days. | | | | | + + + +---------+ + + | carvedilol (COREG) | Take 1 tablet by | 6 | 0 | 05/12/20 | | | 6.25 mg tablet | mouth 2 times daily | tablet | | 18 | 8 | | | (with breakfast & | | | | | | | dinner) for 3 days. | | | | | + + + +---------+ + + | furosemide (LASIX) | Take 2 tablets by | 12 | 0 | 05/12/20 | | | 80 mg tablet | mouth 2 times daily | tablet | | 18 | 8 | | | for 3 days. | | | | | + + + +---------+ + + | magnesium oxide | Take 1 tablet by | 3 | 0 | 05/13/20 | | | (MAG-OX) 400 mg | mouth Daily for 3 | tablet | | 18 | 8 | | tablet | days. | | | | | + + + +---------+ + + | spironolactone | Take 1 tablet by | 3 | 0 | 05/13/20 | | | (ALDACTONE) 25 mg | mouth Daily for 3 | tablet | | 18 | 8 | | tablet | days. | | | | | + + + +---------+ + + documented as of this encounter Progress Notes Stephanie Forbes, PharmD - 05/12/2018 1:19 PM PDT PHARMACY SERVICES: ADMISSION MEDICATION REVIEW Xochilt Linares is a 62 y.o. female admitted on 05/08/2018. Patient is a reliable historian. Location of Patient when reviewed: ED X Medical Floor Patient s prior to admit medication and over the counter (OTC) medications/herbal supplem ents list obtained from: X Verbal interview X Patient ABLE to recall name, strength, and directions X Pharmacy list names: [facility] insurance reported information X Outside Information Vaccines up to date? Yes No Unsure Influenza x Pneumococcal x Tdap x Shingles x Noted medications discrepancies or medication-related issues: Recreational Substances, Tobacco & Alcohol use : Drug: Route Frequency: Last Used: Alcohol By mouth Seldom about once a month Marijuana Smokes by mouth At least once daily Other: No changes made to [employer] WORK[employer] list Best possible G[employer] PL[employer] WORKER medication list after pharmacy review: PT REPORTED TAKING NOT TAKING Medication Sig Last Dose Dispense Doc. Provider aspirin 325 mg tablet Take 650 mg by mouth 3 times daily. 4 days, per the patient. Kacy schroeder Historical Provider, ibuprofen (ADVIL, MOTRIN) 200 mg tablet Take 400 mg by mouth 3 times daily. For last 4 day s. Taking Historical ProviderMD Medication review performed and electronically signed by Elsie Oakley, Multi Line Claims Adjuster 12:41 Reviewed by Stephanie Forbes PharmNeri 05/12/2018 13:18 Tia Madison MD - 05/12/2018 7:13 AM PDT PATIENT NAME: Xochilt Linares : 1955: AGE: 62 y.o. ADMISSION DATE: 05/08/2018 HOSPITAL DAY NUMBER: [id number] PRIMARY CARE: Magnus Jacome PA-C CONSULTING PROVIDER: Tia Payne MD CARDIOLOGY PROGRESS NOTE DATE OF SERVICE: 05/12/18 SUBJECTIVE: This morning, patient reports her breathing is improving. She complaints of a stuffy nose. Patient has been walking with physical therapy. There is no chest pain or chest discomfort b oth at rest and on exertion. There is no palpitations, dizziness or lightheadedness. There is no ankle or leg swelling. Patient can sleep on one pillow at night without difficulty br eathing. CURRENT SCHEDULED MEDS: aspirin 81 mg Oral Daily carvedilol 3.125 mg Oral BID WC epoetin khalif 10,000 Units Subcutaneous Weekly furosemide 240 mg Intravenous BID (8 and 16) heparin 5,000 Units Subcutaneous 2 times per day insulin lispro 0-12 Units Subcutaneous 4x Daily WC and HS magnesium oxide 400 mg Oral Daily metOLazone 10 mg Oral BID spironolactone 25 mg Oral Daily acetaminophen, Hypoglycemia Management AND POCT Glucose AND dextrose, loperamide, p olyethylene glycol IV INFUSIONS: OBJECTIVE: PHYSICAL EXAM Latest VS: BP 129/72 | Pulse 76 | Temp 37.3 C (99.1 F) (Oral) | Resp 18 | Ht 1.651 m (5' 5") Comment: stated by pt | Wt 78.9 kg (174 lb) | SpO2 95% | BMI 28.96 kg/m Admit Weight: Weight: 85.1 kg (187 lb 9.8 oz) Current weight: Weight: 78.9 kg (174 lb) Vital sign ranges for last 24hrs: Input and output for last 24hrs: Temp: [36.1 C (96.9 F)-37.3 C (99.1 F)] 37.3 C (99.1 F) Pulse: [72-85] 76 Resp: [18-20] 18 BP: (107-142)/(53-76) 129/72 SpO2 Av.8 % Min: 90 % Max: 97 % 05/10 1901 - 05/12 0700 In: 1548 [P.O.:1400] Out: 4250 [Urine:4250] Constitutional General appearance: Female individual well developed, well nourished, well groomed, no acute distress Cardiovascular Palp/Percussion: PMI in 5th ICS at MCL; no lifts, thrills, palp S3 or S4. Auscultation: normal S1 S2; no gallop or rub or click Murmur: none Carotid arteries: pulses 2+, symmetric, no bruits Abdominal aorta: no enlargement or bruits Pedal pulses: pulses 2+, symmetric Peripheral circulation: no cyanosis, clubbing, edema, or varicosities Gastrointestinal Abdomen: soft, non-tender Liver and spleen: no enlargement Mental Status/Neurological Orientation: oriented to time, place, and person Affect/Mood: no depression, anxiety, or agitation Respiratory Respiratory effort: no intercostal retractions or use of accessory muscles Auscultation: Bilateral crackles left worse than right, no rales, rhonchi, or wheezes LABS Recent Results (from the past 24 hour(s)) ECG 12 lead Collection Time: 05/11/18 7:31 Result Value Ref Range VENTRICULAR RATE EKG 80 BPM ATRIAL RATE 80 BPM P-R INTERVAL 154 ms QRS DURATION 136 ms Q-T INTERVAL 422 ms Q-T INTERVAL (CORRECTED) 486 ms P WAVE AXIS 10 degrees QRS AXIS 132 degrees T AXIS -45 degrees INTERPRETATION TEXT Normal sinus rhythm Right bundle branch block Left posterior fascicular block Nonspecific T wave abnormality Abnormal ECG No previous ECGs available Confirmed by NURIA MILLER, KATERYNA ([id number]) on 05/11/2018 1:15:50 PM NM Nuclear Stress Test (Vasodilator) Collection Time: 05/11/18 10:45 Result Value Ref Range BASELINE HEART RATE 80 bpm BASELINE BLOOD PRESSURE 145/80 mmHg PEAK HEART RATE 87 PEAK BLOOD PRESSURE 145/80 mmHG Target HR 136 Percent HR 54 LVEF-SPECT NUCLEAR STRESS/VIABILITY 35 % POC Glucose Collection Time: 05/11/18 12:36 Result Value Ref Range Glucose, POC 182 (H) 70 - 109 mg/dL POC Glucose Collection Time: 05/11/18 16:52 Result Value Ref Range Glucose, POC 152 (H) 70 - 109 mg/dL POC Glucose Collection Time: 05/11/18 21:54 Result Value Ref Range Glucose, POC 176 (H) 70 - 109 mg/dL POC Glucose Collection Time: 05/12/18 3:19 Result Value Ref Range Glucose, POC 119 (H) 70 - 109 mg/dL Magnesium Collection Time: 05/12/18 4:33 Result Value Ref Range Magnesium 1.8 1.8 - 2.5 mg/dL Hepatic Function Panel Collection Time: 05/12/18 4:33 Result Value Ref Range Bilirubin Total 0.5 0.1 - 1.5 mg/dL Total protein 5.1 (L) 6.0 - 7.8 g/dL ALBUMIN 2.3 (L) 3.2 - 5.0 g/dL AST 13 10 - 42 U/L ALT 19 6 - 45 U/L ALK PHOS 87 40 - 110 U/L GLOBULIN 2.8 2.1 - 3.8 g/dL Albumin/Globulin ratio 0.8 0.8 - 2.0 Bilirubin, Direct 0.10 0.00 - 0.20 mg/dl Basic Metabolic Panel Collection Time: 05/12/18 4:33 Result Value Ref Range NA 140 136 - 149 mmol/L K 4.0 3.5 - 5.1 mmol/L CL 111 (H) 98 - 109 mmol/L CO2 21 (L) 24 - 31 mmol/L ANION GAP 8 3 - 16 mmol/L GLUCOSE 111 (H) 70 - 109 mg/dL BUN 46 (H) 7 - 18 mg/dL Creatinine, Serum/Plasma 3.53 (H) 0.60 - 1.30 mg/dL eGFR if not 13 (L) >=60 mL/min/1.73m2 CALCIUM 8.1 (L) 8.3 - 10.5 mg/dL BUN/CREA 13.0 Phosphorus Collection Time: 05/12/18 4:33 Result Value Ref Range Phosphorus 6.0 (H) 2.5 - 4.6 mg/dL POC Glucose Collection Time: 05/12/18 6:48 Result Value Ref Range Glucose, POC 107 70 - 109 mg/dL ECG: I personally independently reviewed ECG tracing during this visit (interpreted and susan led by another provider): Results for orders placed or performed during the hospital encounter of 05/08/18 ECG 12 lead Result Value Ref Range INTERPRETATION TEXT Normal sinus rhythm Right bundle branch block Left posterior fascicular block Nonspecific T wave abnormality Abnormal ECG No previous ECGs available Confirmed by KATERYNA QUIÑONES MD ([id number]) on 05/11/2018 1:15:50 PM PHYSICIAN ASSISTANT PSYCHIATRY/RABBET OPERATOR: Sinus rhythm , no arrhythmia. ASSESSMENT: 1. New onset of combined HFrEF [...] Evidence of left pleural effusi on. B. Stress test 05/11/2018 shows regadenoson EKG is negative, abnormal regadenos on sestamibi myocardial perfusion imaging study with a large size, partially reversible defe ct of a severe in severity in the entire inferior and inferolateral region, this suggests a large size partial myocardial ischemia of both right coronary artery and left circumflex art reynaldo territory, left ventricular cavity is dilated, there is a moderate global hypokinesis of the left ventricle. Overall, left ventricular systolic function is moderately decreased. L VEF by gated SPECT is 35%. C. This morning, patient reports her breathing is improving. She complaints of a stuffy no se. Patient has been walking with physical therapy. There is no chest pain or chest discomfo rt both at rest and on exertion. There is no palpitations, dizziness or lightheadedness. There is no signs and symptoms of overt congestive heart failure. She is in a class II of [place] [employer] functional class. There is no fluid retention on physical examin ation. 2. Elevated troponin: Coronary artery disease A. Patient denies angina. She will be schedule for stress test as inpatient and angiogram as outpatient once kidney function normalizes a bit more. B. Abnormal stress test as mentioned earlier. C. Patient is a candidate for left heart cath with potential revascularization when her ki dney is getting better 3. Acute on chronic diabetic nephropathy A. Cardio-joey syndrome contributing to the RAFY. 4. Diabetes: over 20 years diabetic 5. Hypertension A. Today blood pressure in office is good. 6. Hyperlipidemia 7. Possible LEANN: will need sleep study PLAN: 1. Start atorvastatin 20 mg once a day. 2. MARTHA inhibitor is on hold due to stage IV kidney failure. 3. Increase carvedilol 6.25 mg twice a day. 4. Follow up in two weeks with LI Naqvi. I, Ketty Atkinson, am acting as a scribe on behalf of, and in the presence of Tia cheek MD. I have reviewed and edited this note. Ketty Atkinson, F[place]or 05/12/2018 I, Tia Payne MD, personally performed the services described in this documentation, as scribed in my presence and it is both accurate and complete. Tia Payne MD [facility] 05/12/2018 7:13 Portions of this chart may have been created with [employer] voice recognition software. Occasi onal wrong-word or sound-alike substitutions may have occurred due to the inherent leong itations of voice recognition software. Please read the chart carefully and recognize, using context, where these substitutions have occurred. Lester Gray DO - 05/11/2018 8:20 PM PDT [facility] [address] [place] [address] PROGRESS NOTE Pt. Name/Age/: Xochilt Linares 62 y.o. 1955 Med. Record Number: [id number] Date of admission: 05/08/2018 NEPHROLOGY HPI - Pt seen at 1100. States that she is much less dyspneic. UO was increased on higher dose Lasix. She had a Cardiolite stress test earlier today. After discussing discharge plans, she states that she is not at all interested in a Skill ed or Rehab. stay. She requested to go home eventually. Lab Results Component Value Date POCGLU 152 (H) 05/11/2018 POCGLU 182 (H) 05/11/2018 POCGLU 121 (H) 05/11/2018 POCGLU 181 (H) 05/10/2018 EXAM: BP 129/66 | Pulse 72 | Temp 36.8 C (98.2 F) (Oral) | Resp 18 | Ht 1.651 m (5' 5") Comment: stated by pt | Wt 80.3 kg (177 lb) | SpO2 95% | BMI 29.45 kg/m Tmax 3 6.6 weight decreased 2.7 kg Intake/Output Summary (Last 24 hours) at 05/11/182019 Last data filed at 05/11/18 1921 Gross per 24 hour Intake 1048 ml Output 3000 ml Net -1952 ml Heart: Regular rate and rhythm with no S3, S4, murmur or rub. Lungs: Increased breath sounds at both bases? Abdomen: Soft, obese, nontender, normoactive bowel sounds. Abdominal wall edema is decrea sed? Extremities: 1-2+ edema, clubbing, or cyanosis, no asterixis. LAB: Recent Labs 05/11/18 0531 NA 137 K 4.1 CL 110* CO2 20* BUN 49* CREA 3.46* GFRNONAA 14* GLU 121* CALCIUM 7.8* PHOS 5.5* MG 1.8 Recent Labs 05/10/18 0439 WBC 5.8 HGB 8.6* HCT 28.4* PLT 269 MCV 87.9 NEUPCT 58.8 LYMPCT 29.2 MONPCT 7.6 EOSPCT 3.3 Lab Results Component Value Date IRON 24 (L) 05/09/2018 PCTSAT 8.2 (L) 05/09/2018 FERRITIN 48 05/09/2018 IMPRESSION 1. 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 2. Acute CHF 2 to Nephrotic syndrome form #1-- improving. 3. Anemia 2 to CKD--now on EPO. She did receive IV sick Ferrlecit, 250 mg, 3. 4. Type 2 DM-- stable on diet Rx today. 5. Dilated cardiomyopathy-- appreciate Dr. Tia Payne's consult. Serum K +, MG + + are slowly falling we'll gently supplement. PLAN 1. With her serum K + following she may now tolerate spironolactone at a lower dose i.e. 25 mg, Q day. 2. Mag oxide 400 mg, Q day. 3. Increase ambulation, in the hallways. 4. I concur with her risk for CAD, and would favor [facility] at a later date further out from th is admission, as alluded to by Dr. Payne. [facility] Irena Shen MD - 05/11/2018 7:33 AM PDT [facility] JAVAD [place] HOSPITALIST PROGRESS NOTE Patient: Xochilt Linares : 1955: Age: 62 y.o. MedRec: [id number] Admission date: 05/08/2018 Hospital day # : 3 Physician author: Irena Sanchez MD Today: 05/11/2018 Assessment and Hospital Course Active Hospital Problems Diagnosis RAFY (acute kidney injury) Acute combined systolic and diastolic congestive heart failure Anasarca Pleural effusion Resolved Hospital Problems Diagnosis No resolved problems to display. 62 yo F with history of diabetes who presented with anasarca, acute kidney injury, dyspnea on exertion. Plan #CAD #Elevated troponin Positive stress test today. As documented previously, patient had troponin 0.2 on admission , peaked at 0.23. RBBB on EKG. Cardiology following patient; may consider angiography though patient has severe acute kidney injury, addressed below. - daily aspirin #Hypervolemia #Acute combined CHF Echo showed severe global hypokinesis of the LV with EF 25-30%. Grade I diastolic dysfuncti on. Possibly ischemic cardiomyopathy given positive stress test addressed above. Patient fee ls much better after receiving lasix. Breathing comfortably, also with decreased leg swellin g. Chest XR 05/10 showed moderate pleural effusions bilaterally c/w congestive heart failure . Patient will need beta jose david, ACEi, spironolactone ultimately. On carvedilol now, holding MARTHA/ARB now in the setting of acute kidney injury, holding spironolactone as we are diuresi ng aggressively. Appreciate Cardiology consult. - goal diuresis net negative 1-2L/24h, continue lasix and metolazone - monitor electrolytes - strict I/O, daily standing weights - carvedilol 3.125 twice a day #Hypertension Lasix and carvedilol as above. Patient not previously on antihypertensive medication. Blood pressures much lower after increased lasix and initiation of beta jose david. #RAFY Creatinine remains ~3. Possibly cardiorenal syndrome in the s/o severe combined congestive heart failure noted above. Also considering diabetic glomerulosclerosis also with regular NS AID intake. - diuresis as above, Dr Best managing - trend BMP - avoid nephrotoxins #DM2 Diet controlled. - continue low intensity SSI #Anemia Possibly ACD in the s/o diabetes, CKD. Iron deficiency contributing. No e/o bleeding. - IV iron ordered - CTM #Hep A Ab+ Added hepatitis A IgM Ab, pending. Will also add on hepatic panel tomorrow AM. FEN: cc, low salt, renal Ppx: heparin Disposition: pending clinical course Echo 05/09: 1. Moderate to severe biatrial dilatation. 2. Moderate left ventricular dilatation with a mild eccentric left ventricular hypertrophy . There is a severe global hypokinesis of the left ventricle. Overall, left ventricular si gnificant is severely decreased. LVEF is 25-30%. 3. Grade 1 left ventricular diastolic dysfunction. 4. Mildly thickened and calcified trileaflet aortic valve with adequate opening. There is a trace aortic valve insufficiency. 5. Mildly thickened and calcified mitral valve with a mild central mitral valve regurgitat ion. 6. Mild mitral annular calcification. 7. Mild tricuspid valve regurgitation. 8. Mild pulmonary hypertension with a peak systolic pressure 45-50 mmHg. 9. Dilated IVC without respiratory collapse suggesting fluid retention. 10. Moderate circumferential pericardial effusion without evidence of cardiac tamponade. 11. Evidence of left pleural effusion. NM stress test 05/11: 1. Regadenoson EKG is negative. 2. Abnormal Regadenoson sestamibi myocardial perfusion imaging study with a large size, pa rtially reversible defect of a severe in severity in the entire inferior and inferolateral r egion. This suggests a large size partial myocardial ischemia of both right coronary artery and left circumflex artery territory. Left ventricular cavity is dilated. There is a mode rate global hypokinesis of the left ventricle. Overall, left ventricular systolic function is moderately decreased. LVEF by gated SPECT is 35%. Subjective CC: leg swelling Patient is tired today and feels overwhelmed with heart failure diagnosis and events of the last 24h. Discussed her meeting with Cardiology earlier today. She denies chest pain curren tly, wants to rest. Thinks breathing and leg swelling continue to improve. ROS 12 point ROS was performed and was negative except as noted above. Exam Gen: WDWN, nad HEENT: MMM, neck supple CV: regular rate and rhythm, no m/r/g Pulm: decreased breath sounds at bilateral bases, normal work of breathing, no accessory mu scle use Abdominal: soft, nontender, nondistended, normal bowel tones Extremities: pitting edema to the knees bilaterally Skin: warm, dry, no rashes Neuro: alert, CN intact, no focal deficits Psych: normal mood and affect Allergies: No Known Allergies Current Medications: Current Facility-Administered Medications Medication Dose Route Frequency Provider Last Rate Last Dose acetaminophen (TYLENOL) tablet 650 mg 650 mg Oral Q4H PRN Zach Aguayo MD carvedilol (COREG) tablet 3.125 mg 3.125 mg Oral BID WC Irena Sanchez MD 3.125 mg at 05/10/181917 dextrose 50% injection 12.5 g 12.5 g Intravenous PRN Zach Aguayo MD epoetin khalif (EPOGEN, PROCRIT) 10,000 units/mL injection 10,000 Units 10,000 Units Sub cutaneous Weekly Lester Best DO ferric gluconate (FERRLECIT) 250 mg in sodium chloride 0.9% 250 mL IVPB 250 mg Intrave nous Daily Irena Sanchez MD 90 mL/hr at 05/10/182138 250 mg at 05/10/182138 furosemide (LASIX) 240 mg in sodium chloride 0.9% 50 mL IVPB 240 mg Intravenous BID (8 and 16) Lester Best DO heparin 5,000 units/mL injection 5,000 Units 5,000 Units Subcutaneous 2 times per day Zach Aguayo MD 5,000 Units at 05/10/182138 insulin lispro (humaLOG KWIKPEN) 100 units/mL injection (pen) 0-12 Units 0-12 Units Scherer bcutaneous 4x Daily WC and HS Zach Aguayo MD 2 Units at 05/10/18 1234 metOLazone (ZAROXOLYN) tablet 10 mg 10 mg Oral BID Lester Elise Stroemel, DO 10 mg at 1 2141 polyethylene glycol (MIRALAX) powder 17 g 17 g Oral Daily PRN Zach Aguayo MD Current Infusions: Objective Data Point of care glucose Recent Labs Lab 05/11/18 0633 05/10/18 2151 05/10/18 1729 05/10/18 1154 05/10/18 0654 05/09/18 2159 POCGLU 121* 181* 145* 151* 110* 143* Labs last 24 hours Recent Results (from the past 24 hour(s)) POC Glucose Collection Time: 05/10/18 11:54 Result Value Ref Range Glucose, POC 151 (H) 70 - 109 mg/dL POC Glucose Collection Time: 05/10/18 17:29 Result Value Ref Range Glucose, POC 145 (H) 70 - 109 mg/dL POC Glucose Collection Time: 05/10/18 21:51 Result Value Ref Range Glucose, POC 181 (H) 70 - 109 mg/dL Renal Function Panel Collection Time: 05/11/18 5:31 Result Value Ref Range NA 137 136 - 149 mmol/L K 4.1 3.5 - 5.1 mmol/L CL 110 (H) 98 - 109 mmol/L CO2 20 (L) 24 - 31 mmol/L ANION GAP 7 3 - 16 mmol/L GLUCOSE 121 (H) 70 - 109 mg/dL BUN 49 (H) 7 - 18 mg/dL Creatinine, Serum/Plasma 3.46 (H) 0.60 - 1.30 mg/dL eGFR if not 14 (L) >=60 mL/min/1.73m2 CALCIUM 7.8 (L) 8.3 - 10.5 mg/dL ALBUMIN 2.1 (L) 3.2 - 5.0 g/dL Phosphorus 5.5 (H) 2.5 - 4.6 mg/dL BUN/CREA 14.2 Magnesium Collection Time: 05/11/18 5:31 Result Value Ref Range Magnesium 1.8 1.8 - 2.5 mg/dL POC Glucose Collection Time: 05/11/18 6:33 Result Value Ref Range Glucose, POC 121 (H) 70 - 109 mg/dL ECG 12 lead Collection Time: 05/11/18 7:31 Result Value Ref Range INTERPRETATION TEXT Not Confirmed Micro results (more choices using dot micro) Microbiology Results (72 hrs) No results found for the last 72 hours. Radiology results (more choices using dot risresults) Us Renal Complete Result Date: 05/09/2018 EXAM:US RENAL COMPLETE CLINICAL HISTORY: Acute kidney injury. COMPARISON: None. FINDINGS: K idneys: The kidneys are somewhat limited in visualization. No significant parenchymal thinn ing. Possible punctate calcification in the left kidney. No hydronephrosis. Each kidney m easures about 10 cm longitudinally. Bladder: The prevoid bladder volume is 532 cc. No visib le bladder wall abnormalities. Postvoid imaging was not performed. Ureteral jets are not i dentified. Incidental identification of a left sided pleural effusion. IMPRESSION - No evide nce for an obstructive uropathy. Left pleural effusion. Dictated and Signed by: Geoff field MD Electronically signed: 05/09/2018 10:41 AM Xr Chest 2 Vws Result Date: 05/10/2018 PA AND LATERAL CHEST 05/10/2018 11:46 AM CLINICAL HISTORY: Follow up of CHF COMPARISON: Non e available FINDINGS: The visible cardiac silhouette appears prominent. There is aortic joycelyn cification. Pulmonary vasculature is mildly prominent. Moderate dependent bilateral pleura l effusions are present and there is hazy reticular opacity in the adjacent mid lungs. Ther e is mild thickening of the right minor fissure. Upper lung trivedi are clear. No pneumothor ax is evident. Mild wedging deformity of adjacent lower thoracic vertebral bodies is uncert ain in chronicity. Cholecystectomy clips are suggested. IMPRESSION - 1. PROMINENCE OF THE VISIBLE CARDIAC SILHOUETTE AND PULMONARY VASCULATURE WITH MODERATE DEPENDENT PLEURAL EFFUSIO NS AND ASSOCIATED ATELECTASIS/CONSOLIDATION. Dictated and Signed by: Juan A Rowe MD Electr onically signed: 05/10/2018 1:12 PM Vitals Ranges: Temp: [35.9 C (96.6 F)-37.2 C (99 F)] 36.7 C (98.1 F) Pulse: [76-86] 79 Resp: [18-24] 19 BP: (105-157)/(54-86) 105/54 Vitals: Temp: 36.7 C (98.1 F) BP: 105/54 Pulse: 79 Resp: 19 SpO2: 96 % SpO2 96 % on room air Irena Sanchez MD 05/11/2018 7:33 [facility] troemel, Lester Elise, DO - 05/10/2018 7:58 PM PDT [facility] [address] [place] [address] PROGRESS NOTE Pt. Name/Age/: Xochilt Linares 62 y.o. 1955 Med. Record Number: [id number] Date of admission: 05/08/2018 NEPHROLOGY HPI - Pt seen at 0850. CXR shows slow, but consistent improvement in the bilateral effusi ons. She is developing more stamina and less YE. Lab Results Component Value Date POCGLU 145 (H) 05/10/2018 POCGLU 151 (H) 05/10/2018 POCGLU 110 (H) 05/10/2018 POCGLU 143 (H) 05/09/2018 EXAM: BP 132/70 | Pulse 76 | Temp 37.2 C (99 F) (Oral) | Resp 19 | Ht 1.651 m (5 ' 5") Comment: stated by pt | Wt 83 kg (182 lb 15.7 oz) | SpO2 96% | BMI 30.45 kg/m Tm ax 36.6 Intake/Output Summary (Last 24 hours) at 05/10/181957 Last data filed at 05/10/18 1850 Gross per 24 hour Intake 1290 ml Output 2100 ml Net -810 ml Heart: Regular rate and rhythm with no S3, S4, murmur or rub. Lungs: CTA bilaterally. Abdomen: Soft, obese, nontender, normoactive bowel sounds. Extremities: no edema, clubbing, or cyanosis, LAB: Recent Labs 05/10/18 0439 NA 139 K 4.8 CL 113* CO2 20* BUN 49* CREA 3.19* GFRNONAA 15* GLU 121* CALCIUM 7.7* PHOS 5.6* MG 1.8 Recent Labs 05/10/18 0439 WBC 5.8 HGB 8.6* HCT 28.4* PLT 269 MCV 87.9 NEUPCT 58.8 LYMPCT 29.2 MONPCT 7.6 EOSPCT 3.3 Lab Results Component Value Date IRON 24 (L) 05/09/2018 PCTSAT 8.2 (L) 05/09/2018 FERRITIN 48 05/09/2018 IMPRESSION 1. 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 2. Acute CHF 2 to Nephrotic syndrome form #1-- see above. 3. Anemia 2 to CKD-- will begin some EPO, as she has had IV Fe. 4. Type 2 DM-- stable on diet Rx today. 5. Dilated cardiomyopathy-- concur with beta jose david, and will increase diuresis, while In pt, with close F/U of K+, Mg++. PLAN 1. See above. 2. May benefit from stay on Rehab. floor? 3. Will add EPO 10,000 SQ, Q week, to target Hb > 10 g/dl. 4. Increase ambulation. Appreciate Dr. Sanchez's help. [facility] Irena Shen MD - 05/10/2018 7:28 AM PDT [facility] JAVAD ESCOBAR HOSPITALIST PROGRESS NOTE Patient: Xochilt Linares : 1955: Age: 62 y.o. MedRec: [id number] Admission date: 05/08/2018 Hospital day # : 2 Physician author: Irena Sanchez MD Today: 05/10/2018 Assessment and Hospital Course Active Hospital Problems Diagnosis RAFY (acute kidney injury) Acute combined systolic and diastolic congestive heart failure Anasarca Pleural effusion Resolved Hospital Problems Diagnosis No resolved problems to display. 62 yo F with history of diabetes who presented with anasarca, acute kidney injury, dyspnea on exertion. Plan #Hypervolemia #Acute combined CHF Echo showed severe global hypokinesis of the LV with EF 25-30%. Grade I diastolic dysfuncti on. Patient feels much better after receiving lasix. Breathing comfortably, also with decrea sed leg swelling. Chest XR today showed moderate pleural effusions bilaterally c/w congestiv e heart failure. Weight down 2 lbs from yesterday. Patient will need beta jose david, ACEi, spironolactone ultimately. On carvedilol now, holding MARTHA/ARB now in the setting of acute kidney injury, holding spironolactone as we are diuresi ng aggressively. - continue current lasix dose, goal 1-2L net negative/24h - monitor electrolytes - strict I/O, daily standing weights - carvedilol 3.125 twice a day - Cardiology consulted, will see patient tomorrow and set up for her to be seen in [facility] heart failure clinic as outpatient #Hypertension Lasix and carvedilol as above. Patient not previously on antihypertensive medication. #RAFY Creatinine remains ~3. Possibly cardiorenal syndrome in the s/o severe combined congestive heart failure noted above. Also considering diabetic glomerulosclerosis also with regular NS AID intake. - diuresis as above - trend BMP - avoid nephrotoxins - Renal following, appreciate consult #DM2 Diet controlled. - continue low intensity SSI #T2MI Likely demand ischemia in the s/o decompensated congestive heart failure as noted above. Tr oponin peaked at 0.23. Patient denied chest pain. No dynamic ST changes on EKG. May consider further risk stratification after patient has recovered from acute illness. #Anemia Possibly ACD in the s/o diabetes, CKD. Iron deficiency contributing. No e/o bleeding. - IV iron ordered - CTM FEN: cc, low salt, renal Ppx: heparin Disposition: pending clinical course, anticipate 1-2d Echo 05/09: 1. Moderate to severe biatrial dilatation. 2. Moderate left ventricular dilatation with a mild eccentric left ventricular hypertrophy . There is a severe global hypokinesis of the left ventricle. Overall, left ventricular si gnificant is severely decreased. LVEF is 25-30%. 3. Grade 1 left ventricular diastolic dysfunction. 4. Mildly thickened and calcified trileaflet aortic valve with adequate opening. There is a trace aortic valve insufficiency. 5. Mildly thickened and calcified mitral valve with a mild central mitral valve regurgitat ion. 6. Mild mitral annular calcification. 7. Mild tricuspid valve regurgitation. 8. Mild pulmonary hypertension with a peak systolic pressure 45-50 mmHg. 9. Dilated IVC without respiratory collapse suggesting fluid retention. 10. Moderate circumferential pericardial effusion without evidence of cardiac tamponade. 11. Evidence of left pleural effusion. Subjective CC: leg swelling Patient states that she feels much better - "I can see wrinkles on my knees". Breathing mor e comfortably. Denies chest pain. Feels tired and is a bit overwhelmed with multiple diagnos es this admission and how they will impact her life. ROS 12 point ROS was performed and was negative except as noted above. Exam Gen: WDWN, nad HEENT: MMM, neck supple CV: regular rate and rhythm, no m/r/g Pulm: decreased breath sounds at bilateral bases, scattered crackles, normal wob Abdominal: soft, nontender, nondistended, normal bowel tones Extremities: pitting edema to above the knees bilaterally Skin: warm, dry, no rashes Neuro: alert, CN intact, no focal deficits Psych: normal mood and affect Allergies: No Known Allergies Current Medications: Current Facility-Administered Medications Medication Dose Route Frequency Provider Last Rate Last Dose acetaminophen (TYLENOL) tablet 650 mg 650 mg Oral Q4H PRN Zach Aguayo MD dextrose 50% injection 12.5 g 12.5 g Intravenous PRN Zach Aguayo MD ferric gluconate (FERRLECIT) 250 mg in sodium chloride 0.9% 250 mL IVPB 250 mg Intrave nous Daily Irena Sanchez MD Stopped at 05/10/18 0146 furosemide (LASIX) 160 mg in sodium chloride 0.9% 50 mL IVPB 160 mg Intravenous BID (8 and 16) Lester Best, DO 132 mL/hr at 05/09/18 1612 160 mg at 05/09/18 1612 heparin 5,000 units/mL injection 5,000 Units 5,000 Units Subcutaneous 2 times per day Zach Aguayo MD 5,000 Units at 05/09/18 2156 insulin lispro (humaLOG KWIKPEN) 100 units/mL injection (pen) 0-12 Units 0-12 Units Scherer bcutaneous 4x Daily WC and HS Zach Aguayo MD 2 Units at 05/09/18 1326 metoprolol tartrate (LOPRESSOR) tablet 12.5 mg 12.5 mg Oral BID Irena Sanchez MD 12. 5 mg at 05/09/18 2156 polyethylene glycol (MIRALAX) powder 17 g 17 g Oral Daily PRN Zach Aguayo MD Current Infusions: Objective Data Point of care glucose Recent Labs Lab 05/10/18 0654 05/09/18 2159 05/09/18 1716 05/09/18 1207 05/09/18 0310 05/08/18 2204 POCGLU 110* 143* 141* 165* 113* 126* Labs last 24 hours Recent Results (from the past 24 hour(s)) POC Glucose Collection Time: 05/09/18 12:07 Result Value Ref Range Glucose, POC 165 (H) 70 - 109 mg/dL ECHO Complete Collection Time: 05/09/18 14:03 Result Value Ref Range Patient Weight (lbs) 184lb Patient Height 5f5in LVEF-TTE TRANSTHORACIC ECHO 25 % BASELINE BLOOD PRESSURE 157/92 mmHg LVIDd 6.34 cm FS 13 % LA volume 101.67 mL Aortic arch 3.04 cm MV Area by P 1/2 method 6.02 cm2 IVRT 93.43 msec LVOT peak markel 74.29 cm/s AV peak markel 94 cm/s AV peak gradient 4.00 mmHg MV peak gradient 2.55 mmHg MV Pressure 1/2 time 36.56 msec LA Volume Index 53 mL/m2 AV LVOT Peak Gradient 2.21 mmHg TR Peak Gradient 31 mmHg TR Velocity 279.08 cm LV Diastolic Length 4C 8.41 cm LV Zuniga's Biplane EF 30 % LV ED Volume (Zuniga's) 157.28 ml LV ED Volume Index 82 ml/m2 LV ES Volume 103.83 ml MV E' Septal Velocity 3 cm/s MV Deceleration [place] 633.74 cm/s2 MV Deceleration Time 126.06 msec MV E/A Ratio 0.83 MV Peak A-Wave 95.85 cm/s MV Peak E-Wave 79.89 cm/s LA/Aorta Ratio 1.33 MV E/E SEPTAL 26.63 LV ES Volume Index 54 ml/m2 Aortic Root Diameter 3.39 cm IVS Diastolic Thickness MM 1.14 cm LVPW Diastolic Thickness MM 0.74 cm LV Systolic Diameter MM 5.53 cm AV Cusp Seperation MM 1.92 cm LA Systolic Diameter MM 4.5 cm TAPSE 1.1 cm RA PRESSURE 15 mmHg RVSP Estimated 46 mmHg POC Glucose Collection Time: 05/09/18 17:16 Result Value Ref Range Glucose, POC 141 (H) 70 - 109 mg/dL POC Glucose Collection Time: 05/09/18 21:59 Result Value Ref Range Glucose, POC 143 (H) 70 - 109 mg/dL Renal Function Panel Collection Time: 05/10/18 4:39 Result Value Ref Range NA 139 136 - 149 mmol/L K 4.8 3.5 - 5.1 mmol/L CL 113 (H) 98 - 109 mmol/L CO2 20 (L) 24 - 31 mmol/L ANION GAP 6 3 - 16 mmol/L GLUCOSE 121 (H) 70 - 109 mg/dL BUN 49 (H) 7 - 18 mg/dL Creatinine, Serum/Plasma 3.19 (H) 0.60 - 1.30 mg/dL eGFR if not 15 (L) >=60 mL/min/1.73m2 CALCIUM 7.7 (L) 8.3 - 10.5 mg/dL ALBUMIN 2.1 (L) 3.2 - 5.0 g/dL Phosphorus 5.6 (H) 2.5 - 4.6 mg/dL BUN/CREA 15.4 Magnesium Collection Time: 05/10/18 4:39 Result Value Ref Range Magnesium 1.8 1.8 - 2.5 mg/dL CBC with Differential Collection Time: 05/10/18 4:39 Result Value Ref Range WBC 5.8 4.0 - 11.0 K/uL RBC 3.23 (L) 3.70 - 5.20 M/uL Hgb 8.6 (L) 11.5 - 16.0 g/dL Hct 28.4 (L) 34.0 - 47.0 % MCV 87.9 83.0 - 101.0 fL MCH 26.6 (L) 28.0 - 35.0 pg MCHC 30.3 (L) 32.0 - 36.0 g/dL RDW-CV 14.8 <15.0 % RDW-SD 47.8 (H) 35.1 - 46.3 fL Platelet Count 269 140 - 440 K/uL MPV 9.3 6.5 - 12.4 fL % Neutrophils 58.8 45.0 - 82.0 % % Lymphocytes 29.2 20.0 - 45.0 % % Monocytes 7.6 4.0 - 12.0 % % Eosinophils 3.3 0.0 - 5.0 % % Basophils 0.9 0.0 - 1.0 % % Immature granulocytes 0.2 0.0 - 0.4 % Absolute Neutrophils 3.41 1.80 - 8.50 K/uL Absolute Lymphocytes 1.69 0.60 - 3.20 K/uL Absolute Monocytes 0.44 0.00 - 1.00 K/uL Absolute Eosinophils 0.19 0.00 - 0.40 K/uL Absolute Basophils 0.05 0.00 - 0.10 K/uL Absolute Imm. Granulocytes 0.01 0.00 - 0.03 K/uL nRBC 0 0 - 2 per 100 WBC's NRBC ABS 0.00 0.00 - 0.01 K/uL POC Glucose Collection Time: 05/10/18 6:54 Result Value Ref Range Glucose, POC 110 (H) 70 - 109 mg/dL Micro results (more choices using dot micro) Microbiology Results (72 hrs) No results found for the last 72 hours. Radiology results (more choices using dot risresults) Us Renal Complete Result Date: 05/09/2018 EXAM:US RENAL COMPLETE CLINICAL HISTORY: Acute kidney injury. COMPARISON: None. FINDINGS: K idneys: The kidneys are somewhat limited in visualization. No significant parenchymal thinn ing. Possible punctate calcification in the left kidney. No hydronephrosis. Each kidney m easures about 10 cm longitudinally. Bladder: The prevoid bladder volume is 532 cc. No visib le bladder wall abnormalities. Postvoid imaging was not performed. Ureteral jets are not i dentified. Incidental identification of a left sided pleural effusion. IMPRESSION - No evide nce for an obstructive uropathy. Left pleural effusion. Dictated and Signed by: Geoff field MD Electronically signed: 05/09/2018 10:41 AM Vitals Ranges: Temp: [35.9 C (96.6 F)-36.7 C (98.1 F)] 36.2 C (97.2 F) Pulse: [77-93] 77 Resp: [20-26] 20 BP: (120-157)/(76-92) 149/77 Vitals: Temp: 36.2 C (97.2 F) BP: 149/77 Pulse: 77 Resp: 20 SpO2: 90 % SpO2 90 % on room air at flow rate L/min Irena Sanchez MD 05/10/2018 7:28 [facility] troLester beach, DO - 05/09/2018 2:04 PM PDT [facility] [address] [place] [address] PROGRESS NOTE Pt. Name/Age/: Xochilt Linares 62 y.o. 1955 Med. Record Number: [id number] Date of admission: 05/08/2018 NEPHROLOGY HPI - Pt seen at 0900. States that she is breathing better. Dale was not actually place d last PM, which may impact the accuracy of the I&O, however, she states that she is voiding large amounts of urine. Wt. is decreased 1.5 kg. Chris+ = 102 mEq/L with FENa+ = 7.19%, c/w RAFY or CKD, however, pt had IV lasix. Renal US shows the Left kidney = 9.78 cm, Right = 10.1 cm, increased echogenicity, no obstr uction. SPEP, and ANCA are pending but expect that these will likely be negative/ Lab Results Component Value Date POCGLU 165 (H) 05/09/2018 POCGLU 113 (H) 05/09/2018 POCGLU 126 (H) 05/08/2018 POCGLU 102 05/08/2018 EXAM: BP (!) 157/92 | Pulse 93 | Temp 36.6 C (97.9 F) (Oral) | Resp 26 | Ht 1.65 1 m (5' 5") Comment: stated by pt | Wt 83.6 kg (184 lb 4.9 oz) | SpO2 97% | BMI 30.67 kg/m Tmax 36.6 Intake/Output Summary (Last 24 hours) at 05/09/18 1404 Last data filed at 05/09/18 1331 Gross per 24 hour Intake 336 ml Output 1630 ml Net -1294 ml Heart: Regular rate and rhythm with no S3, S4, murmur or rub. Lungs: CTA bilaterally. Abdomen: Soft, obese, nontender, normoactive bowel sounds. Extremities: no edema, clubbing, or cyanosis, LAB: Recent Labs 05/09/18 0503 NA 137 K 4.6 CL 113* CO2 17* BUN 48* CREA 3.12* GFRNONAA 15* GLU 115* CALCIUM 7.8* PHOS 5.5* MG 1.9 Recent Labs 05/09/18 0503 WBC 6.1 HGB 8.9* HCT 29.2* PLT 301 MCV 87.7 Lab Results Component Value Date IRON 24 (L) 05/09/2018 PCTSAT 8.2 (L) 05/09/2018 FERRITIN 48 05/09/2018 IMPRESSION 1. RAFY superimposed on CKD from probable diabetic glomerulosclerosis-- additionally, she w as taking OTC ASA, and Ibuprofen regularly. 2. Acute CHF 2 to Nephrotic syndrome form #1-- await her LVEF also, to ensure that she h as adequate LV Systolic fucntion? Her wt. is slowly decreasing, although, I&O w/o dale, may not be particularly accura te? 3. Anemia 2 to CKD-- she has some relative Fe deficiency. Will supplement this before b eginning LEWIS Rx. 4. Type 2 DM-- stable on diet Rx today. PLAN 1. Will cont. current dose of lasix, as she is diuresing 1-2# per day. 2. Supplement her with IV Ferrlecit, 250 mg, Q day x 3 doses. 3. My gut feeling is that the effusions and edema will subside with protracted diuresis. 4. Will review Echo. when available. [facility] Irena Shen MD - 05/09/2018 7:48 AM PDT [facility] JAVAD ESCOBAR HOSPITALIST PROGRESS NOTE Patient: Xochilt Linares : 1955: Age: 62 y[id number] Admission date: 05/08/2018 Hospital day # : 1 Physician author: Irena Sanchez MD Today: 05/09/2018 Assessment and Hospital Course Active Hospital Problems Diagnosis RAFY (acute kidney injury) Anasarca Pleural effusion Resolved Hospital Problems Diagnosis No resolved problems to display. 62 yo F with history of diabetes who presented with anasarca, acute kidney injury, dyspnea on exertion. Plan #Hypervolemia #Acute combined CHF Echo today showed severe global hypokinesis of the LV with EF 25-30%. Grade I diastolic dys function. Patient feels much better today after receiving lasix. Breathing comfortably, also with decreased leg swelling. Weight down 3lb from admission. Patient will need beta jose david, ACEi, spironolactone ultimately. Will start beta jose david to day as blood pressures are mildly elevated, hold MARTHA/ARB now in the setting of acute kidney injury, hold spironolactone as we are diuresing aggressively. - continue current lasix dose, goal 1-2L net negative/24h - monitor electrolytes - strict I/O, daily standing weights - metop tartrate 12.5 mg twice a day #Hypertension Lasix and metoprolol as above. Patient not previously on antihypertensive medication. #RAFY Mild improvement in creatinine compared with admission. Possibly cardiorenal syndrome in th e s/o severe combined congestive heart failure noted above. Also considering diabetic glomer ulosclerosis also with regular NSAID intake. - diuresis as above - trend BMP - avoid nephrotoxins #DM2 Diet controlled. - continue low intensity SSI #T2MI Likely demand ischemia in the s/o decompensated congestive heart failure as noted above. Tr oponin peaked at 0.23. Patient denied chest pain. No dynamic ST changes on EKG. May consider further risk stratification after patient has recovered from acute illness. #Anemia Possibly ACD in the s/o diabetes, CKD. Iron deficiency contributing. No e/o bleeding. - IV iron ordered - CTM FEN: cc, low salt, renal Ppx: heparin Disposition: pending clinical course Subjective CC: leg swelling Patient states that she feels markedly improved. Still with some swelling in her thighs. Br eathing more comfortably. Denies chest pain. ROS 12 point ROS was performed and was negative except as noted above. Exam Gen: WDWN, nad HEENT: MMM, neck supple CV: regular rate and rhythm, no m/r/g Pulm: decreased breath sounds at bilateral bases, scattered crackles, normal wob Abdominal: soft, nontender, nondistended, normal bowel tones Extremities: pitting edema to above the thighs bilaterally Skin: warm, dry, no rashes Neuro: alert, CN intact, no focal deficits Psych: normal mood and affect Allergies: No Known Allergies Current Medications: Current Facility-Administered Medications Medication Dose Route Frequency Provider Last Rate Last Dose acetaminophen (TYLENOL) tablet 650 mg 650 mg Oral Q4H PRN Zach Aguayo MD dextrose 50% injection 12.5 g 12.5 g Intravenous PRN Zach Aguayo MD furosemide (LASIX) 160 mg in sodium chloride 0.9% 50 mL IVPB 160 mg Intravenous BID (8 and 16) Lester Best, DO 132 mL/hr at 05/08/18 2201 160 mg at 05/08/18 2201 heparin 5,000 units/mL injection 5,000 Units 5,000 Units Subcutaneous 2 times per day Zach Aguayo MD insulin lispro (humaLOG KWIKPEN) 100 units/mL injection (pen) 0-12 Units 0-12 Units Scherer bcutaneous 4x Daily WC and HS Zach Aguayo MD polyethylene glycol (MIRALAX) powder 17 g 17 g Oral Daily PRN Zach Aguayo MD Current Infusions: Objective Data Point of care glucose Recent Labs Lab 05/09/18 0310 05/08/18 2204 05/08/18 1724 POCGLU 113* 126* 102 Labs last 24 hours Recent Results (from the past 24 hour(s)) POC Glucose Collection Time: 05/08/18 17:24 Result Value Ref Range Glucose, POC 102 70 - 109 mg/dL B Type Natriuretic Peptide Collection Time: 05/08/18 17:40 Result Value Ref Range BNP 4,521 (H) <100 pg/mL Troponin I Collection Time: 05/08/18 17:40 Result Value Ref Range Troponin I 0.23 (H) <0.06 ng/mL TSH Collection Time: 05/08/18 17:40 Result Value Ref Range TSH 4.68 0.45 - 5.33 uIU/mL Phosphorus Collection Time: 05/08/18 17:41 Result Value Ref Range Phosphorus 5.4 (H) 2.5 - 4.6 mg/dL Magnesium Collection Time: 05/08/18 17:41 Result Value Ref Range Magnesium 2.0 1.8 - 2.5 mg/dL Extra Gold Top Tube Collection Time: 05/08/18 17:41 Result Value Ref Range EGDT Done Extra Lavender Top Tube Collection Time: 05/08/18 17:41 Result Value Ref Range Extra Lavender Top Tube Done Extra Blue Top Tube Collection Time: 05/08/18 17:41 Result Value Ref Range Extra Blue Top Tube Done Hemoglobin A1C Collection Time: 05/08/18 17:41 Result Value Ref Range Hemoglobin A1c 7.3 (H) 4.3 - 6.0 % Estimated Average Glucose 163 mg/dL Basic Metabolic Panel Collection Time: 05/08/18 17:41 Result Value Ref Range NA 139 136 - 149 mmol/L K 4.5 3.5 - 5.1 mmol/L CL 113 (H) 98 - 109 mmol/L CO2 20 (L) 24 - 31 mmol/L ANION GAP 6 3 - 16 mmol/L GLUCOSE 105 70 - 109 mg/dL BUN 48 (H) 7 - 18 mg/dL Creatinine, Serum/Plasma 3.24 (H) 0.60 - 1.30 mg/dL eGFR if not 15 (L) >=60 mL/min/1.73m2 CALCIUM 7.8 (L) 8.3 - 10.5 mg/dL BUN/CREA 14.8 Sodium, Urine, Random Collection Time: 05/08/18 20:57 Result Value Ref Range Sodium, Urine Random 102 27 - 287 mmol/L Osmolality, Urine Collection Time: 05/08/18 20:57 Result Value Ref Range OSMO URINE 342 300-1,000 mOsm/kg Creatinine, Urine, Random Collection Time: 05/08/18 20:57 Result Value Ref Range Creatinine, Urine, Random 33 mg/dL Eosinophil Smear, Urine Collection Time: 05/08/18 20:57 Result Value Ref Range Eosinophil, Urine None seen None seen Urinalysis with Microscopic with Culture if Indicated Collection Time: 05/08/18 20:58 Result Value Ref Range COLOR Straw Light Yellow, Yellow, Straw CLARITY Clear Clear PH UA 5.0 5.0 - 8.0 Specific [place] 1.009 1.001 - 1.030 PROTEIN UA 100 mg/dL (A) Negative BLOOD UA Small (A) Negative GLUCOSE UA 50 mg/dL (A) Negative KETONES UA Negative Negative BILIRUBIN UA Negative Negative NITRITE UA Negative Negative LEUKOCYTES ESTERASE UA Negative Negative UROBILINOGEN UA Negative 0.2 mg/dL, 1.0 mg/dL, Negative WBC UA 0-2 0 - 2 /HPF RBC UA 10-15 (A) 0 - 2 /HPF SQUAMOUS EPITHELIAL UA 0-2 0 - 2 /LPF BACTERIA UA Negative Negative /HPF HYALINE CASTS UA 0-2 0 - 2 /LPF POC Glucose Collection Time: 05/08/18 22:04 Result Value Ref Range Glucose, POC 126 (H) 70 - 109 mg/dL Troponin I Collection Time: 05/09/18 0:00 Result Value Ref Range Troponin I 0.20 (H) <0.06 ng/mL POC Glucose Collection Time: 05/09/18 3:10 Result Value Ref Range Glucose, POC 113 (H) 70 - 109 mg/dL Magnesium Collection Time: 05/09/18 5:03 Result Value Ref Range Magnesium 1.9 1.8 - 2.5 mg/dL CBC no Differential Collection Time: 05/09/18 5:03 Result Value Ref Range WBC 6.1 4.0 - 11.0 K/uL RBC 3.33 (L) 3.70 - 5.20 M/uL Hgb 8.9 (L) 11.5 - 16.0 g/dL Hct 29.2 (L) 34.0 - 47.0 % MCV 87.7 83.0 - 101.0 fL MCH 26.7 (L) 28.0 - 35.0 pg MCHC 30.5 (L) 32.0 - 36.0 g/dL RDW-CV 14.7 <15.0 % RDW-SD 47.7 (H) 35.1 - 46.3 fL Platelet Count 301 140 - 440 K/uL MPV 9.3 6.5 - 12.4 fL nRBC 0 0 - 2 per 100 WBC's NRBC ABS 0.00 0.00 - 0.01 K/uL Renal Function Panel Collection Time: 05/09/18 5:03 Result Value Ref Range NA 137 136 - 149 mmol/L K 4.6 3.5 - 5.1 mmol/L CL 113 (H) 98 - 109 mmol/L CO2 17 (L) 24 - 31 mmol/L ANION GAP 7 3 - 16 mmol/L GLUCOSE 115 (H) 70 - 109 mg/dL BUN 48 (H) 7 - 18 mg/dL Creatinine, Serum/Plasma 3.12 (H) 0.60 - 1.30 mg/dL eGFR if not 15 (L) >=60 mL/min/1.73m2 CALCIUM 7.8 (L) 8.3 - 10.5 mg/dL ALBUMIN 2.3 (L) 3.2 - 5.0 g/dL Phosphorus 5.5 (H) 2.5 - 4.6 mg/dL BUN/CREA 15.4 Iron and Transferrin Collection Time: 05/09/18 5:03 Result Value Ref Range Iron 24 (L) 40 - 150 ug/dL TRANSFERRIN 208.8 (L) 240.0 - 480.0 mg/dL TIBC 292 235 - 425 ug/dL % SATURATION 8.2 (L) 20.0 - 55.0 % Ferritin Collection Time: 05/09/18 5:03 Result Value Ref Range FERRITIN 48 11 - 307 ng/mL Troponin I Collection Time: 05/09/18 5:03 Result Value Ref Range Troponin I 0.20 (H) <0.06 ng/mL Extra Gold Top Tube Collection Time: 05/09/18 5:03 Result Value Ref Range EGDT Done Micro results (more choices using dot micro) Microbiology Results (72 hrs) No results found for the last 72 hours. Radiology results (more choices using dot risresults) No results found. Vitals Ranges: Temp: [5 C (41 F)-36.5 C (97.7 F)] 36.5 C (97.7 F) Pulse: [87-97] 91 Resp: [18] 18 BP: (106-162)/(56-83) 158/79 Vitals: Temp: 36.5 C (97.7 F) BP: 158/79 Pulse: 91 Resp: 18 SpO2: 93 % SpO2 93 % on room air at flow rate L/min Irena Sanchez MD 05/09/2018 7:49 [facility] documented in this enco unter Plan of Treatment Not on filedocumented as of this encounter Procedures + +--------+ + + + | Procedure Name | Priori | Date/Time | Associated Diagnosis | Comments | | | ty | | | | + +--------+ + + + | POC GLUCOSE | Routin | 05/12/2018 | | Results for this | | | e | 12:07 PM | | procedure are in the | | | | PDT | | results section. | + +--------+ + + + | POC GLUCOSE | Routin | 05/12/2018 | | Results for this | | | e | 6:48 AM | | procedure are in the | | | | PDT | | results section. | + +--------+ + + + | EXTRA LEONEL TOP | Routin | 05/12/2018 | | Results for this | | TUBE | e | 4:33 AM | | procedure are in the | | | | PDT | | results section. | + +--------+ + + + | PHOSPHORUS | Routin | 05/12/2018 | | Results for this | | | e | 4:33 AM | | procedure are in the | | | | PDT | | results section. | + +--------+ + + + | MAGNESIUM | Routin | 05/12/2018 | | Results for this | | | e | 4:33 AM | | procedure are in the | | | | PDT | | results section. | + +--------+ + + + | HEPATIC FUNCTION | Routin | 05/12/2018 | | Results for this | | PANEL | e | 4:33 AM | | procedure are in the | | | | PDT | | results section. | + +--------+ + + + | BASIC METABOLIC | Routin | 05/12/2018 | | Results for this | | PANEL | e | 4:33 AM | | procedure are in the | | | | PDT | | results section. | + +--------+ + + + | POC GLUCOSE | Routin | 05/12/2018 | | Results for this | | | e | 3:19 AM | | procedure are in the | | | | PDT | | results section. | + +--------+ + + + | POC GLUCOSE | Routin | 05/11/2018 | | Results for this | | | e | 9:54 PM | | procedure are in the | | | | PDT | | results section. | + +--------+ + + + | POC GLUCOSE | Routin | 05/11/2018 | | Results for this | | | e | 4:52 PM | | procedure are in the | | | | PDT | | results section. | + +--------+ + + + | DME: WALKER | Routin | 05/11/2018 | CHF (congestive | | | | e | 4:26 PM | heart failure), NYHA | | | | | PDT | class IV, acute, | | | | | | systolic (HCC) | | + +--------+ + + + | POC GLUCOSE | Routin | 05/11/2018 | | Results for this | | | e | 12:36 PM | | procedure are in the | | | | PDT | | results section. | + +--------+ + + + | NM NUCLEAR STRESS | [facility] | 05/11/2018 | | Results for this | | TEST (PHARMACOLOGIC | | 10:45 AM | | procedure are in the | | - VASODILATOR) | | PDT | | results section. | + +--------+ + + + | ECG 12 LEAD | [facility] | 05/11/2018 | | Results for this | | | | 7:31 AM | | procedure are in the | | | | PDT | | results section. | + +--------+ + + + | POC GLUCOSE | Routin | 05/11/2018 | | Results for this | | | e | 6:33 AM | | procedure are in the | | | | PDT | | results section. | + +--------+ + + + | EXTRA LEONEL ESTRADA | Routin | 05/11/2018 | | Results for this | | TUBE | e | 5:31 AM | | procedure are in the | | | | PDT | | results section. | + +--------+ + + + | HEPATITIS A AB, IGM | Add-On | 05/11/2018 | | Results for this | | | | 5:31 AM | | procedure are in the | | | | PDT | | results section. | + +--------+ + + + | MAGNESIUM | Routin | 05/11/2018 | | Results for this | | | e | 5:31 AM | | procedure are in the | | | | PDT | | results section. | + +--------+ + + + | RENAL FUNCTION PANEL | Routin | 05/11/2018 | | Results for this | | | e | 5:31 AM | | procedure are in the | | | | PDT | | results section. | + +--------+ + + + | POC GLUCOSE | Routin | 05/10/2018 | | Results for this | | | e | 9:51 PM | | procedure are in the | | | | PDT | | results section. | + +--------+ + + + | POC GLUCOSE | Routin | 05/10/2018 | | Results for this | | | e | 5:29 PM | | procedure are in the | | | | PDT | | results section. | + +--------+ + + + | POC GLUCOSE | Routin | 05/10/2018 | | Results for this | | | e | 11:54 AM | | procedure are in the | | | | PDT | | results section. | + +--------+ + + + | XR CHEST 2 VIEWS | Routin | 05/10/2018 | | Results for this | | | e | 11:46 AM | | procedure are in the | | | | PDT | | results section. | + +--------+ + + + | POC GLUCOSE | Routin | 05/10/2018 | | Results for this | | | e | 6:54 AM | | procedure are in the | | | | PDT | | results section. | + +--------+ + + + | LIPID PANEL | Add-On | 05/10/2018 | | Results for this | | | | 4:39 AM | | procedure are in the | | | | PDT | | results section. | + +--------+ + + + | CBC WITH | Routin | 05/10/2018 | | Results for this | | DIFFERENTIAL | e | 4:39 AM | | procedure are in the | | | | PDT | | results section. | + +--------+ + + + | MAGNESIUM | Routin | 05/10/2018 | | Results for this | | | e | 4:39 AM | | procedure are in the | | | | PDT | | results section. | + +--------+ + + + | RENAL FUNCTION PANEL | Routin | 05/10/2018 | | Results for this | | | e | 4:39 AM | | procedure are in the | | | | PDT | | results section. | + +--------+ + + + | POC GLUCOSE | Routin | 05/09/2018 | | Results for this | | | e | 9:59 PM | | procedure are in the | | | | PDT | | results section. | + +--------+ + + + | POC GLUCOSE | Routin | 05/09/2018 | | Results for this | | | e | 5:16 PM | | procedure are in the | | | | PDT | | results section. | + +--------+ + + + | ECHO COMPLETE | Routin | 05/09/2018 | | Results for this | | | e | 2:03 PM | | procedure are in the | | | | PDT | | results section. | + +--------+ + + + | POC GLUCOSE | Routin | 05/09/2018 | | Results for this | | | e | 12:07 PM | | procedure are in the | | | | PDT | | results section. | + +--------+ + + + | US RENAL COMPLETE | Routin | 05/09/2018 | | Results for this | | | e | 10:10 AM | | procedure are in the | | | | PDT | | results section. | + +--------+ + + + | ANCA PANEL NO REFLEX | Routin | 05/09/2018 | | Results for this | | TO ELIE | e | 5:03 AM | | procedure are in the | | | | PDT | | results section. | + +--------+ + + + | HEPATITIS PANEL | Routin | 05/09/2018 | | Results for this | | | e | 5:03 AM | | procedure are in the | | | | PDT | | results section. | + +--------+ + + + | EXTRA GOLD TOP TUBE | Routin | 05/09/2018 | | Results for this | | | e | 5:03 AM | | procedure are in the | | | | PDT | | results section. | + +--------+ + + + | TROPONIN I | Routin | 05/09/2018 | | Results for this | | | e | 5:03 AM | | procedure are in the | | | | PDT | | results section. | + +--------+ + + + | IRON AND TRANSFERRIN | Routin | 05/09/2018 | | Results for this | | | e | 5:03 AM | | procedure are in the | | | | PDT | | results section. | + +--------+ + + + | CBC NO DIFFERENTIAL | Routin | 05/09/2018 | | Results for this | | | e | 5:03 AM | | procedure are in the | | | | PDT | | results section. | + +--------+ + + + | PROTEIN | Routin | 05/09/2018 | | Results for this | | ELECTROPHORESIS, | e | 5:03 AM | | procedure are in the | | SERUM | | PDT | | results section. | + +--------+ + + + | MAGNESIUM | Routin | 05/09/2018 | | Results for this | | | e | 5:03 AM | | procedure are in the | | | | PDT | | results section. | + +--------+ + + + | FERRITIN | Routin | 05/09/2018 | | Results for this | | | e | 5:03 AM | | procedure are in the | | | | PDT | | results section. | + +--------+ + + + | RENAL FUNCTION PANEL | Routin | 05/09/2018 | | Results for this | | | e | 5:03 AM | | procedure are in the | | | | PDT | | results section. | + +--------+ + + + | POC GLUCOSE | Routin | 05/09/2018 | | Results for this | | | e | 3:10 AM | | procedure are in the | | | | PDT | | results section. | + +--------+ + + + | TROPONIN I | Routin | 05/09/2018 | | Results for this | | | e | 12:00 AM | | procedure are in the | | | | PDT | | results section. | + +--------+ + + + | POC GLUCOSE | Routin | 05/08/2018 | | Results for this | | | e | 10:04 PM | | procedure are in the | | | | PDT | | results section. | + +--------+ + + + | URINALYSIS WITH | Routin | 05/08/2018 | | Results for this | | MICROSCOPIC WITH | e | 8:58 PM | | procedure are in the | | CULTURE IF INDICATED | | PDT | | results section. | + +--------+ + + + | PROTEIN/CREATININE | Add-On | 05/08/2018 | | Results for this | | RATIO, URINE | | 8:58 PM | | procedure are in the | | | | PDT | | results section. | + +--------+ + + + | EOSINOPHIL SMEAR, | Routin | 05/08/2018 | | Results for this | | URINE | e | 8:57 PM | | procedure are in the | | | | PDT | | results section. | + +--------+ + + + | SODIUM, URINE, | Routin | 05/08/2018 | | Results for this | | RANDOM | e | 8:57 PM | | procedure are in the | | | | PDT | | results section. | + +--------+ + + + | OSMOLALITY, URINE | Routin | 05/08/2018 | | Results for this | | | e | 8:57 PM | | procedure are in the | | | | PDT | | results section. | + +--------+ + + + | CREATININE, URINE, | Routin | 05/08/2018 | | Results for this | | RANDOM | e | 8:57 PM | | procedure are in the | | | | PDT | | results section. | + +--------+ + + + | EXTRA LAVENDER TOP | Routin | 05/08/2018 | | Results for this | | TUBE | e | 5:41 PM | | procedure are in the | | | | PDT | | results section. | + +--------+ + + + | EXTRA GOLD TOP TUBE | Routin | 05/08/2018 | | Results for this | | | e | 5:41 PM | | procedure are in the | | | | PDT | | results section. | + +--------+ + + + | EXTRA BLUE TOP TUBE | Routin | 05/08/2018 | | Results for this | | | e | 5:41 PM | | procedure are in the | | | | PDT | | results section. | + +--------+ + + + | PHOSPHORUS | Routin | 05/08/2018 | | Results for this | | | e | 5:41 PM | | procedure are in the | | | | PDT | | results section. | + +--------+ + + + | MAGNESIUM | Routin | 05/08/2018 | | Results for this | | | e | 5:41 PM | | procedure are in the | | | | PDT | | results section. | + +--------+ + + + | HEMOGLOBIN A1C | Add-On | 05/08/2018 | | Results for this | | | | 5:41 PM | | procedure are in the | | | | PDT | | results section. | + +--------+ + + + | BASIC METABOLIC | STAT | 05/08/2018 | | Results for this | | PANEL | | 5:41 PM | | procedure are in the | | | | PDT | | results section. | + +--------+ + + + | TROPONIN I | Routin | 05/08/2018 | | Results for this | | | e | 5:40 PM | | procedure are in the | | | | PDT | | results section. | + +--------+ + + + | TSH | Routin | 05/08/2018 | | Results for this | | | e | 5:40 PM | | procedure are in the | | | | PDT | | results section. | + +--------+ + + + | B TYPE NATRIURETIC | Routin | 05/08/2018 | | Results for this | | PEPTIDE | e | 5:40 PM | | procedure are in the | | | | PDT | | results section. | + +--------+ + + + | POC GLUCOSE | Routin | 05/08/2018 | | Results for this | | | e | 5:24 PM | | procedure are in the | | | | PDT | | results section. | + +--------+ + + + | IMAGING REPORT - | | 05/08/2018 | | Results for this | | EXTERNAL SCAN | | 12:00 AM | | procedure are in the | | | | PDT | | results section. | + +--------+ + + + | LABS - EXTERNAL SCAN | | 05/08/2018 | | Results for this | | | | 12:00 AM | | procedure are in the | | | | PDT | | results section. | + +--------+ + + + | ECG - EXTERNAL SCAN | | 05/08/2018 | | Results for this | | | | 12:00 AM | | procedure are in the | | | | PDT | | results section. | + +--------+ + + + documented in this encounter Results POC Glucose (05/12/2018 12:07 PM PDT) + +---------+ + + + | Component | Value | Ref Range | Performed | Pathologist | | | | | At | Signature | + +---------+ + + + | Glucose, | 165 (H) | 70 - 109 mg/dL | [facility] | | | POC | | | [facility] | | [...] [address] | [place] | [phone] | | [facility] | | [address] | | | - LABORATORY | | | | + + + + + POC Glucose (05/12/2018 6:48 AM PDT) + +-------+ + + + | Component | Value | Ref Range | Performed | Pathologist | | | | | At | Signature | + +-------+ + + + | Glucose, | 107 | 70 - 109 mg/dL | [facility] [...] + + | [facility] | [address] | [place] | [phone] | | [facility] | | [address] | | | - LABORATORY | | | | + + + + + Extra Lavender Top Tube (05/12/2018 4:33 AM PDT) + +-------+ + + + | Component | Value | Ref Range | Performed | Pathologist | | | | | At | Signature | + +-------+ + + + | Extra | Done | | [facility] | | | Lavender | | | [facility] | | | Top Tube | | | MEDICAL | | | [...] + | [facility] | [address] | [place] | [phone] | | [facility] | | [address] | | | - LABORATORY | | | | + + + + + Phosphorus (05/12/2018 4:33 AM PDT) + +---------+ + + + | Component | Value | Ref Range | Performed | Pathologist | | | | | At | Signature | + +---------+ + + + | Phosphorus | 6.0 (H) | 2.5 - 4.6 mg/dL | [facility] | | | | | | [facility] | | [...] | + + + + + | [facility] | [address] | [place] | [phone] | | [facility] | | [address] | | | - LABORATORY | | | | + + + + + Basic Metabolic Panel (05/12/2018 4:33 AM PDT) + + + + + + | Component | Value | Ref Range | Performed | Pathologist | | | | | At | Signature | + + + + + + | Na | 140 | 136 - 149 | [facility] | | | | | mmol/L | [facility] | | | | [facility] | [facility] | | | | | [facility] - | | | | | | LABORATORY | | + + + + + + | K | 4.0 | 3.5 - 5.1 | [facility] | | | | | mmol/L | [facility] | | | | | | [facility] | | | | | | C[facility] - | | | | | | LABORATORY | | + + + + + + | Cl | 111 (H) | 98 - 109 mmol/L | [facility] | | | | | | [facility] | | | | | | [facility] | | | | | | C[facility] - | | | | | | LABORATORY | | + + + + + + | CO2 | 21 (L) | 24 - 31 mmol/L | [facility] | | | | | | [facility] | | | | | | [facility] | | | | | | C[facility] - | | | | | | LABORATORY | | + + + + + + | Anion Gap | 8 | 3 - 16 mmol/L | [facility] | | | | | | [facility] | | [facility] | [facility] | | | | | | [facility] - | | | | | | LABORATORY | | + + + + + + | Glucose | 111 (H) | 70 - 109 mg/dL | [facility] | | | | | | [facility] | | | | | | [facility] | | | | | | C[facility] - | | | | | | LABORATORY | | + + + + + + | BUN | 46 (H) | 7 - 18 mg/dL | [facility] | | | | | | [facility] | | | | | | [facility] | | | | | | C[facility] - | | | | | | LABORATORY | | + + + + + + | Creatinine | 3.53 (H) | 0.60 - 1.30 | [facility] | | | | | mg/dL | [facility] | | | | | | [facility] | | | | | | CENTER - | | | | | | LABORATORY | | + + + + + + | eGFR if not | 13 (L)Comment: | >=60 | [facility] | | | | GLOMERULAR FILTRATION | mL/min/1.73m2 | [facility] | | | [facility] | RATE,ESTIMATED | | MEDICAL | | | | mL/min/[id number] than | | CENTER - | | [...] + + + + | Calcium | 8.1 (L) | 8.3 - 10.5 | [facility] | | | | | mg/dL | [facility] | | | | | | [facility] | | | | | | CENTER - | | | | | | LABORATORY | | + + + + + + | BUN/Creatin | 13.0 | | [facility] | | | ine Ratio | | | [facility] | | [...] [address] | [place] | [phone] | | [facility] | | [address] | | | - LABORATORY | | | | + + + + + Magnesium (05/12/2018 4:33 AM PDT) + +-------+ + + + | Component | Value | Ref Range | Performed | Pathologist | | | | | At | Signature | + +-------+ + + + | Magnesium | 1.8 | 1.8 - 2.5 mg/dL | [facility] | | | | [...] + | [facility] | [address] | [place] | [phone] | | [facility] | | [address] | | | - LABORATORY | | | | + + + + + Hepatic Function Panel (05/12/2018 4:33 AM PDT) + +---------+ + + + | Component | Value | Ref Range | Performed | Pathologist | | | | | At | Signature | + +---------+ + + + | Bilirubin | 0.5 | 0.1 - 1.5 mg/dL | [facility] | | | Total | | | [facility] | | | | | | MEDICAL | | | | | | CENTER - | | | | | | LABORATORY | | + +---------+ + + + | Total | 5.1 (L) | 6.0 - 7.8 g/dL | [facility] | | | Protein | | | [facility] | | | | | | [facility] | | | | | | CENTER - | | | | | | LABORATORY | | + +---------+ + + + | Albumin | 2.3 (L) | 3.2 - 5.0 g/dL | [facility] | | | | | | [facility] | | | | | | [facility] | | | | | | C[facility] - | | | | | | LABORATORY | | + +---------+ + + + | AST | 13 | 10 - 42 U/L | [facility] | | | | | | [facility] | | | | | | [facility] | | | | | | C[facility] - | | | | | | LABORATORY | | + +---------+ + + + | ALT | 19 | 6 - 45 U/L | [facility] | | | | | | [facility] | | | | | | [facility] | | | | | | CENTER - | | | | | | LABORATORY | | + +---------+ + + + | Alkaline | 87 | 40 - 110 U/L | [facility] | | | Phosphatase | | | [facility] | | | | | | [facility] | | | | | | CENTER - | | | | | | LABORATORY | | + +---------+ + + + | Globulin | 2.8 | 2.1 - 3.8 g/dL | [facility] | | | | | | [facility] | | | | | | [facility] | | | | | | C[facility] - | | | | | | LABORATORY | | + +---------+ + + + | Albumin/Serenity | 0.8 | 0.8 - 2.0 | [facility] | | | bulin Ratio | | | [facility] | | | | | | MED[facility] | | | | | | CENTER - | | | | | | LABORATORY | | + +---------+ + + + | Bilirubin, | 0.10 | 0.00 - 0.20 | [facility] | | | Direct | | mg/dl | [facility] | | | | [...] | + + + + + | [facility] | [address] | [place] | [phone] | | [facility] | | [address] | | | - LABORATORY | | | | + + + + + POC Glucose (05/12/2018 3:19 AM PDT) + +---------+ + + + | Component | Value | Ref Range | Performed | Pathologist | | | | | At | Signature | + +---------+ + + + | Glucose, | 119 (H) | 70 - 109 mg/dL | [...] + + | [facility] | [address] | [place] | [phone] | | [facility] | | [address] | | | - LABORATORY | | | | + + + + + POC Glucose (05/11/2018 9:54 PM PDT) + +---------+ + + + | Component | Value | Ref Range | Performed | Pathologist | | | | | At | Signature | + +---------+ + + + | Glucose, | 176 (H) | 70 - 109 mg/dL | [...] + | [facility] | [address] | [place] | [phone] | | [facility] | | [address] | | | - LABORATORY | | | | + + + + + POC Glucose (05/11/2018 4:52 PM PDT) + +---------+ + + + | Component | Value | Ref Range | Performed | Pathologist | | | | | At | Signature | + +---------+ + + + | Glucose, | 152 (H) | 70 - 109 mg/dL | [facility] | | | POC | | | [facility] | | [...] | [address] | [place] | [phone] | | [facility] | | [address] | | | - LABORATORY | | | | + + + + + POC Glucose (05/11/2018 12:36 PM PDT) + +---------+ + + + | Component | Value | Ref Range | Performed | Pathologist | | | | | At | Signature | + +---------+ + + + | Glucose, | 182 (H) | 70 - 109 mg/dL | [facility] | | | POC | | | [...] ST. | [address] | [place] | [phone] | | [facility] | | [address] | | | - LABORATORY | | | | + + + + + NM Nuclear Stress Test (Vasodilator) (05/11/2018 10:45 AM PDT) + +--------+ + + + | Component | Value | Ref Range | Performed | Pathologist | | | | | At | Signature | + +--------+ + + + | BASELINE | 80 | bpm | [facility] | | | HEART RATE | | | | | + +--------+ + + + | BASELINE | 145/80 | mmHg | [facility] | | | BLOOD | | | | | | PRESSURE | | | | | + +--------+ + + + | PEAK HEART | 87 | | [facility] | | | RATE | | | | | + +--------+ + + + | PEAK BLOOD | 145/80 | mmHG | [facility] | | | PRESSURE | | | | | + +--------+ + + + | Target HR | 136 | | [facility] | | + +--------+ + + + | Percent HR | 54 | | [facility] | | + +--------+ + + + | LVEF-SPECT | 35 | % | [facility] | | | NUCLEAR | | | | | | STRESS/VIAB | | | | | | ILITY | | | | | + +--------+ + + + + + | Specimen | + + | | + + + + + | Narrative | Performed At | + + + | 1. | [facility] | | [facility] EKG is negative.2. Abnormal [facility] sestamibi | | | myocardial perfusion imaging study with a large size, partially | | | reversible defect of a severe in severity in the entire inferior and | | | inferolateral region. This suggests a large size partial myocardial | | | ischemia of both right coronary artery and left circumflex artery | | | territory. Left ventricular cavity is dilated. There is a moderate | | | global hypokinesis of the left ventricle. Overall, left ventricular | | | systolic function is moderately decreased. LVEF by gated SPECT is | | | 35%. | | + + + + +---------+ + + | Performing | Address | City/State/Zipcode | Phone Number | | Organization | | | | + +---------+ + + | [facility] | | | | + +---------+ + + ECG 12 lead (05/11/2018 7:31 AM PDT) + + + + + + | Component | Value | Ref Range | Performed | Pathologist | | | | | At | Signature | + + + + + + | VENTRICULAR | 80 | BPM | [facility] | | | RATE EKG | | | | | + + + + + + | ATRIAL RATE | 80 | BPM | [facility] | | + + + + + + | P-R | 154 | ms | [facility] | | | INTERVAL | | | | | + + + + + + | QRS | 136 | ms | [facility] | | | DURATION | | | | | + + + + + + | Q-T | 422 | ms | [facility] | | | INTERVAL | | | | | + + + + + + | Q-T | 486 | ms | [facility] | | | INTERVAL | | | | | | (CORRECTED) | | | | | + + + + + + | P WAVE AXIS | 10 | degrees | [facility] | | + + + + + + | QRS AXIS | 132 | degrees | [facility] | | + + + + + + | T AXIS | -45 | degrees | [facility] | | + + + + + + | INTERPRETAT | Normal sinus rhythmRight | | [facility] | | | ION TEXT | bundle branch blockLeft | | | | | | posterior fascicular | | | | | | block Bifascicular | | | | | | block Nonspecific T | | | | | | wave abnormalityAbnormal | | | | | | ECGNo previous ECGs | | | | | | availableConfirmed by | | | | | | KATERYNA QUIÑONES MD ([id number]) | | | | | | on 05/11/2018 1:15:50 PM | | | | | | | [...] | + +---------+ + + POC Glucose (05/11/2018 6:33 AM PDT) + +---------+ + + + | Component | Value | Ref Range | Performed | Pathologist | | | | | At | Signature | + +---------+ + + + | Glucose, | 121 (H) | 70 - 109 mg/dL | [facility] | | | POC | | | [facility] | | [...] + | [facility] | [address] | [place], [place] | [phone] | | [facility] | | [address] | | | - LABORATORY | | | | + + + + + Hepatitis A Ab, IgM (05/11/2018 5:31 AM PDT) + + + + + + | Component | Value | Ref Range | Performed | Pathologist | | | | | At | Signature | + + + + + + | HEP A IGM | Negative | Negative | [facility] | | | AB, REF | | | LAB [facility] | | | | | | - BKR | | + + + + + + + + | Specimen | + + | Blood | + + + + + | Narrative | Performed At | + + + | Performed at: 01 - [facility] [place] [address], | REFERENCE LAB | | [place], [place] [id number] City Assessor: Fabio Villagran MD, Phone: | [facility] | | [phone] | | + + + + + + + + | Performing | Address | City/State/Zipcode | Phone Number | | Organization | | | | + + + + + | REFERENCE LAB | [address] | [place], [place] | [phone] | | [facility] | Drive [facility] | [address] | | + + + + + Extra Lavender Top Tube (05/11/2018 5:31 AM PDT) + +-------+ + + + | Component | Value | Ref Range | Performed | Pathologist | | | | | At | Signature | + +-------+ + + + | Extra | Done | | [facility] | | | Lavender | | | [facility] | | | Top Tube | | | MEDICAL | | | [address] | [place] | [phone] | | [facility] | | [address] | | | - LABORATORY | | | | + + + + + Magnesium (05/11/2018 5:31 AM PDT) + +-------+ + + + | Component | Value | Ref Range | Performed | Pathologist | | | | | At | Signature | + +-------+ + + + | Magnesium | 1.8 | 1.8 - 2.5 mg/dL | [facility] | | | | [...] + | [facility] | [address] | [place] | [phone] | | [facility] | | [address] | | | - LABORATORY | | | | + + + + + Renal Function Panel (05/11/2018 5:31 AM PDT) + + + + + + | Component | Value | Ref Range | Performed | Pathologist | | | | | At | Signature | + + + + + + | Na | 137 | 136 - 149 | [facility] | | | | | mmol/L | [facility] | | | | | | MEDICAL | | | | | | CENTER - | | | | | | LABORATORY | | + + + + + + | K | 4.1 | 3.5 - 5.1 | [facility] | | | | | mmol/L | [facility] | | | | | | MEDICAL | | | | | | CENTER - | | | | | | LABORATORY | | + + + + + + | Cl | 110 (H) | 98 - 109 mmol/L | [facility] | | | | | | [facility] | | | | | | MEDICAL | | | | | | CENTER - | | | | | | LABORATORY | | + + + + + + | CO2 | 20 (L) | 24 - 31 mmol/L | [facility] | | | | | | [facility] | | | | | | MEDICAL | | | | | | CENTER - | | | | | | LABORATORY | | + + + + + + | Anion Gap | 7 | 3 - 16 mmol/L | [facility] | | | | | | [facility] | | | | | | MEDICAL | | | | | | CENTER - | | | | | | LABORATORY | | + + + + + + | Glucose | 121 (H) | 70 - 109 mg/dL | [facility] | | | | | | [facility] | | | | | | MEDICAL | | | | | | CENTER - | | | | | | LABORATORY | | + + + + + + | BUN | 49 (H) | 7 - 18 mg/dL | [facility] | | | | | | [facility] | | | | | | MEDICAL | | | | | | CENTER - | | | | | | LABORATORY | | + + + + + + | Creatinine | 3.46 (H) | 0.60 - 1.30 | [facility] | | | | | mg/dL | [facility] | | | | | | MEDICAL | | | | | | CENTER - | | | | | | LABORATORY | | + + + + + + | eGFR if not | 14 (L) | >=60 | [facility] | | | | | mL/min/1.73m2 | [facility] | | | [facility] | | | MEDICAL | | | | | | CENTER - | | | | | | LABORATORY | | + + + + + + | Calcium | 7.8 (L) | 8.3 - 10.5 | [facility] | | | | | mg/dL | [facility] | | | | | | MEDICAL | | | | | | CENTER - | | | | | | LABORATORY | | + + + + + + | Albumin | 2.1 (L) | 3.2 - 5.0 g/dL | [facility] | | | | | | [facility] | | | | | | MEDICAL | | | | | | CENTER - | | | | | | LABORATORY | | + + + + + + | Phosphorus | 5.5 (H) | 2.5 - 4.6 mg/dL | [facility] | | | | | | [facility] | | | | | | MEDICAL | | | | | | CENTER - | | | | | | LABORATORY | | + + + + + + | BUN/Creatin | 14.2 | | [facility] | | | ine Ratio | | | [facility] | | [...] | + + + + + | [facility] | [address] | [place] | [phone] | | [facility] | | [address] | | | - LABORATORY | | | | + + + + + POC Glucose (05/10/2018 9:51 PM PDT) + +---------+ + + + | Component | Value | Ref Range | Performed | Pathologist | | | | | At | Signature | + +---------+ + + + | Glucose, | 181 (H) | 70 - 109 mg/dL | [facility] | | | POC | | | [...] [facility] | [address] | [place] | [phone] | | [facility] | | [address] | | | - LABORATORY | | | | + + + + + POC Glucose (05/10/2018 5:29 PM PDT) + +---------+ + + + | Component | Value | Ref Range | Performed | Pathologist | | | | | At | Signature | + +---------+ + + + | Glucose, | 145 (H) | 70 - 109 mg/dL | [...] + | [facility] | [address] | [place] | [phone] | | [facility] | | [address] | | | - LABORATORY | | | | + + + + + POC Glucose (05/10/2018 11:54 AM PDT) + +---------+ + + + | Component | Value | Ref Range | Performed | Pathologist | | | | | At | Signature | + +---------+ + + + | Glucose, | 151 (H) | 70 - 109 mg/dL | [facility] | | POC | | | [facility] | | | | | | MEDICAL [...] + | [facility] | [address] | [place] | [phone] | | [facility] | | [address] | | | - LABORATORY | | | | + + + + + XR Chest 2 Vws (05/10/2018 11:46 AM PDT) + + | Specimen | + + | | + + + + + | Narrative | Performed At | + + + | PA AND LATERAL CHEST 05/10/2018 11:46 AM CLINICAL HISTORY: | [facility] | | Follow up of CHF COMPARISON: None available FINDINGS: The | | | visible cardiac silhouette appears prominent. There is aortic | | | calcification. Pulmonary vasculature is mildly prominent. Moderate | | | dependent bilateral pleural effusions are present and there is hazy | | | reticular opacity in the adjacent mid lungs. There is mild | | | thickening of the right minor fissure. Upper lung trivedi are clear. | | | No pneumothorax is evident. Mild wedging deformity of adjacent | | | lower thoracic vertebral bodies is uncertain in chronicity. | | | Cholecystectomy clips are suggested. IMPRESSION - 1. | | | PROMINENCE OF THE VISIBLE CARDIAC SILHOUETTE AND PULMONARY | | | VASCULATURE WITH MODERATE DEPENDENT PLEURAL EFFUSIONS AND ASSOCIATED | | | ATELECTASIS/CONSOLIDATION. Dictated and Signed by: Juan A Rowe, | | | Electronically signed: 05/10/2018 1:12 PM | | + + + + + | Procedure Note | + + | Donato, Rad Results In - 05/10/2018 1:15 PM PDT PA AND LATERAL CHEST 05/10/2018 11:46 | | AMCLINICAL HISTORY: Follow up of CHFCOMPARISON: None availableFINDINGS: The visible | | cardiac silhouette appears prominent. There is aorticcalcification. Pulmonary | | vasculature is mildly prominent. Moderate dependentbilateral pleural effusions are | | present and there is hazy reticular opacity inthe adjacent mid lungs. There is mild | | thickening of the right minor fissure. Upper lung trivedi are clear. No pneumothorax is | | evident. Mild wedgingdeformity of adjacent lower thoracic vertebral bodies is uncertain | | inchronicity. Cholecystectomy clips are suggested.IMPRESSION - 1. PROMINENCE OF THE | | VISIBLE CARDIAC SILHOUETTE AND PULMONARY VASCULATURE WITHMODERATE DEPENDENT PLEURAL | | EFFUSIONS AND ASSOCIATED ATELECTASIS/CONSOLIDATION.Dictated and Signed by: Juan A Rowe | | Electronically signed: 05/10/2018 1:12 PM | |deformity of adjacent lower thoracic vertebral bodies is uncertain in | |chronicity. Cholecystectomy clips are suggested. | | | |IMPRESSION - | | | |1. PROMINENCE OF THE VISIBLE CARDIAC SILHOUETTE AND PULMONARY VASCULATURE WITH | |MODERATE DEPENDENT PLEURAL EFFUSIONS AND ASSOCIATED ATELECTASIS/CONSOLIDATION. | | | |Dictated and Signed by: Juan A Rowe MD | | Electronically signed: 05/10/2018 1:12 PM | + + + +---------+ + + | Performing | Address | City/State/Zipcode | Phone Number | | Organization | | | | + +---------+ + + | [facility] | | | | + +---------+ + + POC Glucose (05/10/2018 6:54 AM PDT) + +---------+ + + + | Component | Value | Ref Range | Performed | Pathologist | | | | | At | Signature | + +---------+ + + + | Glucose, | 110 (H) | 70 - 109 mg/dL | [...] + | [facility] | [address] | [place] | [phone] | | [facility] | | [address] | | | - LABORATORY | | | | + + + + + Lipid Panel (05/10/2018 4:39 AM PDT) + + + + + + | Component | Value | Ref Range | Performed | Pathologist | | | | | At | Signature | + + + + + + | Triglycerid | 118 | 35 - 160 mg/dL | [facility] | | | es | | | [facility] | | | | | | MEDICAL | | | | | | CENTER - | | | | | | LABORATORY | | + + + + + + | Cholesterol | 172 | 150 - 200 mg/dL | [facility] | | | | | | [facility] | | | | | | MEDICAL | | | | | | CENTER - | | | | | | LABORATORY | | + + + + + + | HDL | 44Comment: New HDL | 28 - 83 mg/dL | [facility] | | | | Reference Range as of | | [facility] | | | | March 27, 2015 | | MEDICAL | | | | Values may be 10-20% | | CENTER - | | | | lower with new, | | LABORATORY | | | | standardized method. | | | | + + + + + + | Chol/HDL | 3.9 | | [facility] | | | Ratio | | | [facility] | | | | | | MEDICAL | | | | | | CENTER - | | | | | | LABORATORY | | + + + + + + | LDL, | 104 | <=130 mg/dL | [facility] | | | Calculated | | | [facility] | | | | | | [...] + + | [facility] | [address] | [place] | [phone] | | [facility] | | [address] | | | - LABORATORY | | | | + + + + + Magnesium (05/10/2018 4:39 AM PDT) + +-------+ + + + | Component | Value | Ref Range | Performed | Pathologist | | | | | At | Signature | + +-------+ + + + | Magnesium | 1.8 | 1.8 - 2.5 mg/dL | [facility] | | | | | | [facility] [...] + | [facility] | [address] | [place] | [phone] | | [facility] | | [address] | | | - LABORATORY | | | | + + + + + Renal Function Panel (05/10/2018 4:39 AM PDT) + + + + + + | Component | Value | Ref Range | Performed | Pathologist | | | | | At | Signature | + + + + + + | Na | 139 | 136 - 149 | [facility] | | | | | mmol/L | [facility] | | | | | | MEDICAL | | | | | | CENTER - | | | | | | LABORATORY | | + + + + + + | K | 4.8 | 3.5 - 5.1 | [facility] | | | | | mmol/L | [facility] | | | | | | MEDICAL | | | | | | CENTER - | | | | | | LABORATORY | | + + + + + + | Cl | 113 (H) | 98 - 109 mmol/L | [facility] | | | | | | [facility] | | | | | | MEDICAL | | | | | | CENTER - | | | | | | LABORATORY | | + + + + + + | CO2 | 20 (L) | 24 - 31 mmol/L | [facility] | | | | | | [facility] | | | | | | MEDICAL | | | | | | CENTER - | | | | | | LABORATORY | | + + + + + + | Anion Gap | 6 | 3 - 16 mmol/L | [facility] | | | | | | [facility] | | | | | | MEDICAL | | | | | | CENTER - | | | | | | LABORATORY | | + + + + + + | Glucose | 121 (H) | 70 - 109 mg/dL | [facility] | | | | | | [facility] | | | | | | MEDICAL | | | | | | CENTER - | | | | | | LABORATORY | | + + + + + + | BUN | 49 (H) | 7 - 18 mg/dL | [...] + | eGFR if not | 15 (L) | >=60 | [facility] | | | | | mL/min/1.73m2 | [facility] | | | [facility] | | | MEDICAL | | | | | | CENTER - | | | | | | LABORATORY | | + + + + + + | Calcium | 7.7 (L) | 8.3 - 10.5 | [facility] | | | | | mg/dL | [facility] | | | | | | MEDICAL | | | | | | CENTER - | | | | | | LABORATORY | | + + + + + + | Albumin | 2.1 (L) | 3.2 - 5.0 g/dL | [facility] | | | | | | [facility] | | | | | | MEDICAL | | | | | | CENTER - | | | | | | LABORATORY | | + + + + + + | Phosphorus | 5.6 (H) | 2.5 - 4.6 mg/dL | [facility] | | | | | | [facility] | | | | | | MEDICAL | | | | | | CENTER - | | | | | | LABORATORY | | + + + + + + | BUN/Creatin | 15.4 | | [facility] | | | ine Ratio | | | [facility] | | [...] [address] | [place] | [phone] | | [facility] | | [address] | | | - LABORATORY | | | | + + + + + CBC with Differential (05/10/2018 4:39 AM PDT) + + + + + + | Component | Value | Ref Range | Performed | Pathologist | | | | | At | Signature | + + + + + + | WBC | 5.8 | 4.0 - 11.0 K/uL | [facility] | | | | | | [facility] | | | | | | MEDICAL | | | | | | CENTER - | | | | | | LABORATORY | | + + + + + + | RBC | 3.23 (L) | 3.70 - 5.20 | [facility] | | | | | M/uL | [facility] | | | | | | MEDICAL | | | | | | CENTER - | | | | | | LABORATORY | | + + + + + + | Hemoglobin | 8.6 (L) | 11.5 - 16.0 | [facility] | | | | | g/dL | [facility] | | | | | | MEDICAL | | | | | | CENTER - | | | | | | LABORATORY | | + + + + + + | Hematocrit | 28.4 (L) | 34.0 - 47.0 % | [facility] | | | | | | [facility] | | | | | | MEDICAL | | | | | | CENTER - | | | | | | LABORATORY | | + + + + + + | MCV | 87.9 | 83.0 - 101.0 fL | [facility] | | | | | | [facility] | | | | | | MEDICAL | | | | | | CENTER - | | | | | | LABORATORY | | + + + + + + | MCH | 26.6 (L) | 28.0 - 35.0 pg | [facility] | | | | | | [facility] | | | | | | MEDICAL | | | | | | CENTER - | | | | | | LABORATORY | | + + + + + + | MCHC | 30.3 (L) | 32.0 - 36.0 | [facility] | | | | | g/dL | [facility] | | | | | | MEDICAL | | | | | | CENTER - | | | | | | LABORATORY | | + + + + + + | RDW-CV | 14.8 | <15.0 % | [facility] | | | | | | [facility] | | | | | | MEDICAL | | | | | | CENTER - | | | | | | LABORATORY | | + + + + + + | RDW-SD | 47.8 (H) | 35.1 - 46.3 fL | [facility] | | | | | | [facility] | | | | | | MEDICAL | | | | | | CENTER - | | | | | | LABORATORY | | + + + + + + | Platelet | 269 | 140 - 440 K/uL | [facility] | | | Count | | | [facility] | | | | | | MEDICAL | | | | | | CENTER - | | | | | | LABORATORY | | + + + + + + | MPV | 9.3 | 6.5 - 12.4 fL | [facility] | | | | | | [facility] | | | | | | MEDICAL | | | | | | CENTER - | | | | | | LABORATORY | | + + + + + + | % | 58.8 | 45.0 - 82.0 % | [facility] | | | Neutrophils | | | [facility] | | | | | | MEDICAL | | | | | | CENTER - | | | | | | LABORATORY | | + + + + + + | % | 29.2 | 20.0 - 45.0 % | [facility] | | | Lymphocytes | | | [facility] | | | | | | MEDICAL | | | | | | CENTER - | | | | | | LABORATORY | | + + + + + + | % Monocytes | 7.6 | 4.0 - 12.0 % | [facility] | | | | | | [facility] | | | | | | MEDICAL | | | | | | CENTER - | | | | | | LABORATORY | | + + + + + + | % | 3.3 | 0.0 - 5.0 % | [facility] | | | Eosinophils | | | [facility] | | | | | | MEDICAL | | | | | | CENTER - | | | | | | LABORATORY | | + + + + + + | % Basophils | 0.9 | 0.0 - 1.0 % | [facility] | | | | | | [facility] | | | | | | MEDICAL | | | | | | CENTER - | | | | | | LABORATORY | | + + + + + + | % Immature | 0.2 | 0.0 - 0.4 % | [facility] | | | Granulocyte | | | [facility] | | | s | | | MEDICAL | | | | | | CENTER - | | | | | | LABORATORY | | + + + + + + | Absolute | 3.41 | 1.80 - 8.50 | [facility] | | | Neutrophils | | K/uL | [facility] | | | | | | MEDICAL | | | | | | CENTER - | | | | | | LABORATORY | | + + + + + + | Absolute | 1.69 | 0.60 - 3.20 | [facility] | | | Lymphocytes | | K/uL | [facility] | | | | | | MEDICAL | | | | | | CENTER - | | | | | | LABORATORY | | + + + + + + | Absolute | 0.44 | 0.00 - 1.00 | [facility] | | | Monocytes | | K/uL | [facility] | | | | | | MEDICAL | | | | | | CENTER - | | | | | | LABORATORY | | + + + + + + | Absolute | 0.19 | 0.00 - 0.40 | [facility] | | | Eosinophils | | K/uL | [facility] | | | | | | MEDICAL | | | | | | CENTER - | | | | | | LABORATORY | | + + + + + + | Absolute | 0.05 | 0.00 - 0.10 | [facility] | | | Basophils | | K/uL | [facility] | | | | | | MEDICAL | | | | | | CENTER - | | | | | | LABORATORY | | + + + + + + | Absolute | 0.01 | 0.00 - 0.03 | [facility] | | | Immature | | K/uL | [facility] | | | Granulocyte | | | MEDICAL | | | s | | | CENTER - | | | | | | LABORATORY | | + + + + + + | % nRBC | 0 | 0 - 2 per 100 | [facility] | | | | | WBC's | [facility] | | | | | | MEDICAL | | | | | | CENTER - | | | | | | LABORATORY | | + + + + + + | Absolute | 0.00 | 0.00 - 0.01 | [facility] | | | nRBC | | K/uL | [facility] | | | | [...] + + | [facility] | [address] | [place] | [phone] | | [facility] | | [address] | | | - LABORATORY | | | | + + + + + POC Glucose (05/09/2018 9:59 PM PDT) + +---------+ + + + | Component | Value | Ref Range | Performed | Pathologist | | | | | At | Signature | + +---------+ + + + | Glucose, | 143 (H) | 70 - 109 mg/dL | [facility] | | | POC | | | [...] + | [facility] | [address] | [place] | [phone] | | [facility] | | [address] | | | - LABORATORY | | | | + + + + + POC Glucose (05/09/2018 5:16 PM PDT) + +---------+ + + + | Component | Value | Ref Range | Performed | Pathologist | | | | | At | Signature | + +---------+ + + + | Glucose, | 141 (H) | 70 - 109 mg/dL | [...] + + | [facility] | [address] | [place] | [phone] | | [facility] | | [address] | | | - LABORATORY | | | | + + + + + ECHO Complete (05/09/2018 2:03 PM PDT) + +--------+ + + + | Component | Value | Ref Range | Performed | Pathologist | | | | | At | Signature | + +--------+ + + + | Patient | 184lb | | [facility] | | | Weight | | | | | | (lbs) | | | | | + +--------+ + + + | Patient | 5f5in | | [facility] | | | Height | | | | | + +--------+ + + + | LVEF-TTE | 25 | % | [facility] | | | TRANSTHORAC | | | | | | IC ECHO | | | | | + +--------+ + + + | BASELINE | 157/92 | mmHg | [facility] | | | BLOOD | | | | | | PRESSURE | | | | | + +--------+ + + + | LVIDd | 6.34 | cm | [facility] | | + +--------+ + + + | FS | 13 | % | [facility] | | + +--------+ + + + | LA volume | 101.67 | mL | [facility] | | + +--------+ + + + | Aortic arch | 3.04 | cm | [facility] | | + +--------+ + + + | MV Area by | 6.02 | cm2 | [facility] | | | P 1/2 | | | | | | method | | | | | + +--------+ + + + | IVRT | 93.43 | msec | [facility] | | + +--------+ + + + | LVOT peak | 74.29 | cm/s | [facility] | | | markel | | | | | + +--------+ + + + | AV peak markel | 94 | cm/s | [facility] | | + +--------+ + + + | AV peak | 4.00 | mmHg | [facility] | | | gradient | | | | | + +--------+ + + + | MV peak | 2.55 | mmHg | [facility] | | | gradient | | | | | + +--------+ + + + | MV Pressure | 36.56 | msec | [facility] | | | 1/2 time | | | | | + +--------+ + + + | LA Volume | 53 | mL/m2 | [facility] | | | Index | | | | | + +--------+ + + + | AV LVOT | 2.21 | mmHg | [facility] | | | Peak | | | | | | Gradient | | | | | + +--------+ + + + | TR Peak | 31 | mmHg | [facility] | | | Gradient | | | | | + +--------+ + + + | TR Velocity | 279.08 | cm | [facility] | | + +--------+ + + + | LV | 8.41 | cm | [facility] | | | Diastolic | | | | | | Length 4C | | | | | + +--------+ + + + | LV | 30 | % | [facility] | | | Zuniga's | | | | | | Biplane EF | | | | | + +--------+ + + + | LV ED | 157.28 | ml | [facility] | | | Volume | | | | | | (Zuniga's) | | | | | + +--------+ + + + | LV ED | 82 | ml/m2 | [facility] | | | Volume | | | | | | Index | | | | | + +--------+ + + + | LV ES | 103.83 | ml | [facility] | | | Volume | | | | | + +--------+ + + + | MV E' | 3 | cm/s | [facility] | | | Septal | | | | | | Velocity | | | | | + +--------+ + + + | MV | 633.74 | cm/s2 | [facility] | | | Deceleratio | | | | | | n [place] | | | | | + +--------+ + + + | MV | 126.06 | msec | [facility] | | | Deceleratio | | | | | | n Time | | | | | + +--------+ + + + | MV E/A | 0.83 | | [facility] | | | Ratio | | | | | + +--------+ + + + | MV Peak | 95.85 | cm/s | [facility] | | | A-Wave | | | | | + +--------+ + + + | MV Peak | 79.89 | cm/s | [facility] | | | E-Wave | | | | | + +--------+ + + + | LA/Aorta | 1.33 | | [facility] | | | Ratio | | | | | + +--------+ + + + | MV E/E | 26.63 | | [facility] | | | SEPTAL | | | | | + +--------+ + + + | LV ES | 54 | ml/m2 | [facility] | | | Volume | | | | | | Index | | | | | + +--------+ + + + | Aortic Root | 3.39 | cm | [facility] | | | Diameter | | | | | + +--------+ + + + | IVS | 1.14 | cm | [facility] | | | Diastolic | | | | | | Thickness | | | | | | MM | | | | | + +--------+ + + + | LVPW | 0.74 | cm | [facility] | | | Diastolic | | | | | | Thickness | | | | | | MM | | | | | + +--------+ + + + | LV Systolic | 5.53 | cm | [facility] | | | Diameter | | | | | | MM | | | | | + +--------+ + + + | AV Cusp | 1.92 | cm | [facility] | | | Seperation | | | | | | MM | | | | | + +--------+ + + + | LA Systolic | 4.5 | cm | [facility] | | | Diameter | | | | | | MM | | | | | + +--------+ + + + | TAPSE | 1.1 | cm | [facility] | | + +--------+ + + + | RA PRESSURE | 15 | mmHg | [facility] | | + +--------+ + + + | RVSP | 46 | mmHg | [facility] | | | Estimated | | | | | + +--------+ + + + + + | Specimen | + + | | + + + + + | Narrative | Performed At | + + + | 1. Moderate | [facility] | | to severe biatrial dilatation.2. Moderate left ventricular | | | dilatation with a mild eccentric left ventricular hypertrophy. There | | | is a severe global hypokinesis of the left ventricle. Overall, left | | | ventricular significant is severely decreased. LVEF is 25-30%.3. | | | Grade 1 left ventricular diastolic dysfunction.4. Mildly thickened | | | and calcified trileaflet aortic valve with adequate opening. There | | | is a trace aortic valve insufficiency.5. Mildly thickened and | | | calcified mitral valve with a mild central mitral valve | | | regurgitation.6. Mild mitral annular calcification.7. Mild | | | tricuspid valve regurgitation.8. Mild pulmonary hypertension with a | | | peak systolic pressure 45-50 mmHg.9. Dilated IVC without respiratory | | | collapse suggesting fluid retention.10. Moderate circumferential | | | pericardial effusion without evidence of cardiac tamponade.11. | | | Evidence of left pleural effusion. | | |cardiac tamponade. | | |11. Evidence of left pleural effusion. | | + + + + +---------+ + + | Performing | Address | City/State/Zipcode | Phone Number | | Organization | | | | + +---------+ + + | [facility] | | | | + +---------+ + + POC Glucose (05/09/2018 12:07 PM PDT) + +---------+ + + + | Component | Value | Ref Range | Performed | Pathologist | | | | | At | Signature | + +---------+ + + + | Glucose, | 165 (H) | 70 - 109 mg/dL | [...] + + | [facility] | [address] | [place] | [phone] | | [facility] | | [id number] | | | - LABORATORY | | | | + + + + + US Renal Complete (05/09/2018 10:10 AM PDT) + + | Specimen | + + | | + + + + + | Narrative | Performed At | + + + | EXAM:US RENAL COMPLETE CLINICAL HISTORY: Acute kidney injury. | [facility] | | COMPARISON: None. FINDINGS: Kidneys: The kidneys are | | | somewhat limited in visualization. No significant parenchymal | | | thinning. Possible punctate calcification in the left kidney. No | | | hydronephrosis. Each kidney measures about 10 cm longitudinally. | | | Bladder: The prevoid bladder volume is 532 cc. No visible bladder | | | wall abnormalities. Postvoid imaging was not performed. Ureteral | | | jets are not identified. Incidental identification of a left | | | sided pleural effusion. IMPRESSION - No evidence for an | | | obstructive uropathy. Left pleural effusion. Dictated and | | | Signed by: Geoff Ayon MD Electronically signed: 05/09/2018 | | | 10:41 AM | | + + + + + | Procedure Note | + + | Donato, Rad Results In - 05/09/2018 10:44 AM PDT EXAM:US RENAL COMPLETE | | | | CLINICAL HISTORY: Acute kidney injury. | | | | COMPARISON: None. | | | | FINDINGS: | | | | Kidneys: The kidneys are somewhat limited in visualization. No significant | | parenchymal thinning. Possible punctate calcification in the left kidney. No | | hydronephrosis. Each kidney measures about 10 cm longitudinally. | | | | Bladder: The prevoid bladder volume is 532 cc. No visible bladder wall | | abnormalities. Postvoid imaging was not performed. Ureteral jets are not | | identified. | | | | Incidental identification of a left sided pleural effusion. | | | | IMPRESSION - | | | | No evidence for an obstructive uropathy. | | | | Left pleural effusion. | | | | Dictated and Signed by: Geoff Ayon MD | | Electronically signed: 05/09/2018 10:41 AM | + + + +---------+ + + | Performing | Address | City/State/Zipcode | Phone Number | | Organization | | | | + +---------+ + + | [facility] | | | | + +---------+ + + Extra Gold Top Tube (05/09/2018 5:03 AM PDT) + +-------+ + + + | Component | Value | Ref Range | Performed | Pathologist | | | | | At | Signature | + +-------+ + + + | Extra Gold | Done | | [facility] | | | Top Tube | | | [facility] | | [...] [address] | [place] | [phone] | | [facility] | | [address] | | | - LABORATORY | | | | + + + + + Protein Electrophoresis, Serum (05/09/2018 5:03 AM PDT) + +---------+ + + + | Component | Value | Ref Range | Performed | Pathologist | | | | | At | Signature | + +---------+ + + + | Total | 4.6 (L) | 6.0 - 7.8 g/dL | [facility] | | | Protein | | | [facility] | | | | [facility] | [facility] | | | | [facility] - | | | | | | LABORATORY | | + +---------+ + + + | ELP Albumin | 2.3 (L) | 3.6 - 5.7 g/dL | [facility] | | | | | | [facility] | | | | [facility] | [facility] | | | | | | C[facility] - | | | | | | LABORATORY | | + +---------+ + + + | ELP Alpha 1 | 0.2 | 0.1 - 0.2 g/dL | [facility] | | | Globulin | | | [facility] | | | | | | [facility] | | | | | | CENTER - | | | | | | LABORATORY | | + +---------+ + + + | ELP Alpha 2 | 0.8 | 0.4 - 0.9 g/dL | [facility] | | | Globulin | | | [facility] | | | | | | [facility] | | | | | | CENTER - | | | | | | LABORATORY | | + +---------+ + + + | ELP Beta 1 | 0.5 | 0.3 - 0.7 g/dL | [facility] | | | Globulin | | | [facility] | | | | | | [facility] | | | | | | CENTER - | | | | | | LABORATORY | | + +---------+ + + + | ELP Beta 2 | 0.4 | 0.1 - 0.4 g/dL | [facility] | | | Globulin | | | [facility] | | | | | | [facility] | | | | | | CENTER - | | | | | | LABORATORY | | + +---------+ + + + | ELP Gamma | 0.5 | 0.4 - 1.2 g/dL | [facility] | | | Globulin | | | [facility] | | | | | | [facility] | | | | | | CENTER - | | | | | | LABORATORY | | + +---------+ + + + | ELP Albumin | 50.3 | % | [facility] | | | % | | | [facility] | | | | | | [facility] | | | | | | CENTER - | | | | | | LABORATORY | | + +---------+ + + + | Albumin/Serenity | 1.0 | | [facility] | | | bulin Ratio | | | [facility] | | | | | | [facility] | | | | | | CENTER - | | | | | | LABORATORY | | + +---------+ + + + | ELP Alpha 1 | 4.4 | % | [facility] | | | Globulin % | | | [facility] | | | | | | [facility] | | | | | | CENTER - | | | | | | LABORATORY | | + +---------+ + + + | ELP Alpha 2 | 17.6 | % | [facility] | | | Globulin % | | | [facility] | | | | | | [facility] | | | | | | CENTER - | | | | | | LABORATORY | | + +---------+ + + + | ELP Beta 1 | 10.0 | % | [facility] | | | Globulin % | | | [facility] | | | | | | [facility] | | | | | | CENTER - | | | | | | LABORATORY | | + +---------+ + + + | ELP Beta 2 | 7.7 | % | [facility] | | | Globulin % | | | [facility] | | | | | | [facility] | | | | | | CENTER - | | | | | | LABORATORY | | + +---------+ + + + | ELP Gamma | 10.0 | % | [facility] | | | Globulin % | | | [facility] | | | | | | [facility] | | | | | | CENTER - | | | | | | LABORATORY | | + +---------+ + + + + + | Specimen | + + | Blood | + + + + + | Narrative | Performed At | + + + | Negative for a | [facility] | | monoclonal proteinAnnika Salmon MD, 05/10/18. | [facility] | | | [facility] | | | - LABORATORY | + + + + + + + + | Performing | Address | City/State/Zipcode | Phone Number | | Organization | | | | + + + + + | [facility] | [address] | [place] | [phone] | | [facility] | | [address] | | | - LABORATORY | | | | + + + + + Hepatitis Panel (05/09/2018 5:03 AM PDT) + + + + + + | Component | Value | Ref Range | Performed | Pathologist | | | | | At | Signature | + + + + + + | HEP A TOTAL | Positive (A) | Negative | [facility] | | | AB | | | [facility] | | [...] | Negative | [facility] | | | Core Ab, | | | [facility] | | | Total | | | - BKR | | + + + + + + | Hepatitis B | ReactiveComment: | | [facility] | | | Surface | Non | | [facility] | | | Antibody | Reactive: Inconsistent | | - B[facility] | | | Qual | with immunity, | | | | | | | | | | | | less than 10 | | | | | | mIU/mL | | | | | | Reactive: | | | | | | Consistent with | | | | | | immunity, | | | | | | | | | | | | greater than 9.9 | | | | | | mIU/mL | | | | + + + + + + | Hepatitis C | <0.1Comment: | 0.0 - 0.9 s/co | [facility] | | | Ab | | ratio | [facility] | | | | | | - BKR | | | | Negative: < 0.8 | | | | | | | | | | | | | | | | | | Indeterminate: 0.8 - 0.9 | | | | | | | | | | | | | | | | | | Positive: > 0.9 | | | | | | The CDC recommends that | | | | | | a positive HCV antibody | | | | | | result be followed up | | | | | | with a HCV Nucleic Acid | | | | | | Amplification test | | | | | | ([id number]). | | | | + + + + + + + + | Specimen | + + | Blood | + + + + + | Narrative | Performed At | + + + | Performed at: - [address] [id number], | REFERENCE LAB | | [place], [place] [id number] City Assessor: Fabio Villagran MD, Phone: | [facility] | | [phone] | | + + + + + + + + | Performing | Address | City/State/Zipcode | Phone Number | | Organization | | | | + + + + + | REFERENCE LAB | [address] | [place], [place] | [phone] | | [facility] | [place] | [address] | | + + + + + Ferritin (05/09/2018 5:03 AM PDT) + +-------+ + + + | Component | Value | Ref Range | Performed | Pathologist | | | | | At | Signature | + +-------+ + + + | FERRITIN | 48 | 11 - 307 ng/mL | [facility] | | | | | | [facility] | | [...] | + + + + + | [facility] | [address] | [place] | [phone] | | [facility] | | [address] | | | - LABORATORY | | | | + + + + + Iron and Transferrin (05/09/2018 5:03 AM PDT) + + + + + + | Component | Value | Ref Range | Performed | Pathologist | | | | | At | Signature | + + + + + + | Iron | 24 (L) | 40 - 150 ug/dL | [facility] | | | | | | [facility] | | | | | | MEDICAL | | | | | | CENTER - | | | | | | LABORATORY | | + + + + + + | TRANSFERRIN | 208.8 (L) | 240.0 - 480.0 | [facility] | | | | | mg/dL | [facility] | | | | | | MEDICAL | | | | | | CENTER - | | | | | | LABORATORY | | + + + + + + | TIBC | 292 | 235 - 425 ug/dL | [facility] | | | | | | [facility] | | | | | | MEDICAL | | | | | | CENTER - | | | | | | LABORATORY | | + + + + + + | % | 8.2 (L) | 20.0 - 55.0 % | [facility] | | | SATURATION | | | [facility] | | [...] [address] | [place] | [phone] | | [facility] | | [address] | | | - LABORATORY | | | | + + + + + ANCA Panel, no reflex (05/09/2018 5:03 AM PDT) + + + + + + | Component | Value | Ref Range | Performed | Pathologist | | | | | At | Signature | + + + + + + | Myeloperoxi | <9.0 | 0.0 - 9.0 U/mL | [facility] | | | dase | | | [facility] | | | Antibody | | | - BKR | | + + + + + + | Proteinase | <3.5 | 0.0 - 3.5 U/mL | [facility] | | | 3 Antibody | | | [facility] | | | | | | - BKR | | + + + + + + | C ANCA | <1:20 | Neg:<1:20 titer | [facility] | | | | | | [facility] | | | | | | - BKR | | + + + + + + | P ANCA | <1:20Comment: The | Neg:<1:20 titer | [facility] | | | | presence of positive | | [facility] | | | | fluorescence exhibiting | | - BKR | | | | P-ANCA or C-ANCApatterns | | | | | | alone is not specific | | | | | | for the diagnosis of | | | | | | Ivan'sGranulomatosis | | | | | | (WG) or microscopic | | | | | | polyangiitis. Decisions | | | | | | abouttreatment should | | | | | | not be based solely on | | | | | | ANCA IFA results. | | | | | | TheInternational ANCA | | | | | | Group Consensus | | | | | | recommends follow up | | | | | | testing ofpositive sera | | | | | | with both NE-3 and | | | | | | MPO-ANCA enzyme | | | | | | immunoassays. Asmany as | | | | | | 5% serum samples are | | | | | | positive only by | | | | | | EIA.Ref. AM J Clin | | | | | | Pathol 1999;[id number]. | | | | + + + + + + | Atypical | <1:20Comment: The | Neg:<1:20 titer | [facility] | | | pANCA | atypical pANCA pattern | | LAB [facility] | | | | has been observed in a | | - BKR | | | | significantpercentage of | | | | | | patients with | | | | | | ulcerative colitis, | | | | | | primary | | | | | | sclerosingcholangitis | | | | | | and autoimmune | | | | | | hepatitis. | | | | + + + + + + + + | Specimen | + + | Blood | + + + + + | Narrative | Performed At | + + + | Performed at: 01 - [facility] [address], | REFERENCE LAB | | [place], [place] [id number] City Assessor: Deuce Caballero MD, Phone: | [facility] | | [phone] | | + + + + + + + + | Performing | Address | City/State/Zipcode | Phone Number | | Organization | | | | + + + + + | REFERENCE LAB | [address] | [place], [place] | [phone] | | [facility] | [facility] | [address] | | + + + + + Renal Function Panel (05/09/2018 5:03 AM PDT) + + + + + + | Component | Value | Ref Range | Performed | Pathologist | | | | | At | Signature | + + + + + + | Na | 137 | 136 - 149 | [facility] | | | | | mmol/L | [facility] | | | | | | MEDICAL | | | | | | CENTER - | | | | | | LABORATORY | | + + + + + + | K | 4.6 | 3.5 - 5.1 | [facility] | | | | | mmol/L | [facility] | | | | | | MEDICAL | | | | | | CENTER - | | | | | | LABORATORY | | + + + + + + | Cl | 113 (H) | 98 - 109 mmol/L | [facility] | | | | | | [facility] | | | | | | MEDICAL | | | | | | CENTER - | | | | | | LABORATORY | | + + + + + + | CO2 | 17 (L) | 24 - 31 mmol/L | [facility] | | | | | | [facility] | | | | | | MEDICAL | | | | | | CENTER - | | | | | | LABORATORY | | + + + + + + | Anion Gap | 7 | 3 - 16 mmol/L | [facility] | | | | | | [facility] | | | | | | MEDICAL | | | | | | CENTER - | | | | | | LABORATORY | | + + + + + + | Glucose | 115 (H) | 70 - 109 mg/dL | [facility] | | | | | | [facility] | | | | | | MEDICAL | | | | | | CENTER - | | | | | | LABORATORY | | + + + + + + | BUN | 48 (H) | 7 - 18 mg/dL | [facility] | | | | | | [facility] | | | | | | MEDICAL | | | | | | CENTER - | | | | | | LABORATORY | | + + + + + + | Creatinine | 3.12 (H) | 0.60 - 1.30 | [facility] | | | | | mg/dL | [facility] | | | | | | MEDICAL | | | | | | CENTER - | | | | | | LABORATORY | | + + + + + + | eGFR if not | 15 (L) | >=60 | [facility] | | | | | mL/min/1.73m2 | [facility] | | | [facility] | | | MEDICAL | | | | | | CENTER - | | | | | | LABORATORY | | + + + + + + | Calcium | 7.8 (L) | 8.3 - 10.5 | [facility] | | | | | mg/dL | [facility] | | | | | | MEDICAL | | | | | | CENTER - | | | | | | LABORATORY | | + + + + + + | Albumin | 2.3 (L) | 3.2 - 5.0 g/dL | [facility] | | | | | | [facility] | | | | | | MEDICAL | | | | | | CENTER - | | | | | | LABORATORY | | + + + + + + | Phosphorus | 5.5 (H) | 2.5 - 4.6 mg/dL | [facility] | | | | | | [facility] | | | | | | MEDICAL | | | | | | CENTER - | | | | | | LABORATORY | | + + + + + + | BUN/Creatin | 15.4 | | [facility] | | | ine Ratio | | | [facility] | | [...] + | [facility] | [address] | [place] | [phone] | | [facility] | | [address] | | | - LABORATORY | | | | + + + + + Troponin I (05/09/2018 5:03 AM PDT) + + + + + + | Component | Value | Ref Range | Performed | Pathologist | | | | | At | Signature | + + + + + + | Troponin I | 0.20 (H)Comment: | <0.06 ng/mL | [facility] | | | | Reference | | [facility] | | | | Ranges:0.00-0.06 = | | MEDICAL | | | | NORMAL>0.06 = | | CENTER - | | | | SUSPICIOUS FOR | | LABORATORY | | | | MYOCARDIAL DAMAGE NOTE: | | | | | | Values greater than 0.50 | | | | | | ng/mL have been shown | | | | | | to be strongly | | | | | | associated with acute | | | | | | myocardial infarction. | | | | | | The [employer] | | | | | | Cardiology (ACC) | | | | | | recommends a decision | | | | | | limit of 0.06 ng/mL for | | | | | | this assay. Results | | | | | | greater than 0.06 can | | | | | | reflect a pre-infarct | | | | | | acute coronary syndrome, | | | | | | but can also reflect | | | | | | myocardial necrosis or | | | | | | injury that is not due | | | | | | to coronary artery | | | | | | disease. Some of these | | | | | | causes are sepsis, | | | | | | hypocolemia, atrial | | | | | | fibrillation, heart | | | | | | failure, pulmonary | | | | | | embolism, myocarditis, | | | | | | myocardial contusion, | | | | | | and renal failure. The | | | | | | diagnosis of myocardial | | | | | | infarction should be | | | | | | based on a combination | | | | | | of the patient's | | | | | | clinical presentation | | | | | | and the clinical | | | | | | laboratory test results | | | | | | (especially serial | | | | | | troponin levels). | | | | + + + + + + + + | Specimen | + + | Blood | + + + + + + + | Performing | Address | City/State/Zipcode | Phone Number | | Organization | | | | + + + + + | [facility] | [address] | [place] | [phone] | | [facility] | | [address] | | | - LABORATORY | | | | + + + + + CBC no Differential (05/09/2018 5:03 AM PDT) + + + + + + | Component | Value | Ref Range | Performed | Pathologist | | | | | At | Signature | + + + + + + | WBC | 6.1 | 4.0 - 11.0 K/uL | [facility] | | | | | | [facility] | | | | | | [facility]ICAL | | | | | | CENTER - | | | | | | LABORATORY | | + + + + + + | RBC | 3.33 (L) | 3.70 - 5.20 | [facility] | | | | | M/uL | [facility] | | | | | | MEDICAL | | | | | | CENTER - | | | | | | LABORATORY | | + + + + + + | Hemoglobin | 8.9 (L) | 11.5 - 16.0 | [facility] | | | | | g/dL | [facility] | | | | | | MEDICAL | | | | | | CENTER - | | | | | | LABORATORY | | + + + + + + | Hematocrit | 29.2 (L) | 34.0 - 47.0 % | [facility] | | | | | | [facility] | | | | | | MEDICAL | | | | | | CENTER - | | | | | | LABORATORY | | + + + + + + | MCV | 87.7 | 83.0 - 101.0 fL | [facility] | | | | | | [facility] | | | | | | MEDICAL | | | | | | CENTER - | | | | | | LABORATORY | | + + + + + + | MCH | 26.7 (L) | 28.0 - 35.0 pg | [facility] | | | | | | [facility] | | | | | | MEDICAL | | | | | | CENTER - | | | | | | LABORATORY | | + + + + + + | MCHC | 30.5 (L) | 32.0 - 36.0 | [facility] | | | | | g/dL | [facility] | | | | | | MEDICAL | | | | | | CENTER - | | | | | | LABORATORY | | + + + + + + | RDW-CV | 14.7 | <15.0 % | [facility] | | | | | | [facility] | | | | | | MEDICAL | | | | | | CENTER - | | | | | | LABORATORY | | + + + + + + | RDW-SD | 47.7 (H) | 35.1 - 46.3 fL | [facility] | | | | | | [facility] | | | | | | MEDICAL | | | | | | CENTER - | | | | | | LABORATORY | | + + + + + + | Platelet | 301 | 140 - 440 K/uL | [facility] | | | Count | | | [facility] | | | | | | MEDICAL | | | | | | CENTER - | | | | | | LABORATORY | | + + + + + + | MPV | 9.3 | 6.5 - 12.4 fL | [facility] | | | | | | [facility] | | | | | | MEDICAL | | | | | | CENTER - | | | | | | LABORATORY | | + + + + + + | % nRBC | 0 | 0 - 2 per 100 | [facility] | | | | | WBC's | [facility] | | | | | | MEDICAL | | | | | | CENTER - | | | | | | LABORATORY | | + + + + + + | Absolute | 0.00 | 0.00 - 0.01 | [facility] | | | nRBC | | K/uL | [facility] | | | | [...] + | [facility] | [address] | [place] | [phone] | | [facility] | | [address] | | | - LABORATORY | | | | + + + + + Magnesium (05/09/2018 5:03 AM PDT) + +-------+ + + + | Component | Value | Ref Range | Performed | Pathologist | | | | | At | Signature | + +-------+ + + + | Magnesium | 1.9 | 1.8 - 2.5 mg/dL | [facility] | | | | | | [facility] | | [...] + + | [facility] | [address] | [place] | [phone] | | [facility] | | [address] | | | - LABORATORY | | | | + + + + + POC Glucose (05/09/2018 3:10 AM PDT) + +---------+ + + + | Component | Value | Ref Range | Performed | Pathologist | | | | | At | Signature | + +---------+ + + + | Glucose, | 113 (H) | 70 - 109 mg/dL | [facility] | | | POC | | | [facility] | | | | | | MEDICAL [...] + | [facility] | [address] | [place] | [phone] | | [facility] | | [address] | | | - LABORATORY | | | | + + + + + Troponin I (05/09/2018 12:00 AM PDT) + + + + + + | Component | Value | Ref Range | Performed | Pathologist | | | | | At | Signature | + + + + + + | Troponin I | 0.20 (H)Comment: | <0.06 ng/mL | [facility] | | | | Reference | | [facility] | | | | Ranges:0.00-0.06 = | | MEDICAL | | | | NORMAL>0.06 = | | CENTER - | | | | SUSPICIOUS FOR | | LABORATORY | | | | MYOCARDIAL DAMAGE NOTE: | | | | | | Values greater than 0.50 | | | | | | ng/mL have been shown | | | | | | to be strongly | | | | | | associated with acute | | | | | | myocardial infarction. | | | | | | The [employer] | | | | | | Cardiology (ACC) | | | | | | recommends a decision | | | | | | limit of 0.06 ng/mL for | | | | | | this assay. Results | | | | | | greater than 0.06 can | | | | | | reflect a pre-infarct | | | | | | acute coronary syndrome, | | | | | | but can also reflect | | | | | | myocardial necrosis or | | | | | | injury that is not due | | | | | | to coronary artery | | | | | | disease. Some of these | | | | | | causes are sepsis, | | | | | | hypocolemia, atrial | | | | | | fibrillation, heart | | | | | | failure, pulmonary | | | | | | embolism, myocarditis, | | | | | | myocardial contusion, | | | | | | and renal failure. The | | | | | | diagnosis of myocardial | | | | | | infarction should be | | | | | | based on a combination | | | | | | of the patient's | | | | | | clinical presentation | | | | | | and the clinical | | | | | | laboratory test results | | | | | | (especially serial | | | | | | troponin levels). | | | | + + + + + + + + | Specimen | + + | Blood | + + + + + + + | Performing | Address | City/State/Zipcode | Phone Number | | Organization | | | | + + + + + | [facility] | [address] | [place] | [phone] | | [facility] | | [address] | | | - LABORATORY | | | | + + + + + POC Glucose (05/08/2018 10:04 PM PDT) + +---------+ + + + | Component | Value | Ref Range | Performed | Pathologist | | | | | At | Signature | + +---------+ + + + | Glucose, | 126 (H) | 70 - 109 mg/dL | [facility] | | | POC | | | [facility] | | [...] [facility] | [address] | [place] | [phone] | | [facility] | | [address] | | | - LABORATORY | | | | + + + + + Protein/Creatinine Ratio, Urine (05/08/2018 8:58 PM PDT) + + + + + + | Component | Value | Ref Range | Performed | Pathologist | | | | | At | Signature | + + + + + + | Protein, | 277 (H) | <6 mg/dL | [facility] | | | Urine | | | [facility] | | | | | | MEDICAL | | | | | | CENTER - | | | | | | LABORATORY | | + + + + + + | Creatinine, | 35 | mg/dL | [facility] | | | Urine, | | | [facility] | | | Random | | | MEDICAL | | | | | | CENTER - | | | | | | LABORATORY | | + + + + + + | PRO/CREA | 7.91 (H) | <0.20 mg/mg | [facility] | | | RATIO,URINE | | | [facility] | | | | | | MEDICAL | | | | | | CENTER - | | | | | | LABORATORY | | + + + + + + + + | Specimen | + + | Urine | + + + + + + + | Performing | Address | City/State/Zipcode | Phone Number | | Organization | | | | + + + + + | [facility] | [address] | [place] | [phone] | | [facility] | | [address] | | | - LABORATORY | | | | + + + + + Urinalysis with Microscopic with Culture if Indicated (05/08/2018 8:58 PM PDT) + + + + + + | Component | Value | Ref Range | Performed | Pathologist | | | | | At | Signature | + + + + + + | Color, | Straw | Light Yellow, | [facility] | | | Urine | | Yellow, Straw | [facility] | | | | | | MEDICAL | | | | | | CENTER - | | | | | | LABORATORY | | + + + + + + | Clarity | Clear | Clear | [facility] | | | | | | [facility] | | | | | | MEDICAL | | | | | | CENTER - | | | | | | LABORATORY | | + + + + + + | pH, Urine | 5.0 | 5.0 - 8.0 | [facility] | | | | | | [facility] | | | | | | MEDICAL | | | | | | CENTER - | | | | | | LABORATORY | | + + + + + + | Specific | 1.009 | 1.001 - 1.030 | [facility] | | | [place], | | | [facility] | | | Urine | | | MEDICAL | | | | | | CENTER - | | | | | | LABORATORY | | + + + + + + | Protein, | 100 mg/dL (A) | Negative | [facility] | | | Urine | | | [facility] | | | | | | MEDICAL | | | | | | CENTER - | | | | | | LABORATORY | | + + + + + + | Blood, | Small (A) | Negative | [facility] | | | Urine | | | [facility] | | | | | | MEDICAL | | | | | | CENTER - | | | | | | LABORATORY | | + + + + + + | Glucose, | 50 mg/dL (A) | Negative | [facility] | | | Urine | | | [facility] | | | | | | MEDICAL | | | | | | CENTER - | | | | | | LABORATORY | | + + + + + + | Ketones, | Negative | Negative | [facility] | | | Urine | | | [facility] | | | | | | MEDICAL | | | | | | CENTER - | | | | | | LABORATORY | | + + + + + + | Bilirubin, | Negative | Negative | [facility] | | | Urine | | | [facility] | | | | | | MEDICAL | | | | | | CENTER - | | | | | | LABORATORY | | + + + + + + | Nitrite, | Negative | Negative | [facility] | | | Urine | | | [facility] | | | | | | MEDICAL | | | | | | CENTER - | | | | | | LABORATORY | | + + + + + + | Leukocyte | Negative | Negative | [facility] | | | Esterase, | | | [facility] | | | Urine | | | MEDICAL | | | | | | CENTER - | | | | | | LABORATORY | | + + + + + + | Urobilinoge | Negative | 0.2 mg/dL, 1.0 | [facility] | | | n, Urine | | mg/dL, Negative | [facility] | | | | | | MEDICAL | | | | | | CENTER - | | | | | | LABORATORY | | + + + + + + | White Blood | 0-2 | 0 - 2 /HPF | [facility] | | | Cells, | | | [facility] | | | Urine | | | MEDICAL | | | | | | CENTER - | | | | | | LABORATORY | | + + + + + + | Red Blood | 10-15 (A) | 0 - 2 /HPF | [facility] | | | Cells, | | | [facility] | | | Urine | | | MEDICAL | | | | | | CENTER - | | | | | | LABORATORY | | + + + + + + | Squamous | 0-2 | 0 - 2 /LPF | [facility] | | | Epithelial | | | [facility] | | | Cells, | | | MEDICAL | | | Urine | | | CENTER - | | | | | | LABORATORY | | + + + + + + | Bacteria, | Negative | Negative /HPF | [facility] | | | Urine | | | [facility] | | | | | | MEDICAL | | | | | | CENTER - | | | | | | LABORATORY | | + + + + + + | Hyaline | 0-2 | 0 - 2 /LPF | [facility] | | | Yael, | | | [facility] | | | Urine | | | MEDICAL | | | | | | CENTER - | | | | | | LABORATORY | | + + + + + + + + | Specimen | + + | Urine - Urine | | specimen obtained by | | clean catch | | procedure (specimen) | + + + + + + + | Performing | Address | City/State/Zipcode | Phone Number | | Organization | | | | + + + + + | [facility] | [address] | [place] | [phone] | | [facility] | | [address] | | | - LABORATORY | | | | + + + + + Eosinophil Smear, Urine (05/08/2018 8:57 PM PDT) + + + + + + | Component | Value | Ref Range | Performed | Pathologist | | | | | At | Signature | + + + + + + | Eosinophils | None seen | None seen | [facility] | | | , Urine | | | [facility] | | | | | | MEDICAL | | | | | | CENTER - | | | | | | LABORATORY | | + + + + + + + + | Specimen | + + | Urine | + + + + + + + | Performing | Address | City/State/Zipcode | Phone Number | | Organization | | | | + + + + + | [facility] | [address] | [place] | [phone] | | [facility] | | [address] | | | - LABORATORY | | | | + + + + + Creatinine, Urine, Random (05/08/2018 8:57 PM PDT) + +-------+ + + + | Component | Value | Ref Range | Performed | Pathologist | | | | | At | Signature | + +-------+ + + + | Creatinine, | 33 | mg/dL | [facility] | | | Urine, | | | [facility] | | | [facility] | | | MEDICAL | | | | | | CENTER - | | | | | | LABORATORY | | + +-------+ + + + + + | Specimen | + + | Urine | + + + + + | Narrative | Performed At | + + + | The reference range and other method performance specifications have | [facility] | | not been established for this test. These results should be | [facility] | | integrated into the clinical context for interpretation. | [facility] SYSTEM | | | - LABORATORY | + + + + + + + + | Performing | Address | City/State/Zipcode | Phone Number | | Organization | | | | + + + + + | [facility] | [address] | [place] | [phone] | | [facility] | | [address] | | | - LABORATORY | | | | + + + + + Osmolality, Urine (05/08/2018 8:57 PM PDT) + +-------+ + + + | Component | Value | Ref Range | Performed | Pathologist | | | | | At | Signature | + +-------+ + + + | OSMO URINE | 342 | 300-1,000 | [facility] | | | | | mOsm/kg | [facility] | | | | | | [facility] | | | | | | CENTER - | | | | | | LABORATORY | | + +-------+ + + + + + | Specimen | + + | Urine | + + + + + + + | Performing | Address | City/State/Zipcode | Phone Number | | Organization | | | | + + + + + | [facility] | [address] | [place], [place] | [phone] | | [facility] | | [address] | | | - LABORATORY | | | | + + + + + Sodium, Urine, Random (05/08/2018 8:57 PM PDT) + +-------+ + + + | Component | Value | Ref Range | Performed | Pathologist | | | | | At | Signature | + +-------+ + + + | Sodium, | 102 | 27 - 287 mmol/L | [facility] | | | Urine | | | [facility] | | | Random | | | MEDICAL | | | | | | CENTER - | | | | | | LABORATORY | | + +-------+ + + + + + | Specimen | + + | Urine | + + + + + + + | Performing | Address | City/State/Zipcode | Phone Number | | Organization | | | | + + + + + | [facility] | [address] | [place] | [phone] | | [facility] | | [address] | | | - LABORATORY | | | | + + + + + Basic Metabolic Panel (05/08/2018 5:41 PM PDT) + + + + + + | Component | Value | Ref Range | Performed | Pathologist | | | | | At | Signature | + + + + + + | Na | 139 | 136 - 149 | [facility] | | | | | mmol/L | [facility] | | | | | | MEDICAL | | | | | | CENTER - | | | | | | LABORATORY | | + + + + + + | K | 4.5 | 3.5 - 5.1 | [facility] | | | | | mmol/L | [facility] | | | | | | MEDICAL | | | | | | CENTER - | | | | | | LABORATORY | | + + + + + + | Cl | 113 (H) | 98 - 109 mmol/L | [facility] | | | [facility] | | | | [facility] | [facility]ICAL | | | | | | CENTER - | | | | | | LABORATORY | | + + + + + + | CO2 | 20 (L) | 24 - 31 mmol/L | [facility] | | | | | [facility] | | | | | | [facility]ICAL | | | | | | CENTER - | | | | | | LABORATORY | | + + + + + + | Anion Gap | 6 | 3 - 16 mmol/L | [facility] | | | | | | [facility]ICAL | | | | | | CENTER - | | | | | | LABORATORY | | + + + + + + | Glucose | 105 | 70 - 109 mg/dL | [facility] | [facility] | | | | [facility] | [facility]ICAL | | | | | | CENTER - | | | | | | LABORATORY | | + + + + + + | BUN | 48 (H) | 7 - 18 mg/dL | [facility] | | | | | [facility] | | | | [facility] | [facility]ICAL | | | | | | CENTER - | | | | | | LABORATORY | | + + + + + + | Creatinine | 3.24 (H) | 0.60 - 1.30 | [facility] | | | | | mg/dL | [facility] | | | | | | MEDICAL | | | | | | CENTER - | | | | | | LABORATORY | | + + + + + + | eGFR if not | 15 (L)Comment: | >=60 | [facility] | | | | GLOMERULAR FILTRATION | mL/min/1.73m2 | [facility] | | | LUXEMBOURGER | RATE,ESTIMATED | | MEDICAL | | | | mL/min/1.04d3Ckfn than | | CENTER - | | [...] + + + + | Calcium | 7.8 (L) | 8.3 - 10.5 | [facility] | | | | | mg/dL | [facility] | | | | | | MEDICAL | | | | | | CENTER - | | | | | | LABORATORY | | + + + + + + | BUN/Creatin | 14.8 | | [facility] | | | ine Ratio | | | [facility] | | [...] + | [facility] | [address] | [place] | [phone] | | [facility] | | [address] | | | - LABORATORY | | | | + + + + + Hemoglobin A1C (05/08/2018 5:41 PM PDT) + +---------+ + + + | Component | Value | Ref Range | Performed | Pathologist | | | | | At | Signature | + +---------+ + + + | Hemoglobin | 7.3 (H) | 4.3 - 6.0 % | [facility] | | | A1c | | | [facility] | | | | | | MEDICAL | | | | | | CENTER - | | | | | | LABORATORY | | + +---------+ + + + | Estimated | 163 | mg/dL | [facility] | | | Average | | | [facility] | | | Glucose | | | MEDICAL | | | [...] + | [facility] | [address] | [place] | [phone] | | [facility] | | [address] | | | - LABORATORY | | | | + + + + + Extra Blue Top Tube (05/08/2018 5:41 PM PDT) + +-------+ + + + | Component | Value | Ref Range | Performed | Pathologist | | | | | At | Signature | + +-------+ + + + | Extra Blue | Done | | [facility] | | | Top Tube | | | [facility] | | [...] + | [facility] | [address] | [place] | [phone] | | [facility] | | [address] | | | - LABORATORY | | | | + + + + + Extra Lavender Top Tube (05/08/2018 5:41 PM PDT) + +-------+ + + + | Component | Value | Ref Range | Performed | Pathologist | | | | | At | Signature | + +-------+ + + + | Extra | Done | | [facility] | | | Lavender | | | [facility] | | | Top Tube | | | MEDICAL | | | [...] + | [facility] | [address] | [place] | [phone] | | [facility] | | [address] | | | - LABORATORY | | | | + + + + + Extra Gold Top Tube (05/08/2018 5:41 PM PDT) + +-------+ + + + | Component | Value | Ref Range | Performed | Pathologist | | | | | At | Signature | + +-------+ + + + | Extra Gold | Done | | [facility] | | | Top Tube | | | [facility] | | [address] | [place] | [phone] | | [facility] | | [address] | | | - LABORATORY | | | | + + + + + Magnesium (05/08/2018 5:41 PM PDT) + +-------+ + + + | Component | Value | Ref Range | Performed | Pathologist | | | | | At | Signature | + +-------+ + + + | Magnesium | 2.0 | 1.8 - 2.5 mg/dL | [facility] | | | | | | [facility] | | [...] [address] | [place] | [phone] | | [facility] | | [address] | | | - LABORATORY | | | | + + + + + Phosphorus (05/08/2018 5:41 PM PDT) + +---------+ + + + | Component | Value | Ref Range | Performed | Pathologist | | | | | At | Signature | + +---------+ + + + | Phosphorus | 5.4 (H) | 2.5 - 4.6 mg/dL | [facility] | | | | [...] + | [facility] | [address] | [place] | [phone] | | [facility] | | [address] | | | - LABORATORY | | | | + + + + + TSH (05/08/2018 5:40 PM PDT) + + + + + + | Component | Value | Ref Range | Performed | Pathologist | | | | | At | Signature | + + + + + + | TSH | 4.68Comment: This is a | 0.45 - 5.33 | [facility] | | | | third generation TSH | uIU/mL | [facility] | | | | test. | | MEDICAL | | | | [...] ST. | [address] | [place], [place] | [phone] | | [facility] | | [address] | | | - LABORATORY | | | | + + + + + Troponin I (05/08/2018 5:40 PM PDT) + + + + + + | Component | Value | Ref Range | Performed | Pathologist | | | | | At | Signature | + + + + + + | Troponin I | 0.23 (H)Comment: | <0.06 ng/mL | [facility] | | | | Reference | | [facility] | | | | Ranges:0.00-0.06 = | | MEDICAL | | | | NORMAL>0.06 = | | CENTER - | | | | SUSPICIOUS FOR | | LABORATORY | | | | MYOCARDIAL DAMAGE NOTE: | | | | | | Values greater than 0.50 | | | | | | ng/mL have been shown | | | | | | to be strongly | | | | | | associated with acute | | | | | | myocardial infarction. | | | | | | The [employer] | | | | | | Cardiology (ACC) | | | | | | recommends a decision | | | | | | limit of 0.06 ng/mL for | | | | | | this assay. Results | | | | | | greater than 0.06 can | | | | | | reflect a pre-infarct | | | | | | acute coronary syndrome, | | | | | | but can also reflect | | | | | | myocardial necrosis or | | | | | | injury that is not due | | | | | | to coronary artery | | | | | | disease. Some of these | | | | | | causes are sepsis, | | | | | | hypocolemia, atrial | | | | | | fibrillation, heart | | | | | | failure, pulmonary | | | | | | embolism, myocarditis, | | | | | | myocardial contusion, | | | | | | and renal failure. The | | | | | | diagnosis of myocardial | | | | | | infarction should be | | | | | | based on a combination | | | | | | of the patient's | | | | | | clinical presentation | | | | | | and the clinical | | | | | | laboratory test results | | | | | | (especially serial | | | | | | troponin levels). | | | | + + + + + + + + | Specimen | + + | Blood | + + + + + + + | Performing | Address | City/State/Zipcode | Phone Number | | Organization | | | | + + + + + | [facility] | [address] | [place] | [phone] | | [facility] | | [address] | | | - LABORATORY | | | | + + + + + B Type Natriuretic Peptide (05/08/2018 5:40 PM PDT) + + + + + + | Component | Value | Ref Range | Performed | Pathologist | | | | | At | Signature | + + + + + + | BNP | 4,521 (H) | <100 pg/mL | [facility] | | | | | [...] | + + + + + | [facility] | [address] | [place] | [phone] | | [facility] | | [address] | | | - LABORATORY | | | | + + + + + POC Glucose (05/08/2018 5:24 PM PDT) + +-------+ + + + | Component | Value | Ref Range | Performed | Pathologist | | | | | At | Signature | + +-------+ + + + | Glucose, | 102 | 70 - 109 mg/dL | [facility] | | | POC | | | [facility] | | [...] | + + + + + | [facility] | [address] | [place] | [phone] | | [facility] | | [address] | | | - LABORATORY | | | | + + + + + LABS - EXTERNAL SCAN (05/08/2018 12:00 AM PDT) + + + | Narrative | Performed At | + + + | Ordered by an | | | unspecified provider. | | + + + IMAGING REPORT - EXTERNAL SCAN (05/08/2018 12:00 AM PDT) + + + | Narrative | Performed At | + + + | Ordered by an | | | unspecified provider. | | + + + ECG - EXTERNAL SCAN (05/08/2018 12:00 AM PDT) + + + | Narrative | Performed At | + + + | Ordered by an | | | unspecified provider. 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) | + + | Anemia in stage 4 chronic kidney disease (HCC) | + + | Acute combined systolic and diastolic congestive heart failure (HCC) Acute combined | | systolic and diastolic heart failure | + + | Coronary artery disease Coronary atherosclerosis of unspecified type of vessel, | | sioux or graft | + + | Diabetes mellitus, type II (HCC) Type II or unspecified type diabetes mellitus | | without mention of complication, not stated as uncontrolled | + + documented in this encounter Administered Medications + +--------+ +--------+------+------+ | Medication Order | MAR | Action | Dose | Rate | Site | | | Action | Date | | | | + +--------+ +--------+------+------+ | acetaminophen (TYLENOL) tablet | Given | 05/11/20 | 650 mg | | | | 650 mg 650 mg, Oral, EVERY 4 | | 18 8:53 | | | | | HOURS PRN, Pain, or fever >= 38.6 | | AM PDT | | | | | C (101.5 F), Starting Mon | | | | | | | 05/08/18 at 1705 | | | | | | + +--------+ +--------+------+------+ +---+---+ | | | +---+---+ + +-------+ +-------+---+---+ | aspirin chewable tablet 81 mg | Given | 05/12/20 | 81 mg | | | | 81 mg, Oral, DAILY, First dose on | | 18 8:40 | | | | | 05/12/18 at 0900 | | AM PDT | | | | + +-------+ +-------+---+---+ + +---+ | | | + +---+ | atorvaSTATin (LIPITOR) tablet | | | 20 mg 20 mg, Oral, NIGHTLY, | | | First dose on Tue05/12/18 at | | | 2100 | | + +---+ | | | + +---+ + +-------+ + +---+---+ | carvedilol (COREG) tablet 3.125 | Given | 05/11/20 | 3.125 mg | | | | mg 3.125 mg, Oral, 2 TIMES | | 18 4:43 | | | | | DAILY WITH BREAKFAST & DINNER, | | PM PDT | | | | | First dose on Tue05/10/18 at | | | | | | | 1030 | | | | | | + +-------+ + +---+---+ +-------+ + +---+---+ | Given | 05/11/20 | 3.125 mg | | | | | 18 8:53 | | | | | | AM PDT | | | | +-------+ + +---+---+ | Given | 05/10/20 | 3.125 mg | | | | | 18 7:18 | | | | | | PM PDT | | | | +-------+ + +---+---+ +---+---+ | | | +---+---+ + +-------+ +---------+---+---+ | carvedilol (COREG) tablet 6.25 | Given | 05/12/20 | 6.25 mg | | | | mg 6.25 mg, Oral, 2 TIMES DAILY | | 18 9:24 | | | | | WITH BREAKFAST & DINNER, First | | AM PDT | | | | | dose (after last modification) on | | | | | | | 05/12/18 at 0815 | | | | | | + +-------+ +---------+---+---+ + +---+ | | | + +---+ | dextrose 50% injection 12.5 g | | | 12.5 g, Intravenous, PRN, Low | | | Blood Sugar, Starting Mon | | | 05/08/18 at 1705 | | + +---+ | | | + +---+ + +-------+ +---------+---+ + | epoetin khalif (EPOGEN, PROCRIT) | Given | 05/11/20 | 10,000 | | Abdomen- | | 10,000 units/mL injection 10,000 | | 18 9:58 | Units | | LLQ | | Units 10,000 Units, | | PM PDT | | | | | Subcutaneous, WEEKLY, First dose | | | | | | | on Tue05/11/18 at 2100, Keep in | | | | | | | refrigerator. Do not shake., | | | | | | + +-------+ +---------+---+ + +---+---+ | | | +---+---+ + +---------+ +--------+ +---+ | ferric gluconate (FERRLECIT) | New Bag | 05/11/20 | 250 mg | 90 mL/hr | | | 250 mg in sodium chloride 0.9% | | 18 9:57 | | | | | 250 mL IVPB 250 mg, Intravenous, | | PM PDT | | | | | Administer over 3 Hours, DAILY, | | | | | | | First dose (after last | | | | | | | modification) on Tue05/09/18 at | | | | | | | 2100, For 3 days | | | | | | + +---------+ +--------+ +---+ +---------+ +--------+ +---+ | New Bag | 05/10/20 | 250 mg | 90 mL/hr | | | | 18 9:39 | | | | | | PM PDT | | | | +---------+ +--------+ +---+ | New Bag | 05/09/20 | 250 mg | 90 mL/hr | | | | 18 10:00 | | | | | | PM PDT | | | | +---------+ +--------+ +---+ +---+---+ | | | +---+---+ + +---------+ +--------+-------+---+ | furosemide (LASIX) 160 mg in | New Bag | 05/10/20 | 160 mg | 132 | | | sodium chloride 0.9% 50 mL IVPB | | 18 4:23 | | mL/hr | | | 160 mg, Intravenous, Administer | | PM PDT | | | | | over 30 Minutes, 2 TIMES DAILY | | | | | | | 0800 & 1600, First dose on Mon | | | | | | | 05/08/18 at 2100, This is not an | | | | | | | error. Thanks., | | | | | | + +---------+ +--------+-------+---+ +---------+ +--------+-------+---+ | New Bag | 05/10/20 | 160 mg | 132 | | | | 18 9:08 | | mL/hr | | | | AM PDT | | | | +---------+ +--------+-------+---+ | New Bag | 05/09/20 | 160 mg | 132 | | | | 18 4:12 | | mL/hr | | | | PM PDT | | | | +---------+ +--------+-------+---+ +---+---+ | | | +---+---+ + +---------+ +--------+ +---+ | furosemide (LASIX) 240 mg in | New Bag | 05/12/20 | 240 mg | 74 mL/hr | | | sodium chloride 0.9% 50 mL IVPB | | 18 8:40 | | | | | 240 mg, Intravenous, Administer | | AM PDT | | | | | over 60 Minutes, 2 TIMES DAILY | | | | | | | 0800 & 1600, First dose (after | | | | | | | last modification) on Kayla | | | | | | | 05/11/18 at 0800, This is not an | | | | | | | error. Thanks., | | | | | | + +---------+ +--------+ +---+ +---------+ +--------+ +---+ | New Bag | 05/11/20 | 240 mg | 74 mL/hr | | | | 18 4:43 | | | | | | PM PDT | | | | +---------+ +--------+ +---+ | New Bag | 05/11/20 | 240 mg | 74 mL/hr | | | | 18 8:59 | | | | | | AM PDT | | | | +---------+ +--------+ +---+ +---+---+ | | | +---+---+ + +-------+ +--------+---+ + | heparin 5,000 units/mL | Given | 05/12/20 | 5,000 | | Abdomen- | | injection 5,000 Units 5,000 | | 18 8:40 | Units | | RUQ | | Units, Subcutaneous, EVERY 12 | | AM PDT | | | | | HOURS (2 times per day), First | | | | | | | dose on Tue05/09/18 at 0900 | | | | | | + +-------+ +--------+---+ + +-------+ +--------+---+ + | Given | 05/11/20 | 5,000 | | Abdomen- | | | 18 9:58 | Units | | RLQ | | | PM PDT | | | | +-------+ +--------+---+ + | Given | 05/11/20 | 5,000 | | Abdomen- | | | 18 8:53 | Units | | LUQ | | | AM PDT | | | | +-------+ +--------+---+ + +---+---+ | | | +---+---+ + +-------+ +---------+---+ + | insulin lispro (humaLOG | Given | 05/12/20 | 2 Units | | Abdomen- | | KWIKPEN) 100 units/mL injection | | 18 12:08 | | | RLQ | | (pen) 0-12 Units 0-12 Units, | | PM PDT | | | | | Subcutaneous, 4 TIMES DAILY WITH | | | | | | | MEALS & NIGHTLY, First dose on | | | | | | | 05/08/18 at 1730, CORRECTION | | | | | | | SCALE: Blood Glucose (BG) < | | | | | | | 150: None BG | | | | | | | 150-200: DAY: 2 units. NIGHT: | | | | | | | 0 units BG 201-250: DAY: 4 | | | | | | | units. NIGHT: 2 units BG | | | | | | | 251-300: DAY: 6 units. NIGHT: | | | | | | | 4 units BG 301-350: DAY: 8 | | | | | | | units. NIGHT: 6 units BG | | | | | | | 351-400: DAY: 10 units. NIGHT: 8 | | | | | | | units BG > 400 : DAY: 12 | | | | | | | units. NIGHT: 10 units | | | | | | | AND CALL PROVIDER | | | | | | | , Use DAY DOSE for doses | | | | | | | scheduled: AC, NPO, Daytime | | | | | | | [phone] Use NIGHT DOSE for | | | | | | | doses scheduled: HS, 3AM, | | | | | | | Nighttime [phone], | | | | | | + +-------+ +---------+---+ + +-------+ +---------+---+ + | Given | 05/11/20 | 2 Units | | Abdomen- | | | 18 6:47 | | | LLQ | | | PM PDT | | | | +-------+ +---------+---+ + | Given | 05/11/20 | 2 Units | | Abdomen- | | | 18 12:37 | | | RLQ | | | PM PDT | | | | +-------+ +---------+---+ + +---+---+ | | | +---+---+ + +-------+ +------+---+---+ | loperamide (IMODIUM) capsule 2 | Given | 05/11/20 | 2 mg | | | | mg 2 mg, Oral, EVERY 3 HOURS | | 18 10:16 | | | | | PRN, Diarrhea, Starting Kayla | | AM PDT | | | | | 05/11/18 at 0952 | | | | | | + +-------+ +------+---+---+ +---+---+ | | | +---+---+ + +-------+ +--------+---+---+ | magnesium oxide (MAG-OX) tablet | Given | 05/12/20 | 400 mg | | | | 400 mg 400 mg, Oral, DAILY, | | 18 8:39 | | | | | First dose on Kayla 05/11/18 at | | AM PDT | | | | | 2045 | | | | | | + +-------+ +--------+---+---+ +-------+ +--------+---+---+ | Given | 05/11/20 | 400 mg | | | | | 18 9:57 | | | | | | PM PDT | | | | +-------+ +--------+---+---+ +---+---+ | | | +---+---+ + +-------+ +-------+---+---+ | metOLazone (ZAROXOLYN) tablet | Given | 05/12/20 | 10 mg | | | | 10 mg 10 mg, Oral, 2 TIMES | | 18 8:39 | | | | | DAILY, First dose on [facility] 05/10/18 | | AM PDT | | | | | at 2030 | | | | | | + +-------+ +-------+---+---+ +-------+ +-------+---+---+ | Given | 05/11/20 | 10 mg | | | | | 18 9:57 | | | | | | PM PDT | | | | +-------+ +-------+---+---+ | Given | 05/11/20 | 10 mg | | | | | 18 8:53 | | | | | | AM PDT | | | | +-------+ +-------+---+---+ +---+---+ | | | +---+---+ + +-------+ +-------+---+---+ | metoprolol succinate | Given | 05/10/20 | 25 mg | | | | (TOPROL-XL) ER tablet 25 mg 25 | | 18 9:07 | | | | | mg, Oral, DAILY, First dose on | | AM PDT | | | | | 05/10/18 at 0900, Tablet may | | | | | | | be cut where scored but do not | | | | | | | crush., | | | | | | + +-------+ +-------+---+---+ +---+---+ | | | +---+---+ + +-------+ +---------+---+---+ | metoprolol tartrate (LOPRESSOR) | Given | 05/09/20 | 12.5 mg | | | | tablet 12.5 mg 12.5 mg, Oral, 2 | | 18 9:56 | | | | | TIMES DAILY, First dose on e | | PM PDT | | | | | 05/09/18 at 2100 | | | | | | + +-------+ +---------+---+---+ + +---+ | | | + +---+ | polyethylene glycol (MIRALAX) | | | powder 17 g 17 g, Oral, DAILY | | | PRN, Constipation, Starting Mon | | | 05/08/18 at 1838, Mix with 8 oz. | | | water., | | + +---+ | | | + +---+ + +-------+ +--------+---+---+ | regadenoson (LEXISCAN) | Given | 05/11/20 | 0.4 mg | | | | injection 0.4 mg 0.4 mg, | | 18 7:44 | | | | | Intravenous, ONCE PRN, protocol, | | AM PDT | | | | | Starting [facility] 05/11/18 at 0744, | | | | | | | For 1 dose, Give IV push over 10 | | | | | | | seconds, then follow immediately | | | | | | | with 5 mL saline flush., Nuclear | | | | | | | Medicine | | | | | | + +-------+ +--------+---+---+ +---+---+ | | | +---+---+ + +-------+ +-------+---+---+ | spironolactone (ALDACTONE) | Given | 05/12/20 | 25 mg | | | | tablet 25 mg 25 mg, Oral, DAILY, | | 18 8:40 | | | | | First dose on [facility] 05/11/18 at | | AM PDT | | | | | 2045, Hazardous: Use appropriate | | | | | | | handling precautions., | | | | | | + +-------+ +-------+---+---+ +-------+ +-------+---+---+ | Given | 05/11/20 | 25 mg | | | | | 18 9:57 | | | | | | PM PDT | | | | +-------+ +-------+---+---+ +---+---+ | | | +---+---+ + +-------+ + +---+---+ | technetium TC-99M sestamibi | Given | 05/11/20 | 10.77 | | | | (CARDIOLITE) injection 10 | | 18 7:44 | millicur | | | | millicurie 10. millicurie, | | AM PDT | ies | | | | Intravenous, ONCE PRN, Other, | | | | | | | Starting [facility] 05/11/18 at 0744, | | | | | | | For 1 dose, Nuclear Medicine | | | | | | + +-------+ + +---+---+ +---+---+ | | | +---+---+ + +-------+ + +---+---+ | technetium TC-99M sestamibi | Given | 05/11/20 | 30 | | | | (CARDIOLITE) injection 30 | | 18 10:06 | millicur | | | | millicurie 30 millicurie, | | AM PDT | ies | | | | Intravenous, ONCE PRN, Other, | | | | | | | Starting Kayla 05/11/18 at 1006, | | | | | | | For 1 dose, Nuclear Medicine | | | | | | + +-------+ + +---+---+ +---+---+ | | | +---+---+ documented in this encounter
--- OUTSIDE RECORDS SUMMARY | ~2019-12-03 | XMS | Encounter Summary ---
Demographics + + + | Address | [address] | | | [place] [address] | + + + | Home Phone | | + + + | Preferred Language | Unknown | + + + | Marital Status | Single | + + + | Christian Affiliation | 1074 | + + + | Race | Unknown | + + + | Ethnic Group | Unknown | + + + Author + + + | Author | [facility] | | | and Jethroana | + + + | Organization | [facility] | | | and Jethroana | + + + | Address | Unknown | + + + | Phone | Unavailable | + + + Support + + + + + | Name | Relationship | Address | Phone | + + + + + | Evelina Bryan Name | ECON | [place] | | | | | [address] | | + + + + + | Lizet Scott | ECON | Unknown | | + + + + + Care Team Providers + +------+ + | Care Gunstock Spray Unit Adjuster Name | Role | Phone | + [...] | | | stage renal | [place] [address] | [address] [place] [address] | | | | | disease) | | [place], [place] | | | | | (HCC) | [place] | [address] | | | | | Procedures | WAY | [address] | | | | | [place] ESRD | [place], | [address] Phone: | | | | | RELATED [place] | [place] [address] | [phone] | | | | | MONTHLY | Phone: | Fax: | | | | | 20&/> YR OLD | [phone] | [phone] | | | | | 4/> VISITS | Fax: | | | | | | | [phone] | | +--------+--------+ + + + + Encounter Details +--------+ + + + + | Date | Type | Department | Care Team | Description | +--------+ + + + + | 11/13/ | Off-Site | [facility] | Lester Best | End stage renal | | 2019 | Visit | NEPHROLOGY [address] | M, DO [address] | disease (HCC) | | | | [address] | [place], [address] [address] | (Primary Dx) | | | | [place], [place] | [place], [place] | | | | | [address] | [address] | | | | | [phone] | | | +--------+ + + + [...] + + + | Blood Pressure | 105/55 | 11/13/2018 4:04 PM | | | | | PDT | | + + + + + | Pulse | - | - | | + + + + + | Temperature | 36.2 C (97.1 F) | 11/13/2018 4:04 PM | | | | | PDT [...] encounter Progress Notes Lester Best DO - 11/13/2018 10:00 AM PDT Subjective: DIALYSIS NOTE Patient ID: Xochilt Linares is a 63 y.o. female. HPI Comments: Monthly dialysis visit for this 63 YO female with ESRD secondary to diabeti c gl glomerulosclerosis, plus low output state from her background dilated cardiomyopathy, a lso has anemia secondary to CKD, CKD/MBD, and Type II DM. She has transferred to the [facility] to be closer to home. Apparently she had an [facility] for pretransplant work-up and is to have definitive PCI at [place], [place].she denies any resting angina. She attends all prescribed treatments which are uneventful. MEDS: Outpatient Medications Marked as Taking for the 11/13/18 encounter (Off-Site Visit) with Christophe Best DO [...] by mouth Daily. 30 tablet 5 [DISCONTINUED] methoxy polyethylene glycol-epoetin beta (MIRCERA) 100 mcg/0.3 mL inject ion Inject 100 mcg under the skin Every 28 days. spironolactone (ALDACTONE) 25 mg tablet Take 1 tablet by mouth Daily. 30 tablet 5 No Known Allergies ROS Objective: BP 105/55 | Temp 36.2 C (97.1 F) EDW 67 kg Physical Exam Heart: Regular rate and rhythm with grade 1/6 VELVET at LSB, no S3, or rub. Lungs: CTA bilaterally. No rales or wheezes. Abdomen: soft, obese, nontender, NABS. Extremities: no edema, clubbing, or cyanosis. AVF at Right upper arm has (+) Bruit. LAB: BUN 70, Cr 3.41, K+ 4.0, CO2 24, albumin 3.6, Ca++ 7.7, phosphorus 6.1, last PTH 104, HbA1c =7.5%, Hb 8.9, T Sat =16%, ferritin 553, spKT/V = 1.76. Assessment: 1. ESRD--she appears well dialyzed by the most recent spKT/V. 2. dilated cardiomyopathy--compensated on PE 3. Type II DM --good control by the most recent HbA1c. 4. Hypertension--most of her readings here in clinic are within target range, from review of the data in [facility]. 5. Anemia 2 to CKD--she did receive a course of Venofer 100 mg IV x10 doses earlier thi s month. Her EPO was recently increased from 8000 to the current dose. 6. SHPTH--her phosphorus control is excellent and her PTH has been very stable on a mainte nance dose of Hectorol. 7. Nutrition--she states her appetite is improving. However, I recommended that she maxim ize her intake of high biological value protein every meal. 8. Transplantation--she philosophically is ambivalent about this. 9. CAD, on recent [facility]--to have definitive PCI, outpatient the near future. No resting ch est pain. PLAN 1. Lab was reviewed with Xochilt. 2. I think that she could benefit from maximal dose of atorvastatin, i.e. 40 mg daily give n her background CAD. 3. Overall her CHF, and adequacy appears compensated on her current Rx. 4. She will be rechecked by the Nephrology Service in 2 weeks. : [facility] Tia Payne MD, [facility] documented in thi s encounter Plan of Treatment Not on filedocumented as of this encounter Visit Diagnoses + + | Diagnosis | + + | End stage renal disease (HCC) - Primary End stage renal disease | + + documented in this encounter"
--- OUTSIDE RECORDS SUMMARY | ~2019-12-03 | XMS | Encounter Summary ---
Demographics + + + | Address | [address] | | | [place] [address] | + + + | Home Phone | | + + + | Preferred Language | Unknown | + + + | Marital Status | Single | + + + | Mandaen Affiliation | 1074 | + + + | Race | Unknown | + + + | Ethnic Group | Unknown | + + + Author + + + | Author | [facility] | | | and Jethroana | + + + | Organization | [facility] | | | and Jethroana | + + + | Address | Unknown | + + + | Phone | Unavailable | + + + Support + + + + + | Name | Relationship | Address | Phone | + + + + + | Evelina Bryan Name | ECON | [place] | | | | | [address] | | + + + + + | Lizet [place] | ECON | Unknown | | + + + + + Care Team Providers + +------+ + | Care High School Academic Coach Name | Role | Phone | + [...] | | | [address] [place] | [place] [address] | | | | | [place] [address] | | | | | | [phone] | | | +--------+ + + + [...]
--- OUTSIDE RECORDS SUMMARY | ~2019-12-03 | XMS | Encounter Summary ---
Demographics + + + | Address | [address] | | | [place] [address] | + + + | Home Phone | | + + + | Preferred Language | Unknown | + + + | Marital Status | Single | + + + | Sikhism Affiliation | 1074 | + + + | Race | Unknown | + + + | Ethnic Group | Unknown | + + + Author + + + | Author | [facility] | | | and Jethroana | + + + | Organization | [facility] | | | and Jethroana | + + + | Address | Unknown | + + + | Phone | Unavailable | + + + Support + + + + + | Name | Relationship | Address | Phone | + + + + + | Evelina Bryan Name | ECON | [place] | | | | | [address] | | + + + + + | Lizet [place] | ECON | Unknown | | + + + + + Care Team Providers + +------+ + | Care Property Management Bookkeeper Name | Role | Phone | + +------+ + | Aida Knight PA-C | PCP | | + +------+ + Reason for Visit +---------+ + | Reason | Comments | +---------+ + | Post Op | RIGHT arm AV fistula graft! | +---------+ + Evaluate & Treat (Routine) +--------+--------+ + + + + | Status | Reason | Specialty | Diagnoses / | Referred By | Referred To | | | | | Procedures | Contact | Contact | +--------+--------+ + + + + | Closed | | General | Diagnoses | Antonia, | [facility] | | | | Surgery | A-V fistula | Aida Raymundo, | General | | | | | ([facility]) | PA-C [address] | Surgery [address] | | | | | Procedures | | [address] | | | | | [place] OFFICE | [place] | [place], | | | | | OUTPATIENT | WAY | [place] [address] | | | | | [address] | [place], | Phone: | | | | | [address] | [place] [address] | [phone] | | | | | Hemodialysis | Phone: | Fax: | | | | | Catheter | [phone] | [phone] | | | | | | Fax: | | | | | | | [phone] | | +--------+--------+ + + + + Encounter Details +--------+---------+ + + + | Date | Type | Department | Care Team | Description | +--------+---------+ + + + | 08/02/ | Office | [facility] | Harman Plaza | Chronic kidney | | 2019 | Visit | SURGERY [address] | MD Aditi, FACS [address] | disease, stage V | | | | [place], [place] | [facility] | (HCC) (Primary Dx); | | | | [address] | [place] [address] | Post-operative state | | | | [phone] | [phone] | | | | | | | [...] + + + | Blood Pressure | - | - | | + + + + + | Pulse | 98 | 08/02/2018 8:39 AM | | | | | PST | | + + + + + | Temperature | 36.3 C (97.3 F) | 08/02/2018 8:39 AM | | | | | PST | | + + + + + | Respiratory Rate | 16 | 08/02/2018 8:39 AM | | | | | PST | | + + + + + | Oxygen Saturation | 75% | 08/02/2018 8:39 AM | | | | | PST | | + + + + + | Inhaled Oxygen | - | - | | | Concentration | | | | + + + + + | Weight | - | - | | + + + + + | Height | 165.1 cm (5' 5") | 08/02/2018 8:39 AM | | | | | PST | | + + + + + | Body Mass Index | - | - | | + + + + + documented in this encounter Patient Instructions Patient Instructions Anisa Beach RN - 08/02/2018 8:30 AM PSTPLEASE DO NOT TAKE LASIX A ND SPIRONOLACTONE DAY OF SURGERY. DO NOT EAT OR DRINK ANYTHING AFTER MIDNIGHT before your surgery. This means no coffee, joseph er, juice or toast on the morning of your surgery. The only exception is essential medicine s with a small sip of water (or just enough to get the pills down safely). Wear loose fitting, comfortable clothing. We advise you to leave jewelry and other valuable s at home. On 08/08/18 check in at [facility] Day Surgery ([address]) at 9:00AM. Your surgery is called RIGHT arm arteriovenous fistula creation - brachial artery to cephal ic vein. It will start about 11:00am and will finish about 1:00pm. You will be ready to go home later that day. Anesthesia type recommended: General General IV Sedation with local anesthesia (MAC) IV Sedation Other MAKE ARRANGEMENTS FOR A RESPONSIBLE ADULT TO DRIVE YOU HOME. Should you need a signed document excusing you from work or school, we advise you request t his during your visit to ensure timely delivery. If you have any questions, please call at . Your nurse's name is Anisa. Your surgeon's name is Dr. Plaza. I look forward to your having a safe, successful and comfortable surgery. Sign up for [employer] if you want easy access to your medical information online. You can: Review your medications, immunizations, allergies and medical history. View details of your past and upcoming appointments. Sign up for [employer] if you want easy access to your medical information online. Only you, your doctor and your health care team are permitted to view the information sent through [employer]. Through [employer] you can: ? Review your medications, immunizations, [...] different ways you can sign up for [employer]: ? The first way is to get online at: [email or web address] and sign up directly throug h the website prior to your appointment with us. You can call [phone] ([phone]) if you have any questions or need assistance. ? The second way is through the [employer] ramos which can be accessed with any smart phone. Ju go to your ramos store and look up [employer]. ? The third way is to do [...] number. documented in this encounter Progress Notes Field, Harman Pennington MD, FACS - 08/02/2018 8:30 AM PSTFormatting of this note might be diff erent from the original. Patient Identification: Xochilt Linares 1955 Is a 62 y.o. female , a patient of Aida Knight PA-C. Patient is here alone. S: Date of surgery: 07/25/2018. Title of surgery: Placement of tunneled dialysis catheter ( Equistream). Physician notes: Patient arrives 8 day(s) s/p Placement of tunneled dialysis catheter (Equistream). She repo rts recovering well from surgery. They have started using her tunneled dialysis catheter for dialysis , denies complications nor problems using it. She has started feeling better sinc e starting dialysis, reports feeling less "foggy". Patient is scheduled to follow up with Dr. Best next week. She believes they have decid ed against PD dialysis, but is not sure. She is unsure when/if Dr. Best would like AV F istula placement. PAST MEDICAL HISTORY Past Medical History: Diagnosis Date CKD (chronic kidney disease), stage V (HCC) Diabetes mellitus (HCC) Esophageal reflux Essential hypertension Helicobacter pylori infection Hyperlipidemia Vitamin D deficiency Wears partial dentures Past Surgical History: Procedure Laterality Date GALLBLADDER SURGERY HYSTERECTOMY 1997 SHUNT PLACEMENT/INSERTION N/A 07/25/2018 Procedure: Tunneled hemodialysis catheter; Surgeon: Harman Plaza MD, FACS; Locatio n: [facility] MAIN OR TONSILLECTOMY AND ADENOIDECTOMY No Known Allergies Medications: Outpatient Encounter Prescriptions as of 08/02/2018 Medication Sig Dispense Refill aspirin 81 mg [...] mouth 2 times daily. 60 tablet 5 HYDROcodone-acetaminophen (NORCO) 5-325 mg per tablet Take 1-2 tablets by mouth every 4 hours as needed for Pain. 10 tablet 0 magnesium oxide (MAG-OX) 400 mg tablet Take 1 tablet by mouth Daily. 30 tablet 5 spironolactone (ALDACTONE) 25 mg tablet Take 1 tablet by mouth Daily. 30 tablet 5 No facility-administered encounter medications on file as of 08/02/2018. Family History Problem Relation Age of Onset Diabetes Maternal Grandmother Social History: She reports that she has never smoked. She has never used smokeless tobacco. She reports th at she drinks alcohol. She reports that she uses drugs, including Marijuana, about 7 times p er week. PHYSICAL EXAM Vitals: 08/02/18 0839 Pulse: 98 Resp: 16 Temp: 36.3 C (97.3 F) TempSrc: Temporal SpO2: (!) 75% Height: 1.651 m (5' 5") Body mass index is 25.13 kg/m. General Appearance: Alert, cooperative, no distress, appears stated age Chest : RIGHT tunneled dialysis catheter --in place, good position. Lungs: Breath sounds are clear to auscultation bilaterally, no wheezes, crackles Heart: Regular rate and rhythm, S1, S2 normal, no murmur Upper Extremities: RIGHT no visible veins. Palpable Pulses: RIGHT LEFT Brachial 1+ Radial 2+ Ulnar Neurologic: Alert and oriented x3,Moving all 4 extremities. ULTRASOUND REPORT: PATIENT NAME : Xochilt Linares EQUIPMENT: [employer] M-Turbo with 10-5 mHertz probe. INDICATIONS: S/P Placement of tunneled dialysis catheter (Equistream) FINDING: RIGHT cephalic vein measures 3.0 mm RIGHT brachial artery measures 3.9 mm. IMPRESSION: Adequate RIGHT cephalic vein. Assessment 1. Chronic kidney disease, stage V (HCC) 2. Post-operative state Plan 1. S/P Placement of tunneled dialysis catheter (Equistream) Healing well. Recommend we proceed with RIGHT arm AV Fistula creation-- brachial artery to cephalic vein. The indications, alternatives, risks, and benefits have been discussed with the patient in detail. Risks include bleeding, infection, damage to surrounding structures, failure to mat ure, arterial steal, hand dysfunction, additional procedures, life-threatening events, and u nforeseen complications. I have provided time for the patient to ask any questions they may have. Will plan surgery for Wednesday, August 08, 2018-- We discussed pain management. I have giv en her a prescription for 20 tablets of Tramadol 50 mg for post operative pain . I have ins tructed patient to use regular tylenol for minor discomforts. No furosemide, No spironolactone on day of surgery. Return to clinic Post Op. Harman Plaza MD, FACS Vascular and General Surgery documented i n this encounter Plan of Treatment Not on filedocumented as of this encounter Visit Diagnoses + + | Diagnosis | + + | Chronic kidney disease, stage V (HCC) - Primary Chronic kidney disease, Stage V | + + | Post-operative state Other postprocedural status | + + documented in this encounter
--- OUTSIDE RECORDS SUMMARY | ~2019-12-03 | XMS | Encounter Summary ---
Demographics + + + | Address | [address] | | | [place] [address] | + + + | Home Phone | | + + + | Preferred Language | Unknown | + + + | Marital Status | Single | + + + | Amish Affiliation | 1074 | + + + | Race | Unknown | + + + | Ethnic Group | Unknown | + + + Author + + + | Author | [facility] | | | and [place] | + + + | Organization | [facility] | | | and [place] | + + + | Address | Unknown | + + + | Phone | Unavailable | + + + Support + + + + + | Name | Relationship | Address | Phone | + + + + + | Evelina Bryan Name | ECON | [place] | | | | | [address] | | + + + + + | Lizet Scott | ECON | Unknown | | + + + + + Care Team Providers + +------+ + | Care Weasand Trimmer Name | Role | Phone | [...] | | | | | | | [place] | | | | | | | ANASTOMOSIS, | | | | | | | AV,ANY SITE | | | | | | | RIGHT arm | | | | | | | AV fistula | | | | | | | creation - | | | | | | | brachial | | | | | | | artery to | | | | | | | cephalic | | | | | | | vein | | | +--------+--------+ + + + + Encounter Details +--------+ + + + + | Date | Type | Department | Care Team | Description | +--------+ + + + + | 08/08/ | Anesthesia | [facility] | Cyndee Lincoln MD | | | 2019 | Event | [facility] | [address] | | | | | [address] | [place] | | | | | [place] | [phone] | | | | | [address] | | | | | | [phone] | | | +--------+ + + + + Anesthesia Record + + + + + | Procedure Name | Responsible | Anesthesia Start | Anesthesia Stop Time | | | Anesthesiologist | Time | | + + + + + | RIGHT arm AV fistula | Cyndee Lincoln MD | 08/08/18 1056 | 08/08/18 1221 | | creation - brachial | | | | | artery to cephalic | | | | | vein (Right Arm | | | | | Upper) | | | | + + + + + +----+---+ + + | Da | T | Event | Comment | | te | i | | | | | m | | | | | e | | | +----+---+ + + | 01 | 1 | | | | /2 | 0 | | | | 2/ | 4 | | | | 20 | 3 | | | | 19 | | | | +----+---+ + + | | 1 | Block Start | | | | 0 | | | | | 4 | | | | | 3 | | | +----+---+ + + | | 1 | An Start | | | | 0 | Data | | | | 4 | | | | | 3 | | | +----+---+ + + | | 1 | an stop | | | | 0 | data | | | | 5 | | | | | 0 | | | +----+---+ + + | | 1 | AN Block | | | | 0 | End | | | | 5 | | | | | 0 | | | +----+---+ + + | | 1 | An Checkout | Pre-use anesthesia machine/equipment checkout. | | | 0 | | | | | 5 | | | | | 6 | | | +----+---+ + + | | 1 | An Start | | | | 0 | Data | | | | 5 | | | | | 6 | | | +----+---+ + + | | 1 | An Start | Reassessment prior to anesthesia induction/procedure. | | | 0 | | | | | 5 | | | | | 6 | | | +----+---+ + + | | 1 | Antibiotic | | | | 0 | Given | | | | 5 | | | | | 6 | | | +----+---+ + + | | 1 | Quick Note | The defibrillator pads were placed on the patient anterior and | | | 0 | | posterior. | | | 5 | | | | | 7 | | | +----+---+ + + | | 1 | Preoxygenat | | | | 0 | ed | | | | 5 | | | | | 9 | | | +----+---+ + + | | 1 | An | | | | 1 | Induction | | | | 0 | | | | | 1 | | | +----+---+ + + | | 1 | An | | | | 1 | Intubation | | | | 0 | | | | | 4 | | | +----+---+ + + | | 1 | Freehold | | | | 1 | 43-degrees | | | | 1 | | | | | 6 | | | +----+---+ + + | | 1 | Pre-Procedu | | | | 1 | ral Timeout | | | | 1 | Completed | | | | 6 | | | +----+---+ + + | | 1 | First | | | | 1 | Inc/Proc St | | | | 1 | | | | | 6 | | | +----+---+ + + | | 1 | Freehold off | | | | 2 | | | | | 1 | | | | | 4 | | | +----+---+ + + | | 1 | Breathing | | | | 2 | Spontaneous | | | | 1 | ly | | | | 4 | | | +----+---+ + + | | 1 | Extubated | | | | 2 | Deep | | | | 1 | | | | | 4 | | | +----+---+ + + | | 1 | an stop | | | | 2 | data | | | | 1 | | | | | 4 | | | +----+---+ + + | | 1 | An Stop | Patient handed off to recovery nurse. | | | 2 | | | | | 1 | | | +----+---+ + + +------+ | Meds | +------+ + + + | Name | Total | + + + | fentaNYL injection (2 mL) | 100 mcg | + + + | lidocaine 2% | 20 mg | + + + | propofol (DIPRIVAN) injection | 120 mg | | (bolus) (20 mL) | | + + + | ondansetron | 4 mg | + + + | phenylephrine (Injection) | 100 mcg | + + + | ceFAZolin (ANCEF, KEFZOL) 1 g in | 1 g | | sodium chloride 0.9% 50 mL IVPB | | + + + | ropivacaine 0.5% | 10 mL | + + + | heparin | 5,000 Units | + + + | sodium chloride 0.9% (NS) | 200 mL | | infusion | | + + + + + | Name | + + | N2O Flow Rate (L/Min) | + + | O2 Flow Rate (L/Min) | + + | Insp O2 | + + | Exp SEV | + + | Exp KARLOS | + + | Air Flow Rate [...] +--------+ + + + | Periph | 08/08/18; 0951; Left; Distal; | 08/08/18 0951 by | 08/08/18 1350 by | | eral | Forearm; lptv-eay-rpdodr catheter | Lora Anglin RN | Celia Jha RN | | IV | system; 20 gauge; 3; lac, lfa, | | | | | left hand; no longer indicated, | | | | | removed per policy/procedure, | | | | | catheter/device intact; short | | | | | term use; 08/08/18; 1350 | | | +--------+ + + + | Airway | Placement Date: 08/08/18; | 08/08/18 1104 by | 08/08/18 1214 by | | | Placement Time: 1104 (created via | Cyndee Lincoln MD | Cyndee Lincoln MD | | | procedure documentation); | | | | | Attempts: 1; Airway Type: | | | | | laryngeal mask; Size: 3; Trauma: | | | | | none; Placement Check: exhaled | | | | | CO2 detection device, bilateral | | | | | chest rise; Removal Date: | | | | | 08/08/18; Removal Time: 1214 | | | +--------+ + + + | Wound | 08/08/18; 1123; Incision; Right; | 08/08/18 1123 by | 08/08/18 1405 by | | | arm; Healing; 08/08/18; 1405 | Denisa Cano RN | Celia Jha RN | +--------+ + + + documented in [...] + +--------+ + + + | ANE NERVE BLOCK | Routin | 08/08/2018 | | Results for this | | CATHETER NOTE | e | 11:24 AM | | procedure are in the | | | | PST | | results section. | + +--------+ + + + | ANE AIRWAY NOTE | Routin | 08/08/2018 | | Results for this | | | e | 11:18 AM | | procedure are in the | | | | PST | | results section. | + +--------+ + + + documented in this encounter Results Anesthesia Perineural Note (08/08/2018 11:24 AM PST) + + + | Narrative | Performed At | + + + | Cyndee Lincoln MD 08/08/2018 11:29 Perineural Procedure Note | | | 08/08/2018 10:43 Nerve block: interscalene-brachial plexus | | | Laterality: right Continuous block with catheter: No Indication: | | | postoperative analgesia Preprocedure check: patient identified, | | | preevaluation including airway assessment complete, consent | | | obtained, reassessment prior to procedure, monitors applied, timeout | | | performed and risks/benefits discussed Patient position: supine | | | Preparation: chlorhexidine/isopropyl alcohol, 1% lidocaine | | | infiltration Introducer used: no Local anesthetic infiltration | | | volume in ml: 3 mL Technique: ultrasound Radiology image stored in | | | patient's chart: ultrasound Needle: stimulating Needle size: 21 g | | | Medication administered through: needle and incremental injection | | | Negative findings: no blood aspirated, no paresthesia, no air | | | aspirated and no CSF Total volume of local anesthetic solution | | | administered: 10 mL Attempts: 1 Comments: The patient was met in | | | the preoperative area. The chart was reviewed and the patient was | | | interviewed and examined. The risks, benefits and options of | | | anesthesia were discussed and all questions answered. The patient | | | desired to proceed with general anesthesia with a interscalene nerve | | | block for postoperative analgesia. The monitors were placed and | | | the right neck was prepped. Ultrasound was used to identify the | | | right brachial plexus. Lidocaine was infiltrated sq. The, with | | | stimulating needle tip in constant ultrasound view, 10 ml of | | | ropivacaine was injected anh-neurally with frequent negative | | | aspirations. The patient tolerated the procedure well without | | | apparent complication. Please see anesthesia record or flowsheet | | | for vital sign documentation and see anesthesia record or MAR for | | | all medication documentation. Performing provider: CYNDEE LINCOLN | | | W Assistant Accounting Manager: Rich Medina Electronically Signed by: Cyndee Gutiérrez | | | MD Salazar ESig date/time: 08/08/2018 | | | 11:24 | | + + + + + | Procedure Note | + + | Cyndee Lincoln MD - 08/08/2018 11:24 AM PST Perineural Procedure Note08/08/2018 | | 10:43Nerve block: interscalene-brachial plexusLaterality: rightContinuous block with | | catheter: NoIndication: postoperative analgesiaPreprocedure check: patient identified, | | preevaluation including airway assessment complete, consent obtained, reassessment prior | | to procedure, monitors applied, timeout performed and risks/benefits discussedPatient | | position: supinePreparation: chlorhexidine/isopropyl alcohol, 1% lidocaine | | infiltrationIntroducer used: noLocal anesthetic infiltration volume in ml: 3 | | mLTechnique: ultrasoundRadiology image stored in patient's chart: ultrasoundNeedle: | | stimulatingNeedle size: 21 gMedication administered through: needle and incremental | | injectionNegative findings: no blood aspirated, no paresthesia, no air aspirated and no | | CSFTotal volume of local anesthetic solution administered: 10 mLAttempts: 1Comments: The | | patient was met in the preoperative area. The chart was reviewed and the patient was | | interviewed and examined. The risks, benefits and options of anesthesia were discussed | | and all questions answered. The patient desired to proceed with general anesthesia with | | a interscalene nerve block for postoperative analgesia.The monitors were placed and the | | right neck was prepped. Ultrasound was used to identify the right brachial plexus. | | Lidocaine was infiltrated sq. The, with stimulating needle tip in constant ultrasound | | view, 10 ml of ropivacaine was injected anh-neurally with frequent negative | | aspirations. The patient tolerated the procedure well without apparent | | complication.Please see anesthesia record or flowsheet for vital sign documentation and | | see anesthesia record or MAR for all medication documentation.Performing provider: | | CYNDEE LINCOLN WAssistant: Rich RivasElectronically Signed by: Cyndee Lincoln MD | | ESig date/time: 08/08/2018 11:24 | | | |The monitors were placed and the right neck was prepped. Ultrasound was used to identify t he right brachial plexus. Lidocaine was infiltrated sq. The, with stimulating needle tip i n constant ultrasound view, 10 ml of | |ropivacaine was injected anh-neurally with frequent negative aspirations. The patient zulema erated the procedure well without apparent complication. | | | |Please see anesthesia record or flowsheet for vital sign documentation and see anesthesia r ecord or MAR for all medication documentation. | | | | | |Performing provider: CYNDEE LINCOLN | |Assistant Accounting Manager: Rich Medina | | | | | | | |Electronically Signed by: Cyndee Lincoln MD ESig date/time: 08/08/2018 1 1:24 | + + Anesthesia Airway Note (08/08/2018 11:18 AM PST) + + + | Narrative | Performed At | + + + | Cyndee Lincoln MD 08/08/2018 11:19 Anesthesia Airway Placement | | | 08/08/2018 11:04 Preprocedure check: patient identified, oxygen, | | | airway assessed, patient reassessment prior to induction, airway | | | equipment checked and suction Attempts: 1 Airway type: laryngeal | | | mask Size: 3 Cuffed: cuffed Tube secured with: adhesive tape | | | Trauma: none Tube placement verification: bilateral chest rise and | | | carbon dioxide detection Performing provider: CYNDEE LINCOLN | | | Assisted by: RICH MEDINA Electronically Signed by: | | | Cyndee Lincoln MD ESig | | | date/time: 08/08/2018 11:18 | | + + + + + | Procedure Note | + + | Cyndee Lincoln MD - 08/08/2018 11:18 AM PST Anesthesia Airway Placement08/08/2018 | | 11:04Preprocedure check: patient identified, oxygen, airway assessed, patient | | reassessment prior to induction, airway equipment checked and suctionAttempts: 1Airway | | type: laryngeal maskSize: 3Cuffed: cuffedTube secured with: adhesive tapeTrauma: | | noneTube placement verification: bilateral chest rise and carbon dioxide | | detectionPerforming provider: CYNDEE LINCOLN WAssisted by: RICH MEDINA | | OCTAVIOElectronically Signed by: MD Darrius De La Garza | | date/time: 08/08/2018 11:18 | |Tube secured with: adhesive tape | |Trauma: none | |Tube placement verification: bilateral chest rise and carbon dioxide detection | |Performing provider: CYNDEE LINCOLN | |Assisted by: RICH MEDINA | | | | | |Electronically Signed by: MD Darrius De La Garza date/time: 08/08 11:18 | | | + + documented in this encounter Visit Diagnoses Not on filedocumented in this encounter Administered Medications + +---------+ +------+------+------+ | Medication Order | MAR | Action | Dose | Rate | Site | | | Action | Date | | | | + +---------+ +------+------+------+ | ceFAZolin (ANCEF, KEFZOL) 1 g | New Bag | 08/08/19 | 1 g | | | | in sodium chloride 0.9% 50 mL | | 19 10:56 | | | | | IVPB 1 g, Intravenous, | | AM PST | | | | | Administer over 30 Minutes, Prior | | | | | | | to Incision, Starting Tue | | | | | | | 08/08/18 at 0402, For 1 dose, | | | | | | | administer within 1 hour of | | | | | | | incision Activate system and mix | | | | | | | before use., Pre-op, Indications: | | | | | | | Surgical Prophylaxis | | | | | | + +---------+ +------+------+------+ +---+---+ | | | +---+---+ + +-------+ +---------+---+---+ | fentaNYL (PF) injection | Given | 08/08/19 | 100 mcg | | | | Intravenous, PRN, Pain, Starting | | 19 11:10 | | | | | 08/08/18 at 1110, Anesthesia | | AM PST | | | | | Intra-op | | | | | | + +-------+ +---------+---+---+ +---+---+ | | | +---+---+ + +-------+ +--------+---+---+ | heparin 1,000 units/mL | Given | 08/08/19 | 5,000 | | | | injection Intravenous, PRN, | | 19 11:33 | Units | | | | Starting 08/08/18 at 1133, | | AM PST | | | | | Anesthesia Intra-op | | | | | | + +-------+ +--------+---+---+ +---+---+ | | | +---+---+ + +-------+ +-------+---+---+ | lidocaine (PF) 2% injection | Given | 08/08/19 | 20 mg | | | | Intravenous, PRN, Starting Tue | | 19 11:01 | | | | | 08/08/18 at 1101, Anesthesia | | AM PST | | | | | Intra-op | | | | | | + +-------+ +-------+---+---+ +---+---+ | | | +---+---+ + +-------+ +------+---+---+ | ondansetron (ZOFRAN) injection | Given | 08/08/19 | 4 mg | | | | Intravenous, PRN, Nausea, | | 19 11:22 | | | | | Vomiting, Starting 08/08/18 at | | AM PST | | | | | 1122, Anesthesia Intra-op | | | | | | + +-------+ +------+---+---+ +---+---+ | | | +---+---+ + +-------+ +---------+---+---+ | phenylephrine (ARSH-SYNEPHRINE) | Given | 08/08/19 | 100 mcg | | | | 100 mcg/mL injection | | 19 11:39 | | | | | Intravenous, PRN, Starting Tue | | AM PST | | | | | 08/08/18 at 1139, Anesthesia | | | | | | | Intra-op | | | | | | + +-------+ +---------+---+---+ +---+---+ | | | +---+---+ + +-------+ +--------+---+---+ | propofol (DIPRIVAN) injection | Given | 08/08/19 | 100 mg | | | | Intravenous, PRN, Starting Tue | | 11:01 | | | | | 08/08/18 at 1044, Anesthesia | | AM PST | | | | | Intra-op | | | | | | + +-------+ +--------+---+---+ +-------+ +-------+---+---+ | Given | 08/08/19 | 20 mg | | | | | 19 10:44 | | | | | | AM PST | | | | +-------+ +-------+---+---+ +---+---+ | | | +---+---+ + +-------+ +--------+---+---+ | ropivacaine (NAROPIN) 5 mg/mL | Given | 08/08/19 | 10 mLs | | | | (0.5%) injection PERINEURAL, | | 19 10:50 | | | | | PRN, Starting 08/08/18 at | | AM PST | | | | | 1050, Anesthesia Intra-op | | | | | | + +-------+ +--------+---+---+ +---+---+ | | | +---+---+ + +---------+ +---+---+---+ | sodium chloride 0.9% (NS) | New Bag | 08/08/19 | | | | | infusion at 10-100 mL/hr, | | 19 10:43 | | | | | Intravenous, CONTINUOUS, Starting | | AM PST | | | | | 08/08/18 at 0930, TKO. Use | | | | | | | this instead of LR if both are | | | | | | | ordered., Pre-op | | | | | | + +---------+ +---+---+---+ +---------+ +---------+ +---+ | New Bag | 08/08/19 | 500 mLs | 50 mL/hr | | | | 19 9:52 | | | | | | AM PST | | | | +---------+ +---------+ +---+ +---+---+ | | | +---+---+ documented in this encounter"
--- OUTSIDE RECORDS SUMMARY | ~2019-12-03 | XMS | Encounter Summary ---
Demographics + + + | Address | [address] | | | [place] [address] | + + + | Home Phone | | + + + | Preferred Language | Unknown | + + + | Marital Status | Single | + + + | Evangelical Affiliation | 1074 | + + + | Race | Unknown | + + + | Ethnic Group | Unknown | + + + Author + + + | Author | [facility] | | | and [place] | + + + | Organization | [facility] [...] [place] | | | | | [address] | | + + + + + | Lizet Scott | ECON | Unknown | | + + + + + Care Team Providers + +------+ + | Care Compressor Battery Pellets Name | Role | Phone | + +------+ + | Aida Knight PA-C | PCP | | + +------+ + Encounter Details +--------+ + + + + | Date | Type | Department | Care Team | Description | +--------+ + + + + | 06/14/ | Hospital | [facility] | Lester Best | Chronic kidney | | 2018 | Encounter | [facility] | M, DO [address] | disease, stage V | | | | [address] [place] | [address] | ([facility]); Dilated | | | | [place], [place] | [place], [place] | cardiomyopathy | | | | [address] | [address] | (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); Anemia in | | | | | | stage 5 chronic | | | | | | kidney disease, not | | | | | | on chronic dialysis | | | | | | ([facility]) | +--------+ + + + + [...] | | | | | | | ([facility]), Dilated | | | | | | | cardiomyopathy | | | | | | | ([facility]), Type 2 | | | | | | | diabetes mellitus | | | | | | | with diabetic | | | | | | | nephropathy, with | | | | | | | long-term current | | | | | | | use of insulin | | | | | | | ([facility]), Anemia in | | | | | | | stage 5 chronic | | | | | | | kidney disease, not | | | | | | | on chronic dialysis | | | | | | | ([facility]) | | | | | | [...] | + +--------+ + + + | VAS UPPER EXTREMITY | Routin | 06/14/2018 | Chronic kidney | Results for this | | VEIN MAPPING | e | 1:30 PM | disease, stage V | procedure are in the | | BILATERAL | | PST | ([facility]) Dilated | results section. | | | | | cardiomyopathy ([facility]) | | | | | | Type 2 diabetes | | | | | | mellitus with | | | | | | diabetic | | | | | | nephropathy, with | | | | | | long-term current | | | | | | use of insulin ([facility]) | | | | | | Anemia in stage 5 | | | | | | chronic kidney | | | | | | disease, not on | | | | | | chronic dialysis | | | | | | ([facility]) | | + +--------+ + + + documented in this encounter Results VAS Upper Extremity Vein Mapping Bilat (06/14/2018 [...]
--- OUTSIDE RECORDS SUMMARY | ~2019-12-03 | XMS | Encounter Summary ---
Demographics + + + | Address | [address] | | | [place] [address] | + + + | Home Phone [...] + | Author | [facility] | | | and [place] | + + + | Organization | [facility] | | | and [place] | + + + | Address | Unknown | + + + | Phone | Unavailable | + + + Support + + + + + | Name | Relationship | Address | Phone | + + + + + | Evelina Bryan Name | ECON | [place] | | | | | [address] | | + + + + + | Lizet Scott | ECON | Unknown | | + + + + + Care Team Providers + +------+ + | Care Vmware Architect Name | Role | Phone | + [...] NEPHROLOGY [address] | MD [address] | | | | | [address] | [address] [place] | | | | | [place], [place] | [place] [address] | | | | | [address] | [phone] | | | | | [phone] | | | +--------+ + + + [...]
--- OUTSIDE RECORDS SUMMARY | ~2019-12-03 | XMS | Encounter Summary ---
Demographics + + + | Address | [address] | | | [place] [address] | + + + | Home Phone | | + + + | Preferred Language | Unknown | + + + | Marital Status | Single | + + + | Hoahaoism Affiliation | 1074 | + + + | Race | Unknown | + + + | Ethnic Group | Unknown | + + + Author + + + | Author | [facility] | | | and [place] | + + + | Organization | [facility] | | | and [place] | + + + | Address | Unknown | + + + | Phone | Unavailable | + + + Support + + + + + | Name | Relationship | Address | Phone | + + + + + | Evelina Bryan Name | ECON | [place] | | | | | [address] | | + + + + + | Lizet Scott | ECON | Unknown | | + + + + + Care Team Providers + +------+ + | Care Disability Insurance Hearing Officer Name | Role | Phone | + [...] | | [address] | [place] | (HCC) (Primary Dx) | | | | [place], [place] | [place], [place] | | | | | [address] | [address] | | | | | [phone] | | | +--------+ + + + [...] PSTLabs [facility] signed by Cee Garcia RN at 07/19/2018 [...]
--- OUTSIDE RECORDS SUMMARY | ~2019-12-03 | XMS | Encounter Summary ---
Demographics + + + | Address | [address] | | | [place] [address] | + + + | Home Phone [...] Author | [facility] | | | and Jethroana | + + + | Organization | [facility] [...] [place] | | | | | [address] | | + + + + + | Lizet Ghamber | ECON | Unknown | | + + + + + Care Team Providers + +------+ + | Care Gear Machine Operator General Name | Role | Phone | + [...] | | | stage renal | [place] [address] | [address] [place] [address] | | | | | disease) | | [place]air [place] | | | | | ([facility]) | [facility] | [address] | | | | | Procedures | WAY | [place] | | | | | [place] ESRD | [place], | [address] Phone: | | | | | RELATED [facility] | [place] [address] | [phone] | | | | | MONTHLY | Phone: | Fax: | | | | | 20&/> YR OLD | [phone] | [phone] | | | | | 4/> VISITS | Fax: | | | | | | | [phone] | | +--------+--------+ + + + + Encounter Details +--------+ + + + + | Date | Type | Department | Care Team | Description | +--------+ + + + + | 09/10/ | Off-Site | [facility] [place] | Lester Best | End stage renal | | 2020 | Visit | NEPHROLOGY [address] | M, DO [address] | disease (HCC) | | | | [address] | [place] | (Primary Dx) | | | | [place], [place] | [place], [place] | | | | | [address] | [address] | | | | | [phone] | | | +--------+ + + + [...] + + + | Blood Pressure | 108/56 | 09/10/2019 1:02 PM | | | | | PST | | + + + + + | Pulse | - | - | | + + + + + | Temperature | 36.4 C (97.6 F) | 09/10/2019 1:02 PM | | | | | PST | | + + + + + | Respiratory Rate | 16 | 09/10/2019 1:02 PM | | | | | PST [...] encounter Progress Notes Lester Best DO - 09/10/2019 10:00 AM PST Subjective: DIALYSIS NOTE Patient ID: Xochilt Linares is a 63 y.o. female. 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 She is stable on outpatient dialysis at [facility] dialysis clinic. He states that her appetite is good. Denies cramps, cl audication, pruritus or hiccups. Her AVF is functioning well. PAST MEDICAL HISTORY: 1. 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 2. Hypertension 25 years, most recently off of therapy. 3. Anemia secondary CKD treated with EPO. 4. Ischemic cardiomyopathy with last LVEF = 20-25%, mild eccentric LVH, severe global hyp okinesis, grade 1 diastolic dysfunction on echo, 07/17/2019. [facility]. 5. 3 vessel CAD, s/p three-vessel CABG, with LO to LAD, SVG to D2, SVG to PDA, 12/29/19 19, Dr. Phill Logan, [facility]. 6. Hyperlipidemia, unknown duration, on statin therapy. MEDS: Outpatient Medications Marked as Taking for the 09/10/19 encounter (Off-Site Visit) with Christophe Best, DO Medication Sig Dispense Refill aspirin 81 mg chewable tablet Take 81 mg by mouth Daily. atorvaSTATin (LIPITOR) 80 MG tablet Take 1 tablet by mouth Daily. 30 tablet 5 b complex-vitamin c-folic acid (NEPHRO-JANETH) tablet Take 1 tablet by mouth Daily. 4 calcitRIOL (ROCALTROL) 0.5 MCG capsule Take 0.5 mcg by mouth Every other day. [DISCONTINUED] carvedilol (COREG) 6.25 mg tablet Take 1 tablet by mouth 2 times daily ( with breakfast & dinner). 60 tablet 5 Cholecalciferol (VITAMIN D-3) 2000 units CAPS Take 1 capsule by mouth Daily. 30 each 11 [DISCONTINUED] furosemide (LASIX) 80 mg tablet Take 1 tablet by mouth Daily. [DISCONTINUED] lisinopril (PRINIVIL, ZESTRIL) 10 mg tablet Take 1 tablet by mouth night ly. 30 tablet 11 magnesium oxide (MAG-OX) 400 mg tablet Take 1 tablet by mouth Daily. 30 tablet 5 [DISCONTINUED] spironolactone (ALDACTONE) 25 mg tablet Take 1 tablet by mouth Daily. 30 tablet 5 No Known Allergies ROS Objective: BP 108/56 | Temp 36.4 C (97.6 F) | Resp 16 EDW 65 kg Physical Exam Heart: Regular rate and rhythm with grade 1/6 VELVET at LSB, no S3, or rub. Lungs: CTA bilaterally. No rales or wheezes. Abdomen: soft, obese, nontender, NABS. Extremities: no edema, clubbing, or cyanosis. AVF at Right upper arm has (+) bruit. LAB: BUN 40, Cr 3.46, K+ 3.2, HCO3 30, albumin 3.8, Ca++ 8.6, phosphorus 3.4, PTH 110, Hb 1 0.6, T sat 53%, ferritin 1228, [HbA1c not listed], spKT/V = 1.92 Assessment: 1. ESRD--her adequacy appears stable on the current Rx, thrice weekly. 2. dilated cardiomyopathy--compensated.apparently she had dialysis induced hypotension on her ACEI and carvedilol and this was held. 3. Type II DM --need to recheck her HbA1c. Not clear why this is being deferred? 4. Hypertension--BP has been low normal due to her background cardiomyopathy. CHF appears compensated. 5. Anemia 2 to CKD--EPO has been on hold due to stable hemoglobin. Her iron stores are satisfactory for erythropoiesis. 6. SHPTH--concerned that her appetite could be waning? Her phosphorus control is excellen t and I encouraged to maximize her intake of high biological value protein. 7. Nutrition-- see above. 8. Transplantation--she declines this for now as she is fearful of surgery. 9. CAD, s/p CABG x3 vessels, LO to LAD, SVG to D2, SVG to PDA, 12/28/2018, [facility]--stable. PLAN 1. I reviewed with Xochilt her blood pressure, Ca++, phosphorus, and PTH. 2. Will write some new standing orders for HbA1c quarterly given her background Type II DM . 3. I told her she could liberalize her protein and phosphorus intake to help maintain stab le serum albumin. 4. Her CHF appears compensated at the current dry weight.she will be rechecked in 2 weeks. : [facility] Tia Payne MD, [facility] documented in thi s encounter Plan of Treatment Not on filedocumented as of this encounter Visit Diagnoses + + | Diagnosis | + + | End stage renal disease (HCC) - Primary End stage renal disease | + + documented in this encounter"
--- OUTSIDE RECORDS SUMMARY | ~2019-12-03 | XMS | Encounter Summary ---
Demographics + + + | Address | [address] | | | [place] [address] | + + + | Home Phone | | + + + | Preferred Language | Unknown | + + + | Marital Status | Single | + + + | Rastafarian Affiliation | [id number] | + + + | Race | Unknown | + + + | Ethnic Group | Unknown | + + + Author + + + | Author | [facility] | | | and Jethroana | + + + | Organization | [facility] | [...] [place] | | | | | [address] | | + + + + + | Lizet Scott | ECON | Unknown | | + + + + + Care Team Providers + +------+ + | Care Tobacco Weigher Name | Role | Phone | + +------+ + | Aida Knight PA-C | PCP | | + +------+ + Reason for Visit +--------+ + | Reason | Comments | +--------+ + | Other | update on referral | +--------+ + Encounter Details +--------+ + + + + | Date | Type | Department | Care Team | Description | +--------+ + + + + | 10/25/ | Telephone | [facility] | Meryl, | Other (update on | | 2018 | | CARDIOLOGY [address] | [address] | referral) | | | | [place], | [place], | | | | | [place] [address] | [place] [address] | | | | | [phone] | [phone] | | | | | | | [...]
--- OUTSIDE RECORDS SUMMARY | ~2019-12-03 | XMS | Encounter Summary ---
Demographics + + + | Address | [address] | | | [place] [address] | + + + | Home Phone | | + + + | Preferred Language | Unknown | + + + | Marital Status | Single | + + + | Shinto Affiliation | 1074 | + + + | Race | Unknown | + + + | Ethnic Group | Unknown | + + + Author + + + | Author | [facility] Zamudio | | | and eJthroana | + + + | Organization | [facility] [...] [place] | | | | | [address] | | + + + + + | Lizet Scott | ECON | Unknown | | + + + + + Care Team Providers + +------+ + | Care Hand Therapist Name | Role | Phone | [...] | | | stage renal | [place] [address] | [address] [place] [address] | | | | | disease) | | [place], [place] | | | | | (HCC) | [place] | [address] [place] | | | | | Procedures | WAY | [address] | | | | | [place] | [place], | [address] Phone: | | | | | RELATED [facility] | [place] [address] | [phone] | | | | | MONTHLY | Phone: | Fax: | | | | | 20&/> YR OLD | [phone] | [phone] | | | | | 4/> VISITS | Fax: | | | | | | | [phone] | | +--------+--------+ + + + + Encounter Details +--------+ + + + + | Date | Type | Department | Care Team | Description | +--------+ + + + + | 03/12/ | Off-Site | [facility] [place] | Lester Best | Chronic kidney | | 2019 | Visit | NEPHROLOGY [address] | M, DO [address] | disease, stage V | | | | [address] | [place] | ([facility]); Dilated | | | | [place], [place] | [place], [place] | cardiomyopathy | | | | [address] | [address] | ([facility]); Type 2 | | | | [phone] | | diabetes mellitus | | | | | | with diabetic | | | | | | nephropathy, with | | | | | | long-term current | | | | | | use of insulin | | | | | | ([facility]); Anemia in | | | | | | stage 5 chronic | | | | | | kidney disease, not | | | | | | on chronic dialysis | | | | | | ([facility]) | +--------+ + + + + [...] + + + | Blood Pressure | 143/72 | 03/12/2019 3:42 PM | | | | | PDT | | + + + + + | Pulse | - | - | | + + + + + | Temperature | 36.8 C (98.2 F) | 03/12/2019 3:42 PM | | | | | PDT [...] encounter Progress Notes Lester Best DO - 03/12/2019 10:00 AM PDT Subjective: DIALYSIS NOTE Patient ID: Xochilt Linares is a 63 y.o. female. HPI Comments: Monthly dialysis visit for this 63 YO female with ESRD secondary to diabeti c gl glomerulosclerosis, plus low CO state from her background dilated cardiomyopathy, also has anemia secondary to CKD, CKD/MBD, and Type II DM. Earlier this summer she was found to have multivessel CAD, during work-up of her dilated ca rdiomyopathy, and underwent a successful three-vessel CABG at [facility] on . She was on a rehab floor for a while but has transitioned home. She is lucid, t alks, and attends all prescribed treatments. She denies chest pain, orthopnea or fever. MEDS: Outpatient Medications Marked as Taking for the 03/12/19 encounter (Off-Site Visit) with Christophe Best, DO [...] 5 No Known Allergies ROS Objective: BP 143/72 | Temp 36.8 C (98.2 F) EDW 67 kg Physical Exam Heart: Regular rate and rhythm with grade 1-2/6 VELVET at LSB, no S3, or rub. Lungs: CTA bilaterally. No rales or wheezes. Sternum is well-healed. Abdomen: soft, obese, nontender, NABS. Extremities: no edema, clubbing, or cyanosis. AVF at Right upper arm has (+) bruit. LAB: BUN 51, Cr 3.65, K+ 4.1, HCO3 31, albumin 3.6, Ca++ 8.4, phosphorus 3.8, PTH 158, Hb 1 1.1, T sat 14%, ferritin 247, spKT/V = 1.66. Assessment: 1. ESRD--she appears well dialyzed on 4 hours, N 17 H, 2K +, QB 400, QD 600, thrice weekly . 2. dilated cardiomyopathy--compensated at her current dry weight. 3. Type II DM --need to recheck her HbA1c since return. 4. Hypertension--good control f with UF and lisinopril. 5. Anemia 2 to CKD--stable on the current dose of EPO. She could benefit from IV Venof er to target the T Sat >20%, per KDIGO guidelines. 6. SHPTH--PTH is optimal and her serum phosphorus is excellent. 7. Nutrition--she states that her appetite is steadily improving. She is swallowing well. She is on the ONSP program for oral supplements here in clinic. 8. Transplantation--she philosophically is ambivalent about this. 9. CAD, s/p CABG x3 vessels, LO to LAD, SVG to D2, SVG to PDA, 12/28/2018, Dr. Phill jean, [facility]--stable on ASA, atorvastatin, carvedilol, lisinopril. PLAN 1. She appears to have made a very steady recovery from her CABG. She states that her gibson rgy level is much better. 2. She appears euvolemic at her current dry weight. 3. Need to recheck her HbA1c and then quarterly. 4. I encouraged her to maximize her daily intake of high biological value protein, especia lly eggs. Monthly lab was reviewed with the patient. 5. I greatly appreciate Drs. Logan and Ryan's help with Xochilt's case. : [facility] Tia Payne MD, [facility] MD ANA Mendenhall M.D. documented in thi [...]
--- OUTSIDE RECORDS SUMMARY | ~2019-12-03 | XMS | Encounter Summary ---
Demographics + + + | Address | [address] | | | [place] [address] | + + + | Home Phone [...] + + + | Author | [facility] | | | and Jethroana | + + + | Organization | [facility] | | | and Jethroana | + + + | Address | Unknown | + + + | Phone | Unavailable | + + + Support + + + + + | Name | Relationship | Address | Phone | + + + + + | Evelina Bryan Name | ECON | [place] | | | | | [address] | | + + + + + | Lizet Scott | ECON | Unknown | | + + + + + Care Team Providers + +------+ + | Care Director Environmental Name | Role | Phone | + +------+ + | Aida Knight PA-C | PCP | | + +------+ + Encounter Details +--------+ + + + + | Date | Type | Department | Care Team | Description | +--------+ + + + + | 04/16/ | Documentati | [facility] [place] | Shreya Eldridge W, | | | 2018 | on | NEPHROLOGY [address] | MD [address] | | | | | [address] | [address] [place] | | | | | [place], [place] | [place] [address] | | | | | [address] | [phone] | | | | | [phone] | | | +--------+ + + + [...] this encounter Progress Notes Nidia Puga - 04/16/2019 9:26 AM PDTManually faxed hemodialysis progress note from [facility], dos: 04/13/19 to Juan Carlos Barillas inside sales coordinator, at her request regarding the referral from Dr. Eldridge to general surgery. Sent to Briana sheppard signed by Nidia Puga at 04/16/2019 9:28 AM PDTdocumented in this encounter Plan of Treatment Not on filedocumented as of this encounter Visit Diagnoses Not on filedocumented in this encounter"
--- OUTSIDE RECORDS SUMMARY | ~2019-12-03 | XMS | Encounter Summary ---
Demographics + + + | Address | [address] | | | [place] [address] | + + + | Home Phone [...] + | Author | [facility]io | | | and Jethroana | + + + | Organization | [facility] [...] [place] | | | | | [address] | | + + + + + | Lizet Scott | ECON | Unknown | | + + + + + Care Team Providers + +------+ + | Care Management Associate Name | Role | Phone | + [...] | | | | | | | [place] | | | | | | | [...] + + + + | 08/08/ | Hospital | [facility] | Harman Plaza | CKD (chronic kidney | | 2019 | Encounter | MED CTR OR INTRA OP | MD Aditi, FACS [address] | disease), stage V | | | | [address] | [place] | ([facility]) | | | | [place], [place] | [place] [address] | | | | | [address] | [phone] | | | | | [phone] | | | +--------+ + + + [...] + + + | Blood Pressure | 129/56 | 08/08/2018 1:15 PM | | | | | PST | | + + + + + | Pulse | 73 | 08/08/2018 1:15 PM | | | | | PST | | + + + + + | Temperature | 36.3 C (97.3 F) | 08/08/2018 12:19 PM | | | | | PST | | + + + + + | Respiratory Rate | 23 | 08/08/2018 12:56 PM | | | | | PST | | + + + + + | Oxygen Saturation | 98% | 08/08/2018 1:15 PM | | | | | PST | | + + + + + | Inhaled Oxygen | - | - | | | Concentration | | | | + + + + + | Weight | 66.7 kg (147 lb 0.8 | 08/08/2018 9:03 AM | | | | oz) | PST | | + + + + + | Height | 165.1 cm (5' 5") | 08/08/2018 9:03 AM | | | | | PST | | + + + + + | Body Mass Index | 24.47 | 08/08/2018 9:03 AM | | | | | PST | | + + + + + documented in this encounter Discharge Instructions Instructions Harman Plaza MD, FACS - [facility]2018[facility] POST-OP INSTRUCTIONS: Arterio-Venous Fistula 1. Keep the operative arm clean and dry for 24 hours. 2. Remove bandage in 3-4 days. ( May replace if any wound drainage). 3. NO BP, IV or needles in the arm with the fistula 4. It is helpful to exercise the hand with a squeeze ball. 5. Resume normal activities 6. Resume normal diet. 7. Please call Dr. Plaza's office today or tomorrow for a followup appointment in 1-2 weeks . . documented in this encounter Medications at Time [...] | | | ([facility]), Dilated | | | | | | | cardiomyopathy | | | | | | | (HCC), Type 2 | | | | | | | diabetes mellitus | | | | | | | with diabetic | | | | | | | nephropathy, with | | | | | | | long-term current | | | | | | | use of insulin | | | | | | | ([facility]), Anemia in | | | | | | | stage 5 chronic | | | | | | | kidney disease, not | | | | | | | on chronic dialysis | | | | | | | ([facility]) | | | | | | [...] + + + +---------+ + + | traMADol (ULTRAM) | Take 1 tablet by | 20 | 0 | 08/02/19 | | | 50 mg tablet | mouth every 8 hours | tablet | | 19 | 9 | | | as needed. | | | | | + + + +---------+ + + documented as of this encounter Plan of Treatment Not on filedocumented as of this encounter Procedures + +--------+ + + + | Procedure Name | Priori | Date/Time | Associated Diagnosis | Comments | | | ty | | | | + +--------+ + + + | INSERTION AV FISTULA | | 08/08/2018 | Chronic kidney | | | | | 10:56 AM | disease, stage V | | | | | PST | ([facility]) (N18.5) | | + +--------+ + + + +---+--------+ | | Case | | | Notes | | | | | | Field, | | | Case | | | 2 | +---+--------+ + +--------+ +---+ + | PTT | Routin | 08/08/2018 | | Results for this | | | e | 9:50 AM | | procedure are in the | | | | PST | | results section. | + +--------+ +---+ + | PROTIME INR | Routin | 08/08/2018 | | Results for this | | | e | 9:50 AM | | procedure are in the | | | | PST | | results section. | + +--------+ +---+ + | BASIC METABOLIC | Routin | 08/08/2018 | | Results for this | | PANEL | e | 9:06 AM | | procedure are in the | | | | PST | | results section. | + +--------+ +---+ + documented in this encounter Results PTT (08/08/2018 9:50 AM PST) + +-------+ + + + | Component | Value | Ref Range | Performed | Pathologist | | | | | At | Signature | + +-------+ + + + | aPTT | 32 | 22 - 36 seconds | [facility] | | | | | [...] [address] | [place] | [phone] | | [facility] | | [address] | | | - LABORATORY | | | | + + + + + Protime INR (08/08/2018 9:50 AM PST) + + + + + + | Component | Value | Ref Range | Performed | Pathologist | | | | | At | Signature | + + + + + + | Prothrombin | 13.2 | 11.3 - 13.9 | [facility] | | | Time | | seconds | [facility] | | | | [...] [address] | [place] | [phone] | | [facility] | | [address] | | | - LABORATORY | | | | + + + + + Basic Metabolic Panel (08/08/2018 9:06 AM PST) + + + + + + [...] + + + + | K | 3.0 (L) | 3.5 - 5.1 | [facility] | | | | | mmol/L | [facility] | | | | | | MEDICAL | | | | | | CENTER - | | | | | | LABORATORY | | + + + + + + | Cl | 98 | 98 - 109 mmol/L | [facility] | | | | | | [facility] | | | | | | MEDICAL | | | | | | CENTER - | | | | | | LABORATORY | | + + + + + + | CO2 | 25 | 24 - 31 mmol/L | [facility] | | | | | | [facility] | | | | | | MEDICAL | | | | | | CENTER - | | | | | | LABORATORY | | + + + + + + | Anion Gap | 12 | 3 - 16 mmol/L | [facility] | | | | | | [facility] | | | | | | MEDICAL | | | | | | CENTER - | | | | | | LABORATORY | | + + + + + + | Glucose | 158 (H) | 70 - 109 mg/dL | [facility] | | | | | | [facility] | | | | | | MEDICAL | | | | | | CENTER - | | | | | | LABORATORY | | + + + + + + | BUN | 18 | 7 - 18 mg/dL | [facility] | | | | | | [facility] | | | | | | MEDICAL | | | | | | CENTER - | | | | | | LABORATORY | | + + + + + + | Creatinine | 2.58 (H) | 0.60 - 1.30 | [facility] | | | | | mg/dL | [facility] | | | | | | MEDICAL | | | | | | CENTER - | | | | | | LABORATORY | | + + + + + + | eGFR if not | 19 (L)Comment: | >=60 | [facility] | | | | GLOMERULAR FILTRATION | mL/min/1.73m2 | [facility] | | | CHINESE | RATE,ESTIMATED | | MEDICAL | | | | mL/min/1.97o8Oxkh than | | CENTER - | | [...] + + + + | Calcium | 8.6 | 8.3 - 10.5 | [facility] | | | | | mg/dL | [facility] | | | | | | MEDICAL | | | | | | CENTER - | | | | | | LABORATORY | | + + + + + + | BUN/Creatin | 7.0 | | [facility] | | | ine [...] + + | [facility] | [address] | [place] | [phone] | | [facility] | | [address] | | | - LABORATORY | | | | + + + + + documented in this encounter Visit Diagnoses + + | Diagnosis | + + | CKD (chronic kidney disease), stage V (HCC) Chronic kidney disease, Stage V | + + | Externally Defibrillator (Defib Vest) Use | + + | Diabetes mellitus type II, DIET Control Type II or unspecified type diabetes mellitus | | without mention of complication, not stated as uncontrolled | + + | Dilated cardiomyopathy (HCC) Other primary cardiomyopathies | + + | GERD (gastroesophageal reflux disease) Esophageal reflux | + + | Hypertension Unspecified essential hypertension | + + | Pulmonary hypertension, mild (HCC) Other chronic pulmonary heart diseases | + + | Cardiac LV ejection fraction 21-30% | + + documented in this encounter Administered Medications + +--------+---------+------+------+------+ | Medication Order | MAR | Action | Dose | Rate | Site | | | Action | Date | | | | + +--------+---------+------+------+------+ + +---+ | albuterol 2.5 mg/3 mL nebulizer | | | solution 2.5 mg 2.5 mg, | | | Nebulization, ONCE PRN, Wheezing, | | | Starting 08/08/18 at 1208, | | | For 1 dose, Notify anesthesia if | | | patient is wheezing and does not | | | have a history of asthma or COPD | | | or current smoking., | | | Recovery/Phase I | | + +---+ | | | + +---+ | atropine 0.1 mg/mL syringe 0.5 | | | mg 0.5 mg, Intravenous, PRN, | | | Bradycardia, For HR < 40, | | | Starting 08/08/18 at 1208, For | | | 2 doses, May repeat one time | | | after 1 min., Recovery/Phase I | | + +---+ | | | + +---+ + +-------+ +---------+---+---+ | carvedilol (COREG) tablet 6.25 | Given | 08/08/19 | 6.25 mg | | | | mg 6.25 mg, Oral, ONCE, Tue | | 10:24 | | | | | 08/08/18 at 1030, For 1 dose, | | AM PST | | | | | Pre-op [...] glucose < 50, | | | Starting 08/08/18 at 0903, | | | Repeat in 15 min [...] | 15 MIN PRN, Low Blood Sugar, For | | | hypoglycemia. Give 12.5g (25ml) | | | IV if blood glucose 50-69 | | | mg/dL. Give 25g (50ml) IV if | | | blood glucose < 50, Starting Tue | | | 08/08/18 at 1208, Give over 2 min. | | | Repeat in 15 min if blood | | | glucose remains < 70 mg/dL. | | | Repeat blood glucose in 30 min | | | once blood glucose > 70., | | | Recovery/Phase I | | + +---+ | | | + +---+ | ePHEDrine 50 mg/mL injection 5 | | | mg 5 mg, Intravenous, EVERY 5 | | | MIN PRN, if SBP <90., Starting | | | 08/08/18 at 1208, Hold if HR > | | | 100. Maximum total dose 20mg., | | | Recovery/Phase I | | + +---+ | | | + +---+ | fentaNYL (PF) injection 25-50 | | | mcg 25-50 mcg, Intravenous, | | | EVERY 5 MIN PRN, Pain, Starting | | | 08/08/18 at 1208, Maximum | | | total dose 250 mcg. PACU IV | | | Narcotic Priority: Only use | | | fentanyl for immediate post-op | | | pain (one dose) or breakthrough | | | pain when any other IV narcotics | | | ordered have been ineffective (if | | | ordered). If both morphine and | | | hydromorphone are ordered, use | | | morphine first, and use | | | hydromorphone if morphine | | | ineffective., Recovery/Phase I | | + +---+ | | | + +---+ | ondansetron (ZOFRAN ODT) | | | disintegrating tablet 4 mg 4 mg, | | | Oral, EVERY 6 HOURS PRN, Nausea, | | | Vomiting, Starting 08/08/18 | | | at 1303, First line agent, | | | Post-op/Phase II | | + +---+ | | | + +---+ | ondansetron (ZOFRAN) injection | | | 4 mg 4 mg, Intravenous, ONCE | | | PRN, Nausea, Starting 08/08/18 | | | at 1208, For 1 dose, | | | Recovery/Phase I | | + +---+ | | | + +---+ | ondansetron (ZOFRAN) injection | | | 4 mg 4 mg, Intravenous, EVERY 6 | | | HOURS PRN, Nausea, Vomiting, | | | Starting 08/08/18 at 1303, | | | First line agent. Use [...]
--- OUTSIDE RECORDS SUMMARY | ~2019-12-03 | XMS | Encounter Summary ---
Demographics + + + | Address | [address] | | | [place] [address] | + + + | Home Phone [...] | Author | [facility] | | | and Jethroana | + + + | Organization | [facility] | | | and Jethroana | + + + | Address | Unknown | + + + | Phone | Unavailable | + + + Support + + + + + | Name | Relationship | Address | Phone | + + + + + | Evelina Bryan Name | ECON | [place] | | | | | [address] | | + + + + + | Lizet Scott | ECON | Unknown | | + + + + + Care Team Providers + +------+ + | Care Knock Up Assembler Name | Role | Phone | + [...] + + | Closed | Specialty | Cardiac | Diagnoses | Kerry | [facility] | | | Services | Rehabilitatio | Acute | MD Tia | H[facility]PITAL | | | Required | n | combined | [address] | PHYSICAL | | | | | systolic and | [address] | THERAPY [address] | | | | | diastolic | [place], | [place] | | | | | congestive | [place] [address] | [place], [place] | | | | | heart | Phone: | [phone] | | | | | failure | [phone] | Phone: | | | | | ([facility]) | Fax: | [phone] | | | | | Procedures | [phone] | Fax: | | | | | [place] | | [phone] | | | | | OUTPATIENT | | | | | | | CARDIAC | | | | | | | REHAB W/O | | | | | | | CONT ECG | | | | | | | MONITOR | | | +--------+ + + + + + Encounter Details +--------+ + + + + | Date | Type | Department | Care Team | Description | +--------+ + + + + | 06/05/ | Orders Only | [facility] [place] | Jasenphyllisuqita Tia, | Acute combined | | 2018 | | CARDIOLOGY [address] | MD [address] | systolic and | | | | [address] [place], | [place], | diastolic congestive | | | | [place] [address] | [place] [address] | heart failure (HCC) | | | | [phone] | [phone] | (Primary Dx) | | | | | | | [...] | + + +--------+ + + | Referral to Cardiac | Outpatient | Routin | Acute combined | 1 Occurrences | | Rehab | Referral | e | systolic and | starting 06/05/2018 | | | | | diastolic congestive | until 06/05/2019 | | | | | heart failure (HCC) | | + + +--------+ + + documented as of this encounter Visit Diagnoses + + | Diagnosis | + + | Acute combined systolic and diastolic congestive heart failure (HCC) - Primary Acute | | combined systolic and diastolic heart failure | + + documented in this encounter"
--- OUTSIDE RECORDS SUMMARY | ~2019-12-03 | XMS | Encounter Summary ---
Demographics + + + | Address | [address] | | | [place] [address] | + + + | Home Phone | | + + + | Preferred Language | Unknown | + + + | Marital Status | Single | + + + | Muslim Affiliation | 1074 | + + + | Race | Unknown | + + + | Ethnic Group | Unknown | + + + Author + + + | Author | [facility] | | | and Jethroana | + + + | Organization | [facility] | | | and Jethroana | + + + | Address | Unknown | + + + | Phone | Unavailable | + + + Support + + + + + | Name | Relationship | Address | Phone | + + + + + | Evelina Bryan Name | ECON | [place] | | | | | [address] | | + + + + + | Lizet Scott | ECON | Unknown | | + + + + + Care Team Providers + +------+ + | Care Paper Finisher Name | Role | Phone | + +------+ + | Aida Knight PA-C | PCP | | + +------+ + Reason for Visit +---------+ + | Reason | Comments | +---------+ + | Post Op | RIGHT AV Fistula creaiton | +---------+ + Evaluate & Treat (Routine) +--------+--------+ + + + + | Status | Reason | Specialty | Diagnoses / | Referred By | Referred To | | | | | Procedures | Contact | Contact | +--------+--------+ + + + + | Closed | | General | Diagnoses | Antonia, | [facility] | | | | Surgery | A-V fistula | Aida Raymundo, | General | | | | | ([facility]) | PA-C [address] | Surgery [address] | | | | | Procedures | | [address] | | | | | AR OFFICE | [place] | [place], | | | | | OUTPATIENT | WAY | [place] [address] | | | | | VISIT [address] | [place], | Phone: | | | | | MIN[address]ES [address] | [place] [address] | [phone] | | | | | Hemodialysis | Phone: | Fax: | | | | | Catheter | [phone] | [phone] | | | | | | Fax: | | | | | | | [phone] | | +--------+--------+ + + + + Encounter Details +--------+---------+ + + + | Date | Type | Department | Care Team | Description | +--------+---------+ + + + | 08/16/ | Office | [facility] | Harman Plaza | Chronic kidney | | 2019 | Visit | SURGERY [address] | MD Aditi, FACS [address] | disease, stage V | | | | [place], [place] | [facility] | (HCC) (Primary Dx); | | | | [address] | [place] [address] | Post-operative state | | | | [phone] | [phone] | | | | | | | [...] + + + + | Pulse | 67 | 08/16/2018 10:08 AM | | | | | PST | | + + + + + | Temperature | 36.8 C (98.3 F) | 08/16/2018 10:08 AM | | | | | PST | | + + + + + | Respiratory Rate | 16 | 08/16/2018 10:08 AM | | | | | PST | | + + + + + | Oxygen Saturation | 96% | 08/16/2018 10:08 AM | | | | | PST | | + + + + + | Inhaled Oxygen | - | - | | | Concentration | | | | + + + + + | Weight | - | - | | + + + + + | Height | 165.1 cm (5' 5") | 08/16/2018 10:08 AM | | | | | PST | | + + + + + | Body Mass Index | - | - | | + + + + + documented in this encounter Progress Harman Larios MD, FACS - 08/16/2018 10:20 AM PSTFormatting of this note might be diff erent from the original. Patient Identification: Xochilt Linares 1955 Is a 62 y.o. female , a patient of Aida Knight PA-C. Patient is here with alone. S: Date of surgery: 08/08/2018. Title of surgery: RIGHT Brachial artery to cephalic vein fistula . Physician notes: Patient arrives 8 day(s) s/p RIGHT Brachial artery to cephalic vein fistula . She admits to RIGHT arm pain and numbness for a couple days following the surgery. Today, patient raman es significant right arm or hand pain , she does have tenderness at the incisions site when touched. She denies numbness in her fingers or hand. Patient is currently dialyzing via RIGHT IJ tunneled dialysis catheter. She reports the sit e of her RIGHT catheter is tender, she is unsure if it was pulled. PAST MEDICAL HISTORY Past Medical History: Diagnosis Date CKD (chronic kidney disease), stage V (HCC) GERD (gastroesophageal reflux disease) Helicobacter pylori infection Hyperlipidemia Hypertension Vitamin D deficiency Wears partial dentures Past Surgical History: Procedure Laterality Date AV FISTULA INSERTION Right 08/08/2018 Procedure: RIGHT arm AV fistula creation - brachial artery to cephalic vein; Surgeon: Leeroy Plaza MD, FACS; Location: [facility] MA[facility] OR GALLBLADDER SURGERY HYSTERECTOMY 1997 SHUNT PLACEMENT/INSERTION N/A 07/25/2018 Procedure: Tunneled hemodialysis catheter; Surgeon: Harman Plaza MD, FACS; Locatio n: [facility] MAIN OR TONSILLECTOMY AND ADENOIDECTOMY No Known Allergies Medications: Outpatient Encounter Prescriptions as of 08/16/2018 Medication Sig Dispense Refill aspirin 81 mg [...] every 4 hours as needed for Pain. (Patient not taking: Reported on 08/08/2018) 10 tablet 0 magnesium oxide (MAG-OX) 400 mg tablet Take 1 tablet by mouth Daily. 30 tablet 5 spironolactone (ALDACTONE) 25 mg tablet Take 1 tablet by mouth Daily. 30 tablet 5 traMADol (ULTRAM) 50 mg tablet Take 1 tablet by mouth every 8 hours as needed. (Patient not taking: Reported on 08/08/2018) 20 tablet 0 No facility-administered encounter medications on file as of 08/16/2018. Family History Problem Relation Age of Onset Diabetes Maternal Grandmother Social History: She reports that she has never smoked. She has never used smokeless tobacco. She reports th at she drinks alcohol. She reports that she uses drugs, including Marijuana, about 7 times p er week. PHYSICAL EXAM Vitals: 08/16/18 1008 Pulse: 67 Resp: 16 Temp: 36.8 C (98.3 F) TempSrc: Temporal SpO2: 96% Height: 1.651 m (5' 5") Body mass index is 24.47 kg/m. General Appearance: Alert, cooperative, no distress, appears stated age Skin: Warm and dry Chest: RIGHT tunneled catheter is in good postion. Upper Extremities: RIGHT incisions clean and dry, good thrill present. Hand is warm. RIGHT cephalic vein is visible. Palpable Pulses: RIGHT LEFT Brachial Radial 0 Ulnar Neurologic: Alert and oriented x3,Moving all 4 extremities. , Gait normal ULTRASOUND REPORT: PATIENT NAME : Xochilt Linares EQUIPMENT: Crunchyroll M-Turbo with 10-5 mHertz probe. INDICATIONS: S/P RIGHT Brachial artery to cephalic vein fistula FINDING: RIGHT cephalic vein measures 5.7mm and is 3.2 mm deep to the skin IMPRESSION: Functioning RIGHT cephalic vein fistula Assessment 1. Chronic kidney disease, stage V (HCC) 2. Post-operative state Plan 1.S/P RIGHT Brachial artery to cephalic vein fistula Healing well Return to clinic in 3 weeks, will discuss possible RIGHT AV Fistula translocation surgery a t that time. Harman Plaza MD, FACS Vascular and General Surgery documented in this enc ounter Plan of Treatment Not on filedocumented as of this encounter Visit Diagnoses + + | Diagnosis | + + | Chronic kidney disease, stage V (HCC) - Primary Chronic kidney disease, Stage V | + + | Post-operative state Other postprocedural status | + + documented in this encounter
--- OUTSIDE RECORDS SUMMARY | ~2019-12-03 | XMS | Encounter Summary ---
Demographics + + + | Address | [address] | | | [place] [address] | + + + | Home Phone [...] + | Author | [facility] | | | and Jethroana | + + + | Organization | [facility] | | | and Jethroana | + + + | Address | Unknown | + + + | Phone | Unavailable | + + + Support + + + + + | Name | Relationship | Address | Phone | + + + + + | Evelina Bryan Name | ECON | [place] | | | | | [address] | | + + + + + | Lizet Scott | ECON | Unknown | | + + + + + Care Team Providers + +------+ + | Care [facility] Name | Role | Phone | + [...] | | | | | | | [place] | | | | | | | [...] | | | | | [address] | [place] | | | | | [place] | [address] | | | | | [address] | | | | | | [phone] | | | +--------+ + + + [...] +----+---+ + + | | 1 | [place] | | | | 1 | 43-degrees [...] +----+---+ + + | | 1 | [place] off | | | | 2 | [...] [address] | | eral | Forearm; nsqr-lsm-mxtxwk catheter | Lora Anglin RN | Celia [...] provider: CYNDEE LINCOLN | | | W Picker: Rich Medina Electronically Signed by: Cyndee Gutiérrez [...] | | |Performing provider: CYNDEE LINCOLN | |Picker: Rich Medina | | | | | [...]
--- OUTSIDE RECORDS SUMMARY | ~2019-12-03 | XMS | Encounter Summary ---
Demographics + + + | Address | [address] | | | [place] [address] | + + + | Home Phone | | + + + | Preferred Language | Unknown | + + + | Marital Status | Single | + + + | Orthodox Affiliation | 1074 | + + + | Race | Unknown | + + + | Ethnic Group | Unknown | + + + Author + + + | Author | [facility] | | | and Jethroana | + + + | Organization | [facility] | [...] [place] | | | | | [address] | | + + + + + | Lizet Scott | ECON | Unknown | | + + + + + Care Team Providers + +------+ + | Care Sheet Cutter Name | Role | Phone | + +------+ + | Aida Knight PA-C | PCP | | + +------+ + Reason for Visit + + + | Reason | Comments | + + + | Procedure | PCI | + + + Encounter Details +--------+ + + + + | Date | Type | Department | Care Team | Description | +--------+ + + + + | 10/12/ | Telephone | [facility] | Parisa Gonsalez, | Procedure (PCI) | | 2019 | | [facility] [place] | LACE FINISHER | | | | | [address] | | | | | | [place] [address] [place] | | | | | | [address] | | | | | | [phone] | | | +--------+ + + + [...]
--- OUTSIDE RECORDS SUMMARY | ~2019-12-03 | XMS | Encounter Summary ---
Demographics + + + | Address | [address] | | | [place] [address] | + + + | Home Phone [...] | Author | [facility] | | | and Jethroana | + + + | Organization | [facility] | | [...] [place] | | | | | [address] | | + + + + + | Lizet Scott | ECON | Unknown | | + + + + + Care Team Providers + +------+ + | Care Agricultural Education Professor Name | Role | Phone | + +------+ + | Aida Knight PA-C | PCP | | + +------+ + Encounter Details +--------+ + + + + | Date | Type | Department | Care Team | Description | +--------+ + + + + | 07/05/ | Episode | [facility] | Jose D Chamorroothy | | | 2018 | Changes | SURGERY [address] | [place] | | | | | [place] | | | | | | [address] | | | | | | [phone] | | | +--------+ + + + [...]
--- OUTSIDE RECORDS SUMMARY | ~2019-12-03 | XMS | Encounter Summary ---
Demographics + + + | Address | [address] | | | [place] [address] | + + + | Home Phone | | + + + | Preferred Language | Unknown | + + + | Marital Status | Single | + + + | Bahai Affiliation | 1074 | + + + | Race | Unknown | + + + | Ethnic Group | Unknown | + + + Author + + + | Author | [facility] | | | and Jethroana | + + + | Organization | [facility] | | | and Jethroana | + + + | Address | Unknown | + + + | Phone | Unavailable | + + + Support + + + + + | Name | Relationship | Address | Phone | + + + + + | Evelina Bryan Name | ECON | [place] | | | | | [address] | | + + + + + | Lizet Scott | ECON | Unknown | | + + + + + Care Team Providers + +------+ + | Care Dredge Deckhand Name | Role | Phone | + [...] + + | 10/25/ | Telephone | [facility] | Meryl, | Other (update on | | 2018 | | CARDIOLOGY [address] | [place] [address] | referral) | | | | [place], | [place], | | | | | [place] [address] | [place] [address] | | | | | [phone] | [phone] | | | | | | | [...]
--- OUTSIDE RECORDS SUMMARY | ~2019-12-03 | XMS | Encounter Summary ---
Demographics + + + | Address | [address] | | | [place] [address] | + + + | Home Phone | | + + + | Preferred Language | Unknown | + + + | Marital Status | Single | + + + | Lutheran Affiliation | 1074 | + + + | Race | Unknown | + + + | Ethnic Group | Unknown | + + + Author + + + | Author | [facility] | | | and Jethroana | + + + | Organization | [facility] | [...] [place] | | | | | [address] | | + + + + + | Lizet Scott | ECON | Unknown | | + + + + + Care Team Providers + +------+ + | Care Filter Screen Cleaner Name | Role | Phone | + [...] | Acute | Meryl, | [address] [place] | | | | | combined | [place] | [place], | | | | | systolic and | [address] | [place] | | | | | diastolic | [place] | [address] | | | | | congestive | [place], | Phone: | | | | | heart | [place] | [phone] | | | | | failure | [address] | Fax: | | | | | (HCC) | Phone: | [phone] | | | | | Procedures | [phone] | | | | | | ECHO | Fax: | | | | | | Complete | [phone] | | +--------+--------+ + + + + [...] | | | | combined | PA-C [address] | [address] | | | | | systolic | | [place] | | | | | (congestive) | [place] | [place], [place] | | | | | and | WAY | [address] | | | | | diastolic | [place], | Phone: | | | | | (congestive) | [place] [address] | [phone] | | | | | heart | Phone: | Fax: | | | | | failure | [phone] | [phone] | | | | | (HCC) | Fax: | | | | | | Unspecified | [phone] | | | | | | right [...] + + | 05/17/ | [facility] | [facility] | Meryl, | Pulmonary | | 2019 | Visit | CARDIOLOGY [address] | Elli, SENIOR SUPPORT ENGINEER [address] | hypertension, mild | | | | [place], | [place], | (HCC) (Primary Dx); | | | | [place] [address] | [place] [address] | Acute combined | | | | [phone] | [phone] | systolic and | | | | | | diastolic congestive | | | | | | heart failure | | | | | | (HCC); Coronary | | | | | | artery disease | | | | | | involving mary's igloo | | | | | | coronary artery, | | | | | | angina presence | | | | | | unspecified, | | | | | | unspecified whether | | | | | | mary's igloo or | | | | | | [...] encounter Patient Instructions Patient Instructions Evelina Parr, Game Show Host - 05/17/2019 11:00 AM PDT Discontinue metoprolol [...] keep her appointment on November 28 for 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 And she is been asked to bring [...] change was found Confirmed by BIGG MILLER, [facility] [id number] on 11/21/2018 4:16:24 PM LAB RESULTS reviewed during visit today primarily from [facility]: LIPID Lab Results Component Value [...] 4,521 (H) 05/08/2018 I reviewed records from [facility] and [facility] in [place], [place] for hospitalization, including H&P, Discharge Summary and lab reports on 12/2018 which is summarized in the HPI. RESULTS- I reviewed reports from [facility]: XR Chest AP portable on 12/25/18 shows [...] Portable on 01/02/19 shows interval removal of Bett[place]f-Mayra catheter. Interval plac ement of endotracheal tube [...] symptoms; no limitations of activities of the [place] [employer] f unctional class. Heart failure [...] dominate circulation. Collaterali zation; evidence of a sssv-ee-tkncn collateralization from the distal LAD to distal [...] left ventricular chamber size with severely redu malik LV systolic function. LVEF 30%. Global hypokinesis. [...] symptoms; no limitations of activities of the [employer] [place] [employer] functional class. Heart failure stage [...] diagnosis and admission for CABG. Evelina Pennington Game Show Host am acting as a scribe on behalf of, and in the presenc e of LI Naqvi. - Marilyn Traylor 05/17/2019 11:38 I, LI Naqvi, personally performed the services described in this documentati on, as scribed in my presence and it is both accurate and complete. -LI Naqvi 05/17/2019 Portions of this chart may have been created with [employer] voice recognition software. 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
--- OUTSIDE RECORDS SUMMARY | ~2019-12-03 | XMS | Encounter Summary ---
Demographics + + + | Address | [address] | | | [place] [address] | + + + | Home Phone [...] + + + | Author | [facility] | | | and Jethroana | + + + | Organization | [facility] | | | and [place]eth[place] | + + + | Address | Unknown | + + + | Phone | Unavailable | + + + Support + + + + + | Name | Relationship | Address | Phone | + + + + + | Evelina Bryan Name | ECON | [place] | | | | | [address] | | + + + + + | Lizet Scott | ECON | Unknown | | + + + + + Care Team Providers + +------+ + | Care Baseball Inspector Name | Role | Phone | + +------+ + | Aida Knight PA-C | PCP | | + +------+ + Encounter Details +--------+ + + + + | Date | Type | Department | Care Team | Description | +--------+ + + + + | 12/21/ | Abstract | [facility] | Meryl, | | | 2018 | | CARDIOLOGY [address] | Elli LABOR CUSTODIAN [address] | | | | | [place], | [place], | | | | | [place] [address] | [place] [address] | | | | | [phone] | [phone] | | | | | | | [...] + | EXTERNAL LAB: | Routin | 09/04/2018 | | Results for this | | GLUCOSE | e | | | procedure are in the | | | | | | results section. | + +--------+ + + + | EXTERNAL LAB: LIPASE | Routin | 09/04/2018 | | Results for this | | | e | | | procedure are in the | | | | | | results section. | + +--------+ + + + | EXTERNAL LAB: ALT | Routin | 09/04/2018 | | Results for this | | | e | | | procedure are in the | | | | | | results section. | + +--------+ + + + | EXTERNAL LAB: AST | Routin | 09/04/2018 | | Results for this | | | e | | | procedure are in the | | | | | | results section. | + +--------+ + + + | EXTERNAL LAB: | Routin | 09/04/2018 | | Results for this | | ALKALINE PHOSPHATASE | e | | | procedure are in the | | | | | | results section. | + +--------+ + + + | EXTERNAL LAB: | Routin | 09/04/2018 | | Results for this | | BILIRUBIN, TOTAL | e | | | procedure are in the | | | | | | results section. | + +--------+ + + + | EXTERNAL LAB: | Routin | 09/04/2018 | | Results for this | | ALBUMIN | e | | | procedure are in the | | | | | | results section. | + +--------+ + + + | EXTERNAL LAB: | Routin | 09/04/2018 | | Results for this | | PROTEIN, TOTAL | e | | | procedure are in the | | | | | | results section. | + +--------+ + + + | EXTERNAL LAB: | Routin | 09/04/2018 | | Results for this | | CALCIUM | e | | | procedure are in the | | | | | | results section. | + +--------+ + + + | EXTERNAL LAB: CARBON | Routin | 09/04/2018 | | Results for this | | DIOXIDE | e | | | procedure are in the | | | | | | results section. | + +--------+ + + + | EXTERNAL LAB: | Routin | 09/04/2018 | | Results for this | | CHLORIDE | e | | | procedure are in the | | | | | | results section. | + +--------+ + + + | EXTERNAL LAB: | Routin | 09/04/2018 | | Results for this | | POTASSIUM | e | | | procedure are in the | | | | | | results section. | + +--------+ + + + | EXTERNAL LAB: SODIUM | Routin | 09/04/2018 | | Results for this | | | e | | | procedure are in the | | | | | | results section. | + +--------+ + + + | EXTERNAL LAB: CBC | Routin | 09/04/2018 | | Results for this | | | e | | | procedure are in the | | | | | | results section. | + +--------+ + + + | EXTERNAL LAB: EGFR | Routin | 09/04/2018 | | Results for this | | | e | | | procedure are in the | | | | | | results section. | + +--------+ + + + | EXTERNAL LAB: | Routin | 09/04/2018 | | Results for this | | CREATININE | e | | | procedure are in the | | | | | | results section. | + +--------+ + + + | COMPREHENSIVE | Routin | 09/04/2018 | | Results for this | | METABOLIC PANEL | e | | | procedure are in the | | | | | | results section. | + +--------+ + + + documented in this encounter Results Comprehensive Metabolic Panel (09/04/2018) + +--------+ + + + | Component | Value | Ref Range | Performed | Pathologist | | | | | At | Signature | + +--------+ + + + | Urea | 27 (A) | 6 - 23 | | | | Nitrogen | | | | | | Clearance | | | | | + +--------+ + + + | Alkaline | 72 | 31 - 130 U/L | | | | Phosphatase | | | | | + +--------+ + + + | Anion Gap | 15 | 7 - 21 mmol/L | | | + +--------+ + + + | BUN/Creatin | 7.8 | 6.0 - 28.6 | | | | ine Ratio | | | | | + +--------+ + + + | Globulin | 2.5 | 1.8 - 3.5 | | | + +--------+ + + + | Albumin/Serenity | 1.4 | 1.1 - 2.4 | | | | bulin Ratio | | | | | + +--------+ + + + | Bands | 0 | 0 | | | | Present | | | | | + +--------+ + + + | MCH, POC | 29 | 27 - 33 | | | + +--------+ + + + | MCHC, POC | 33 | 30 - 35 | | | + +--------+ + + + + + | Specimen | + + | Blood | + + External Lab: Glucose (09/04/2018) + +---------+ + + + | Component | Value | Ref Range | Performed | Pathologist | | | | | At | Signature | + +---------+ + + + | Glucose, | 145 (A) | 70 - 100 | | | | External | | | | | + +---------+ + + + External Lab: Lipase (09/04/2018) + +-------+ + + + | Component | Value | Ref Range | Performed | Pathologist | | | | | At | Signature | + +-------+ + + + | Lipase, | 15 | 11 - 82 | | | | External | | | | | + +-------+ + + + External Lab: ALT (09/04/2018) + +-------+ + + + | Component | Value | Ref Range | Performed | Pathologist | | | | | At | Signature | + +-------+ + + + | ALT, | 34 | 7 - 52 | | | | External | | | | | + +-------+ + + + External Lab: AST (09/04/2018) + +-------+ + + + | Component | Value | Ref Range | Performed | Pathologist | | | | | At | Signature | + +-------+ + + + | AST, | 25 | 13 - 39 | | | | External | | | | | + +-------+ + + + External Lab: Alkaline Phosphatase (09/04/2018) + +-------+ + + + | Component | Value | Ref Range | Performed | Pathologist | | | | | At | Signature | + +-------+ + + + | ALP, | 72 | 31 - 130 | | | | External | | | | | + +-------+ + + + External Lab: Bilirubin, Total (09/04/2018) + +-------+ + + + | Component | Value | Ref Range | Performed | Pathologist | | | | | At | Signature | + +-------+ + + + | Bilirubin, | 0.9 | 0 - 1.2 | | | | Total, | | | | | | External | | | | | + +-------+ + + + External Lab: Albumin (09/04/2018) + +---------+ + + + | Component | Value | Ref Range | Performed | Pathologist | | | | | At | Signature | + +---------+ + + + | Albumin, | 3.4 (A) | 3.6 - 5 | | | | External | | | | | + +---------+ + + + External Lab: Protein, Total (09/04/2018) + +---------+ + + + | Component | Value | Ref Range | Performed | Pathologist | | | | | At | Signature | + +---------+ + + + | Protein, | 5.9 (A) | 6 - 8.3 | | | | Total, | | | | | | External | | | | | + +---------+ + + + External Lab: Calcium (09/04/2018) + +---------+ + + + | Component | Value | Ref Range | Performed | Pathologist | | | | | At | Signature | + +---------+ + + + | Calcium, | 8.4 (A) | 8.5 - 10.3 | | | | External | | | | | + +---------+ + + + External Lab: Carbon Dioxide (09/04/2018) + +-------+ + + + | Component | Value | Ref Range | Performed | Pathologist | | | | | At | Signature | + +-------+ + + + | Carbon | 25 | 19 - 31 | | | | Dioxide, | | | | | | External | | | | | + +-------+ + + + External Lab: Chloride (09/04/2018) + +-------+ + + + | Component | Value | Ref Range | Performed | Pathologist | | | | | At | Signature | + +-------+ + + + | Chloride, | 97 | 95 - 112 | | | | External | | | | | + +-------+ + + + External Lab: Potassium (09/04/2018) + +-------+ + + + | Component | Value | Ref Range | Performed | Pathologist | | | | | At | Signature | + +-------+ + + + | Potassium, | 3.8 | 3.6 - 5.1 | | | | External | | | | | + +-------+ + + + External Lab: Sodium (09/04/2018) + +-------+ + + + | Component | Value | Ref Range | Performed | Pathologist | | | | | At | Signature | + +-------+ + + + | Sodium, | 133 | 132 - 143 | | | | External | | | | | + +-------+ + + + External Lab: CBC (09/04/2018) + + + + + + | Component | Value | Ref Range | Performed | Pathologist | | | | | At | Signature | + + + + + + | WBC, | 7.0 | 4.5 - 11 | | | | External | | | | | + + + + + + | HGB, | 11.4 (A) | 12 - 16 | | | | External | | | | | + + + + + + | HCT, | 34.9 (A) | 35 - 45 | | | | External | | | | | + + + + + + | PLT, | 156 | 140 - 440 | | | | External | | | | | + + + + + + | Neutrophils | 84.4 (A) | 39 - 80 | | | | %, | | | | | | External | | | | | + + + + + + | Lymphocytes | 7.7 (A) | 24 - 44 | | | | %, | | | | | | External | | | | | + + + + + + | Monocytes | 7.0 | 0 - 12 | | | | %, External | | | | | + + + + + + | Eosinophils | 0.4 | 0 - 6 | | | | , Absolute | | | | | + + + + + + | Basophils, | 0.5 | 0 - 2 | | | | Absolute | | | | | + + + + + + | RBC, | 3.87 | 3.8 - 5.1 | | | | External | | | | | + + + + + + | MCV, | 90 | 81 - 99 | | | | External | | | | | + + + + + + | RDW, | 18.9 (A) | 10.5 - 15 | | | | External | | | | | + + + + + + External Lab: eGFR (09/04/2018) + +-------+ + + + | Component | Value | Ref Range | Performed | Pathologist | | | | | At | Signature | + +-------+ + + + | eGFR, | 13 | | | | | External | | | | | + +-------+ + + + + + | Specimen | + + | Blood | + + External Lab: Creatinine (09/04/2018) + + + + + + | Component | Value | Ref Range | Performed | Pathologist | | | | | At | Signature | + + + + + + | Creatinine, | 3.48 (A) | 0.7 - 1.25 | | | | External | | | | | + + + + + + + + | Specimen | + + | Blood | + + documented in this encounter Visit Diagnoses Not on filedocumented in this encounter"
--- OUTSIDE RECORDS SUMMARY | ~2019-12-03 | XMS | Encounter Summary ---
Demographics + + + | Address | [address] | | | [place] [address] | + + + | Home Phone | | + + + | Preferred Language | Unknown | + + + | Marital Status | Single | + + + | Catholic Affiliation | 1074 | + + + | Race | Unknown | + + + | Ethnic Group | Unknown | + + + Author + + + | Author | [facility] | | | and Jethroana | + + + | Organization | [facility] [...] [place] | | | | | [address] | | + + + + + | Lizet Scott | ECON | Unknown | | + + + + + Care Team Providers + +------+ + | Care Client Relations Associate Name | Role | Phone | [...] | | | | combined | PA-C [id number] | [address] | | | | | systolic | | [place] | | | | | (congestive) | [place] | [place], [place] | | | | | and | WAY | [address] | | | | | diastolic | [place], | Phone: | | | | | (congestive) | [place] [address] | [phone] | | | | | heart | Phone: | Fax: | | | | | failure | [phone] | [phone] | | | | | (HCC) | Fax: | | | | | | Atherosclero | [phone] | | | | | | tic heart | | | | | | | disease of | | | | | | | [place] | | | | | | | [...] + + | 09/14/ | Office | [facility] | Meryl, | Coronary artery | | 2019 | Visit | CARDIOLOGY [address] | [address] | disease, angina | | | | [place], | [place], | presence | | | | [place] [address] | [place] [address] | unspecified, | | | | [phone] | [phone] | unspecified vessel | | | | | | or lesion type, | | | | | | unspecified whether | | | | | | [place] or | | | | | | [...] Check-in time: 1. Check in at the [facility]. 2. Do not [...] procedure. 6. Make sure you have a company tanker truck driver to take you home. Your company tanker truck driver will also need to sign you [...] hospital line at and ask for nursing supervisor coffee t o let them know you are [...] ECGs available Confirmed by NURIA MILLER, KATERYNA ([id number]) on 05/11/2018 1:15:50 PM LAB RESULTS reviewed during visit today primarily from [facility]: LIPID Lab Results Component Value [...] Dr. Plaza RESULTS- I reviewed reports from [facility]: No results found. Above data [...] She is in class III of the [place] [employer] functional class, hear t failure [...] this chart may have been created with [employer] voice recognition software. Occasi onal wrong-word or [...] or lesion | | type, unspecified whether [place] or transplanted heart - Primary | + + | Dilated cardiomyopathy (HCC) Other primary cardiomyopathies | + + | Hyperlipidemia, unspecified hyperlipidemia type | + + | Hypertension, unspecified type | + + | RBBB (right bundle branch block) Right bundle branch block | + + documented in this encounter
--- OUTSIDE RECORDS SUMMARY | ~2019-12-03 | XMS | Encounter Summary ---
Demographics + + + | Address | [address] | | | [place] [address] | + + + | Home Phone | | + + + | Preferred Language | Unknown | + + + | Marital Status | Single | + + + | Jehovah'S Witness Affiliation | 1074 | + + + | Race | Unknown | + + + | Ethnic Group | Unknown | + + + Author + + + | Author | [facility] | | | and Jethroana | + + + | Organization | [facility] | | | and Jethroana | + + + | Address | Unknown | + + + | Phone | Unavailable | + + + Support + + + + + | Name | Relationship | Address | Phone | + + + + + | Evelina Bryan Name | ECON | [place] | | | | | [address] | | + + + + + | Lizet Scott | ECON | Unknown | | + + + + + Care Team Providers + +------+ + | Care Shaft Repairer Name | Role | Phone | + +------+ + | Aida Knight PA-C | PCP | | + +------+ + Encounter Details +--------+ + + + + | Date | Type | Department | Care Team | Description | +--------+ + + + + | 02/26/ | Orders Only | [facility] [place] | Nasir Lester | | | 2018 | | NEPHROLOGY [address] | M, DO [address] | | | | | [address] | [place] | | | | | [place], [place] | [place], [place] | | | | | [address] | [address] | | | | | [phone] | | | +--------+ + + + [...]
--- OUTSIDE RECORDS SUMMARY | ~2019-12-03 | XMS | Encounter Summary ---
Demographics + + + | Address | [address] | | | [place] [address] | + + + | Home Phone [...] + | Author | [facility] | | | and Jethroana | + + + | Organization | [facility] | | | and Jethroana | + + + | Address | Unknown | + + + | Phone | Unavailable | + + + Support + + + + + | Name | Relationship | Address | Phone | + + + + + | Evelina Bryan Name | ECON | [place] | | | | | [address] | | + + + + + | Lizet Scott | ECON | Unknown | | + + + + + Care Team Providers + +------+ + | Care Rn Team Leader Name | Role | Phone | + [...] | | CARDIOLOGY [address] | Elli PENS AND PENCILS REPAIRER [address] | | | | | [place], | [place], | | | | | [place] [address] | [place] [address] | | | | | [phone] | [phone] | | | | | | | [...]
--- OUTSIDE RECORDS SUMMARY | ~2019-12-03 | XMS | Encounter Summary ---
Demographics + + + | Address | [address] | | | [place] [address] | + + + | Home Phone | | + + + | Preferred Language | Unknown | + + + | Marital Status | Single | + + + | Presybeterian Affiliation | 1074 | + + + | Race | Unknown | + + + | Ethnic Group | Unknown | + + + Author + + + | Author | [facility] | | | and Jethroana | + + + | Organization | [facility] | | | and Jethroana | + + + | Address | Unknown | + + + | Phone | Unavailable | + + + Support + + + + + | Name | Relationship | Address | Phone | + + + + + | Evelina Bryan Name | ECON | [place] | | | | | [address] | | + + + + + | Lizet Scott | ECON | Unknown | | + + + + + Care Team Providers + +------+ + | Care Gynecology Teacher Name | Role | Phone | + +------+ + | Aida Knight PA-C | PCP | | + +------+ + Reason for Visit +---------+ + | Reason | Comments | +---------+ + | Post Op | #2 r arm av fistula creation | +---------+ + Evaluate & Treat (Routine) [...] | General | | | | | (HCC) | PA-C [address] | Surgery [address] | | | | | Procedures | | [address] | | | | | [place] OFFICE | [place] | [place], | | | | | OUTPATIENT | WAY | [place] [address] | | | | | [address] | [place], | Phone: | | | | | [address] | [place] [address] | [phone] | | | | | Hemodialysis | Phone: | Fax: | | | | | Catheter | [phone] | [phone] | | | | | | Fax: | | | | | | | [phone] | | +--------+--------+ + + + + Encounter Details +--------+---------+ + + + | Date | Type | Department | Care Team | Description | +--------+---------+ + + + | 09/20/ | Office | [facility] | Harman Plaza | Chronic kidney | | 2019 | Visit | SURGERY [address] | MD Aditi, FACS [address] | disease, stage V | | | | [place], [place] | [facility] | (HCC) (Primary Dx); | | | | [address] | [place] [address] | Post-operative state | | | | [phone] | [phone] | | | | | | | [...] + + | Pulse | 67 | 09/20/2018 11:32 AM | | | | | PST | | + + + + + | Temperature | 36.5 C (97.7 F) | 09/20/2018 11:32 AM | | | | | PST | | + + + + + | Respiratory Rate | 20 | 09/20/2018 11:32 AM | | | | | PST | | + + + + + | Oxygen Saturation | 93% | 09/20/2018 11:32 AM | | | | | PST | | + + + + + | Inhaled Oxygen | - | - | | | Concentration | | | | + + + + + | Weight | 65.3 kg (144 lb) | 09/20/2018 11:32 AM | | | | | PST | | + + + + + | Height | 165.1 cm (5' 5") | 09/20/2018 11:32 AM | | | | | PST | | + + + + + | Body Mass Index | 23.96 | 09/20/2018 11:32 AM | | | | | PST | | + + + + + documented in this encounter Progress Notes Harman Plaza MD, FACS - 09/20/2018 11:20 AM PSTFormatting of this note might be diff erent from the original. Patient Identification: Xochilt Linares 1955 Is a 62 y.o. female , a patient of Aida Knight PA-C. Patient is here alone. S: Date of surgery: 08/08/2018. Title of surgery: RIGHT Brachial artery to cephalic vein fistula . Physician notes: Patient arrives 29 day(s) s/p RIGHT Brachial artery to cephalic vein fistula. Patient den ies right arm or hand pain , denies numbness . She reports recovering well post surgery. Sta adrienne she has dialysis today in [place], [place]. They have been using her RIGHT IJ dialys is catheter for dialysis access. 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 PAST MEDICAL HISTORY Past Medical History: Diagnosis Date CKD (chronic kidney disease), stage V (HCC) GERD (gastroesophageal reflux disease) Helicobacter pylori infection Hyperlipidemia Hypertension Vitamin D deficiency Wears partial dentures Past Surgical History: Procedure Laterality Date AV FISTULA INSERTION Right 08/08/2018 Procedure: RIGHT arm AV fistula creation - brachial artery to cephalic vein; Surgeon: Leeroy Plaza MD, FACS; Location: [facility] MAIN OR GALLBLADDER SURGERY HYSTERECTOMY 1997 SHUNT PLACEMENT/INSERTION N/A 07/25/2018 Procedure: Tunneled hemodialysis catheter; Surgeon: Harman Plaza MD, FACS; Locatio n: [facility] MAIN OR TONSILLECTOMY AND ADENOIDECTOMY No Known Allergies Medications: Outpatient Encounter Prescriptions as of 09/20/2018 Medication Sig Dispense Refill aspirin 81 mg [...] facility-administered encounter medications on file as of 09/20/2018. Family History Problem Relation Age of Onset Diabetes Maternal Grandmother Social History: She reports that she has never smoked. She has never used smokeless tobacco. She reports th at she drinks alcohol. She reports that she uses drugs, including Marijuana, about 7 times p er week. PHYSICAL EXAM Vitals: 09/20/18 1132 Pulse: 67 Resp: 20 Temp: 36.5 C (97.7 F) TempSrc: Temporal SpO2: 93% Weight: 65.3 kg (144 lb) Height: 1.651 m (5' 5") Body mass index is 23.96 kg/m. General Appearance: Alert, cooperative, no distress, appears stated age Skin: Warm and dry Upper Extremities: RIGHT AV Fistula with good thrill at the elbow, visible vein. Palpable Pulses: RIGHT LEFT Brachial Radial 1-2 Ulnar Neurologic: Alert and oriented x3,Moving all 4 extremities. , Gait normal ULTRASOUND REPORT: PATIENT NAME : Xochilt Linares EQUIPMENT: SonReevoo M-Turbo with 10-5 mHertz probe. INDICATIONS: S/P RIGHT Brachial artery to cephalic vein fistula FINDING: RIGHT cephalic vein measures 10.2 mm and is 1.8 mm deep the skin. RIGHT cephalic vein in upper arm measures 6.9 mm and is 2 mm deep to the skin. IMPRESSION: Functioning RIGHT AV. Fistula Assessment 1. Chronic kidney disease, stage V (HCC) 2. Post-operative state Plan 1.S/P RIGHT Brachial artery to cephalic vein fistula Healing well. Will give Okay to use RIGHT A.V Fistula starting today (09/20/2018) Informed patient after 3 successful uses of RIGHT AV Fistula will then consider removal of RIGHT IJ dialysis catheter. Patient to resume diet and activities as tolerated. Patient to continue to follow with nep hrologist and primary care. I will be available should future surgical complications nazia Pennington appreciate having been involved in the care [...]
--- OUTSIDE RECORDS SUMMARY | ~2019-12-03 | XMS | Encounter Summary ---
Demographics + + + | Address | [address] | | | [place] [address] | + + + | Home Phone | | + + + | Preferred Language | Unknown | + + + | Marital Status | Single | + + + | Gnosticism Affiliation | 1074 | + + + | Race | Unknown | + + + | Ethnic Group | Unknown | + + + Author + + + | Author | [facility] | | | and Jethroana | + + + | Organization | [facility] | | | and Jethroana | + + + | Address | Unknown | + + + | Phone | Unavailable | + + + Support + + + + + | Name | Relationship | Address | Phone | + + + + + | Evelina Bryan Name | ECON | [place] | | | | | [address] | | + + + + + | Lizet Scott | ECON | Unknown | | + + + + + Care Team Providers + +------+ + | Care Brush Washer Name | Role | Phone | + [...] | | | | | | | [place] | | | | | | | [...] + + | 08/08/ | Hospital | [facility] | Harman Plaza | CKD (chronic kidney | | 2019 | Encounter | MED CTR OR INTRA OP | MD Aditi, FACS [address] | disease), stage V | | | | [address] | [address] | ([facility]) | | | | [place], [place] | [place] [address] | | | | | [address] | [phone] | | | | | [phone] | | | +--------+ + + + [...] Instructions Instructions Harman Plaza MD, FACS - [facility] POST-OP INSTRUCTIONS: Arterio-Venous Fistula 1. Keep the [...] | | | | | PST | ([facility] [...] [address] | [place] | [phone] | | [facility] | | [address] | | | - LABORATORY | | [...] [address] | [place] | [phone] | | [facility] | | [address] | | | - LABORATORY | | [...] | | | | | | [facility] [facility] | | | | [...] mL/min/1.73m2 | [facility] | | | [facility] | RATE,ESTIMATED | | MEDICAL | | | | mL/min/1.58b1Vwyy than | | CENTER - | | [...] [address] | [place] | [phone] | | [facility] | | [address] | | | - LABORATORY | | [...]
--- OUTSIDE RECORDS SUMMARY | ~2019-12-03 | XMS | Encounter Summary ---
Demographics + + + | Address | [address] | | | [place] [address] | + + + | Home Phone [...] + + + | Author | [facility] | | | and Jethroana | + + + | Organization | [facility] | | | and Jethroana | + + + | Address | Unknown | + + + | Phone | Unavailable | + + + Support + + + + + | Name | Relationship | Address | Phone | + + + + + | Evelina Bryan Name | ECON | [place] | | | | | [address] | | + + + + + | Lizet Scott | ECON | Unknown | | + + + + + Care Team Providers + +------+ + | Care Monorail Car Operator Name | Role | Phone | + +------+ + PCP | Unavailable | + +------+ + Encounter Details +--------+ + + + + | Date | Type | Department | Care Team | Description | +--------+ + + + + | 05/12/ | Hospital | [facility] | Bri Olguin | | | 2018 | Encounter | MED CTR ACUTE | D, PT [address] | | | | | PHYSICAL THERAPY | [place] | | | | | [address] [place] | [address] | | | | | [place] [address] | | | | | | [phone] | | | +--------+ + + + [...]
--- OUTSIDE RECORDS SUMMARY | ~2019-12-03 | XMS | Encounter Summary ---
Demographics + + + | Address | [address] | | | [place] [address] | + + + | Home Phone | | + + + | Preferred Language | Unknown | + + + | Marital Status | Single | + + + | Samaritan Affiliation | 1074 | + + + | Race | Unknown | + + + | Ethnic Group | Unknown | + + + Author + + + | Author | [facility] | | | and Jethroana | + + + | Organization | [facility] | [...] [place] | | | | | [address] | | + + + + + | Lizet Sonia | ECON | Unknown | | + + + + + Care Team Providers + +------+ + | Care Gambreler Name | Role | Phone | + [...] | Surgery | kidney | DO [address] | , FACS [address] | | | | | disease, | [place], [place] | [address] | | | | | stage V | [address] | [place], | | | | | (HCC) | [facility], [place] | [place] [address] | | | | | Dilated | [address] | Phone: | | | | | cardiomyopat | Phone: | [phone] | | | | | hy ([facility]) | [phone] | Fax: | | | | | Type 2 | Fax: | [phone] | | | | | diabetes | [phone] | | | | | | mellitus [...] | | | | | | | ([facility]) | | | | | | | [...] | | | | | | | ([facility]) | | | +--------+ + + + + + Encounter Details +--------+---------+ + + + | Date | Type | Department | Care Team | Description | +--------+---------+ + + + | 07/05/ | Office | [facility] | [address] | Chronic kidney | | 2018 | Visit | SURGERY [address] | MD Aditi, FACS 380 | disease, stage V | | | | [place], [place] | [facility] | ([facility]) (Primary Dx); | | | | [address] | [place] [address] | Dilated | | | | [phone] | [phone] | cardiomyopathy | | | | | | ([facility]); Type 2 | | | | | | diabetes mellitus | | | | | | with diabetic | | | | | | nephropathy, with | | | | | | long-term current | | | | | | use of insulin | | | | | | ([facility]); Anemia in | | | | | | stage 5 chronic | | | | | | kidney disease, not | | | | | | on chronic dialysis | | | | | | ([facility]) | +--------+---------+ + + + Social History [...] Same Day Surgery ([address] [place]) at [address]. Your surgery is called RIGHT [...] successful and comfortable surgery. Sign up for Payoff if you want easy access to your medical information online. You can: Review your medications, immunizations, allergies and medical history. View details of your past and upcoming appointments. Sign up for Payoff if you want easy access to your medical information online. Only you, your doctor and your health care team are permitted to view the information sent through MyDatingTree. Through Payoff you can: ? Review your medications, immunizations, [...] different ways you can sign up for Payoff: ? The first way is to get online at: [email or web address] and sign up directly throug h the website prior to your appointment with us. You can call [phone] ([phone]) if you have any questions or need assistance. ? The second way is through the Payoff ramos which can be accessed with any smart phone. Ju st go to your ramos store and look up [email or web address]. ? The third way is to do [...] ? Aida Knight PA-C Who is your Child Adolescent Care/Kidney Specialist ? Lester Best, When was the [...] and vomiting. Has excess tiredness. CARDIAC: history OR, denies chest pain or tightness. Wears a [...] REPORT: PATIENT NAME : Xochilt Linares EQUIPMENT: SonSaf[employer] Translation Solutionste M-Turbo with 10-5 mHertz probe. INDICATIONS: Dialysis [...] ASSESSMENT 1. Chronic kidney disease, stage V ([facility]) 2. Dilated cardiomyopathy ([facility]) 3. Type 2 diabetes mellitus with diabetic nephropathy, with long-term current use of insuli n ([facility]) 4. Anemia in stage 5 chronic kidney disease, not on chronic dialysis ([facility]) PLAN 1. Due to probable need of [...]
--- OUTSIDE RECORDS SUMMARY | ~2019-12-03 | XMS | Clinical Summary ---
Demographics + + + | Address | [address] | | | [place] [address] | + + + | Home Phone [...] | [facility] | | | and Jethroana | + + + | Organization | [facility] | [...] [place] | | | | | [address] | | + + + + + | Lizet Sonia | ECON | Unknown | | + + + + + Care Team Providers + +------+ + | Care Director Of Student Aid Name | Role | Phone | + +------+ + | Aida Knight PA-C | PCP | | + +------+ + Allergies No Known Allergies Medications + + + +---------+------+------+-------+ | Medication | Sig | Dispensed | Refills | Star | End | Statu | | | | | | t | Date | s | | | | | | Date | | | + + + +---------+------+------+-------+ | aspirin 81 mg | Take 81 mg by mouth | | 0 | | | Activ | | chewable tablet | Daily. | | | | | e | + + + +---------+------+------+-------+ | magnesium oxide | Take 1 tablet by | 30 | 5 | 05/18 | | Activ | | (MAG-OX) 400 mg | mouth Daily. | tablet | | 04/06 | | e | | tablet | | | | 18 | | | + + + +---------+------+------+-------+ | b complex-vitamin | Take 1 tablet by | | 4 | 07/18 | | Activ | | c-folic acid | mouth Daily. | | | 11/04 | | e | | (NEPHRO-JANETH) tablet | | | | 19 | | | + + + +---------+------+------+-------+ | calcitRIOL | Take 0.5 mcg by | | 0 | | | Activ | | (ROCALTROL) 0.5 MCG | mouth Every other | | | | | e | | capsule | day. | | | | | | + + + +---------+------+------+-------+ | atorvaSTATin | Take 1 tablet by | 30 | 5 | 05/0 | | Activ | | (LIPITOR) 80 MG | mouth Daily. | tablet | | 7/20 | | e | | tablet | | | | 19 | | | + + + +---------+------+------+-------+ | Cholecalciferol | Take 1 capsule by | 30 each | 11 | 08/1 | | Activ | | (VITAMIN D-3) 2000 | mouth Daily. | | | 2/20 | | e | | units CAPS | | | | 19 | | | + + + +---------+------+------+-------+ | epoetin khalif | Inject 1 mL under | | 0 | 09/2 | | Activ | | (EPOGEN, PROCRIT) | the skin Three times | | | 5/20 | | e | | 10,000 units/mL | a week. | | | 19 | | | | injection | | | | | | | + + + +---------+------+------+-------+ +---+ + | | Additional | | | InformationPatient | | | not taking. Reported | | | on 12/02/2019 4:17 | | | PM | +---+ + + + +---+---+---+---+-------+ | sevelamer | Take 1,600 mg by | | 0 | | | Activ | | carbonate (RENVELA) | mouth 4 times daily | | | | | e | | 800 mg tablet | (before meals and | | | | | | | | nightly). | | | | | | + + +---+---+---+---+-------+ Active Problems + + + | Problem | Noted Date | + + + | Anemia | 07/31/2019 | + + + | Ischemic cardiomyopathy | 05/17/2019 | + + + + + | Overview: EF 35% | + + + + + | End-stage renal disease on hemodialysis | 05/17/2019 | + + + + + | Overview: Marixa, started Jul 2018. | + + + + + | S/P CABG x 3 | 02/19/2019 | + + + | End stage renal disease | 10/17/2018 | + + + | Anemia of chronic renal failure, stage 5 | 10/17/2018 | + + + | Elevated hemoglobin A1c | 08/08/2018 | + + + + + | Overview: 7.3 - 05/08/2018 | + + + + + | Diabetic retinopathy | 08/08/2018 | + + + | RBBB (right bundle branch block) | 08/08/2018 | + + + | Diabetes mellitus type II, DIET Control | 07/04/2018 | + + + | Dilated cardiomyopathy | 06/02/2018 | + + + + + | Overview: Elevated BNP (4,521 - 05/08/2018) | + + + + + | Coronary artery disease | 05/12/2018 | + + + + + | Overview: Left Heart catheterization 10/09/2018: Severe | | three-vessel coronary artery disease; chronic total occlusion to | | the proximal portion of the RCA, moderate to severe diffuse | | disease of the LAD and LCx. There is a right dominate | | circulation. Collateralization; evidence of a [id number] | | collateralization from the distal LAD to distal PDA. Moderately | | reduced LV systolic function with an EF of 35%. Systemic blood | | pressure is normal. Moderate pulmonary hypertension with PA | | pressure of 65/27 mmHg. Wedge pressure is 24 mmHg. There was | | successful hemostasis with a TR hemostatic band. Signed by Tia | | MD Kerry Nuclear stress test 05/11/2018: Regadenoson EKG | | is negative. Abnormal Regadenoson sestamibi myocardial perfusion | | imaging study with a large size, partially reversible defect of a | | severe in severity in the entire inferior and inferolateral | | region. This suggests a large size partial myocardial ischemia of | | both right coronary artery and left circumflex artery territory. | | Left ventricular cavity is dilated. There is a moderate global | | hypokinesis of the left ventricle. Overall, left ventricular | | systolic function is moderately decreased. LVEF by gated SPECT | | is 35%. By Tia Payne MDEchocardiogram 05/09/2018: | | Moderate to severe biatrial dilatation. Moderate left ventricular | | dilatation with a mild eccentric left ventricular hypertrophy. | | There is a severe global hypokinesis of the left ventricle. | | Overall, left ventricular significant is severely decreased. | | LVEF is 25-30%. Grade 1 left ventricular diastolic dysfunction. | | Mildly thickened and calcified trileaflet aortic valve with | | adequate opening. There is a trace aortic valve insufficiency. | | Mildly thickened and calcified mitral valve with a mild central | | mitral valve regurgitation. Mild mitral annular calcification. | | Mild tricuspid valve regurgitation. Mild pulmonary hypertension | | with a peak systolic pressure 45-50 mmHg. Dilated IVC without | | respiratory collapse suggesting fluid retention. Moderate | | circumferential pericardial effusion without evidence of cardiac | | tamponade. Evidence of left pleural effusion. By Tia | | MD Kerry on 05/09/2018 14:47XR Chest AP portable on 12/25/18 | | shows bilateral pleural effusions, right greater than left. | | Prominent cardiac silhouette, by Zuhair Baker M.D. Carotid | | Duplex Bilateral on 12/26/18 shows Right: mildly abnormal right | | internal carotid artery study with 16-49% diameter stenosis. The | | right vertebral artery is patent and antegrade. Left: Minimally | | abnormal left internal carotid artery study with 1-15% diameter | | stenosis. The left vertebral artery is patent and antegrade, by | | Carol Nix MD.XR Chest PA and Lateral on 12/27/18 shows | | right greater than left basal pleural effusions, unchanged, by | | Elbert Verduzco M.D.Echocardiogram complete on 12/28/18 shows | | normal size left ventricle. Severely reduced left ventricular | | systolic function. The left ventricular ejection fraction is 30%. | | There was moderate global hypokinesis. The inferolateral wall | | was severely hypokinetic. Severely reduced right ventricular | | systolic function. Mild to moderate mitral regurgitation. | | Estimated right ventricular systolic pressure (RVSP) is 48 mmHg. | | Compared to the report of the previous study on 11/28/2018, | | biventricular systolic function has worsened. Pulmonary | | hypertension is new.Echocardiogram Transesophageal on 12/28/18 | | shows severely decreased LVF.LVEF 15% by visual est. RV also | | decreased moderately. Mild-mod MVR. No other signif valvular | | abnormalities, by Bonifacio Torre MD.XR Chest AP Portable on | | 12/28/18 shows interval postoperative changes, by Deep Elise | | Sammie NunezXR Chest AP Portable on 12/29/18 shows interval | | extubation with decreased lung aeration, by Zuhair Baker | | SammieCoronary bypass grafting x 3: Left internal mammary artery to | | left anterior descending artery; reverse saphenous vein graft to | | LAD-d2, reverse saphenous vein graft to rpda. , without | | complication, on 12/28/18 by Phill Logan MD XR Chest AP Portable | | on 12/30/18 shows mildly improved airspace disease, by Garret Raymundo | | Hallie CochranXR Chest AP Portable on 12/31/18 shows similar | | bibasilar airspace disease with pleural effusions, by Garret Raymundo | | Hallie CochranXR Chest AP Portable on 01/01/19 shows stable exam, | | by Isai Rincon M.D.Echocardiogram on 01/02/19 shows normal | | size left ventricle. Severely reduced left ventricular systolic | | function. The left ventricular ejection fraction is 25%. There | | was severe global hypokinesis. Severely reduced right ventricular | | systolic function. Compared to the report of the previous | | transesophageal study done on 12/28/2018, no substantial change.XR | | Chest AP Portable on 01/02/19 shows interval removal of Fulton-Mayra | | catheter. Interval placement of endotracheal tube situated at | | the orifice of the right mainstem. This should be retracted | | approximately 2 cm. somewhat increased pulmonary edema, by Zuhair | | Jesse CoradoDXR Chest AP Portable on 01/03/18 shows endotracheal | | tube now terminates approximately 6 cm above the julian, by | | Isai Rincon M.D.XR Chest AP Portable on 01/04/19 shows | | extubated. Increased bilateral pleural effusions and bibasilar | | atelectasis, by Zuhair Baker M.D.Echocardiogram on 01/08/19 | | shows normal left ventricular chamber size with severely reduced | | LV systolic function. LVEF 30%. Global hypokinesis. Trace aortic | | insufficiency. Mild mitral regurgitation. Mild tricuspid | | regurgitation with borderline pulmonary hypertension. RVSP 35 | | mmHg.XR Chest PA and Lateral on 01/08/19 shows no significant | | interval change, by Buck Cardoso MD.CT Chest wo Contrast on | | 01/11/19 shows moderate size loculated right pleural effusion, and | | small nonloculated left pleural effusion. Extensive compressive | | atelectatic changes at the lung bases. Postsurgical changes in | | the mediastinum from recent CABG. Cardiomegaly. Mediastinal | | adenopathy, probably reactive given the other findings in | | thechest, by Zuhair Baker M.D. | + + + + + | Acute combined systolic and diastolic congestive heart failure | 05/09/2018 | + + + + + | Overview: Echocardiogram Complete 07/17/2019: Moderate | | biatrial dilatation. Mild left ventricular dilatation with a | | mild eccentric left ventricular hypertrophy. There is a severe | | global hypokinesis of the left ventricle. Overall, left | | ventricular significant is severely reduced. LVEF is 20 to 25%. | | Grade 1 left ventricular diastolic dysfunction. Mildly dilated | | right ventricular cavity with a normal wall thickness and a | | moderately reduced right ventricular systolic function. Mildly | | thickened trileaflet aortic valve with adequate opening. There | | is a trivial central aortic valve insufficiency. Mildly thickened | | and calcified mitral valve suggesting myxomatous change with | | adequate opening. There is a trace central mitral valve | | regurgitation. Mild mitral annular calcification. Trace | | tricuspid valve regurgitation. Borderline pulmonary hypertension | | with a peak systolic pressure of 35 to 40 mmHg. Dilated IVC | | without respiratory collapse suggesting fluid retention. When | | compared to echocardiogram on 05/08/2018, no change in left | | ventricular systolic function. Moderate circumferential | | pericardial effusion has disappeared. | + + + + + | RAFY (acute kidney injury) | 05/08/2018 | + + + | Pleural effusion | 05/08/2018 | + + + | Pulmonary hypertension, mild | 05/08/2018 | + + + | Hypokalemia | | + + + | Depressive disorder | | + + + | Vitamin D deficiency | | + + + | Adjustment disorder | | + + + | Hyperlipidemia | | + + + | Helicobacter pylori infection | | + + + | GERD (gastroesophageal reflux disease) | | + + + | Hypertension | | + + + Resolved Problems + + + + | Problem | Noted | Resolved | | | Date | Date | + + + + | Beta Blockers - Daily Use | 08/08/19 | | | | 19 | 9 | + + + + | Externally Defibrillator (Defib Vest) Use | 08/08/19 | | | | 19 | 9 | + + + + | CKD (chronic kidney disease), stage V | 08/08/19 | | | | 19 | 9 | + + + + + + | Overview: 2018: Creatinine in 3's, GFR's <15 | + + + + + + | Anemia in stage 5 chronic kidney disease, not on chronic dialysis | 06/02/20 | | | | 18 | 9 | + + + + | Diabetes mellitus, type II | 05/12/20 | | | | 18 | 9 | + + + + | Anasarca | 05/08/20 | | | | 18 | 9 | + + + + | Cardiac LV ejection fraction 21-30% | 05/08/20 | | | | 18 | 9 | + + + + Encounters +--------+ + + + + | Date | Type | Specialty | Care Team | Description | +--------+ + + + + | 04/13/ | Off-Site | Nephrology | Lester Best | End stage renal | | 2019 | Visit | | M, DO | disease (HCC) | | | | | | (Primary Dx) | +--------+ + + + + | 09/19/ | Abstract | Cardiology | Sushila Harvey, | | | 2019 | | | Pharmacy Retail Support Specialist | | +--------+ + + + + | 09/17/ | Telephone | Cardiology | Gilberto Sheth | | 2019 | | | [address] | | +--------+ + + + + | 09/10/ | Off-Site | Nephrology | Lester Best | End stage renal | | 2019 | Visit | | M, DO | disease (HCC) | | | | | | (Primary Dx) | +--------+ + + + + from Last 3 Months Immunizations + + + + | Name | Administration Dates | Next Due | + + + + | HEP B, 3 DOSE | 08/04/1991, 03/03/1991, 01/29/1991 | | | (ADULT) | | | + + + + | PNEUMOCOCCAL | 05/10/2014 | | | POLYSACCHARIDE | | | | 23-VALENT (PPSV23) | | | + + + + | TD PF (2 LF TETANUS) | 11/18/2004 | | | (ADOL/ADULT) | | | + + + + | TDAP, (ADOL/ADULT) | 05/10/2014 | | + + + + Family History + + +------+ + | Medical History | Relation | Name | Comments | + + +------+ + | Diabetes | Maternal | | | | | Grandmoth | | | | | er | | | + + +------+ + + +------+--------+ + | Relation | Name | Status | Comments | + +------+--------+ + | Maternal Grandmother | | | | + +------+--------+ + Social History + +-------+ +--------+------+ | [...] recent travel history available. | + + Last Filed Vital Signs + + + [...] | | + + + + + Plan of Treatment + + + + + | Health Maintenance | Due Date | Last Done | Comments | + + + + + | Diabetic Eye Exam | | | | | | 6 | | | + + + + + | Diabetic Foot Exam | | | | | | 6 | | | + + + + + | Cervical Cancer | | | | | Screening (Pap) | 8 | | | + + + + + | Colorectal Cancer | | | | | Screening | 8 | | | | (Colonoscopy) | | | | + + + + + | Vaccine: Zoster (1 | | | | | of 2) | 8 | | | + + + + + | Breast Cancer | | | | | Screening | 3 | | | + + + + + | Vaccine: | | 05/10/2014 | | | Pneumococcal 19-64 | 5 | | | | (2 of 3 - PCV13) | | | | + + + + + | Hemoglobin A1c | | 05/24/2019, 05/08/2018 | | | Screening | 0 | | | + + + + + | Vaccine: Influenza | | | | | (Season Ended) | 0 | | | + + + + + | Vaccine: | | 05/10/2014, 11/18/2004 | | | Dtap/Tdap/Td (2 - | 4 | | | | Td) | | | | + + + + + | Hepatitis C | Completed | 05/09/2018 | | | Screening | | | | + + + + + Results Not on filefrom Last 3 Months Insurance + +--------+ +--------+ +---------+--------+ | Payer | Benefi | Subscriber | Effect | Phone | Address | Type | | | t Plan | ID | harish | | | | | | / | | Dates | | | | | | Group | | | | | | + +--------+ +--------+ +---------+--------+ | [place] | MEDICA | [id number] | | [phone] | | Medica | | | [place] | | 018-Pr | 2 | | id | | | PLUS | | esent | | | | + +--------+ +--------+ +---------+--------+ | [employer] | IHS | [id number] | | | | Indkhoin | | SERVICE | YELLOW | | 958-Pr | | | ity | | | HAWK | | esent | | | | + +--------+ +--------+ +---------+--------+ + +--------+ +--------+ + + | Guarantor Name | Accoun | Relation to | Date | Phone | Billing Address | | | t Type | Patient | of | | | | | | | | | | + +--------+ +--------+ + + | Xochilt Linares | Person | Self [birth year] | [address] | | | al/Fam | | 1956 | [phone] | [place] | | | [place] | | | [address] (Home) | [address] | + +--------+ +--------+ + + Advance Directives + + + + + | Type | Date Recorded | Patient | Explanation | | | | Business Practices Officer | | + + + + + | Power of | | | | | Patient Partner | | | | + + + + + | Advance | 05/08/2018 | | | | Directive | 6:35 PM | | | + + + + + + + + + + | Code Status | Date | Date | Comments | | | Activated | Inactivated | | + + + + + | Full Code | 08/08/2018 | 08/08/2018 | | | | 1:03 PM | 4:16 PM | | + + + + + + + + +---+ | | | | | + + + +---+ | Full Code | 07/25/2018 | 07/25/2018 | | | | 3:00 PM | 5:42 PM | | + + + +---+ + + + +---+ | | | | | + + + +---+ | Full Code | 05/08/2018 | 05/12/2018 | | | | 5:05 PM | 6:22 PM | | + + + +---+
--- OUTSIDE RECORDS SUMMARY | ~2019-12-03 | XMS | Encounter Summary ---
Demographics + + + | Address | [address] | | | [place] [address] | + + + | Home Phone [...] + + + | Author | [facility] | | | and Jethroana | + + + | Organization | [facility] | | | and Jethroana | + + + | Address | Unknown | + + + | Phone | Unavailable | + + + Support + + + + + | Name | Relationship | Address | Phone | + + + + + | Evelina Bryan Name | ECON | [place] | | | | | [address] | | + + + + + | Lizet Scott | ECON | Unknown | | + + + + + Care Team Providers + +------+ + | Care Carbon Furnace Operator Name | Role | Phone | [...] | | | | syndrome | [place] [id number] | [address] | | | | | CARDIORENAL | | [place] | | | | | SYNDROME DUE | CONFEDERATED | [place] | | | | | TO SEVERE | WAY | [address] | | | | | ACUTE KIDNEY | [place], | Phone: | | | | | INJURY | [place] [address] | [phone] | | | | | | Phone: | Fax: | | | | | | [phone] | [phone] | | | | | | Fax: | | | | | | | [phone] | | +--------+--------+ + + + + Encounter Details +--------+---------+ + + + | Date | Type | Department | Care Team | Description | +--------+---------+ + + + | 05/31/ | Office | [facility] | [place], | Acute combined | | 2018 | Visit | CARDIOLOGY [address] | [address] | systolic and | | | | [place], | [place], | diastolic congestive | | | | [place] [address] | [place] [address] | heart failure (HCC) | | | | [phone] | [phone] | (Primary Dx); | | | | [...] whether | | | | | | [place] or | | | | | | [...] Service: 05/31/2018 HISTORY OF PRESENT ILLNESS: Xochilt Lianres is a 62 y.o. female with a [...] active. She has been trying to soci khadijah a little more and go to the [...] ECG's available Confirmed by NURIA MILLER, KATERYNA ([id number]) on 05/11/2018 1:15:50 PM LAB RESULTS reviewed during visit today primarily from [facility]: LIPID Lab Results Component Value [...] 4,521 (H) 05/08/2018 I reviewed records from [facility] for hospitalization,including H& P, Discharge [...] this chart may have been created with Issue voice recognition software. Occasi onal wrong-word or [...] or lesion | | type, unspecified whether [place] or transplanted heart | + + documented in this encounter
--- OUTSIDE RECORDS SUMMARY | ~2019-12-03 | XMS | Encounter Summary ---
Demographics + + + | Address | [address] | | | [place] [address] | + + + | Home Phone | | + + + | Preferred Language | Unknown | + + + | Marital Status | Single | + + + | Gnosticism Affiliation | 1074 | + + + | Race | Unknown | + + + | Ethnic Group | Unknown | + + + Author + + + | Author | [facility] | | | and Jethroana | + + + | Organization | [facility] | | | and [place]eth[place] | + + + | Address | Unknown | + + + | Phone | Unavailable | + + + Support + + + + + | Name | Relationship | Address | Phone | + + + + + | Evelina Bryan Name | ECON | [place] | | | | | [address] | | + + + + + | Lizet Scott | ECON | Unknown | | + + + + + Care Team Providers + +------+ + | Care Dock Builder Name | Role | Phone | + [...] D RN | | | | | [place], | | | | | | [place] [address] | | | | | | [phone] | | | +--------+ + + + [...]
--- OUTSIDE RECORDS SUMMARY | ~2019-12-03 | XMS | Encounter Summary ---
Demographics + + + | Address | [address] | | | [place] [address] | + + + | Home Phone | | + + + | Preferred Language | Unknown | + + + | Marital Status | Single | + + + | Shinto Affiliation | 1074 | + + + | Race | Unknown | + + + | Ethnic Group | Unknown | + + + Author + + + | Author | [facility] | | | and Jethroana | + + + | Organization | [facility] | [...] [place] | | | | | [address] | | + + + + + | Lizet Scott | ECON | Unknown | | + + + + + Care Team Providers + +------+ + | Care Manager Logistic Name | Role | Phone | + [...] | | | | combined | PA-C [address] | [address] | | | | | systolic | | [place] | | | | | (congestive) | [address] | [place] | | | | | and | WAY | [address] | | | | | diastolic | [place], | Phone: | | | | | (congestive) | [place] [address] | [phone] | | | | | heart | Phone: | Fax: | | | | | failure | [phone] | [phone] | | | | | (HCC) | Fax: | | | | | | Dilated | [phone] | | | | | | cardiomyopat | | | | | | | hy (HCC) | | | | | | | Atherosclero | | | | | | | tic heart | | | | | | | disease of | | | | | | | [place] | | | | | | | [...] + | 09/26/ | Office | [facility] | Meryl, | Coronary artery | | 2019 | Visit | CARDIOLOGY [address] | [address] | disease, angina | | | | [place], | [place], | presence | | | | [place] [address] | [place] [address] | unspecified, | | | | [phone] | [phone] | unspecified vessel | | | | | | or lesion type, | | | | | | unspecified whether | | | | | | [place] or | | | | | | [...] ECGs available Confirmed by KATERYNA QUIÑONES MD ([id number]) on 05/11/2018 1:15:50 PM none done today [...] Value 05/11/2018 35 I reviewed records from [facility] for office visit on 08/2018 whic h is summarized in the HPI. RESULTS- I reviewed reports from [facility]: No results found. Above data and [...] II- Symptoms with moderate exertion of the [place] Heart [employer] functional class. Heart failure stage [...] this chart may have been created with Livevol voice recognition software. Occasi onal wrong-word or [...] or lesion | | type, unspecified whether [place] or transplanted heart - Primary | + + | Hypertension, unspecified type | + + | Acute combined systolic and diastolic congestive heart failure (HCC) Acute combined | | systolic and diastolic heart failure | + + documented in this encounter
--- OUTSIDE RECORDS SUMMARY | ~2019-12-03 | XMS | Encounter Summary ---
Demographics + + + | Address | [address] | | | [place] [address] | + + + | Home Phone [...] | Author | [facility] | | | and Jethroana | + + + | Organization | [facility] | [...] [place] | | | | | [address] | | + + + + + | Lizet Scott | ECON | Unknown | | + + + + + Care Team Providers + +------+ + | Care Sales Force Developer Name | Role | Phone | + [...] | | [address] | [address] | | | | | [place], [place] | [place], [place] | | | | | [address] | [address] | | | | | [phone] | | | +--------+ + + + [...]
--- OUTSIDE RECORDS SUMMARY | ~2019-12-03 | XMS | Encounter Summary ---
Demographics + + + | Address | [address] | | | [place] [address] | + + + | Home Phone [...] | [facility] | | | and Jethroana | + + + | Organization | [facility] | | | and Jethroana | + + + | Address | Unknown | + + + | Phone | Unavailable | + + + Support + + + + + | Name | Relationship | Address | Phone | + + + + + | Evelina Bryan Name | ECON | [place] | | | | | [address] | | + + + + + | Lizet Scott | ECON | Unknown | | + + + + + Care Team Providers + +------+ + | Care Home Office Claims Examiner Name | Role | Phone | [...] | | [address] | [address] | (severe) (HCC) | | | | [place], [place] | [place], [place] | (Primary Dx) | | | | [address] | [address] | | | | | [phone] | | | +--------+ + + + [...]
--- OUTSIDE RECORDS SUMMARY | ~2019-12-03 | XMS | Encounter Summary ---
Demographics + + + | Address | [address] | | | [place] [address] | + + + | Home Phone | | + + + | Preferred Language | Unknown | + + + | Marital Status | Single | + + + | Yarsani Affiliation | 1074 | + + + | Race | Unknown | + + + | Ethnic Group | Unknown | + + + Author + + + | Author | [facility] | | | and Jethroana | + + + | Organization | [facility] | | | and Jethroana | + + + | Address | Unknown | + + + | Phone | Unavailable | + + + Support + + + + + | Name | Relationship | Address | Phone | + + + + + | Evelina Bryan Name | ECON | [place] | | | | | [address] | | + + + + + | Lizet Scott | ECON | Unknown | | + + + + + Care Team Providers + +------+ + | Care Assembler Musical Equipment Name | Role | Phone | + [...] | | [address] | [address] | | | | | [place], [place] | [place], [place] | | | | | [address] | [address] | | | | | [phone] | | | +--------+ + + + [...]
--- OUTSIDE RECORDS SUMMARY | ~2019-12-03 | XMS | Encounter Summary ---
Demographics + + + | Address | [address] | | | [place] [address] | + + + | Home Phone | | + + + | Preferred Language | Unknown | + + + | Marital Status | Single | + + + | Anabaptist Affiliation | 1074 | + + + | Race | Unknown | + + + | Ethnic Group | Unknown | + + + Author + + + | Author | [facility] | | | and Jethroana | + + + | Organization | [facility] | | | and Jethroana | + + + | Address | Unknown | + + + | Phone | Unavailable | + + + Support + + + + + | Name | Relationship | Address | Phone | + + + + + | Evelina Bryan Name | ECON | [place] | | | | | [address] | | + + + + + | Lizet Scott | ECON | Unknown | | + + + + + Care Team Providers + +------+ + | Care Dormitory Supervisor Name | Role | Phone | [...] | | | stage renal | [place] [address] | [address] [place] [address] | | | | | disease) | | [place], [address] | | | | | (HCC) | [address] | [address] [place] | | | | | Procedures | WAY | [address] | | | | | [place] [facility] | [place], | [address] Phone: | | | | | RELATED SVC | [place] [address] | [phone] | | | | | MONTHLY | Phone: | Fax: | | | | | 20&/> YR OLD | [phone] | [phone] | | | | | 4/> VISITS | Fax: | | | | | | | [phone] | | +--------+--------+ + + + + Encounter Details +--------+ + + + + | Date | Type | Department | Care Team | Description | +--------+ + + + + | 01/08/ | Off-Site | [facility] | Lester Best | End stage renal | | 2019 | Visit | NEPHROLOGY [address] | M, DO [address] | disease (HCC) | | | | [address] | [place] | (Primary Dx) | | | | [place], [place] | [place], [place] | | | | | [address] | [address] | | | | | [phone] | | | +--------+ + + + [...] encounter Progress Notes Lester Best DO - 01/08/2019 10:00 AM PDT[Pt not seen. At [facility].] documented in thi s encounter Plan of Treatment Not on filedocumented as of this encounter Visit Diagnoses + + | Diagnosis | + + | End stage renal disease (HCC) - Primary End stage renal disease | + + documented in this encounter"
--- OUTSIDE RECORDS SUMMARY | ~2019-12-03 | XMS | Encounter Summary ---
Demographics + + + | Address | [address] | | | [place] [address] | + + + | Home Phone | | + + + | Preferred Language | Unknown | + + + | Marital Status | Single | + + + | Episcopalian Affiliation | 1074 | + + + | Race | Unknown | + + + | Ethnic Group | Unknown | + + + Author + + + | Author | [facility] | | | and Jethroana | + + + | Organization | [facility] | | [...] [place] | | | | | [address] | | + + + + + | Lizet Scott | ECON | Unknown | | + + + + + Care Team Providers + +------+ + | Care Library Clerical Assistant Name | Role | Phone | [...] | | | | | | | LA CREAT AV | | | | | | | FISTULA,NON- | | | | | | | AUTOGENOUS | | | | | | | GRAFT LA | | | | | | | ANASTOMOSIS, | | | | | | | AV,ANY SITE | | | | | | | LA INSJ | | | | | | | TUNNELED CVC | | | | | | | W/O SUBQ | | | | | | | PORT/PROGRAM REP AGE | | | | | | [...] | Hospital | [facility] | [address] | | | 2019 | Encounter | MED CTR XRAY [address] | MD Aditi, FACS [address] | | | | | [facility] [place] | [address] [place] | | | | | [place] [address] | [place] [address] | | | | | [phone] | [phone] | | | | | | | [...] | | | | | | | ([facility]), Dilated | | | | | | | cardiomyopathy | | | | | | | ([facility]), Type 2 | | | | | | | diabetes mellitus | | | | | | | with diabetic | | | | | | | nephropathy, with | | | | | | | long-term current | | | | | | | use of insulin | | | | | | | ([facility]), Anemia in | | | | | | | stage 5 chronic | | | | | | | kidney disease, not | | | | | | | on chronic dialysis | | | | | | | ([facility]) | | | | | | [...] + + documented in this encounter Results [place] CVA Device Placement (07/25/2018 2:15 PM [...]
--- OUTSIDE RECORDS SUMMARY | ~2019-12-03 | XMS | Encounter Summary ---
Demographics + + + | Address | [address] | | | [place] [address] | + + + | Home Phone | | + + + | Preferred Language | Unknown | + + + | Marital Status | Single | + + + | Yarsanism Affiliation | 1074 | + + + | Race | Unknown | + + + | Ethnic Group | Unknown | + + + Author + + + | Author | [facility] | | | and Jethroana | + + + | Organization | [facility] | | | and Jethroana | + + + | Address | Unknown | + + + | Phone | Unavailable | + + + Support + + + + + | Name | Relationship | Address | Phone | + + + + + | Evelina Bryan Name | ECON | [place] | | | | | [address] | | + + + + + | Lizet Scott | ECON | Unknown | | + + + + + Care Team Providers + +------+ + | Care Tag Marker Name | Role | Phone | + [...] + | 05/11/ | Telephone | [facility] | Tia Payne, | Other ([employer] | | 2017 | | CARDIOLOGY [address] | [address] | Vest) | | | | [place], | [place], | | | | | [place] [address] | [place] [address] | | | | | [phone] | [phone] | | | | | | | [...]
--- OUTSIDE RECORDS SUMMARY | ~2019-12-03 | XMS | Encounter Summary ---
Demographics + + + | Address | [address] | | | [place] [address] | + + + | Home Phone | | + + + | Preferred Language | Unknown | + + + | Marital Status | Single | + + + | Moravian Affiliation | 1074 | + + + | Race | Unknown | + + + | Ethnic Group | Unknown | + + + Author + + + | Author | [facility] | | | and Jethroana | + + + | Organization | [facility] | | | and Jethroana | + + + | Address | Unknown | + + + | Phone | Unavailable | + + + Support + + + + + | Name | Relationship | Address | Phone | + + + + + | Evelina rByan Name | ECON | [place] | | | | | [address] | | + + + + + | Lizet Scott | ECON | Unknown | | + + + + + Care Team Providers + +------+ + | Care Storage Consultant Name | Role | Phone | + [...] | Diagnoses | Antonia, | [facility] | | | | Surgery | A-V fistula | Aida Raymundo, | General | | | | | ([facility]) | PA-C [address] | Surgery [address] | | | | | Procedures | | [address] | | | | | [place] OFFICE | [place] | [place], | | | | | OUTPATIENT | WAY | [place] [address] | | | | | [address] | [place], | Phone: | | | | | [address] | [place] [address] | [phone] | | | | | Hemodialysis | Phone: | Fax: | | | | | Catheter | [phone] | [phone] | | | | | | Fax: | | | | | | | [phone] | | +--------+--------+ + + + + Encounter Details +--------+---------+ + + + | Date | Type | Department | Care Team | Description | +--------+---------+ + + + | 08/16/ | Office | [facility] | [address] | Chronic kidney | | 2019 | Visit | SURGERY [address] | MD Aditi, FACS [address] | disease, stage V | | | | [place], [place] | [facility] | (HCC) (Primary Dx); | | | | [address] | [place] [address] | Post-operative state | | | | [phone] | [phone] | | | | | | | [...] vein; Surgeon: Leeroy Plaza MD, FACS; Location: [facility] MAIN OR GALLBLADDER SURGERY HYSTERECTOMY 1997 [address]T PLACEMENT/INSERTION N/A 07/25/2018 Procedure: Tunneled hemodialysis catheter; Surgeon: Harman Plaza MD, FACS; Locatio n: [facility] MAIN OR TONSILLECTOMY AND ADENOIDECTOMY No [...] REPORT: PATIENT NAME : Xochilt Linares EQUIPMENT: Zady M-Turbo with 10-5 mHertz probe. INDICATIONS: S/P [...]
--- OUTSIDE RECORDS SUMMARY | ~2019-12-03 | XMS | Encounter Summary ---
Demographics + + + | Address | [address] | | | [place] [address] | + + + | Home Phone [...] + + + | Author | [facility] | | | and Jethroana | + + + | Organization | [facility] | | | and Jethroana | + + + | Address | Unknown | + + + | Phone | Unavailable | + + + Support + + + + + | Name | Relationship | Address | Phone | + + + + + | Evelina Bryan Name | ECON | [place] | | | | | [address] | | + + + + + | Lizet Scott | ECON | Unknown | | + + + + + Care Team Providers + +------+ + | Care Field Technical Support Consultant Name | Role | Phone | [...] | | | | | | | AR CREAT AV | | | | | | | FISTULA,NON- | | | | | | | AUTOGENOUS | | | | | | | GRAFT AR | | | | | | | ANASTOMOSIS, | | | | | | | AV,ANY SITE | | | | | | | AR INSJ | | | | | | | TUNNELED CVC | | | | | | | W/O SUBQ | | | | | | | PORT/PRESS MACHINE OPERATOR AGE | | | | | | [...] | | | | | [address] | [place], [place] | | | | | [place], [place] | [address] | | | | | [address] | | | | | | [phone] | | | +--------+ + + + [...] +----+---+ + + | | 1 | [employer] | | | | 3 | 43-degrees | | | | 5 | | | | | 0 | | | +----+---+ + + | | 1 | First | | | | 3 | Inc/Proc St | | | | 5 | | | | | 4 | | | +----+---+ + + | | 1 | [employer] off | | | | 4 | [...] 1537 by Maninder | | eral | svjs-ydu-djhyor catheter system; | Nathalie Avendaño RN | [...] dioxide detection | | | Performing provider: AJE YOUNGER Electronically Signed by: | | | Jae Younger MD ESig | | | date/time: 07/25/2018 13:50 | | + + + + + | Procedure Note | + + | Jae Younger MD - 07/25/2018 1:49 PM [facility] Anesthesia Airway Placement07/25/2018 | | 13:37Preprocedure check: [...]
--- OUTSIDE RECORDS SUMMARY | ~2019-12-03 | XMS | Encounter Summary ---
Demographics + + + | Address | [address] | | | [place] [address] | + + + | Home Phone | | + + + | Preferred Language | Unknown | + + + | Marital Status | Single | + + + | Temple Affiliation | 1074 | + + + | Race | Unknown | + + + | Ethnic Group | Unknown | + + + Author + + + | Author | [facility] | | | and Jethroana | + + + | Organization | [facility] | | | and Jethroana | + + + | Address | Unknown | + + + | Phone | Unavailable | + + + Support + + + + + | Name | Relationship | Address | Phone | + + + + + | Evelina Bryan Name | ECON | [place] | | | | | [address] | | + + + + + | Lizet Scott | ECON | Unknown | | + + + + + Care Team Providers + +------+ + | Care Education And Training Manager Name | Role | Phone | [...] | | | | (HCC) | PA-C [address] | Surgery [address] | | | | | Procedures | | [address] | | | | | [place] OFFICE | [place] | [place], | | | | | OUTPATIENT | WAY | [place] [address] | | | | | [address] | [place], | Phone: | | | | | [address] | [place] [address] | [phone] | | | | | Hemodialysis | Phone: | Fax: | | | | | Catheter | [phone] | [phone] | | | | | | Fax: | | | | | | | [phone] | | +--------+--------+ + + + + Encounter Details +--------+---------+ + + + | Date | Type | Department | Care Team | Description | +--------+---------+ + + + | 09/20/ | Office | [facility] | [address] | Chronic kidney | | 2019 | Visit | SURGERY [address] | MD Aditi, FACS [address] | disease, stage V | | | | [place], [place] | [facility] | (HCC) (Primary Dx); | | | | [address] | [place] [address] | Post-operative state | | | | [phone] | [phone] | | | | | | | [...] Sta adrienne she has dialysis today in [place], [place]. They have been using her RIGHT IJ dialys is catheter for dialysis access. According to notes patient recently followed up with highway research engineer LI Naqvi n 09/14/2018 regarding acute combined [...] vein; Surgeon: Leeroy Plaza MD, FACS; Location: [facility] MAIN OR GALLBLADDER SURGERY HYSTERECTOMY 1997 [address]T PLACEMENT/INSERTION N/A 07/25/2018 Procedure: Tunneled hemodialysis catheter; Surgeon: Harman Plaza MD, FACS; Locatio n: [facility] MAIN OR TONSILLECTOMY AND ADENOIDECTOMY [...] REPORT: PATIENT NAME : Xochilt Linares EQUIPMENT: SonMaestroDev M-Turbo with 10-5 mHertz probe. INDICATIONS: S/P [...]
--- OUTSIDE RECORDS SUMMARY | ~2019-12-03 | XMS | Encounter Summary ---
Demographics + + + | Address | [address] | | | [place] [address] | + + + | Home Phone [...] | Author | [facility] | | | and Jethroana | + + + | Organization | [facility] | | | and Jethroana | + + + | Address | Unknown | + + + | Phone | Unavailable | + + + Support + + + + + | Name | Relationship | Address | Phone | + + + + + | Evelina Bryan Name | ECON | [place] | | | | | [address] | | + + + + + | Lizet Scott | ECON | Unknown | | + + + + + Care Team Providers + +------+ + | Care Insurance Auditor Name | Role | Phone | + [...] + + | 10/09/ | Hospital | [facility] | Tia Payne, | Coronary artery | | 2019 | Encounter | MED CTR CV INTRA OP | MD [address] | disease involving | | | | [address] | [place], | [place] coronary | | | | [place], [place] | [place] [address] | artery, angina | | | | [address] | [phone] | presence | | | | [phone] | | unspecified, | | | | | | unspecified whether | | | | | | [place] or | | | | | | [...] your doctor of all medicines (prescription and okdq-ber-cmbxlsu), vitamins, herbs, and supplements that you are [...] pressure is used, the doctor (or an clinical project assistant) will hold pressure on the insertion site so t hat a clot will form on the outside of the blood vessel to prevent bleeding. Once the bleedi ng has stopped, a very tight bandage will be placed on the site. 22. Staff will help you slide from the table onto a stretcher so that you can be taken to [facility] recovery area. NOTE: If the insertion was [...] recovery room for observation or returned to [facility] hospital room. You will stay flat [...] to pay for the test or procedure [id number] [employer]. [address] [place], [place] [address]. All righ ts reserved. This information is [...] site Nausea or vomiting Date Last Reviewed: 12/16/201719997226-0862 [employer]. [address] [place] [address], [place] [address]. All righ ts reserved. This information is [...] | | | | | | | ([facility]), Dilated | | | | | | | cardiomyopathy | | | | | | | ([facility]), Type 2 | | | | | | | diabetes mellitus | | | | | | | with diabetic | | | | | | | nephropathy, with | | | | | | | long-term current | | | | | | | use of insulin | | | | | | | ([facility]), Anemia in | | | | | | | stage 5 chronic | | | | | | | kidney disease, not | | | | | | | on chronic dialysis | | | | | | | ([facility]) | | | | | [...] (1955) DATE OF PROCEDURE: | | 10/09/2018 SUPERVISOR IRRIGATION: Tia Payne MD PROCEDURES | | PERFORMED: [...] obtained with a 5 Fr. balloon tip [place] catheter in the right femoral vein. The [...] of moderate sedation with | | continuous moyp-an-ofcx attendance. My intra-service time was 25 minutes. [...] branches. | | Collateralization; evidence of a oxms-iw-qqlkz collateralization from the distal LAD | | to distal PDA. CONCLUSIONS: 1. Severe three-vessel coronary artery disease; | | chronic total occlusion to the proximal portion of the RCA, moderate to severe diffuse | | disease of the LAD and LCx 2. There is a right dominate circulation. 3. | | Collateralization; evidence of a bzmz-kq-njmvv collateralization from the distal LAD | | [...] was discussed with Dr. Montgomery, interventionalists at [employer], | | [place]. | | PRIMARY CARE [...] (1955) OF | | | PROCEDURE: 10/09/2018 SUPERVISOR IRRIGATION: Tia Payne MD | | | PROCEDURES [...] obtained with a 5 Fr. balloon tip [place]-Mayra catheter in the right | | | [...] Collateralization; evidence of a | | | qhel-yy-tbkuh collateralization from the distal LAD to distal PDA. | | | CONCLUSIONS:1. Severe three-vessel coronary artery disease; chronic | | | total occlusion to the proximal portion of the RCA, moderate to severe | | | diffuse disease of the LAD and LCx2. There is a right dominate | | | circulation.3. Collateralization; evidence of a fdmy-rr-otsco | | | collateralization from the distal [...] Dr. Montgomery, | | | interventionalists at [facility]. [facility] | | | PROVIDER:Aida [...] | | | |Collateralization; evidence of a qvou-rw-imtak collateralization from the | | |distal LAD [...] | | |3. Collateralization; evidence of a htip-ow-cscic collateralization from | | |the distal LAD [...] was discussed with Dr. Montgomery, interventionalists at [employer], | | |[place]. | | | | [...] [address] | [place] | [phone] | | [facility] | | [address] | | | - LABORATORY | | | | + + + + + documented in this encounter Visit Diagnoses + + | Diagnosis | + + | Coronary artery disease involving [place] coronary artery, angina presence unspecified, | | unspecified whether [place] or transplanted heart | + + documented [...]
--- OUTSIDE RECORDS SUMMARY | ~2019-12-03 | XMS | Encounter Summary ---
Demographics + + + | Address | [address] | | | [place] [address] | + + + | Home Phone [...] + | Author | [facility] | | | and Jethro[place] | + + + | Organization | [facility] | | | and [place]ethroana | + + + | Address | Unknown | + + + | Phone | Unavailable | + + + Support + + + + + | Name | Relationship | Address | Phone | + + + + + | Evelina Bryan Name | ECON | [place] | | | | | [address] | | + + + + + | Lizet Scott | ECON | Unknown | | + + + + + Care Team Providers + +------+ + | Care Human Resources Assistant Manager Name | Role | Phone | [...] | | | stage renal | [place] [address] | [address] [place] [address] | | | | | disease) | | [place], [place] | | | | | (HCC) | CONFEDERATED | [address] | | | | | Procedures | WAY | [address] [address] | | | | | [place] ESRD | [place], | [address] Phone: | | | | | RELATED SVC | [place] [address] | [phone] | | | | | MONTHLY | Phone: | Fax: | | | | | 20&/> YR OLD | [phone] | [phone] | | | | | 4/> VISITS | Fax: | | | | | | | [phone] | | +--------+--------+ + + + + [...] | | [address] | [place], [address] | (Primary Dx) | | | | [place], [place] | [place], [place] | | | | | [address] | [address] | | | | | [phone] | | | +--------+ + + + [...] II DM. She is seen at the [facility]. She denies cramps, dyspnea, or anorexia. [...] She is [facility] which [facility] close to [place], when a chair opens. : [facility] Harman Plaza MD, FACS documented in thi s encounter Plan of Treatment Not on filedocumented as of this encounter Visit Diagnoses + + | Diagnosis | + + | End stage renal disease (HCC) - Primary End stage renal disease | + + documented in this encounter"
--- OUTSIDE RECORDS SUMMARY | ~2019-12-03 | XMS | Encounter Summary ---
Demographics + + + | Address | [address] | | | [place] [address] | + + + | Home Phone [...] + | Author | [facility] | | | and Jethroana | + + + | Organization | [facility] | | [...] [place] | | | | | [address] | | + + + + + | Lizet Scott | ECON | Unknown | | + + + + + Care Team Providers + +------+ + | Care Process Owner Name | Role | Phone | + [...] | | | stage renal | [place] [id number] | [address] [place] [address] | | | | | disease) | | [place], [place] | | | | | (HCC) | CONFEDERATED | [address] | | | | | Procedures | WAY | [address] [address] | | | | | [place] ESRD | [place], | [address] Phone: | | | | | RELATED SVC | [place] [address] | [phone] | | | | | MONTHLY | Phone: | Fax: | | | | | 20&/> YR OLD | [phone] | [phone] | | | | | 4/> VISITS | Fax: | | | | | | | [phone] | | +--------+--------+ + + + + [...] | | [address] | [place], [address] | ([facility]); Dilated | | | | [place], [place] | [place], [place] | cardiomyopathy | | | | [address] | [address] | ([facility]); Type 2 | | | | [phone] | | diabetes mellitus | | | | | | with diabetic | | | | | | nephropathy, with | | | | | | long-term current | | | | | | use of insulin | | | | | | ([facility]); Anemia in | | | | | | stage 5 chronic | | | | | | kidney disease, not | | | | | | on chronic dialysis | | | | | | ([facility]) | +--------+ + + + + Social [...] and underwent a successful three-vessel CABG at [facility] on . She was on a rehab [...] SVG to PDA, 12/28/2018, Dr. Phill jean, [facility]--stable on ASA, atorvastatin, carvedilol, lisinopril. PLAN 1. [...] and Ryan's help with Xochilt's case. : [facility] Tia Payne MD, [facility] MD ANA Mendenhall M.D. documented [...]
--- OUTSIDE RECORDS SUMMARY | ~2019-12-03 | XMS | Encounter Summary ---
Demographics + + + | Address | [address] | | | [place] [address] | + + + | Home Phone [...] | Author | [facility] | | | and [place]ethroana | + + + | Organization | [facility] | | | and [place] | + + + | Address | Unknown | + + + | Phone | Unavailable | + + + Support + + + + + | Name | Relationship | Address | Phone | + + + + + | Evelina Bryan Name | ECON | [place] | | | | | [address] | | + + + + + | Lizet Ghamber | ECON | Unknown | | + + + + + Care Team Providers + +------+ + | Care Substance Abuse Counselor Name | Role | Phone | + +------+ + | Aida Knight PA-C | PCP | | + +------+ + Reason for Visit +--------+ + | Reason | Comments | +--------+ + | LABS | | +--------+ + Encounter Details +--------+ + + + + | Date | Type | Department | Care Team | Description | +--------+ + + + + | 09/17/ | Telephone | [facility] [place] | [place], | LABS | | 2020 | | CARDIOLOGY [address] | [address] | | | | | [place], | [place], | | | | | [place] [address] | [place] [address] | | | | | [phone] | [phone] | | | | | | | [...] Lipid Panel | Lab | Routin | Coronary artery | Expected: | | | | e | disease involving | 09/19/2019, Expires: | | | | | creek coronary | 09/18/2020 | | | | | artery, angina | | | | | | presence | | | | | | unspecified, | | | | | | unspecified whether | | | | | | creek or | | | | | | transplanted heart | | | | | | Hyperlipidemia, | | | | | | unspecified | | | | | | hyperlipidemia type | | + +------+--------+ + + | Comprehensive | Lab | Routin | Acute combined | Expected: | | Metabolic Panel | | e | systolic and | 09/19/2019, Expires: | | | | | diastolic congestive | 09/18/2020 | | | | | heart failure (HCC) | | | | | | Coronary artery | | | | | | disease involving | | | | | | creek coronary | | | | | | artery, angina | | | | | | presence | | | | | | unspecified, | | | | | | unspecified whether | | | | | | creek or | | | | | | transplanted heart | | | | | | Hyperlipidemia, | | | | | | unspecified | | | | | | hyperlipidemia type | | + +------+--------+ + + | CBC with | Lab | Routin | Acute combined | Expected: | | Differential | | e | systolic and | 09/19/2019, Expires: | | | | | diastolic congestive | 09/18/2020 | | | | | heart failure (HCC) | | | | | | Coronary artery | | | | | | disease involving | | | | | | creek coronary | | | | | | artery, angina | | | | | | presence | | | | | | unspecified, | | | | | | unspecified whether | | | | | | creek or | | | | | | transplanted heart | | | | | | Hyperlipidemia, | | | | | | unspecified | | | | | | hyperlipidemia type | | + +------+--------+ + + documented as of this encounter Visit Diagnoses + + | Diagnosis | + + | Acute combined systolic and diastolic congestive heart failure (HCC) - Primary Acute | | combined systolic and diastolic heart failure | + + | Coronary artery disease involving creek coronary artery, angina presence unspecified, | | unspecified whether creek or transplanted heart | + + | Hyperlipidemia, unspecified hyperlipidemia type | + + documented in this encounter"
--- OUTSIDE RECORDS SUMMARY | ~2019-12-03 | XMS | Encounter Summary ---
Demographics + + + | Address | [address] | | | [place] [address] | + + + | Home Phone [...] | [facility] | | | and Jethroana | + + + | Organization | [facility] | | | and [place] | + + + | Address | Unknown | + + + | Phone | Unavailable | + + + Support + + + + + | Name | Relationship | Address | Phone | + + + + + | Evelina Bryan Name | ECON | [place] | | | | | [address] | | + + + + + | Lizet Scott | ECON | Unknown | | + + + + + Care Team Providers + +------+ + | Care Artist Scientific Name | Role | Phone | + [...] | | [address] | [place] | | | | | [place], [place] | [place], [place] | | | | | [address] | [address] | | | | | [phone] | | | +--------+ + + + [...] Dr. Best's progress note from 05/31/18 to [facility] Authorizations (fx: [phone]) requesting an authorization for Alberto hale's next appointment that is scheduled on 07/03/18 1:00 pm at [facility]. docole sterling in this encounter Plan of Treatment Not on filedocumented as of this encounter Visit Diagnoses Not on filedocumented in this encounter"
--- OUTSIDE RECORDS SUMMARY | ~2019-12-03 | XMS | Encounter Summary ---
Demographics + + + | Address | [address] | | | [place] [address] | + + + | Home Phone | | + + + | Preferred Language | Unknown | + + + | Marital Status | Single | + + + | Mormonism Affiliation | 1074 | + + + | Race | Unknown | + + + | Ethnic Group | Unknown | + + + Author + + + | Author | [facility] | | | and [place]eth[place] | + + + | Organization | [facility] | | | and [place] | + + + | Address | Unknown | + + + | Phone | Unavailable | + + + Support + + + + + | Name | Relationship | Address | Phone | + + + + + | Evelina Bryan Name | ECON | [place] | | | | | [address] | | + + + + + | Lizet Scott | ECON | Unknown | | + + + + + Care Team Providers + +------+ + | Care Carpenter Apprentice Name | Role | Phone | + [...] | 2019 | | [facility] [place] | [place] | | | | | [address] | | | | | | [place] [address] [place] | | | | | | [address] | | | | | | [phone] | | | +--------+ + + + [...]
--- OUTSIDE RECORDS SUMMARY | ~2019-12-03 | XMS | Encounter Summary ---
Demographics + + + | Address | [address] | | | [place] [address] | + + + | Home Phone [...] Author | [facility] | | | and [place]ethroana | + + + | Organization | [facility] | | | and [place] | + + + | Address | Unknown | + + + | Phone | Unavailable | + + + Support + + + + + | Name | Relationship | Address | Phone | + + + + + | Evelina Bryan Name | ECON | [place] | | | | | [address] | | + + + + + | Lizet Scott | ECON | Unknown | | + + + + + Care Team Providers + +------+ + | Care Bicycle Designer Name | Role | Phone | + +------+ + | Aida Knight PA-C | PCP | | + +------+ + Encounter Details +--------+ + + + + | Date | Type | Department | Care Team | Description | +--------+ + + + + | 08/04/ | Episode | [facility] | Elijah Chamorro | | | 2019 | Changes | SURGERY [address] | [place] | | | | | [place], [place] | | | | | | [address] | | | | | | [phone] | | | +--------+ + + + [...]
--- OUTSIDE RECORDS SUMMARY | ~2019-12-03 | XMS | Encounter Summary ---
Demographics + + + | Address | [address] | | | [place] [address] | + + + | Home Phone | | + + + | Preferred Language | Unknown | + + + | Marital Status | Single | + + + | Mormon Affiliation | 1074 | + + + | Race | Unknown | + + + | Ethnic Group | Unknown | + + + Author + + + | Author | [facility] | | | and [place] | + + + | Organization | [facility] | | | and [place] | + + + | Address | Unknown | + + + | Phone | Unavailable | + + + Support + + + + + | Name | Relationship | Address | Phone | + + + + + | Evelina Bryan Name | ECON | [place] | | | | | [address] | | + + + + + | Lizet Ghamber | ECON | Unknown | | + + + + + Care Team Providers + +------+ + | Care Restaurant Recruiter Name | Role | Phone | + [...] [address] | | | | | [place], | [place], | | | | | [place] [address] | [place] [address] | | | | | [phone] | [phone] | | | | | | | [...] 09/19/2019, Expires: | | | | | [place] coronary | 09/18/2020 | | | | | artery, angina | | | | | | presence | | | | | | unspecified, | | | | | | unspecified whether | | | | | | [place] or | | | | | | [...] involving | | | | | | [place] coronary | | | | | | artery, angina | | | | | | presence | | | | | | unspecified, | | | | | | unspecified whether | | | | | | [place] or | | | | | | [...] involving | | | | | | [place] coronary | | | | | | artery, angina | | | | | | presence | | | | | | unspecified, | | | | | | unspecified whether | | | | | | [place] or | | | | | | [...] + + | Coronary artery disease involving [place] coronary artery, angina presence unspecified, | | unspecified whether [place] or transplanted heart | + + | Hyperlipidemia, unspecified hyperlipidemia type | + + documented in this encounter"
--- OUTSIDE RECORDS SUMMARY | ~2019-12-03 | XMS | Encounter Summary ---
Demographics + + + | Address | [address] | | | [place] [address] | + + + | Home Phone [...] Author | [facility] | | | and Jethroana | + + + | Organization | [facility] | [...] [place] | | | | | [address] | | + + + + + | Lizet Scott | ECON | Unknown | | + + + + + Care Team Providers + +------+ + | Care Machine Tool Dresser Name | Role | Phone | + +------+ + | Aida Knight PA-C | PCP | | + +------+ + Encounter Details +--------+ + + + + | Date | Type | Department | Care Team | Description | +--------+ + + + + | 07/21/ | Episode | [facility] | Anisa Beach RN | | | 2018 | Changes | SURGERY [address] | | | | | | [place], [place] | | | | | | [address] | | | | | | [phone] | | | +--------+ + + + [...]
--- OUTSIDE RECORDS SUMMARY | ~2019-12-03 | XMS | Encounter Summary ---
Demographics + + + | Address | [address] | | | [place] [address] | + + + | Home Phone [...] | Author | [facility] | | | and Jethroana | + + + | Organization | [facility] | | | and [place] | + + + | Address | Unknown | + + + | Phone | Unavailable | + + + Support + + + + + | Name | Relationship | Address | Phone | + + + + + | Evelina Bryan Name | ECON | [place] | | | | | [address] | | + + + + + | Lizet Ghamber | ECON | Unknown | | + + + + + Care Team Providers + +------+ + | Care Cutter Operator Brick Name | Role | Phone | + [...] | | [address] | [place] | | | | | [place], [place] | [place], [place] | | | | | [address] | [address] | | | | | [phone] | | | +--------+ + + + [...] stronger since her CABG on 019, at [facility].She denies syncope, palpitations, or YE. PAST MEDICAL HISTORY: 1. 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 2. Hypertension 25 years, most recently off of therapy. 3. Anemia secondary to CKD, treated with erythropoietin alpha, and IV Venofer. 4. CAD, s/p CABG x3 vessels, 12/28/2018, with LO to LAD, SVG to D2, SVG to PDA, Phillkiet Logan MD, [facility], [place], [place]. 5. Ischemic cardiomyopathy, with last EF = 30%, on echo, 01/08/2019, [facility]. 6. Hyperlipidemia x 2 years, but possibly [...] D2, [facility], atorvastatin, carvedilol, lisinopril. PLAN 1. Clinically, she appears stable on her current Rx. 2. Her CHF appears compensated with current dry weight. 3. Need to recheck her HbA1c next month. Apparently, [facility]idgett has deferred this from routin e monitoring. We will request that it is sent to [facility] lab, locally. : [facility] Tia Payne MD, [facility] Phill Logan MD documented in thi s encounter Plan of Treatment Not on filedocumented as of this encounter Visit Diagnoses + + | Diagnosis | + + | End-stage renal disease on hemodialysis (HCC) - Primary End stage renal disease | + + documented in this encounter"
--- OUTSIDE RECORDS SUMMARY | ~2019-12-03 | XMS | Encounter Summary ---
Demographics + + + | Address | [address] | | | [place] [address] | + + + | Home Phone [...] + + + | Author | [facility] | | | and [place] | + + + | Organization | [facility] | | | and [place] | + + + | Address | Unknown | + + + | Phone | Unavailable | + + + Support + + + + + | Name | Relationship | Address | Phone | + + + + + | Evelina Bryan Name | ECON | [place] | | | | | [address] | | + + + + + | Lizet Sonia | ECON | Unknown | | + + + + + Care Team Providers + +------+ + | Care Language Instructor Name | Role | Phone | + +------+ + | Aida Knight PA-C | PCP | | + +------+ + Reason for Visit +--------+ + | Reason | Comments | +--------+ + | Other | | +--------+ + Encounter Details +--------+ + + + + | Date | Type | Department | Care Team | Description | +--------+ + + + + | 06/06/ | Telephone | [facility] | Tia Payne, | Other | | 2017 | | CARDIOLOGY [address] | [address] | | | | | [place], | [place], | | | | | [place] [address] | [place] [address] | | | | | [phone] | [phone] | | | | | | | [...]
--- OUTSIDE RECORDS SUMMARY | ~2019-12-03 | XMS | Encounter Summary ---
Demographics + + + | Address | [address] | | | [place] [address] | + + + | Home Phone | | + + + | Preferred Language | Unknown | + + + | Marital Status | Single | + + + | Hinduism Affiliation | 1074 | + + + | Race | Unknown | + + + | Ethnic Group | Unknown | + + + Author + + + | Author | [facility] | | | and Jeth[place] | + + + | Organization | [facility] | | | and [place] | + + + | Address | Unknown | + + + | Phone | Unavailable | + + + Support + + + + + | Name | Relationship | Address | Phone | + + + + + | Evelina Brayn Name | ECON | [place] | | | | | [address] | | + + + + + | Lizet Scott | ECON | Unknown | | + + + + + Care Team Providers + +------+ + | Care Phlebotomy Services Technician Name | Role | Phone | [...] [address] | | | | | [place], | [place], | | | | | [place] [address] | [place] [address] | | | | | [phone] | [phone] | | | | | | | [...]
--- OUTSIDE RECORDS SUMMARY | ~2019-12-03 | XMS | Encounter Summary ---
Demographics + + + | Address | [address] | | | [place] [address] | + + + | Home Phone | | + + + | Preferred Language | Unknown | + + + | Marital Status | Single | + + + | Mu-Ism Affiliation | 1074 | + + + | Race | Unknown | + + + | Ethnic Group | Unknown | + + + Author + + + | Author | [facility] | | | and [place] | + + + | Organization | [facility] | | | and [place] | + + + | Address | Unknown | + + + | Phone | Unavailable | + + + Support + + + + + | Name | Relationship | Address | Phone | + + + + + | Evelina Bryan Name | ECON | [place] | | | | | [address] | | + + + + + | Lizet Scott | ECON | Unknown | | + + + + + Care Team Providers + +------+ + | Care American Indian Studies Professor Name | Role | Phone | [...] | | [address] | [place] | disease, not on | | | | [place], [place] | [place], [place] | chronic dialysis | | | | [address] | [address] | ([facility]) (Primary Dx) | | | | [phone] | | | +--------+ + + + [...]
--- OUTSIDE RECORDS SUMMARY | ~2019-12-03 | XMS | Encounter Summary ---
Demographics + + + | Address | [address] | | | [place] [address] | + + + | Home Phone [...] Author + + + | Author | [facility] | | | and [place]eth[place] | + + + | Organization | [facility] | | | and [place] | + + + | Address | Unknown | + + + | Phone | Unavailable | + + + Support + + + + + | Name | Relationship | Address | Phone | + + + + + | Evelina Bryan Name | ECON | [place] | | | | | [address] | | + + + + + | Lizet Sonia | ECON | Unknown | | + + + + + Care Team Providers + +------+ + | Care Director Data Analytics Name | Role | Phone | + [...] + | 10/03/ | Telephone | [facility] | Meryl, | Other (dialysis | | 2019 | | CARDIOLOGY [address] | needed after cath) | | | | [place], | [place], | | | | | [place] [address] | [place] [address] | | | | | [phone] | [phone] | | | | | | | [...]
--- OUTSIDE RECORDS SUMMARY | ~2019-12-03 | XMS | Encounter Summary ---
Demographics + + + | Address | [address] | | | [place] [address] | + + + | Home Phone [...] Author | [facility] | | | and Jethroana | + + + | Organization | [facility] | | [...] [place] | | | | | [address] | | + + + + + | Lizet Scott | ECON | Unknown | | + + + + + Care Team Providers + +------+ + | Care Airplane Cleaner Name | Role | Phone | [...] + + | 05/08/ | Hospital | [facility] | Zach Aguayo MD | RAFY (acute kidney | | 2018 - | Encounter | [facility] | [address] | injury) ([facility]); | | | | [address] | [place] | Anasarca; Pleural | | 05/12/ | | [place] [id number] | [address] | effusion; CHF | | 2018 | | [phone] | | (congestive heart | | | | | Irena Sanchez MD | failure), NYHA class | | | | | [address] | IV, acute, systolic | | | | | [place] | ([facility]); Type 2 DM | | | | | [id number] | with CKD stage 4 and | | | | | | hypertension ([facility]); | | | | | | Anemia in stage 4 | | | | | | chronic kidney | | | | | | disease (HCC); Acute | | | | | | combined systolic | | | | | | and diastolic | | | | | | congestive heart | | | | | | failure ([facility]) | +--------+ + + + + Social [...] + documented in this encounter Discharge Summaries Irena Sanchez MD - 05/12/2018 2:30 PM PDT [place], [place] HOSPITALIST DISCHARGE SUMMARY Pt. Name/Age/: Xochilt [...] to 0.23. Stress test positive. Will need [facility] as outpatient once her renal function has [...] Knight PA-C. Go on 05/15/2018. 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 Check in at 10:45am. [facility] pick you up @ 10:15am Contact information: [id number] [place] [address] Condition: stable Diet: cc, low salt Less than 30 minutes were spent on discharge and coordination of post-hospital care. Electronically signed by: Irena Sanchez MD, 05/12/2018 14:30 [facility] documented in this enco unter Discharge Instructions [...] once daily Other: No changes made to FOILING MACHINE OPERATOR list Best possible FOILING MACHINE OPERATOR medication list after pharmacy review: PT REPORTED [...] performed and electronically signed by Elsie Oakley, Lime Hide Inspector 12:41 Reviewed by Stephanie Forbes PharmNeri 05/12/2018 [...] ECGs available Confirmed by NURIA MILLER, KATERYNA ([id number]) on 05/11/2018 1:15:50 PM NM Nuclear Stress [...] ECGs available Confirmed by KATERYNA QUIÑONES MD ([id number]) on 05/11/2018 1:15:50 PM BEAM PRESS OPERATOR/ANTI AIR WARFARE OPERATIONS OFFICER: Sinus rhythm , no arrhythmia. ASSESSMENT: 1. [...] She is in a class II of [place] Heart Association functional class. There is no [...] reviewed and edited this note. Ketty Atkinson, City Detective 05/12/2018 I, Tia Payne MD, personally performed the services described in this documentation, as scribed in my presence and it is both accurate and complete. Tia Payne MD [facility] 05/12/2018 7:13 Portions of this chart may have been created with [employer] voice recognition software. Occasi onal wrong-word or sound-alike substitutions may have occurred due to the inherent leong itations of voice recognition software. Please read the chart carefully and recognize, using context, where these substitutions have occurred. Lester Gray DO - 05/11/2018 8:20 PM PDT [facility] [address] [place] [address] PROGRESS NOTE Pt. Name/Age/: Xochilt Linares 62 y.o. 1955 Med. Record Number: [id number] Date of admission: 05/08/2018 NEPHROLOGY HPI - [...] her risk for CAD, and would favor [facility] at a later date further out from th is admission, as alluded to by Dr. Payne. [facility] Irena Shen MD - 05/11/2018 7:33 AM PDT [facility] [place] HOSPITALIST PROGRESS NOTE Patient: Xochilt Linares : 1955: Age: 62 y.o. MedRec: [id number] Admission date: 05/08/2018 Hospital day # : [...] room air Irena Sanchez MD 05/11/2018 7:33 [facility] troemel, Lester Elise, DO - 05/10/2018 7:58 PM PDT [facility] [address] [place] [address] PROGRESS NOTE Pt. Name/Age/: Xochilt Linares 62 y.o. 1955 Med. Record Number: [id number] Date of admission: 05/08/2018 NEPHROLOGY HPI - [...] 4. Increase ambulation. Appreciate Dr. Sanchez's help. [facility] Irena Shen MD - 05/10/2018 7:28 AM PDT [facility] [place] HOSPITALIST PROGRESS NOTE Patient: Xochilt Linares : 1955: Age: 62 y.o. MedRec: [id number] Admission date: 05/08/2018 Hospital day # : [...] up for her to be seen in critical access hospital heart failure clinic as outpatient #Hypertension [...] 160 mg Intravenous BID (8 and 16) eLster Best, DO 132 mL/hr at 05/09/18 1612 [...] LV Diastolic Length 4C 8.41 cm LV Zuinga's Biplane EF 30 % LV ED Volume (Zuniga's) 157.28 ml LV ED Volume Index 82 ml/m2 LV ES Volume 103.83 ml MV E' Septal Velocity 3 cm/s MV Deceleration Hardee 633.74 cm/s2 MV Deceleration Time 126.06 msec [...] rate L/min Irena Sanchez MD 05/10/2018 7:28 [facility] troLester beach, DO - 05/09/2018 2:04 PM PDT [facility] [address] [place] [address] PROGRESS NOTE Pt. Name/Age/: Xochilt Linares 62 y.o. 1955 Med. Record Number: [id number] Date of admission: 05/08/2018 NEPHROLOGY HPI - [...] diuresis. 4. Will review Echo. when available. [facility] Irena Shen MD - 05/09/2018 7:48 AM PDT [facility] [place] HOSPITALIST PROGRESS NOTE Patient: Xochilt Linares : 1955: Age: 62 [facility]. [id number] Admission date: 05/08/2018 Hospital day # : [...] PH UA 5.0 5.0 - 8.0 Specific [place] 1.009 1.001 - 1.030 PROTEIN UA 100 [...] rate L/min Irena Sanchez MD 05/09/2018 7:49 [facility] documented in this enco unter Plan of [...] [address] | [place] | [phone] | | [facility] | | [address] | | | - LABORATORY | | [...] [address] | [place] | [phone] | | [facility] | | [address] | | | - LABORATORY | | [...] + | [facility] | [address] | [place] | [phone] | | [facility] | | [address] | | | - LABORATORY | | [...] [address] | [place] | [phone] | | [facility] | | [address] | | | - LABORATORY | | [...] mL/min/1.73m2 | [facility] | | | [place] | RATE,ESTIMATED | | MEDICAL | | | | mL/min/1.39k4Wnzj than | | CENTER - | | [...] [address] | [place] | [phone] | | [facility] | | [address] | | | - LABORATORY | | [...] + | [facility] | [address] | [place] | [phone] | | [facility] | | [address] | | | - LABORATORY | | [...] | | | Total | | | [facility] | | [...] [address] | [place] | [phone] | | [facility] | | [address] | | | - LABORATORY | | [...] [address] | [place] | [phone] | | [facility] | | [address] | | | - LABORATORY | | [...] + | [facility] | [address] | [place] | [phone] | | [facility] | | [address] | | | - LABORATORY | | [...] [address] | [place] | [phone] | | [facility] | | [address] | | | - LABORATORY | | [...] ST. | [address] | [place] | [phone] | | [facility] | | [address] | | | - LABORATORY | | [...] | | | | KATERYNA QUIÑONES MD ([id number]) | | | | | | on [...] + | [facility] | [address] | [place], [place] | [phone] | | [facility] | | [address] | | | - LABORATORY | | [...] + | Performed at: 01 - [facility] [place] [address], | REFERENCE LAB | | [place], [place] [id number] Spanish Medical Interpreter: Fabio Villagran MD, Phone: | KETTY - MATEUSZ | | [phone] | | + + + + + + + + | Performing | Address | City/State/Zipcode | Phone Number | | Organization | | | | + + + + + | REFERENCE LAB | [address] | [place], [place] | [phone] | | [facility] | Drive [facility] | [address] | | + + + + + Extra Lavender Top Tube (05/11/2018 5:31 AM PDT) + +-------+ + + + | Component | Value | Ref Range | Performed | Pathologist | | | | | At | Signature | + +-------+ + + + | Extra | Done | | [facility] | | | Lavender | | | [facility] | | | Top Tube [address] | [place] | [phone] | | [facility] | | [address] | | | - LABORATORY | | [...] + | [facility] | [address] | [place] | [phone] | | [facility] | | [address] | | | - LABORATORY | | [...] | | | | | mmol/L | [facility] | | | | | | MEDICAL | | | | | | CENTER - | | | | | | LABORATORY | | + + + + + + | K | 4.1 | 3.5 - 5.1 | [facility] | | | | | mmol/L | [facility] | | | | | [...] mL/min/1.73m2 | [facility] | | | [place] | | | MEDICAL | | | [...] [address] | [place] | [phone] | | [facility] | | [address] | | | - LABORATORY | | [...] ST. | [address] | [place] | [phone] | | [facility] | | [address] | | | - LABORATORY | | [...] [address] | [place] | [phone] | | [facility] | | [address] | | | - LABORATORY | | [...] | | | POC | | | [facility] | | | | | [...] + | [facility] | [address] | [place] | [phone] | | [facility] | | [address] | | | - LABORATORY | | [...] + | [facility] | [address] | [place] | [phone] | | [facility] | | [address] | | | - [...] HDL | 28 - 83 mg/dL | [facility] | | | | Reference Range as [...] [address] | [place] | [phone] | | [facility] | | [address] | | | - LABORATORY | | [...] + | [facility] | [address] | [place] | [phone] | | [facility] | | [address] | | | - LABORATORY | | [...] mL/min/1.73m2 | [facility] | | | [place] | | | MEDICAL | | | [...] | | | | | | [facility] | | | | | | MEDICAL [...] [address] | [place] | [phone] | | [facility] | | [address] | | | - LABORATORY | | [...] [address] | [place] | [phone] | | [facility] | | [address] | | | - LABORATORY | | [...] + | [facility] | [address] | [place] | [phone] | | [facility] | | [address] | | | - LABORATORY | | [...] ST. | [address] | [place] | [phone] | | [facility] | | [address] | | | - LABORATORY | | [...] +--------+ + + + | AV peak marekl | 94 | cm/s | [facility] [...] | | | | | | n [place] | | | | | + +--------+ [...] ST. | [address] | [place] | [phone] | | [facility] | | [address] | | | - LABORATORY | | [...] [address] | [place] | [phone] | | [facility] | | [address] | | | - LABORATORY | | [...] | monoclonal proteinAnnika Salmon MD, 05/10/18. | [facility] | | | [facility] | | | - LABORATORY | + + + + + + + + | Performing | Address | City/State/Zipcode | Phone Number | | Organization | | | | + + + + + | [facility] | [address] | [place] | [phone] | | [facility] | | [address] | | | - LABORATORY | | [...] test | | | | | | ([id number]). | | | | + + + + + + + + | Specimen | + + | Blood | + + + + + | Narrative | Performed At | + + + | Performed at: - [place] [address], | REFERENCE LAB | | [place], [place] [id number] Spanish Medical Interpreter: Fabio Villagran MD, Phone: | [facility] | | [phone] | | + + + + + + + + | Performing | Address | City/State/Zipcode | Phone Number | | Organization | | | | + + + + + | REFERENCE LAB | [address] | [place], [place] | [phone] | | [facility] | [place] | [address] | | + + + + + [...] [address] | [place] | [phone] | | [facility] | | [address] | | | - LABORATORY | | [...] [address] | [place] | [phone] | | [facility] | | [address] | | | - LABORATORY | | [...] | | | | | with both MS-3 and | | | | | | [...] + | Performed at: 01 - [facility] [address], | REFERENCE LAB | | [place], [place] [id number] Spanish Medical Interpreter: Deuce Caballero MD, Phone: | KETTY CHILD | | [phone] | | + + + + + + + + | Performing | Address | City/State/Zipcode | Phone Number | | Organization | | | | + + + + + | REFERENCE LAB | [address] | [place], [place] | [phone] | | [facility]TY CHILD | [facility] | [address] | | + + + + + [...] mL/min/1.73m2 | [facility] | | | [place] | | | MEDICAL | | | [...] [address] | [place] | [phone] | | [facility] | | [address] | | | - LABORATORY | | [...] | | | | | | [employer] | | | | | [...] + | [facility] | [address] | [place] | [phone] | | [facility] | | [address] | | | - LABORATORY | | [...] + | [facility] | [address] | [place] | [phone] | | [facility] | | [address] | | | - LABORATORY | | [...] [address] | [place] | [phone] | | [facility] | | [address] | | | - LABORATORY | | [...] + | [facility] | [address] | [place] | [phone] | | [facility] | | [address] | | | - LABORATORY | | [...] | | | | | | [employer] | | | | | [...] + | [facility] | [address] | [place] | [phone] | | [facility] | | [address] | | | - LABORATORY | | [...] ST. | [address] | [place] | [phone] | | [facility] | | [address] | | | - LABORATORY | | [...] + | [facility] | [address] | [place] | [phone] | | [facility] | | [address] | | | - LABORATORY | | [...] - 1.030 | [facility] | | | [place], | | | [facility] | | [...] [address] | [place] | [phone] | | [facility] | | [address] | | | - LABORATORY | | [...] | | , Urine | | | [facility] | | | | | [...] + | [facility] | [address] | [place] | [phone] | | [facility] | | [address] | | | - LABORATORY | | [...] into the clinical context for interpretation. | [facility] | | | - LABORATORY | + + + + + + + + | Performing | Address | City/State/Zipcode | Phone Number | | Organization | | | | + + + + + | [facility] [facility] | [address] | [place] | [phone] | | [facility] | | [address] | | | - LABORATORY | | [...] ST. | [address] | [place], [place] | [phone] | | [facility] | | [address] | | | - LABORATORY | | [...] [address] | [place] | [phone] | | [facility] | | [address] | | | - LABORATORY | | [...] mL/min/1.73m2 | [facility] | | | [place] | RATE,ESTIMATED | | MEDICAL | | | | mL/min/1.74b4Cikr than | | CENTER - | | [...] [address] | [place] | [phone] | | [facility] | | [address] | | | - LABORATORY | | [...] [address] | [place] | [phone] | | [facility] | | [address] | | | - LABORATORY | | [...] + | [facility] | [address] | [place] | [phone] | | [facility] | | [address] | | | - LABORATORY | | [...] [address] | [place] | [phone] | | [facility] | | [address] | | | - LABORATORY | | [...] [address] | [place] | [phone] | | [facility] | | [address] | | | - LABORATORY | | [...] [address] | [place] | [phone] | | [facility] | | [address] | | | - LABORATORY | | [...] + | [facility] | [address] | [place] | [phone] | | [facility] | | [address] | | | - LABORATORY | | [...] ST. | [address] | [place], [place] | [phone] | | [facility] | | [address] | | | - LABORATORY | | [...] | | | | | | [employer] | | | | | [...] [address] | [place] | [phone] | | [facility] | | [address] | | | - LABORATORY | | [...] [address] | [place] | [phone] | | [facility] | | [address] | | | - LABORATORY | | [...] [address] | [place] | [phone] | | [facility] | | [address] | | | - LABORATORY | | [...] of unspecified type of vessel, | | jamul or graft | + + | Diabetes [...] | | | | | | | 6545-1160 Use NIGHT DOSE for | | | | | | | doses scheduled: HS, 3AM, | | | | | | | Nighttime 1173-7084, | | | | | | + [...] | | | DAILY, First dose on [facility] 05/10/18 | | AM PDT | | [...] PDT | | | | | Starting [facility] 05/11/18 at 0744, | | | | [...] | | | | First dose on [facility] 05/11/18 at | | AM PDT | [...] | | | | | | Starting [facility] 05/11/18 at 0744, | | | | [...]
--- OUTSIDE RECORDS SUMMARY | ~2019-12-03 | XMS | Encounter Summary ---
Demographics + + + | Address | [address] | | | [place] [address] | + + + | Home Phone | | + + + | Preferred Language | Unknown | + + + | Marital Status | Single | + + + | Spiritism Affiliation | 1074 | + + + | Race | Unknown | + + + | Ethnic Group | Unknown | + + + Author + + + | Author | [facility] | | | and Jethroana | + + + | Organization | [facility] | | | and Jethroana | + + + | Address | Unknown | + + + | Phone | Unavailable | + + + Support + + + + + | Name | Relationship | Address | Phone | + + + + + | Evelina Bryan Name | ECON | [place] | | | | | [address] | | + + + + + | Lizet Scott | ECON | Unknown | | + + + + + Care Team Providers + +------+ + | Care Qa Tester Name | Role | Phone | + [...] | | | | | | | [place] | | | | | | | [...] Description | +--------+---------+ + + + | 08/08/ | Surgery | [facility] | [place] | RIGHT arm AV fistula | | 2019 | | MED CTR OR INTRA OP | MD Aditi, FACS [address] | creation - brachial | | | | [address] | [address] [place] | artery to cephalic | | | | [place], [place] | [place] [address] | vein | | | | [address] | [phone] | | | | | [phone] | | | +--------+---------+ + + + [...] Instructions Instructions [place] MD, FACS - 08/08/2018[facility] POST-OP INSTRUCTIONS: Arterio-Venous Fistula 1. Keep the [...] | | | | | | | ([facility]), Dilated | | | | | | | cardiomyopathy | | | | | | | ([facility]), Type 2 | | | | | | | diabetes mellitus | | | | | | | with diabetic | | | | | | | nephropathy, with | | | | | | | long-term current | | | | | | | use of insulin | | | | | | | ([facility]), Anemia in | | | | | | | stage 5 chronic | | | | | | | kidney disease, not | | | | | | | on chronic dialysis | | | | | | | ([facility]) | | | | | | + [...] | | | | | PST | ([facility]) (N18.5) | | + +--------+ + + [...] [address] | [place] | [phone] | | [facility] | | [address] | | | - LABORATORY | | [...] ST. | [address] | [place], [place] | [phone] | | [facility] | | [address] | | | - LABORATORY | | [...] mL/min/1.73m2 | [facility] | | | [facility] | RATE,ESTIMATED | | MEDICAL | | | | mL/min/1.91g2Csuh than | | CENTER - | | [...] [address] | [place] | [phone] | | [facility] | | [address] | | | - LABORATORY | | | | + + + + + documented in this encounter Visit Diagnoses Not on filedocumented in this encounter Administered Medications + +--------+---------+------+------+------+ [...] HR < 40, | | | Starting Tue08/08/18 at 1208, For | | | 2 doses, May repeat one time | | | after 1 min., Recovery/Phase I | | + +---+ | | | + +---+ + +-------+ +---------+---+ + | bacitracin 50,000 units/10 mL | Given | 08/08/19 | 250 mLs | | Surgical | | 50,000 Units in sodium chloride | | 19 11:41 | | | Site | | for irrigation 0.9% 1,000 mL | | AM PST | | | | | Optesia Mixture PRN, Starting | | | | | | | e 08/08/18 at 1141, Intra-op | | | | | | + +-------+ +---------+---+ + +---+---+ | | | +---+---+ + +-------+ +---------+---+---+ | carvedilol (COREG) tablet 6.25 | Given | 08/08/19 | 6.25 mg | | | | mg 6.25 mg, Oral, ONCE, Tue | | 19 10:24 | | | | | 08/08/18 [...] + +---+ + +-------+ +---------+---+ + | heparin 1,000 units/mL 2,500 | Given | 08/08/19 | 100 mLs | | Surgical | | Units in sodium chloride 0.9% | | 19 11:41 | | | Site | | injection 250 mL Optesia Mixture | | AM PST | | | | | PRN, Starting 08/08/18 at | | | | | | | 1141, Intra-op | | | | | | + +-------+ +---------+---+ + + +---+ | | | + +---+ [...]
--- OUTSIDE RECORDS SUMMARY | ~2019-12-03 | XMS | Encounter Summary ---
Demographics + + + | Address | [address] | | | [place] [address] | + + + | Home Phone | | + + + | Preferred Language | Unknown | + + + | Marital Status | Single | + + + | Baptism Affiliation | 1074 | + + + | Race | Unknown | + + + | Ethnic Group | Unknown | + + + Author + + + | Author | [facility] | | | and [place] | + + + | Organization | [facility] | | | and [place] | + + + | Address | Unknown | + + + | Phone | Unavailable | + + + Support + + + + + | Name | Relationship | Address | Phone | + + + + + | Evelina Bryan Name | ECON | [place] | | | | | [address] | | + + + + + | Lizet Scott | ECON | Unknown | | + + + + + Care Team Providers + +------+ + | Care Avid Editor Name | Role | Phone | + [...] | | | | | Unspecified | Adia Raymundo, | [place] | | | | | right | PA-C [id number] | [address] | | | | | bundle-branc | | [place] | | | | | h block | [place] | [place], [place] | | | | | Dilated | WAY | [address] | | | | | cardiomyopat | [place], | Phone: | | | | | hy (HCC) | [place] [address] | [phone] | | | | | Acute | Phone: | Fax: | | | | | combined | [phone] | [phone] | | | | | systolic | Fax: | | | | | | (congestive) | [phone] | | | | | | and [...] | hypertension, mild | | | | [place], | [place], | ([facility]); Acute | | | | [place] [address] | [place] [address] | combined systolic | | | | [phone] | [phone] | and diastolic | | | | | | congestive heart | | | | | | failure ([facility]); | | | | | | Coronary artery | | | | | | disease involving | | | | | | [place] coronary | | | | | | artery, angina | | | | | | presence | | | | | | unspecified, | | | | | | unspecified whether | | | | | | [place] or | | | | | | [...] encounter Patient Instructions Patient Instructions Evelina Parr Course Instructor - 11/21/2018 10:45 AM PDT1. Increas e [...] Patient is awaiting a consult for a FLUID PUMP OPERATOR in [place] on 11/2018. Patient is d rafael bailey [...] RESULTS reviewed during visit today primarily from [facility]: LIPID Lab Results Component Value Date [...] 4,521 (H) 05/08/2018 I reviewed records from [facility] for left heart catheterization p rocedure done by Dr. Aggarwal on 10/09/2018 which is summarized in the HPI. RESULTS- I reviewed reports from [facility]: Left Heart catheterization 10/09/2018: Severe three-vessel [...] Symptoms with moderate exertion of th e [place] [employer] functional class. Heart failure stage [...] dominate circulation. Collaterali zation; evidence of a vjup-jw-zuqkt collateralization from the distal LAD to distal [...] II- Symptoms with moderate exertion of the [place] [employer] sociation functional class. Heart failure stage B-diagnosed heart failure without symptoms. She is awaiting consultation for FLUID PUMP OPERATOR in [place] on 11/28/2018 3. Hypertension A. Today, 11/21/2018, [...] keep her appointment on November 28 for FLUID PUMP OPERATOR consultation [place]. And she is been asked to bring [facility] blood pressure log when she comes back for her follow-up appointment. Evelina Pennington, Course Instructor am acting as a scribe on behalf of, and in the presenc e of [place] Naqvi. - Evelina Parr Course Instructor 11/21/2018 11:22 Elli Pennington ARNP, personally performed the services described in this documentati on, as scribed in my presence and it is both accurate and complete. -LI Naqvi 11/21/2018 Portions of this chart may have been created with [employer] voice recognition software. Occasi onal wrong-word or [...] the | | | | PDT | ([facility]) Coronary | results section. | | | | | artery disease | | | | | | involving [place] | | | | | | coronary artery, | | | | | | angina presence | | | | | | unspecified, | | | | | | unspecified whether | | | | | | [place] or | | | | | | transplanted heart | | | | | | Dilated | | | | | | cardiomyopathy ([facility]) | | | | | | Hyperlipidemia, [...] MD | | | | | | ([id number]) on 11/21/2018 | | | | | [...] + + | Coronary artery disease involving [place] coronary artery, angina presence unspecified, | | unspecified whether [place] or transplanted heart | + + | Dilated cardiomyopathy (HCC) Other primary cardiomyopathies | + + | RBBB (right bundle branch block) Right bundle branch block | + + | Hyperlipidemia, unspecified hyperlipidemia type | + + documented in this encounter
--- OUTSIDE RECORDS SUMMARY | ~2019-12-03 | XMS | Encounter Summary ---
Demographics + + + | Address | [address] | | | [place] [address] | + + + | Home Phone [...] | [facility] | | | and Jethroana | + + + | Organization | [facility] [...] [place] | | | | | [address] | | + + + + + | Lizet Scott | ECON | Unknown | | + + + + + Care Team Providers + +------+ + | Care Concrete Buildings Assembler Name | Role | Phone | + +------+ + | Aida Knight PA-C | PCP | | + +------+ + Encounter Details +--------+ + + + + | Date | Type | Department | Care Team | Description | +--------+ + + + + | 06/14/ | Hospital | [facility] | [place] | Chronic kidney | | 2018 | Encounter | MED CTR ULTRASOUND | M, DO [address] | disease, stage V | | | | [address] [place] | [place], [place] [address] | ([facility]); Dilated | | | | [place], [place] | [place] | cardiomyopathy | | | | [address] | [address] | ([facility]); Type 2 | | | | [phone] | | diabetes mellitus | | | | | | with diabetic | | | | | | nephropathy, with | | | | | | long-term current | | | | | | use of insulin | | | | | | ([facility]); Anemia in | | | | | | stage 5 chronic | | | | | | kidney disease, not | | | | | | on chronic dialysis | | | | | | ([facility]) [...] | | | | | | | ([facility]), Dilated | | | | | | | cardiomyopathy | | | | | | | ([facility]), Type 2 | | | | | | | diabetes mellitus | | | | | | | with diabetic | | | | | | | nephropathy, with | | | | | | | long-term current | | | | | | | use of insulin | | | | | | | ([facility]), Anemia in | | | | | | | stage 5 chronic | | | | | | | kidney disease, not | | | | | | | on chronic dialysis | | | | | | | ([facility]) | | | | | | + [...] | | BILATERAL | | PST | ([facility]) Dilated | results section. | | | | | cardiomyopathy ([facility]) | | | | | | Type 2 diabetes | | | | | | mellitus with | | | | | | diabetic | | | | | | nephropathy, with | | | | | | long-term current | | | | | | use of insulin ([facility]) | | | | | | Anemia in stage 5 | | | | | | chronic kidney | | | | | | disease, not on | | | | | | chronic dialysis | | | | | | ([facility]) | | + +--------+ + + + [...]
--- OUTSIDE RECORDS SUMMARY | ~2019-12-03 | XMS | Encounter Summary ---
Demographics + + + | Address | [address] | | | [place] [address] | + + + | Home Phone | | + + + | Preferred Language | Unknown | + + + | Marital Status | Single | + + + | Zoroastrianism Affiliation | 1074 | + + + | Race | Unknown | + + + | Ethnic Group | Unknown | + + + Author + + + | Author | [facility] | | | and [place]eth[place] | + + + | Organization | [facility] | | | and [place] | + + + | Address | Unknown | + + + | Phone | Unavailable | + + + Support + + + + + | Name | Relationship | Address | Phone | + + + + + | Evelina Bryan Name | ECON | [place] | | | | | [address] | | + + + + + | Lizet Scott | ECON | Unknown | | + + + + + Care Team Providers + +------+ + | Care Paper Sheeter Name | Role | Phone | + [...] 2019 | | CARDIOLOGY [address] | [address] | | | | | [place], | | | | | | [place] [address] | | | | | | [phone] | | | +--------+ + + + [...]
--- OUTSIDE RECORDS SUMMARY | ~2019-12-03 | XMS | Encounter Summary ---
Demographics + + + | Address | [address] | | | [place] [address] | + + + | Home Phone | | + + + | Preferred Language | Unknown | + + + | Marital Status | Single | + + + | Oriental Orthodox Affiliation | 1074 | + + + | Race | Unknown | + + + | Ethnic Group | Unknown | + + + Author + + + | Author | [facility] | | | and [place] | + + + | Organization | [facility] | | | and [place] | + + + | Address | Unknown | + + + | Phone | Unavailable | + + + Support + + + + + | Name | Relationship | Address | Phone | + + + + + | Evelina Bryan Name | ECON | [place] | | | | | [address] | | + + + + + | Lizet Scott | ECON | Unknown | | + + + + + Care Team Providers + +------+ + | Care Academic Associate Name | Role | Phone | [...] | | | stage renal | [place] [address] | [address] [place] [address] | | | | | disease) | | [place], [place] | | | | | (HCC) | [place] | [address] [place] | | | | | Procedures | WAY | [place] | | | | | [place] ESRD | [place], | [address] Phone: | | | | | RELATED S[place] | [place] [address] | [phone] | | | | | MONTHLY | Phone: | Fax: | | | | | 20&/> YR OLD | [phone] | [phone] | | | | | 4/> VISITS | Fax: | | | | | | | [phone] | | +--------+--------+ + + + + [...] | | [address] | [place], [address] | (Primary Dx) | | | | [place], [place] | [place], [place] | | | | | [address] | [address] | | | | | [phone] | | | +--------+ + + + [...] 01/08/2019 10:00 AM PDT[Pt not seen. At [facility].] documented in thi s encounter Plan of Treatment Not on filedocumented as of this encounter Visit Diagnoses + + | Diagnosis | + + | End stage renal disease (HCC) - Primary End stage renal disease | + + documented in this encounter"
--- OUTSIDE RECORDS SUMMARY | ~2019-12-03 | XMS | Encounter Summary ---
Demographics + + + | Address | [address] | | | [place] [address] | + + + | Home Phone | | + + + | Preferred Language | Unknown | + + + | Marital Status | Single | + + + | Orthodoxy Affiliation | 1074 | + + + | Race | Unknown | + + + | Ethnic Group | Unknown | + + + Author + + + | Author | [facility] | | | and [place]eth[place] | + + + | Organization | [facility] | | [...] [place] | | | | | [address] | | + + + + + | Lizet Scott | ECON | Unknown | | + + + + + Care Team Providers + +------+ + | Care Waxer Operator Name | Role | Phone | [...] NEPHROLOGY [address] | MD [address] | | | | | [address] | [address] [place] | | | | | [place], [place] | [place] [address] | | | | | [address] | [phone] | | | | | [phone] | | | +--------+ + + + [...] Clinic, dos: 04/13/19 to Juan Carlos Barillas printing services coordinator, at her request regarding the referral from Dr. Eldridge to general surgery. Sent to Briana sheppard signed by Nidia Puga at 04/16/2019 9:28 AM PDTdocumented in this encounter Plan of Treatment Not on filedocumented as of this encounter Visit Diagnoses Not on filedocumented in this encounter"
--- OUTSIDE RECORDS SUMMARY | ~2019-12-03 | XMS | Encounter Summary ---
Demographics + + + | Address | [address] | | | [place] [address] | + + + | Home Phone | | + + + | Preferred Language | Unknown | + + + | Marital Status | Single | + + + | Denominational Affiliation | 1074 | + + + | Race | Unknown | + + + | Ethnic Group | Unknown | + + + Author + + + | Author | [facility] | | | and Jethroana | + + + | Organization | [facility] | | [...] [place] | | | | | [address] | | + + + + + | Lizet Scott | ECON | Unknown | | + + + + + Care Team Providers + +------+ + | Care X Ray Nurse Name | Role | Phone | [...] | | | | | | | [place] | | | | | | | [...] brachial | | | | [address] | [address] [place] | artery to cephalic | | | | [place], [place] | [place] [address] | vein | | | | [address] | [phone] | | | | | [phone] | | | +--------+---------+ + + + [...] Instructions Instructions Harman Plaza MD, FACS - 08/08/2018[facility] POST-OP INSTRUCTIONS: Arterio-Venous Fistula 1. Keep [...] | | | | | | | ([facility]), Dilated | | | | | | | cardiomyopathy | | | | | | | ([facility]), Type 2 | | | | | | | diabetes mellitus | | | | | | | with diabetic | | | | | | | nephropathy, with | | | | | | | long-term current | | | | | | | use of insulin | | | | | | | ([facility]), Anemia in | | | | | | | stage 5 chronic | | | | | | | kidney disease, not | | | | | | | on chronic dialysis | | | | | | | ([facility]) | | | | | [...] | | | | | PST | ([facility]) (N18.5) | | + +--------+ + [...] [address] | [place] | [phone] | | [facility] | | [address] | | | - LABORATORY | | [...] ST. | [address] | [place], [place] | [phone] | | [facility] | | [address] | | | - LABORATORY | | [...] mL/min/1.73m2 | [facility] | | | [facility] | RATE,ESTIMATED | | MEDICAL | | | | mL/min/1.10v9Qtvw than | | CENTER - | | [...] | | | | | mg/dL | [facility] | | | | | | [...] [address] | [place] | [phone] | | [facility] | | [address] | | | - LABORATORY | | [...]
--- OUTSIDE RECORDS SUMMARY | ~2019-12-03 | XMS | Encounter Summary ---
Demographics + + + | Address | [address] | | | [place] [address] | + + + | Home Phone | | + + + | Preferred Language | Unknown | + + + | Marital Status | Single | + + + | Druze Affiliation | 1074 | + + + | Race | Unknown | + + + | Ethnic Group | Unknown | + + + Author + + + | Author | [facility] | | | and [place]eth[place] | + + + | Organization | [facility] | | [...] [place] | | | | | [address] | | + + + + + | Lizet Scott | ECON | Unknown | | + + + + + Care Team Providers + +------+ + | Care Rag Cutting Machine Operator Name | Role | Phone [...] | (HCC) | [place] | [place] [address] | | | | | Dilated | [address] | Phone: | | | | | cardiomyopat | Phone: | [phone] | | | | | hy (HCC) | [phone] | Fax: | | | | | Type 2 | Fax: | [phone] | | | | | diabetes | [phone] | | | | | | mellitus [...] | | | | | disease, | [place], [place] | [place], [place] | | | | | stage 4 | [address] [place] | [address] [place] | | | | | (severe) | [place], [place] | [place] | | | | | (HCC) | [address] | [address] Phone: | | | | | Procedures | Phone: | [phone] | | | | | [place] OFFICE | [phone] | Fax: | | | | | OUTPATIENT | Fax: | [phone] | | | | | VISIT 25 | [phone] | | | | | | MINUTES | | | +--------+--------+ + + + + Encounter Details +--------+---------+ + + + | Date | Type | Department | Care Team | Description | +--------+---------+ + + + | 05/31/ | Office | [facility] | Lester Best | Chronic kidney | | 2018 | Visit | NEPHROLOGY [address] | M, DO [address] | disease, stage V | | | | [address] | [place], [address] | ([facility]) (Primary Dx); | | | | [place], [place] | [place] | Dilated | | | | [address] | [address] | cardiomyopathy | | | | [phone] | | ([facility]); Type 2 | | | | | | diabetes mellitus | | | | | | with diabetic | | | | | | nephropathy, with | | | | | | long-term current | | | | | | use of insulin | | | | | | ([facility]); Anemia in | | | | [...] 5. The secondary to CKD--not yet requiring ELWIS therapy. 6. SHPTH-- not yet requiring calcitriol. [...] clinic close to her home at the [facility], on [address] near the [place], [place]. 5. In regards to her ECF volume will decrease Lasix to 80 mg, 1, Q day and see if her BUN : Cr ratio, and GFR may modestly improved? 6. Will have her see Dr. Harman Plaza in the very near future for preoperative visit fo r construction of a zuni AVF, if she still is considering outpatient hemodialysis. Verbal ly, she did not appear, comfortable with CAPD. Again , will look at whether simultaneous tu nneled right IJ CVC, is this at that time if the GFR is < 10 ml/minute 7. Will plan to see her back in one month at the [facility], [place], [place]. She will have a CBC, CMP, PO4, iPTH, Vitamin D level, Iron profile, and 24 H our Urine one week prior to that. : [facility] Harman Plaza MD, FACS Tia Payne MD, [facility] documented in thi s encounter Plan [...] | | | use of insulin ([facility]) | | | | | [...] | | | | | | ([facility]) | | + +--------+ + + + | EXTERNAL LAB: | Routin | 05/30/2018 | Chronic kidney | Results for this | | PROTEIN, URINE, 24HR | e | | disease, stage V | procedure are in the | | | | | ([facility]) Dilated | results section. | | | | | cardiomyopathy ([facility]) | | | | | | Type 2 diabetes | | | | | | mellitus with | | | | | | diabetic | | | | | | nephropathy, with | | | | | | long-term current | | | | | | use of insulin ([facility]) | | | | | | Anemia in stage 5 | | | | | | chronic kidney | | | | | | disease, not on | | | | | | chronic dialysis | | | | | | ([facility]) | | + +--------+ + + [...] in the | | | | | ([facility]) Dilated | results section. | | | | | cardiomyopathy ([facility]) | | | | | | Type 2 diabetes | | | | | | mellitus with | | | | | | diabetic | | | | | | nephropathy, with | | | | | | long-term current | | | | | | use of insulin ([facility]) | | | | | | Anemia in stage 5 | | | | | | chronic kidney | | | | | | disease, not on | | | | | | chronic dialysis | | | | | | ([facility]) | | + +--------+ + + [...] 1.001 - 1.030 | | | | [place], | | | | | | UA, [...]
--- OUTSIDE RECORDS SUMMARY | ~2019-12-03 | XMS | Encounter Summary ---
Demographics + + + | Address | [address] | | | [place] [address] | + + + | Home Phone | | + + + | Preferred Language | Unknown | + + + | Marital Status | Single | + + + | Zoroastrian Affiliation | 1074 | + + + | Race | Unknown | + + + | Ethnic Group | Unknown | + + + Author + + + | Author | [facility] | | | and Jethroana | + + + | Organization | [facility] | [...] [place] | | | | | [address] | | + + + + + | Lizet Scott | ECON | Unknown | | + + + + + Care Team Providers + +------+ + | Care Storm Chaser Name | Role | Phone | + +------+ + PCP | Unavailable | + +------+ + Encounter Details +--------+ + + + + | Date | Type | Department | Care Team | Description | +--------+ + + + + | 05/12/ | Hospital | [facility] | Bri Olguin | | | 2018 | Encounter | MED CTR ACUTE | D, PT [address] | | | | | PHYSICAL THERAPY | [place] | | | | | [address] [place] | [address] | | | | | [place] [address] | | | | | | [phone] | | | +--------+ + + + [...]
--- OUTSIDE RECORDS SUMMARY | ~2019-12-03 | XMS | Encounter Summary ---
Demographics + + + | Address | [address] | | | [place] [address] | + + + | Home Phone | | + + + | Preferred Language | Unknown | + + + | Marital Status | Single | + + + | Protestant Affiliation | 1074 | + + + | Race | Unknown | + + + | Ethnic Group | Unknown | + + + Author + + + | Author | [facility] | | | and [place]eth[place] | + + + | Organization | [facility] | | | and [place] | + + + | Address | Unknown | + + + | Phone | Unavailable | + + + Support + + + + + | Name | Relationship | Address | Phone | + + + + + | Evelina Bryan Name | ECON | [place] | | | | | [address] | | + + + + + | Lizet Scott | ECON | Unknown | | + + + + + Care Team Providers + +------+ + | Care Real Estate Appraiser Name | Role | Phone | + [...] | | | | | Acute | [place], | [address] | | | | | combined | [place] | [place], | | | | | systolic and | [address] | [place] | | | | | diastolic | [address] | [address] | | | | | congestive | [place], | Phone: | | | | | heart | [place] | [phone] | | | | | failure | [address] | Fax: | | | | | (HCC) | Phone: | [phone] | | | | | Procedures | [phone] | | | | | | ECHO | Fax: | | | | | | Complete | [phone] | | +--------+--------+ + + + + [...] + + | 07/17/ | Hospital | [facility] | [place], | Acute combined | | 2019 | Encounter | MED CTR ECHO [address] | [place] [address] | systolic and | | | | [place] | [place], | diastolic congestive | | | | [place] [address] | [place] [address] | heart failure (HCC) | | | | [phone] | [phone] | | | | | | | [...] | | | | | | | ([facility]), Dilated | | | | | | | cardiomyopathy | | | | | | | ([facility]), Type 2 | | | | | | | diabetes mellitus | | | | | | | with diabetic | | | | | | | nephropathy, with | | | | | | | long-term current | | | | | | | use of insulin | | | | | | | ([facility]), Anemia in | | | | | [...] Volume | | | | | | ([facility]) | | | | | + +--------+ [...] | | | | | | n [place] | | | | | + +--------+ [...]
--- OUTSIDE RECORDS SUMMARY | ~2019-12-03 | XMS | Encounter Summary ---
Demographics + + + | Address | [address] | | | [place] [address] | + + + | Home Phone [...] + | Author | [facility] | | | and Jeth[place]ana | + + + | Organization | [facility] | [...] [place] | | | | | [address] | | + + + + + | Lizet Ghamber | ECON | Unknown | | + + + + + Care Team Providers + +------+ + | Care Hospital Cleaner Name | Role | Phone | [...] | | | stage renal | [place] [address] | [address] [place] [address] | | | | | disease) | | [place] | | | | | ([facility]) | [place]ATED | [address] | | | | | Procedures | WAY | [place] [address] | | | | | [place] ESRD | [place], | [address] Phone: | | | | | RELATED [facility] | [place] [address] | [phone] | | | | | MONTHLY | Phone: | Fax: | | | | | 20&/> YR OLD | [phone] | [phone] | | | | | 4/> VISITS | Fax: | | | | | | | [phone] | | +--------+--------+ + + + + [...] | | [address] | [place], [address] | (Primary Dx) | | | | [place], [place] | [place] | | | | | [address] | [address] | | | | | [phone] | | | +--------+ + + + [...] She is stable on outpatient dialysis at [facility] dialysis clinic. He states that her appetite [...] grade 1 diastolic dysfunction on echo, 07/17/2019. [facility]. 5. 3 vessel CAD, s/p three-vessel CABG, with LO to LAD, SVG to D2, SVG to PDA, 12/29/19 19, Dr. Phill Logan, [facility]. 6. Hyperlipidemia, unknown duration, on statin [...] SVG to D2, SVG to PDA, 12/28/2018, [facility]--stable. PLAN 1. I reviewed with Xochilt [...] will be rechecked in 2 weeks. : [facility] Tia Payne MD, [facility] documented in thi s encounter Plan of Treatment Not on filedocumented as of this encounter Visit Diagnoses + + | Diagnosis | + + | End stage renal disease (HCC) - Primary End stage renal disease | + + documented in this encounter"
--- OUTSIDE RECORDS SUMMARY | ~2019-12-03 | XMS | Encounter Summary ---
Demographics + + + | Address | [address] | | | [place] [address] | + + + | Home Phone [...] | Author | [facility] | | | and Jethroana | + + + | Organization | [facility] [...] [place] | | | | | [address] | | + + + + + | Lizet Scott | ECON | Unknown | | + + + + + Care Team Providers + +------+ + | Care Collet Driller Name | Role | Phone | + [...] | | | | | stripping | [place] | [address] | | | | | Skin lump of | [address] [place] | [place], | | | | | leg, right | [place], [place] | [place] [address] | | | | | Procedures | [address] | Phone: | | | | | | Phone: | [phone] | | | | | DOS | [phone] | Fax: | | | | | | Fax: | [phone] | | | | | | [phone] | | +--------+ + + + + + Encounter Details +--------+ + + + + | Date | Type | Department | Care Team | Description | +--------+ + + + + | 03/30/ | Orders Only | [facility] [place] | Shreya Eldridge W, | Status post vein | | 2019 | | NEPHROLOGY [address] | MD [address] | stripping (Primary | | | | [address] | [address] [place] | Dx); Skin lump of | | | | [place], [place] | [place] [address] | leg, right | | | | [address] | [phone] | | | | | [phone] | | | +--------+ + + + [...]
--- OUTSIDE RECORDS SUMMARY | ~2019-12-03 | XMS | Encounter Summary ---
Demographics + + + | Address | [address] | | | [place] [address] | + + + | Home Phone [...] | [facility] | | | and Jethroana | + + + | Organization | [facility] | | | and Jethroana | + + + | Address | Unknown | + + + | Phone | Unavailable | + + + Support + + + + + | Name | Relationship | Address | Phone | + + + + + | Evelina Bryan Name | ECON | [place] | | | | | [address] | | + + + + + | Lizet Scott | ECON | Unknown | | + + + + + Care Team Providers + +------+ + | Care Reverse Unit Operator Fisherman Name | Role | Phone | + [...] | 08/02/ | Telephone | [facility] [place] | Meryl, | Lab Order | | 2019 | | CARDIOLOGY [address] | [address] | | | | | [place], | [place], | | | | | [place] [address] | [place] [address] | | | | | [phone] | [phone] | | | | | | | [...]
--- OUTSIDE RECORDS SUMMARY | ~2019-12-03 | XMS | Encounter Summary ---
Demographics + + + | Address | [address] | | | [place] [address] | + + + | Home Phone | | + + + | Preferred Language | Unknown | + + + | Marital Status | Single | + + + | Episcopalian Affiliation | 1074 | + + + | Race | Unknown | + + + | Ethnic Group | Unknown | + + + Author + + + | Author | [facility] | | | and Jethroana | + + + | Organization | [facility] | | | and Jethroana | + + + | Address | Unknown | + + + | Phone | Unavailable | + + + Support + + + + + | Name | Relationship | Address | Phone | + + + + + | Evelina Bryan Name | ECON | [place] | | | | | [address] | | + + + + + | Lizet Scott | ECON | Unknown | | + + + + + Care Team Providers + +------+ + | Care Probation Officer Name | Role | Phone | [...] | | | | Chronic | Lester M, | Lestre M, DO | | | | | kidney | DO [address] | | | | | disease, | [place], [place] | [place], [place] | | | | | stage 4 | [address] [place] | [address] [place] | | | | | (severe) | [place], [place] | [place] | | | | | (HCC) | [address] | [address] Phone: | | | | | Procedures | Phone: | [phone] | | | | | [place] OFFICE | [phone] | Fax: | | | | | OUTPATIENT | Fax: | [phone] | | | | | VISIT 25 | [phone] | | | | | | MINUTES [...] | | [address] | [place], [address] | disease, not on | | | | [place], [place] | [place] | chronic dialysis | | | | [address] | [address] | ([facility]) (Primary Dx); | | | | [phone] | | Chronic kidney | | | | | | disease, stage V | | | | | | (HCC); Dilated | | | | | | cardiomyopathy | | | | | | (HCC); Secondary | | | | | | hyperparathyroidism | | | | | | of renal origin | | | | | | ([facility]LY [facility]) | +--------+ + + + + Social [...] her mind that she prefers Outpt HD, senior living. She understands that she still needs construction [...] that she will be dialyzing at the [facility] [place], [place]. MEDS: Outpatient Prescriptions Marked as Taking [...] a Hepatitis panel, and send pt through [facility]missions for Pre-Admission, so that she can be started as an outpt, once the tunneled cath. established. She was advise d that she should not shower or submerge it for 4 months. 3. Will start EPO, with her thrice weekly Rx's at [facility]. 4. Will likely follow up with myself or Dr. Shreya Eldridge at the [facility]. She was advised Not to have anymore BP's or Needlestick's in her Left arm in anticipation of a futur e AVF. 5. I greatly Appreciate Dr. Plaza's assistance. : [facility] Harman Plaza MD, FACS Tia Payne MD, [facility]. documented in thi s encounter Plan [...]
--- OUTSIDE RECORDS SUMMARY | ~2019-12-03 | XMS | Encounter Summary ---
Demographics + + + | Address | [address] | | | [place] [address] | + + + | Home Phone [...] + | Author | [facility] | | | and Jethroana | + + + | Organization | [facility] | | | and Jethroana | + + + | Address | Unknown | + + + | Phone | Unavailable | + + + Support + + + + + | Name | Relationship | Address | Phone | + + + + + | Evelina Bryan Name | ECON | [place] | | | | | [address] | | + + + + + | Lizet Scott | ECON | Unknown | | + + + + + Care Team Providers + +------+ + | Care Professional Development Instructor Name | Role | Phone | [...] | | | | | | | MO CREAT AV | | | | | | | FISTULA,NON- | | | | | | | AUTOGENOUS | | | | | | | GRAFT MO | | | | | | | ANASTOMOSIS, | | | | | | | AV,ANY SITE | | | | | | | MO INSJ | | | | | | | TUNNELED CVC | | | | | | | W/O SUBQ | | | | | | | PORT/SIGNALS COLLECTION TECHNICIAN AGE | | | | | | [...] + + | 07/25/ | Hospital | [facility] | Harman Plaza | | | 2019 | Encounter | MED CTR XRAY [address] | MD Aditi, FACS [address] | | | | | [place] | [address] [place] | | | | | [place] [address] | [place] [address] | | | | | [phone] | [phone] | | | | | | | [...] | | ([facility]LY [facility]), Dilated | | | | | | | cardiomyopathy | | | | | | | ([facility]), Type 2 | | | | | | | diabetes mellitus | | | | | | | with diabetic | | | | | | | nephropathy, with | | | | | | | long-term current | | | | | | | use of insulin | | | | | | | ([facility]), Anemia in | | | | | | | stage 5 chronic | | | | | | | kidney disease, not | | | | | | | on chronic dialysis | | | | | | | ([facility]) | | | | | | + [...]
--- OUTSIDE RECORDS SUMMARY | ~2019-12-03 | XMS | Encounter Summary ---
Demographics + + + | Address | [address] | | | [place] [address] | + + + | Home Phone | | + + + | Preferred Language | Unknown | + + + | Marital Status | Single | + + + | Roman Catholic Affiliation | 1074 | + + + | Race | Unknown | + + + | Ethnic Group | Unknown | + + + Author + + + | Author | [facility] | | | and Jethroana | + + + | Organization | [facility] | | [...] [place] | | | | | [address] | | + + + + + | Lizet Scott | ECON | Unknown | | + + + + + Care Team Providers + +------+ + | Care Radar Engineer Name | Role | Phone | [...] | | | | systolic and | [address] | THERAPY [address] | | | | | diastolic | [place], | [place] | | | | | congestive | [place] [address] | [place], [place] | | | | | heart | Phone: | [address] | | | | | failure | [phone] | Phone: | | | | | ([facility]) | Fax: | [phone] | | | | | Procedures | [phone] | Fax: | | | | | [place] | | [phone] | | | | | OUTPATIENT | [...] Orders Only | [facility] [place] | Jasenphyllisquita Tia, | Acute combined | | 2018 | | CARDIOLOGY [address] | MD [address] | systolic and | | | | [place], | [place], | diastolic congestive | | | | [place] [address] | [place] [address] | heart failure (HCC) | | | | [phone] | [phone] | (Primary Dx) | | | | [...]
--- OUTSIDE RECORDS SUMMARY | ~2019-12-03 | XMS | Encounter Summary ---
Demographics + + + | Address | [address] | | | [place] [address] | + + + | Home Phone | | + + + | Preferred Language | Unknown | + + + | Marital Status | Single | + + + | Christianity Affiliation | 1074 | + + + | Race | Unknown | + + + | Ethnic Group | Unknown | + + + Author + + + | Author | [facility] | | | and Jethroana | + + + | Organization | [facility] | | | and Jethroana | + + + | Address | Unknown | + + + | Phone | Unavailable | + + + Support + + + + + | Name | Relationship | Address | Phone | + + + + + | Evelina Bryan Name | ECON | [place] | | | | | [address] | | + + + + + | Lizet Sonia | ECON | Unknown | | + + + + + Care Team Providers + +------+ + | Care Cross Tie Turner Name | Role | Phone | + [...] + | 06/06/ | Telephone | [facility] | Tia Payne, | Other | | 2017 | | CARDIOLOGY [address] | [address] | | | | | [place], | [place], | | | | | [place] [address] | [place] [address] | | | | | [phone] | | | | | | | [...]
--- OUTSIDE RECORDS SUMMARY | ~2019-12-03 | XMS | Encounter Summary ---
Demographics + + + | Address | [address] | | | [place] [address] | + + + | Home Phone | | + + + | Preferred Language | Unknown | + + + | Marital Status | Single | + + + | Scientologist Affiliation | 1074 | + + + | Race | Unknown | + + + | Ethnic Group | Unknown | + + + Author + + + | Author | [facility] | | | and Jethroana | + + + | Organization | [facility] [...] [place] | | | | | [address] | | + + + + + | Lizet Scott | ECON | Unknown | | + + + + + Care Team Providers + +------+ + | Care Poultry Pinner Name | Role | Phone | + [...] | | | stage renal | [place] [address] | [address] [place] [address] | | | | | disease) | | [place], [place] | | | | | (HCC) | [place] | [address] [place] | | | | | Procedures | WAY | [address] [address] | | | | | [place] ESRD | [place], | [address] Phone: | | | | | RELATED SVC | [place] [address] | [phone] | | | | | MONTHLY | Phone: | Fax: | | | | | 20&/> YR OLD | [phone] | [phone] | | | | | 4/> VISITS | Fax: | | | | | | | [phone] | | +--------+--------+ + + + + [...] | | [address] | [place], [address] | (Primary Dx) | | | | [place], [place] | [place], [place] | | | | | [address] | [address] | | | | | [phone] | | | +--------+ + + + [...] II DM. She has transferred to the [facility] to be closer to home. Apparently she had an [facility] for pretransplant work-up and is to have definitive PCI at [place], [place].she denies any resting angina. She attends [...] ambivalent about this. 9. CAD, on recent [facility]--to have definitive PCI, outpatient the near future. [...] the Nephrology Service in 2 weeks. : [facility] Tia Payne MD, [facility] documented in thi s encounter Plan of Treatment Not on filedocumented as of this encounter Visit Diagnoses + + | Diagnosis | + + | End stage renal disease (HCC) - Primary End stage renal disease | + + documented in this encounter"
--- OUTSIDE RECORDS SUMMARY | ~2019-12-03 | XMS | Encounter Summary ---
Demographics + + + | Address | [address] | | | [place] [address] | + + + | Home Phone [...] | Author | [facility] | | | and Jethroana | + + + | Organization | [facility] | | [...] [place] | | | | | [address] | | + + + + + | Lizet Scott | ECON | Unknown | | + + + + + Care Team Providers + +------+ + | Care Printing Table Hand Name | Role | Phone | + [...] | General | | | | | ([facility]) | PA-C [address] | Surgery [address] | | | | | Procedures | | [address] | | | | | MD OFFICE | [place] | [place], | | | | | OUTPATIENT | WAY | [place] [address] | | | | | VISIT 25 | [place], | Phone: | | | | | MINUTES PO | [place] [address] | [phone] | | | | | Hemodialysis | Phone: | Fax: | | | | | Catheter | [phone] | [phone] | | | | | | Fax: | | | | | | | [phone] | | +--------+--------+ + + + + Encounter Details +--------+---------+ + + + | Date | Type | Department | Care Team | Description | +--------+---------+ + + + | 08/02/ | Office | [facility] | Harman Plaza | Chronic kidney | | 2019 | Visit | SURGERY [address] | MD Aditi, FACS [address] | disease, stage V | | | | [place], [place] | [facility] | (HCC) (Primary Dx); | | | | [address] | [place] [address] | Post-operative state | | | | [phone] | [phone] | | | | | | | [...] Same Day Surgery (corner of [address]) at 9:00AM. Your surgery is called RIGHT [...] successful and comfortable surgery. Sign up for [facility] if you want easy access to your medical information online. You can: Review your medications, immunizations, allergies and medical history. View details of your past and upcoming appointments. Sign up for [facility] if you want easy access to your medical information online. Only you, your doctor and your health care team are permitted to view the information sent through [employer]. Through [facility] you can: ? Review your medications, immunizations, [...] different ways you can sign up for [facility]: ? The first way is to get online at: [email or web address] and sign up directly throug h the website prior to your appointment with us. You can call [phone] ([phone]) if you have any questions or need assistance. ? The second way is through the [facility] ramos which can be accessed with any smart phone. Ju go to your ramos store and look up [email or web address]. ? The third way is to do [...] REPORT: PATIENT NAME : Xochilt Linares EQUIPMENT: SonCashEdgete M-Turbo with 10-5 mHertz probe. INDICATIONS: S/P [...]
--- OUTSIDE RECORDS SUMMARY | ~2019-12-03 | XMS | Encounter Summary ---
Demographics + + + | Address | [address] | | | [place] [address] | + + + | Home Phone | | + + + | Preferred Language | Unknown | + + + | Marital Status | Single | + + + | Quaker Affiliation | 1074 | + + + | Race | Unknown | + + + | Ethnic Group | Unknown | + + + Author + + + | Author | [facility] | | | and Jethroana | + + + | Organization | [facility] | | [...] [place] | | | | | [address] | | + + + + + | Lizet Scott | ECON | Unknown | | + + + + + Care Team Providers + +------+ + | Care Fibre Composite Technician Name | Role | Phone | [...] | | [address] | [place], [address] | | | | | [place], [place] | [place], [place] | | | | | [address] | [address] | | | | | [phone] | | | +--------+ + + + [...]
--- OUTSIDE RECORDS SUMMARY | ~2019-12-03 | XMS | Encounter Summary ---
Demographics + + + | Address | [address] | | | [place] [address] | + + + | Home Phone [...] + + | Author | [facility] | | | and Jethroana | + + + | Organization | [facility] | | | and Jethroana | + + + | Address | Unknown | + + + | Phone | Unavailable | + + + Support + + + + + | Name | Relationship | Address | Phone | + + + + + | Evelina Bryan Name | ECON | [place] | | | | | [address] | | + + + + + | Lizet Sonia | ECON | Unknown | | + + + + + Care Team Providers + +------+ + | Care Histology Assistant Name | Role | Phone | [...] | | | | renal | [place] [address] | [address] [place] [address] | | | | | disease | | [place] | | | | | ([facility]) | [place] | [address] | | | | | OFFSITE | WAY | [place] [address] | | | | | [place] | [place], | [address] Phone: | | | | | [place] | [place] [address] | [phone] | | | | | HEMO/EHO | Phone: | Fax: | | | | | Procedures | [phone] | [phone] | | | | | OFFSITE | Fax: | | | | | | VISIT | [phone] | | +--------+--------+ + + + + [...] | | [address] | [place], [address] | (Primary Dx) | | | | [place] | [place] | | | | | [address] | [address] | | | | | [phone] | | | +--------+ + + + [...] grade 1 diastolic dysfunction on echo, 07/17/2019. [facility]. 5. 3 vessel CAD, s/p three-vessel CABG, with LO to LAD, SVG to D2, SVG to PDA[facility]19 [facility] 6. Hyperlipidemia--currently on high intensity statin [...] SVG to D2, SVG to PDA, 12/28/2018, [facility]--stable. PLAN 1. Her Hb appears stable on the current [facility], EPO algorithm. Will need to hold the EPO . until the Hb is < 11.0 g/dl, while rechecking the Hb weekly. 2. Will recheck her PTH, Hba1c, iron profile, and adequacy next month. 3. Overall, Xochilt appears stable on her current Rx. She consistently attends all treatmen ts. : [facility] Tia Payne MD, [facility] documented in thi s encounter Plan of Treatment Not on filedocumented as of this encounter Visit Diagnoses + + | Diagnosis | + + | End stage renal disease (HCC) - Primary End stage renal disease | + + documented in this encounter"
--- OUTSIDE RECORDS SUMMARY | ~2019-12-03 | XMS | Encounter Summary ---
Demographics + + + | Address | [address] | | | [place] [address] | + + + | Home Phone [...] + | Author | [facility] | | | and Jethroana | + + + | Organization | [facility] | | | and Jethroana | + + + | Address | Unknown | + + + | Phone | Unavailable | + + + Support + + + + + | Name | Relationship | Address | Phone | + + + + + | Evelina Bryan Name | ECON | [place] | | | | | [address] | | + + + + + | Lizet Scott | ECON | Unknown | | + + + + + Care Team Providers + +------+ + | Care Floor Attendant Name | Role | Phone | [...] | | | | disease) on | [place], [place] | [place], [place] | | | | | dialysis | [address] [place] | [address] [place] | | | | | (HCC) | [place], [place] | [place] | | | | | Procedures | [address] | [address] Phone: | | | | | [place] OFFICE | Phone: | [phone] | | | | | OUTPATIENT | [phone] | Fax: | | | | | VISIT 25 | Fax: | [phone] | | | | | MINUTES | [phone] | | +--------+--------+ + + + + [...] | | [address] | [place], [address] | (Primary Dx); | | | | [place], [place] | [place], [place] | Essential | | | | [address] | [address] | hypertension, | | | | [phone] | | malignant; Anemia of | | [...] was obtained from the pat ient. Her skagway AVF works well and the Equistream catheter [...] the sutures in one week at the [facility]. : [place], [place]. Harman Plaza MD, MILES Knight PA-C. [...]
--- OUTSIDE RECORDS SUMMARY | ~2019-12-03 | XMS | Clinical Summary ---
Demographics + + + | Address | [address] | | | [place] [address] | + + + | Home Phone [...] Author | [facility] | | | and Jethroana | + + + | Organization | [facility] | | | and Jethroana | + + + | Address | Unknown | + + + | Phone | Unavailable | + + + Support + + + + + | Name | Relationship | Address | Phone | + + + + + | Evelina Bryan Name | ECON | [place] | | | | | [address] | | + + + + + | Lizet Sonia | ECON | Unknown | | + + + + + Care Team Providers + +------+ + | Care Inventory Control Manager Name | Role | Phone | [...] | | circulation. Collateralization; evidence of a [id number] | | collateralization from the distal LAD [...] Portable on 01/02/19 shows interval removal of [place] | | catheter. Interval placement of endotracheal [...] | | | 2019 | | | Talent Program Manager | | +--------+ + + + + [...] +---------+--------+ | MEDICAID [place] | MEDICA | [id number] | | [phone] | | Medica | | | [place] | | 018-Pr | 2 | | id | | | PLUS | | esent | | | | + +--------+ +--------+ +---------+--------+ | [employer] [facility] | IHS | [id number] | | | | [place] | | [...] coreen | | | 8 (Home) | [address] | + +--------+ +--------+ + + Advance Directives + + + + + | Type | Date Recorded | Patient | Explanation | | | | Environmental Health Safety Engineer | | + + + + + | Power of | | | | | Developer [employer] | | | | + + + [...]
[~2019-12-03 11:49] MED LIST changes: +ALDACTONE25 MG PO; +ASPIR-LOW81 MG PO; +CARVEDILOL6.25 MG PO; +FUROSEMIDE80 MG PO; +LIPITOR20 MG PO; +MAGNESIUM OXID400 M2 PO
--- OUTSIDE RECORDS SUMMARY | 2019-12-03 11:52 | XMS ---
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 EManan VISIT COUNT (12 MO.) 1 [facility] TOTAL 1 NOTE: Visits indicate total known visits. ED/UCC VISIT TRACKING (12 MO.) 12/03/2019 11:49 [facility] [place] TYPE: Emergency COMPLAINT: - TINGLING IN ARMS INPATIENT VISIT TRACKING (12 MO.) 12/25/2018 11:[address] [facility] [place] TYPE: Cardiology DIAGNOSES: - Dependence on renal dialysis - Presence of aortocoronary bypass graft - Atherosclerotic heart disease of [place] coronary artery witho - End stage renal disease - Cardiac arrest, cause unspecified [email or web address]
--- NOTE | 2019-12-04 12:08 | EKG ---
[facility] [address] [facility] [place] [address] Signed Normal sinus rhythm Possible Left atrial enlargement Left axis deviation Right bundle branch block Left ventricular hypertrophy Inferior infarct , age undetermined Abnormal ECG When compared with ECG of 04-SEP-2018 02:37, QRS axis shifted left Inferior infarct is now present Confirmed by MARLENY PETERSON DO ([id number]) on 12/04/2019 12:08:34 PM Electronically Signed By: MARLENY PETERSON DO 12/04/19 1208 PATIENT NAME: BLAIR HELLER Electrocardiogram DATE OF : 59 PHYSICIAN: MARLENY PETERSON DO REPORT #: [id number] REPORT IS CONFIDENTIAL AND NOT TO BE RELEASED WITHOUT AUTHORIZATION
== END 2019-12-03 18:25 | disposition short-term general hospital (02) ==
LOC: ED 11:49
DX: S14.103A Unspecified injury at C3 level of cervical spinal cord, initial encounter (principal); S14.104A Unspecified injury at C4 level of cervical spinal cord, initial encounter; E11.22 Type 2 diabetes mellitus with diabetic chronic kidney disease; I13.0 Hypertensive heart and chronic kidney disease with heart failure and stage 1 through stage 4 chronic kidney disease, or unspecified chronic kidney disease; N18.9 Chronic kidney disease, unspecified; I25.2 Old myocardial infarction; Z79.899 Other long term (current) drug therapy; W18.30XA Fall on same level, unspecified, initial encounter
CPT/HCPCS: 72141; 80053; 83735; 84484; 85025; 93005; 93010; 99285-25

== ENCOUNTER 2020-01-09 10:14 | Emergency (ER) | payer OTHER ==
[~2020-01-09] VITALS: Ht 165.1 cm; Wt 68.0 kg
--- OUTSIDE RECORDS SUMMARY | 2020-01-09 10:16 | XMS ---
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 Care History Medical/Surgical 12/04/2019 [facility] - PATIENT IS A [facility] ELIGIBLE, \T\middot;\T\nbsp; PLEASE REFER PATIENT TO [facility] FOR NON EMERGENT MEDICAL NEEDS. \T\middot;\T\nbsp; [facility] CAN SEE PATIENTS SAME DAY FOR APTS IF PATIENT CALLS FIRST THING IN THE MORNING. E.D. VISIT COUNT (12 MO.) [address] [facility] TOTAL 2 NOTE: Visits indicate total known visits. ED/UCC VISIT TRACKING (12 MO.) 01/09/2020 10:14 [facility] [place] TYPE: Emergency COMPLAINT: - KNEE PAIN 12/03/2019 11:49 [facility] [place] TYPE: Emergency COMPLAINT: - TINGLING IN ARMS DIAGNOSES: - Type 2 diabetes mellitus with diabetic chronic kidney disease - Paresthesia of skin - Old myocardial infarction - Unspecified injury at C3 level of cervical spinal cord, initi - Fall on same level, unspecified, initial encounter - Other snf (current) drug therapy - Unspecified injury at C4 level of cervical spinal cord, initi - Chronic kidney disease, unspecified - Hypertensive heart and chronic kidney disease with heart fail INPATIENT VISIT TRACKING (12 MO.) 12/03/2019 20:34 [facility] [place] TYPE: Neuro Surgery DIAGNOSES: - . 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
== END 2020-01-09 17:14 | disposition home or self-care (01) ==
LOC: ED 10:14
DX: S83.92XA Sprain of unspecified site of left knee, initial encounter (principal); I13.0 Hypertensive heart and chronic kidney disease with heart failure and stage 1 through stage 4 chronic kidney disease, or unspecified chronic kidney disease; E11.22 Type 2 diabetes mellitus with diabetic chronic kidney disease; N18.9 Chronic kidney disease, unspecified; I50.9 Heart failure, unspecified; D63.1 Anemia in chronic kidney disease; I25.2 Old myocardial infarction; Z79.899 Other long term (current) drug therapy; Z79.82 Long term (current) use of aspirin; W18.30XA Fall on same level, unspecified, initial encounter
CPT/HCPCS: 73560; 99283-25